=== PATIENT | female | born 1980 | race Caucasian/White ===

== ENCOUNTER 2020-08-21 06:24 | Emergency (ER) | payer MEDICAID, SELFPAY ==
[2020-08-21 06:25] VITALS: BP 121/99; PULSE 124; RESP 18; TEMP 36.8; O2SAT 100; BMI 38.8
[2020-08-21 06:28] VITALS: BP 121/93; PULSE 106; RESP 18; TEMP 36.8; O2SAT 100
--- NOTE | 2020-08-21 06:54 | ED.DCSUM_ITS ---
History of Present Illness Chief Complaint: Complaint Informant: Patient Narrative: 39-year-old female presents with lower abdominal pain and urinary frequency. She tells me she went to bed last night feeling fine. She woke during the night with some lower abdominal discomfort and felt like she needed to urinate. She now notes urinary frequency and after each urination gets spasms. No radiation to the back. Normal bowel movements. No fevers nausea vomiting or diarrhea. No rashes. Past Medical History - Allergies and Home Meds Allergies/Adverse Reactions: Allergies mustard Allergy (Verified 08/21/20 06:30) Angioedema oxycodone Allergy (Verified 08/21/20 06:30) Hives Primary Care Physician: [facility] Doctor,Out of [Primary Care Provider] - Past Medical History: - - Chiari malformation. benign pituitary tumor. Remote kidney stone history Surgical History: - - Chiari malformation decompression Smoking Status: Current every day smoker Drugs: None Review of Systems General: Denies: Chills, Fever, Sweats Eyes: Denies: Visual changes - bilaterally, Diplopia ENT: Denies: Rhinorrhea, Sore throat Cardiovascular: Denies: Chest pain, Palpitations Respiratory: Denies: Dyspnea, Cough, Dyspnea on exertion Gastrointestinal: Reports: Abdominal pain. Denies: Nausea, Vomiting, Diarrhea, Melena, Hematochezia Genitourinary: Reports: Frequency. Denies: Dysuria, Hematuria Musculoskeletal: Denies: Back pain, Extremity Pain Skin: Denies: Rash, Wounds Neurological: Denies: Headache, Weakness, Numbness Physical Exam Vital Signs/Narrative: Vital Signs Temp Pulse Resp BP Pulse Ox 08/21/20 06:28 98.2 F 106 H 18 121/93 H 100 08/21/20 06:25 98.2 F 124 H 18 121/99 H 100 Inital Vital Signs reviewed: Yes General: Well nourished, Well developed, Obese, No Acute Distress Head: Normocephalic, Atraumatic Eyes: Perrl, EOMI ENT: Moist mucous membranes, No rhinorrhea Neck: Supple, Nontender Cardiovascular: Regular rate, Regular rhythm, No murmurs Respiratory: No distress, CTA bilaterally, Chest nontender Abdomen: Soft, Nondistended, Normal bowel sounds, Tender - Tender to palpation of the suprapubic region. Negative for: Guarding, Rebound tenderness Back: Nontender, Normal Inspection Extremities: Nontender, No edema Skin: Normal color, No rash Neurological: Alert, Oriented x3, Cranial nerves II-XII grossly intact, Normal Strength, Normal Sensation Psychological: Normal affect, Normal Mood Diagnostic/Tx/Re-eval Laboratory Last Values Urine Color Yellow (Yellow) 08/21/20 06:45 Urine Clarity Sl. Cloudy (Clear) 08/21/20 06:45 Urine pH 6.5 (5.0 - 8.0) 08/21/20 06:45 Ur Specific [place] 1.010 (1.002-1.030) 08/21/20 06:45 Urine Protein 15 mg/dl (Negative) H 08/21/20 06:45 Urine Glucose (UA) Normal mg/dl (Normal) 08/21/20 06:45 Urine Ketones Negative mg/dl (Negative) 08/21/20 06:45 Urine Occult Blood 150 /ul (Negative) H 08/21/20 06:45 Urine Nitrite Negative (Negative) 08/21/20 06:45 Urine Bilirubin Negative mg/dL (Negative) 08/21/20 06:45 Urine Urobilinogen Normal mg/dl (Normal) 08/21/20 06:45 Ur Leukocyte Esterase 500 /ul (Negative) H 08/21/20 06:45 Urine RBC 0-5 SEEN /hpf (0-5) 08/21/20 06:45 Urine WBC 25-50 SEEN /hpf (0-5) 08/21/20 06:45 Ur Squamous Epith Cells 0-5 SEEN /hpf (5-10) 08/21/20 06:45 Urine Bacteria 1+ /hpf (None Seen) 08/21/20 06:45 Urine Mucus 0 SEEN /hpf (<or=2+) 08/21/20 06:45 Urine Test Negative Negative 08/21/20 06:45 - Medical Decision Making Urinalysis demonstrates 25-50 white cells 1+ bacteria and positive leukocyte esterase. This will be sent for culture. Patient received Pyridium here in the department. I will write for that at home as well as Macrobid. Follow-up with primary care return if worsening or concerns ED Disposition - Plan for ED Patient: Disposition: Home or Assisted Living Diagnosis: Acute cystitis Instructions: ED Bladder Infection, Female (Adult) Prescriptions: Nitrofurantoin Macrocrystals [Macrobid] 100 mg PO Q12 #10 capsule Prescription Printed Phenazopyridine HCl [Pyridium] 200 mg PO TID #9 tablet Prescription Printed Referrals: [facility] Doctor,Out of [Primary Care Provider] - As Needed
[2020-08-21] MEDS: Phenazopyridine 95 MG Tablet 190 MG PO (07:09)
[2020-08-21 07:16] LABS: Mucous, Urine 0 SEEN /hpf (<or=2+)
[2020-08-21 07:20] LABS: Color, Urine Yellow (Yellow); Glucose, Dipstick Normal (Normal); Ketone-Dipstick Negative (Negative); Leukocyte Esterase-Dipstick 500 /ul (Negative); Nitrite-Dipstick Negative (Negative); Occult Blood-Urine 150 /ul (Negative); Protein-Dipstick 15 mg/dl (Negative); Urine Bilirubin Dipstick Negative (Negative); Urine Clarity Sl. Cloudy (Clear); Urine Urobilinogen Normal (Normal); Urine pH 6.5 (5.0 - 8.0)
[2020-08-21 07:21] LABS: Internal QC Validated? YES +Cl - CLEAR BKGD; Pregnancy, Urine Negative Negative
[2020-08-21 07:25] LABS: Bacteria 1+ /hpf (None Seen); Red Blood Cells-Urine 0-5 SEEN /hpf (0-5); Squamous Epithelial Cells - UA 0-5 SEEN /hpf (5-10); White Blood Cells 25-50 SEEN /hpf (0-5)
[2020-08-21 07:50] VITALS: BP 128/86; PULSE 105; RESP 17; O2SAT 96
== END 2020-08-21 07:50 | disposition home or self-care (01) ==
LOC: ED 07:34
PROVIDERS: Emergency Provider Emergency Medicine
DX: N30.00 Acute cystitis without hematuria (principal); E66.9 Obesity, unspecified; F17.200 Nicotine dependence, unspecified, uncomplicated; Z87.442 Personal history of urinary calculi; Z88.5 Allergy status to narcotic agent
CPT/HCPCS: 81001; 81025; 87086; 87088; 87186; 99283

== ENCOUNTER 2020-12-24 18:54 | Emergency (ER) | payer MEDICAID, SELFPAY ==
[2020-12-24] VITALS (7 sets, daily range): BP systolic 132–153; BP diastolic 81–116; PULSE 93–121; RESP 18–30; TEMP 37.1; O2SAT 96–99; BMI 38.8
--- NOTE | 2020-12-24 19:10 | EDS_ITS ---
HPI History of Present Illness Chief Complaint: Chest Pain Detail of Chief Complaint: Chest pain that started 4 hours ago Informant: patient Onset/Context/Timing Quality: Positive for Tightness Narrative Narrative: Patient presents to the emergency department complaint chest pain that started about 4 hours ago. She describes sudden onset of symptoms. She went to work thinking it might just be anxiety or a pulled muscle but the pain continued. She describes a squeezing and throbbing in the left chest. Pain worse with deep breath and certain movements. She is never had pain like this before. She denies recent illness. She denies fever or cough. No family history of heart disease. No history of PE or DVT. PFSH PFSH Home Medications nitrofurantoin monohyd/m-cryst 100 mg PO Q12 #10 capsule 08/21/20 [Rx Last Taken Unknown] phenazopyridine 200 mg PO TID #9 tablet 08/21/20 [Rx Last Taken Unknown] apixaban [Eliquis] 10 mg PO BID #28 tab 12/24/20 [Rx Last Taken Unknown] hydrocodone-acetaminophen 1 tab PO Q4H PRN PRN 2 Days #10 tablet 12/24/20 [Rx Last Taken Unknown] Allergy/AdvReac Type Severity Reaction Status Date / Time mustard Allergy Angioedema Verified 12/24/20 18:55 oxycodone Allergy Hives Verified 12/24/20 18:55 Surgical History (Updated 12/24/20 @ 19:42 by Belén Ley) H/O: hysterectomy History of cranial surgery Social History Smoking Status: Current every day smoker tobacco type: cigarettes ROS ROS ED Review of Systems ROS Unobtainable: other Constitutional Constitutional ED: Reports lethargy; Denies chills, fever(s), sweats or weight loss Eyes Eyes: Denies blurry vision, change in vision or diplopia ENT ENT ED: Denies rhinorrhea or sore throat Cardiovascular Cardiovascular: Reports chest pain and racing heartbeat; Denies orthopnea Respiratory/Chest Respiratory/Chest: Reports dyspnea and dyspnea on exertion; Denies cough, orthopnea or sputum Gastrointestinal Gastrointestinal: Denies abdominal pain, diarrhea, nausea or vomiting Genitourinary Genitourinary ED: Denies dysuria, hematuria or urinary frequency Musculoskeletal Musculoskeletal: Denies arthralgias, back pain, myalgias or neck pain Integumentary Denies abscess, Abrasions or rash Neurologic Neurologic: Denies headache(s) or weakness Psychiatric Psychiatric: Denies anxiety, depression or suicidal thoughts Endocrine Endocrinology: Denies polydipsia, polyphagia or polyuria Hematologic/Lymphatic Hematologic/Lymphatic: Denies easy bleeding, easy bruising or lymphadenopathy Allergic/Immunologic Allergic/Immunologic ED: Denies mouth swelling, tongue swelling or urticaria EXAM Physical Exam Const Vital Signs: 12/24/20 18:55 12/24/20 19:29 12/24/20 19:41 Temperature 98.8 F Temperature Source Temporal Pulse Rate 121 H 107 H Respiratory Rate 30 H 18 Blood Pressure 153/116 H 132/81 H Blood Pressure Mean 128 98 Pulse Ox 98 96 96 Oxygen Delivery Method Room Air Room Air Room Air 12/24/20 21:02 Temperature Temperature Source Pulse Rate 93 Respiratory Rate 18 Blood Pressure 132/92 H Blood Pressure Mean 105 Pulse Ox 97 Oxygen Delivery Method Room Air Positive well nourished and well developed General Appearance ED: well developed and NAD HEENT Reports TM's clear and moist mucous membranes normocephalic and atraumatic; Negative for trauma or tenderness Tympanic Membrane ED: Yes TM's clear Eyes PERRL and EOMs intact bilaterally General Eye ED: Negative for pale conjunctiva or scleral icterus Neck no lymphadenopathy, supple and no JVD General: Negative for tenderness Chest Wall inspection of chest normal and palpation of chest normal Chest: Negative for tenderness Resp normal respiratory effort and clear to auscultation bilaterally Effort and Inspection: Negative for respiratory distress or pain with movement Auscultation: Negative for rhonchi, wheezes or diminished lung sounds Cardio regular rate, regular rhythm, S1 normal heart sound, S2 normal heart sound and no murmurs Peripheral Pulses: pulses 2+ throughout GI normal to inspection, nondistended, normoactive bowel sounds, soft to palpation, non-tender, non-distended and no masses Back/Spine no CVA tenderness and no thoracic nor lumbar tenderness Extremity normal to inspection General Extremety ED: Negative for edema General Extremity: Negative for edema Neuro oriented x3, CN's II-XII intact bilaterally, no sensory deficits noted and gait normal Sensorium / Orientation: awake, alert, oriented to person, oriented to place and oriented to time Motor Exam: strength 5/5 throughout and strength abnormal Psych mental status grossly normal Skin no rashes or lesions noted and no wounds MDM MDM MDM Narrative Medical decision making narrative: I do not feel patient is having acute coronary syndrome. Etiology of her chest pain is unclear. Radiology did call with results of CTA and stated that this was a poor study and could lead to false positive findings for PE. Radiologist felt there could be small peripheral bilateral PEs. Patient was advised of these findings and at this point recommended starting Eliquis for the next week and I will send off clotting profile. I feel patient can be discharged home. She will need a repeat CTA chest to reevaluate. Patient will follow up with her primary care physician this week to have a repeat CTA. Lab Data Attestation: I reviewed the patient's lab results. Labs: Laboratory Results - last 24 hr 12/24/20 12/24/20 12/24/20 19:25 19:25 19:25 WBC 9.8 RBC 4.22 Hgb 12.8 Hct 37.9 MCV 89.8 MCH 30.3 MCHC 33.8 RDW Std Deviation 42.0 RDW Coeff of Eliazar 12.8 Plt Count 226 MPV 12.0 Immature Gran % (Auto) 0.500 Neut % (Auto) 44.1 L Lymph % (Auto) 42.4 H [place] % (Auto) 7.1 Eos % (Auto) 4.9 Baso % (Auto) 1.0 Absolute Neuts (auto) 4.3 Absolute Lymphs (auto) 4.16 Nucleated RBC % 0 D-Dimer Quant (PE/DVT) 0.75 H* Sodium 140 Potassium 3.4 L Chloride 109 H Carbon Dioxide 24.0 Anion Gap 7 BUN 10 Creatinine 0.82 Estim Creat Clear Calc 87.80 Est GFR (MDRD) Af Amer 99 Est GFR (MDRD) Non-Af 82 BUN/Creatinine Ratio 12.2 Glucose 127 H Calcium 8.6 Troponin I High Sens 5 Radiography Chest X-Ray - ED: 1 View Diagnostic Testing: Radiology Impression Chest X-Ray 12/24/20 19:45 IMPRESSION: No radiographic evidence of acute cardiopulmonary disease. Electronically Signed: Eze Valentin DO at 20:44 EDT Tel , Service support , 1 view chest x-ray obtained interpreted by myself as no acute disease process. EKG Initial EKG: Attestation: I personally reviewed and interpreted this EKG as follows: Comments: Sinus rhythm with a ventricular rate of 102 bpm with no acute ST segment changes. Discharge Plan Triage Chief Complaint: Chest Pain ED Provider: Reji Acevedo Dx/Rx/DC Orders Clinical Impression: Chest pain, Pulmonary embolism Instructions: Embolism Pulmonary Dc, ED Chest Pain, Uncertain Cause Prescriptions: New hydrocodone-acetaminophen [hydrocodone-acetaminophen] 1 TABLET tablet 1 tab PO Q4H PRN PRN (Reason: Pain) 2 Days Qty: 10 RF: 0 Eliquis 5 mg tablet 10 mg PO BID Qty: 28 RF: 0 No Action phenazopyridine 200 MG tablet 200 mg PO TID Qty: 9 RF: 0 nitrofurantoin monohyd/m-cryst 100 MG capsule 100 mg PO Q12 Qty: 10 RF: 0 Primary Care Provider: Care Physician,No Primary Referrals: Care Physician,No Primary [Primary Care Provider] - Activity Restrictions/Additional Instructions: Follow-up with your family doctor to have a repeat CAT scan of the chest to rule out blood clot within the next 2 to 3 days. Disposition Disposition: Home, Self Care
--- NOTE | 2020-12-24 19:10 | EKG12_ITS ---
Test Reason : CP,SOB Blood Pressure : / mmHG Vent. Rate : 102 BPM Atrial Rate : 102 BPM P-R Int : 134 ms QRS Dur : 092 ms QT Int : 350 ms P-R-T Axes : 057 013 050 degrees QTc Int : 456 ms Sinus tachycardia Otherwise normal ECG Confirmed by TIFFANY REYNOLDS, WALDO ([id number]), loan expeditor BETSEY KRUGER ([id number]) on 12/28/2020 10:55:44 AM Referred By: INO Confirmed By:WALDO ALLEN MD
[2020-12-24] MEDS: LORazepam 2 MG/ML Syringe 1 MG IV (19:36)
[2020-12-24] MEDS: 0.9% Normal Saline 1,000 ML 150 ML IV (19:36)
[2020-12-24] MEDS: Morphine 4 MG/ML Syringe IV (19:37)
[2020-12-24] MEDS: Aspirin 81 MG TAB.CHEW 324 MG PO (19:38)
[2020-12-24 19:45] LABS: Absolute Lymphocyte Count 4.16 X10^3/uL (0.83-4.51); Absolute Neutrophil Count 4.3 X10^3/uL (2.0-7.7); Eosinophil# 0.48 X10^3/uL; Eosinophils% 4.9 % (0-5); Hematocrit 37.9 % (37-47); Hemoglobin 12.8 g/dL (12.0-15.0); Lymphocyte # 4.16 X10^3/ul (0.83-4.51); Lymphocyte % 42.4 % (19-41); Mean Corp Hgb Conc 33.8 g/dL (32-36); Mean Corpuscular Hgb 30.3 pg (27.0-32.0); Mean Corpuscular Volume 89.8 fL (81-99); Monocyte% 7.1 % (0-10); NRBC Flagged by Analyzer 0 % (0-5); Neutrophil # 4.33 X10^3/uL (2.7-7.7); Neutrophil % 44.1 % (47-70); Platelet Count 226 K/mm3 (150-450); RBC Distribution Width CV 12.8 % (11.6-14.6); Red Blood Count 4.22 M/mm3 (4.2-5.4); White Blood Count 9.8 K/mm3 (4.4-11.0)
--- NOTE | 2020-12-24 19:45 | RAD_ITS ---
INDICATION: chest pain EXAMINATION/TECHNIQUE: X-RAY - XR Chest 1 View COMPARISON: None. FINDINGS: LINES/DEVICES: None. LUNGS: No consolidation, edema or effusion. No pneumothorax. MEDIASTINUM AND CARDIOVASCULAR STRUCTURES: Cardiac silhouette not enlarged. Central airways and mediastinal contour are unremarkable. BONES AND SOFT TISSUES: Unremarkable. RAD/Chest 1 View (Portable) IMPRESSION: No radiographic evidence of acute cardiopulmonary disease. Electronically Signed: Eze Valentin DO at 20:44 EDT Tel , Service support ,
[2020-12-24 20:02] LABS: Anion Gap 7 (5-15); BUN 10 mg/dL (7-18); BUN/Creat Ratio 12.2 RATIO (10-20); Calcium,Total 8.6 mg/dL (8.5-10.1); Chloride 109 mmol/L (98-107); Creatinine, Serum 0.82 mg/dL (0.55-1.02); EST Glomerular Filtration Rate 82 mL/min (>60); Est Glom Filt Rate - Afr Amer 99 mL/min (>60); Glucose 127 mg/dL (74-106); Potassium 3.4 mmol/L (3.5-5.1); Sodium Level 140 mmol/L (136-145); Troponin-I HS 5 pg/mL (3.0-54.0)
[2020-12-24 20:11] LABS: D-Dimer Quantitative (DVT/PE) 0.75 FEU/ug/m (0.27-0.49)
--- NOTE | 2020-12-24 20:44 | CT_ITS ---
We are attempting to reach an attending provider to discuss findings. An addendum with communication details will be sent when the communication is complete. STUDY: CTA CHEST REASON FOR EXAM: Female, 40 years old. chest pain RADIATION DOSAGE (If Supplied By Facility): CTDIvol = ( 19.77 ) mGy, DLP = ( 514.99 ) mGycm TECHNIQUE: The examination was performed with the intravenous administration of IV 100mL Isovue-370. Post-processing of the angiographic images was performed, with multiplanar reformation and 3D reconstruction. Individualized dose optimization techniques were used for this CT. COMPARISON: None. FINDINGS: Less than 200 [place] units contrast density within the proximal right left pulmonary arteries; suboptimal exam. Additionally there is motion artifact in the lung bases. No definite pulmonary artery embolism as exemplified however assessment is limited. Large right or left main pulmonary artery embolism is confidently excluded. There is no evidence of right heart strain. Normal thoracic aorta and visualized great vessels. There is no demonstrated aortic dissection. Normal heart and pericardium. Normal mediastinum. Normal hilar regions. Normal visualized trachea and bronchi. The lungs are well expanded. Normal pulmonary parenchyma. Normal pleura. Normal chest wall structures. No significant distal cervical spine degenerative endplate sclerotic changes. Normal visualized upper abdomen. CT/CTA Chest W/WO Contrast IMPRESSION: 1. Significantly limited exam. Right or left main pulmonary artery pulmonary embolism is confidently excluded. More distal pulmonary emboli cannot be confidently excluded. 2. No pulmonary findings. Electronically Signed: Eze Valentin DO at 23:14 EDT Tel , Service support ,
[2020-12-24] MEDS: APIXABAN 5 MG TABLET 10 MG PO (23:03)
== END 2020-12-24 23:10 | disposition home or self-care (01) ==
PROVIDERS: Emergency Provider Emergency Medicine
DX: R07.9 Chest pain, unspecified (principal); I26.99 Other pulmonary embolism without acute cor pulmonale; F17.210 Nicotine dependence, cigarettes, uncomplicated
CPT/HCPCS: 71045; 71275; 80048; 84484; 85025; 85379; 93005; 96361; 96374; 96375; 99284; J7030; Q9967; A4216

== ENCOUNTER 2021-03-06 08:32 | Observation (INO) | payer MEDICAID, SELFPAY ==
[2021-03-06] VITALS (16 sets, daily range): BP systolic 117–144; BP diastolic 63–99; PULSE 63–91; RESP 12–20; TEMP 36.6–36.8; O2SAT 95–100; BMI 41.3; BMI 38.7
--- NOTE | 2021-03-06 08:34 | RAD_ITS ---
STUDY: X-RAY CHEST REASON FOR EXAM: Female, 40 years old. Neuro deficit, acute, stroke suspected TECHNIQUE: Single AP portable view of the chest. COMPARISON: Comparison is made with prior study 12/24/2020 FINDINGS: EKG electrodes are seen. The lungs are clear and expanded. There is no demonstrated pleural abnormality. Normal size heart. Normal mediastinum and darren. Normal visualized pulmonary arteries. Normal visualized aortic arch and descending thoracic aorta. There are degenerative changes of the visualized thoracic spine. Normal visualized ribs, clavicles, and shoulders. There is no demonstrated abnormality of the visualized soft tissue structures of the upper abdomen. RAD/Chest 1 View IMPRESSION: Normal x-ray examination of the chest. Electronically Signed: Marquis Renee MD at 9:55 EDT , Service support ,
--- NOTE | 2021-03-06 08:34 | CT_ITS ---
STUDY: CT HEAD STROKE PROTOCOL W/O CONTRAST INJECTION REASON FOR EXAM: Female, 40 years old. Neuro deficit, acute, stroke suspected RADIATION DOSAGE (If Supplied By Facility): CTDIvol = ( 47.06 ) mGy, DLP = ( 872.68 ) mGycm TECHNIQUE: Transaxial CT imaging of the brain was performed without administration of intravenous contrast material. Individualized dose optimization techniques were used for this CT. COMPARISON: No relevant priors. FINDINGS: Normal soft tissue structures. Normal calvarium. Normal size ventricles and extra-axial spaces for the patient''s age. Normal white matter tracts of the cerebral hemispheres. Normal basal ganglia and thalami. Normal brainstem. Normal cerebellum. There is no intracranial hemorrhage. There are no findings of an acute ischemic infarction. Mucosal thickening of the ethmoid sinuses bilaterally. CT/STROKE Brain/Head without Cont IMPRESSION: Normal unenhanced CT scan of the brain. Mucosal thickening of the ethmoid sinuses. N.B. : The above Results were Read Back by Marquis Renee MD to Reji Acevedo and understanding confirmed on 03/06/2021 08:52:00 (ET). Electronically Signed: Marquis Renee MD at 8:53 EDT , Service support ,
--- NOTE | 2021-03-06 08:34 | EKG12_ITS ---
Test Reason : STROKE Blood Pressure : / mmHG Vent. Rate : 074 BPM Atrial Rate : 074 BPM P-R Int : 000 ms QRS Dur : 092 ms QT Int : 398 ms P-R-T Axes : 000 025 024 degrees QTc Int : 441 ms Sinus vs ectopic atrial rhythm Confirmed by LISA REYNOLDS, TONJA ([id number]), video tape editor BETSEY KRUGER ([id number]) on 03/08/2021 8:56:00 AM Referred By: THERESA Confirmed By:TONJA GONZALEZ MD
--- NOTE | 2021-03-06 08:35 | CT_ITS ---
STUDY: CTA HEAD AND NECK WITH CONTRAST REASON FOR EXAM: Female, 40 years old. Neuro deficit, acute, stroke suspected RADIATION DOSAGE (If Supplied By Facility): CTDIvol = ( 33.6 ) mGy, DLP = ( 1669.43 ) mGycm TECHNIQUE: CT angiography was performed with a multi-detector CT scanner. Data acquisition was obtained from the skull base through the vertex following intravenous administration of IV 100ML ISOVUE 370. MIP images were reconstructed from the axial data set. Post-processing of the angiographic images was performed, with multiplanar reformation and 3D reconstruction. Individualized dose optimization techniques were used for this CT. COMPARISON: No relevant priors. FINDINGS: Normal bilateral petrous carotid arteries. Normal right cavernous carotid artery with a normal supraclinoid bifurcation. Normal left cavernous carotid artery with a normal supraclinoid bifurcation. Normal right A1 segments of the anterior cerebral artery. Normal left A1 segments of the anterior cerebral artery. Normal intact anterior communicating artery (ACOM). Normal bilateral A2 segments of the anterior cerebral arteries. Normal right M1 and M2 segments of the middle cerebral arteries, with a normal M1 bifurcation. Normal left M1 and M2 segments of the middle cerebral arteries, with a normal M1 bifurcation. 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 There is a persistent origin of the left posterior cerebral artery with absence of the posterior communicating artery (PCOM). Normal bilateral vertebral arteries. Normal basilar artery with a normal basilar bifurcation. The visualized bilateral superior cerebellar (SCA) arteries are normal. Normal bilateral P1, P2 and visualized P3 segments of the posterior cerebral arteries. There is no demonstrated aneurysm of the [place]. Mucosal thickening of the ethmoid sinuses. AORTIC ARCH: There is atherosclerotic calcific plaque formation of the aortic arch and great vessels arising from the aortic arch, without a hemodynamically significant stenosis. There is a bovine origin of the great vessels with a common origin of the brachiocephalic and left common carotid artery. Normal origin of the left subclavian artery. Mild enlargement of the thyroid gland more prominent on the left side. RIGHT CAROTID ARTERIES: Normal right common carotid artery (CCA). Normal right common carotid bulb. Normal origin of the right internal carotid (ICA) artery without a hemodynamically significant stenosis. Normal visualized cervical portion of the right internal carotid artery. Normal origin of the right external carotid artery (ECA). LEFT CAROTID ARTERIES: Normal left common carotid artery (CCA). Normal left common carotid bulb. Normal origin of the left internal carotid (ICA) artery without a hemodynamically significant stenosis. Normal visualized cervical portion of the left internal carotid artery. Normal origin of the left external carotid artery (ECA). VERTEBRAL ARTERIES: Normal bilateral vertebral arteries. CT/STROKE CTA Head AND Neck W/Con IMPRESSION: Normal CTA Head and neck with contrast. N.B. : The above Results were Read Back by Marquis Renee MD to Reji Acevedo and understanding confirmed on 03/06/2021 09:37:16 (ET). Electronically Signed: Marquis Renee MD at 9:38 EDT , Service support ,
--- NOTE | 2021-03-06 08:36 | ED.VIS.STROK ---
HPI History of Present Illness Chief Complaint: Neuro S/Sx Detail of Chief Complaint: Left-sided weakness and headache Informant: patient and EMS Narrative Narrative: Patient presents to the ER via EMS from home. Approximately half an hour ago she had gotten up to use the restroom and when she came back apparently per family members was complaining of a headache and had a hard time moving her left side. EMS was called. Patient states the headache came on suddenly but she is a very poor historian as she is sobbing. No medical history known per EMS. Patient denies any falls or head injuries. No history of brain aneurysms. Prior similar symptoms: No PFSH PFS Medical History (Updated 03/06/21 @ 09:[address] Reji Acevedo, DO) Chiari malformation Hypothyroid Home Medications NK 03/06/21 [History Last Taken Unknown] Allergy/AdvReac Type Severity Reaction Status Date / Time mustard Allergy Angioedema Verified 03/06/21 08:33 oxycodone Allergy Hives Verified 03/06/21 08:33 Surgical History (Updated 12/24/20 @ 19:42 by Belén Ley) H/O: hysterectomy History of cranial surgery Social History Smoking Status: Current every day smoker tobacco type: cigarettes ROS ROS ED Constitutional Constitutional ED: Reports systems reviewed and no addt'l complaints, except as documented; Denies body ache(s), change in weight or chills Eyes Eyes: Denies acute decrease in peripheral vision, change in vision, double vision or loss of vision ENT ENT ED: Reports none; Denies ear pain, lip swelling, loss taste/smell, neck pain, otalgia or sore throat Cardiovascular Cardiovascular: Reports none; Denies abdominal pain, chest pain with activity, leg edema, lightheadedness, palpitations, rapid heart rate or syncope Respiratory/Chest Respiratory/Chest: Reports none; Denies change in mental status, dry cough, dyspnea, hemoptysis, shortness of breath at rest or shortness of breath with exertion Gastrointestinal Gastrointestinal: Reports none; Denies abdominal pain, change in stool character, diarrhea, hematemesis, hematochezia, melena, rectal bleeding or vomiting Genitourinary Genitourinary ED: Reports none; Denies abdominal discomfort, anuria, dysuria, genital pain or polyuria Musculoskeletal Musculoskeletal: Reports none; Denies arthralgias, back pain, difficulty walking, extremity pain, muscle weakness or myalgias Integumentary Reports none; Denies abscess or rash Neurologic Neurologic: Reports none, headache(s) and other Details: Left-sided weakness ; Denies abnormal gait, confusion, focal weakness, frequent falls, loss of vision, numbness, paresthesias, radicular pain, vertigo or weakness Psychiatric Psychiatric: Reports systems reviewed and no addt'l complaints, except as documented and none; Denies behavioral changes, confusion, difficulty concentrating, hallucinations, suicidal ideation, tactile hallucinations or visual hallucinations Endocrine Endocrinology: Denies none, cold intolerance, excessive sweating, fatigue or heat intolerance Hematologic/Lymphatic Hematologic/Lymphatic: Reports none; Denies anemia, easy bleeding or easy bruising Allergic/Immunologic Allergic/Immunologic ED: Denies as per HPI, none, lip swelling, mouth swelling, throat swelling, tongue swelling or hives EXAM Physical Exam Const Vital Signs: 03/06/21 08:46 03/06/21 08:47 03/06/21 08:50 Temperature 97.8 F Temperature Source Temporal Pulse Rate 86 83 Respiratory Rate 16 14 Blood Pressure 144/86 H Blood Pressure Mean 105 Pulse Ox 100 99 Oxygen Delivery Method Room Air Room Air Room Air 03/06/21 08:58 03/06/21 09:01 03/06/21 09:09 Temperature Temperature Source Pulse Rate 89 87 Respiratory Rate 20 H 20 H Blood Pressure 132/99 H 144/80 H 144/83 H Blood Pressure Mean 110 101 Pulse Ox 96 98 Oxygen Delivery Method Room Air Room Air 03/06/21 09:36 Temperature Temperature Source Pulse Rate 83 Respiratory Rate 12 Blood Pressure 144/80 H Blood Pressure Mean 101 Pulse Ox 97 Oxygen Delivery Method Room Air Positive well nourished and well developed General Appearance ED: well developed and NAD HEENT Reports TM's clear and moist mucous membranes normocephalic and atraumatic; Negative for trauma or tenderness Tympanic Membrane ED: Yes TM's clear Eyes PERRL and EOMs intact bilaterally General Eye ED: Negative for pale conjunctiva or scleral icterus Neck no lymphadenopathy, supple and no JVD General: Negative for tenderness Chest Wall inspection of chest normal and palpation of chest normal Chest: Negative for tenderness Resp normal respiratory effort and clear to auscultation bilaterally Effort and Inspection: Negative for respiratory distress or pain with movement Auscultation: Negative for rhonchi, wheezes or diminished lung sounds Cardio regular rate, regular rhythm, S1 normal heart sound, S2 normal heart sound and no murmurs Peripheral Pulses: pulses 2+ throughout GI normal to inspection, nondistended, normoactive bowel sounds, soft to palpation, non-tender, non-distended and no masses Back/Spine no CVA tenderness and no thoracic nor lumbar tenderness Extremity normal to inspection General Extremety ED: Negative for edema General Extremity: Negative for edema Neuro oriented x3, CN's II-XII intact bilaterally, no sensory deficits noted and gait normal Neuro Narrative: Patient have left upper arm and left leg weakness. NIH stroke scale was a 7 for some mild dysarthria and left-sided weakness. Sensorium / Orientation: awake, alert, oriented to person, oriented to place and oriented to time Motor Exam: strength abnormal Psych mental status grossly normal Skin no rashes or lesions noted and no wounds STROKE Vital Signs/Narrative: Vital Signs Temp Pulse Resp BP Pulse Ox 03/06/21 09:36 83 12 144/80 H 97 03/06/21 09:09 144/83 H 03/06/21 09:01 87 20 H 144/80 H 98 03/06/21 08:58 89 20 H 132/99 H 96 03/06/21 08:47 97.8 F 83 14 144/86 H 99 03/06/21 08:46 86 16 100 MDM MDM MDM Narrative Medical decision making narrative: IV line established on arrival. Patient was taken directly to CT scanner which was negative for intracranial hemorrhage. Patient was evaluated by [facility] teleneurology. After returning from CT scanner patient now moving her left arm. Boyfriend and patient now stating that patient's headache started around midnight last night. It was felt patient did not meet thrombolytic criteria. I initially had ordered TPA after the CT scan was noted to be negative and patient was felt to be within the window for TPA. TPA was then canceled. Work-up was unremarkable in the emergency department including normal CTA of head and neck. Patient was medicated with Reglan, Benadryl, and Toradol and her headache improved significantly. Patient symptoms currently mostly resolved and she is moving her left side without difficulty. Case will be discussed with hospitalist evaluate patient for admission. It is unclear if patient had a TIA versus complex migraine potentially. Lab Data Attestation: I reviewed the patient's lab results. Labs: Laboratory Results - last 24 hr 03/06/21 03/06/21 03/06/21 08:50 08:50 08:50 WBC 11.5 H RBC 4.34 Hgb 13.4 Hct 39.4 MCV 90.8 MCH 30.9 MCHC 34.0 RDW Std Deviation 42.4 RDW Coeff of Eliazar 12.8 Plt Count 200 MPV 11.4 Immature Gran % (Auto) 0.300 Neut % (Auto) 47.6 Lymph % (Auto) 41.0 [place] % (Auto) 6.5 Eos % (Auto) 3.7 Baso % (Auto) 0.9 Absolute Neuts (auto) 5.5 Absolute Lymphs (auto) 4.70 H Nucleated RBC % 0 PT 12.7 INR 1.0 APTT 30.4 Sodium 136 Potassium 3.8 Chloride 110 H Carbon Dioxide 23.0 Anion Gap 3 L BUN 12 Creatinine 0.75 Estim Creat Clear Calc 92.41 Est GFR (MDRD) Af Amer 110 Est GFR (MDRD) Non-Af 91 BUN/Creatinine Ratio 16.0 Glucose 119 H Calcium 8.2 L Troponin I High Sens 5 Radiography Diagnostic Testing: Clinical Impression(s) from Imaging Studies Brain CT 03/06/21 08:34 IMPRESSION: Normal unenhanced CT scan of the brain. Mucosal thickening of the ethmoid sinuses. N.B. : The above Results were Read Back by Marquis Renee MD to Reji Acevedo and understanding confirmed on 03/06/2021 08:52:00 (ET). Electronically Signed: Marquis Renee MD at 8:53 EDT , Service support , ADDENDUM: 03/06/21 0900 IMPRESSION: Normal unenhanced CT scan of the brain. Mucosal thickening of the ethmoid sinuses. N.B. : The above Results were Read Back by Marquis Renee MD to Reji Acevedo and understanding confirmed on 03/06/2021 08:52:00 (ET). Electronically Signed: Marquis Renee MD at 8:53 EDT , Service support , Chest X-Ray 03/06/21 08:34 IMPRESSION: Normal x-ray examination of the chest. Electronically Signed: Marquis Renee MD at 9:55 EDT , Service support , Head/Neck CTA 03/06/21 08:35 IMPRESSION: Normal CTA Head and neck with contrast. N.B. : The above Results were Read Back by Marquis Renee MD to Reji Acevedo and understanding confirmed on 03/06/2021 09:37:16 (ET). Electronically Signed: Marquis Renee MD at 9:38 EDT , Service support , ADDENDUM: 03/06/21 0945 IMPRESSION: Normal CTA Head and neck with contrast. N.B. : The above Results were Read Back by Marquis Renee MD to Reji Acevedo and understanding confirmed on 03/06/2021 09:37:16 (ET). Electronically Signed: Marquis Renee MD at 9:38 EDT , Service support , Discharge Plan Dx/Rx/DC Orders Clinical Impression: Cephalalgia, Brain TIA Disposition Disposition: Acute Care [facility]
[2021-03-06 08:59] LABS: Absolute Neutrophil Count 5.5 X10^3/uL (2.0-7.7); Basophil% 0.9 % (0-1); Eosinophil# 0.42 X10^3/uL; Eosinophils% 3.7 % (0-5); Hematocrit 39.4 % (37-47); Hemoglobin 13.4 g/dL (12.0-15.0); Mean Corpuscular Hgb 30.9 pg (27.0-32.0); Mean Corpuscular Volume 90.8 fL (81-99); Mean Platelet Vol. 11.4 fl (6.2-12.0); Monocyte# 0.75 X10^3/uL; Monocyte% 6.5 % (0-10); NRBC Flagged by Analyzer 0 % (0-5); Neutrophil # 5.46 X10^3/uL (2.7-7.7); Neutrophil % 47.6 % (47-70); Platelet Count 200 K/mm3 (150-450); RBC Distribution Width CV 12.8 % (11.6-14.6); RBC Distribution Width SD 42.4 fl (35.1-43.9); Red Blood Count 4.34 M/mm3 (4.2-5.4); White Blood Count 11.5 K/mm3 (4.4-11.0)
[2021-03-06 09:06] LABS: Prothrombin Time (Protime)PT. 12.7 SECONDS (11.7-14.9)
[2021-03-06 09:07] LABS: Partial Thromboplast Time 30.4 Seconds (24.1-36.2)
[2021-03-06 09:16] LABS: Anion Gap 3 (5-15); BUN 12 mg/dL (7-18); Calcium,Total 8.2 mg/dL (8.5-10.1); Chloride 110 mmol/L (98-107); Creatinine, Serum 0.75 mg/dL (0.55-1.02); EST Glomerular Filtration Rate 91 mL/min (>60); Est Glom Filt Rate - Afr Amer 110 mL/min (>60); Estimated Creatinine Clearance 92.41 ml/min; Glucose 119 mg/dL (74-106); Potassium 3.8 mmol/L (3.5-5.1); Sodium Level 136 mmol/L (136-145); Troponin-I HS 5 pg/mL (3.0-54.0)
[2021-03-06] MEDS: Ketorolac 15 MG/ML Vial IV (09:25)
[2021-03-06] MEDS: DiphenhydrAMINE 50 MG/ML Syringe 25 MG IV (09:25)
[2021-03-06] MEDS: 0.9% Normal Saline 1,000 ML 100 ML IV ×2 (09:26→20:43)
[2021-03-06] MEDS: Metoclopramide 10 MG/2 ML Vial IV (09:26)
--- NOTE | 2021-03-06 10:01 | HP.PCM.HOS_ITS ---
HPI - General General Date of Admission: 03/06/21 HPI Narrative TIM MARQUES, is a 40 F with a PMH of hypothyroidism and Chiari malformation who presents via the ED on 03/06/2021 with a complaint of headache and inability to move her left side. She had gone to use the restroom at home and when she came back, she started complaining of severe headache and inability to move her left arm. She has a history of headaches and had surgery for her Chiari malformation a year ago. Lucero found her crying, scared she might be having a stroke because she couldnt move her left arm. She denied any numbness or tingling, nausea or vomiting or diarrhea, any blurred vision or any other symptoms. REview of systems was otherwise negative. NIHSS was thought to be 7 on admission; neurology reviewed her and thought it wasnt a stroke so she wasnt given tPA. She was given a migraine cocktail in the ED, and her symptoms subsequently started improving. Vitals in the ED were BP of 144./80, TX of 83, resp rate of 12 and oxygen sats of 97% on room air. CBC shwoed wbc of 11.5, with Hb of 13.4, platelets of 200 and chemistry was unremarkable. EKG showed no acute ST changes, and CT of the brain was negative for any acute intracranial pathology. She is being admitted to be managed for TIA vs complex migraine. [facility] Medical History Chiari malformation Hypothyroid Home Medications aspirin 81 mg PO DAILY #30 tab 03/07/21 [Rx Last Taken Unknown] Allergy/AdvReac Type Severity Reaction Status Date / Time mustard Allergy Angioedema Verified 03/06/21 08:33 oxycodone Allergy Hives Verified 03/06/21 08:33 Family History (Updated 03/06/21 @ 11:09 by Liv Vazquez) Father Liver cancer Surgical History H/O: hysterectomy History of cranial surgery Social History Smoking Status: Current every day smoker tobacco type: cigarettes ROS Constitutional Constitutional: Reports malaise; Denies anorexia, change in weight, chills or fever(s) Eyes Eyes: Denies blurry vision or change in vision ENT HEENT: Reports headache(s); Denies abnormal hearing, dysphagia or hearing loss Cardiovascular Cardiovascular: Denies chest pain, dyspnea on exertion, edema, lightheadedness, orthopnea, palpitations, paroxysmal nocturnal dyspnea, rapid heart rate or syncope Respiratory/Chest Respiratory/Chest: Denies cough, dyspnea, shortness of breath at rest or shortness of breath with exertion Gastrointestinal Gastrointestinal: Denies abdominal pain, nausea or vomiting Genitourinary Genitourinary: Denies dysuria Musculoskeletal Musculoskeletal: Denies arthralgias, joint stiffness or myalgias Neurologic Neurologic: Reports focal weakness and headache(s); Denies abnormal gait, abnormal speech, confusion, dizziness, numbness, paresthesias, seizure-like activity or tingling Psychiatric Psychiatric: Denies anxiety Vital Signs Vital Signs Vital Signs: 03/06/21 08:46 03/06/21 08:47 03/06/21 08:50 Temperature 97.8 F Temperature Source Temporal Pulse Rate 86 83 Respiratory Rate 16 14 Blood Pressure 144/86 H Blood Pressure Mean 105 Pulse Ox 100 99 Oxygen Delivery Method Room Air Room Air Room Air 03/06/21 08:58 03/06/21 09:01 03/06/21 09:09 Temperature Temperature Source Pulse Rate 89 87 Respiratory Rate 20 H 20 H Blood Pressure 132/99 H 144/80 H 144/83 H Blood Pressure Mean 110 101 Pulse Ox 96 98 Oxygen Delivery Method Room Air Room Air 03/06/21 09:36 Temperature Temperature Source Pulse Rate 83 Respiratory Rate 12 Blood Pressure 144/80 H Blood Pressure Mean 101 Pulse Ox 97 Oxygen Delivery Method Room Air Weight Weight: 255 lb 15.307 oz Body Mass Index (BMI) 41.3 Physical Exam Const alert, oriented x3, no apparent distress and healthy appearing General Appearance: cooperative HEENT normocephalic, head/scalp atraumatic, hearing grossly normal bilaterally and moist oral mucous membranes Eyes PERRL, EOMs intact bilaterally and conjunctivae normal Neck no lymphadenopathy Resp normal respiratory effort, no retractions, no use of accessory muscles and clear to auscultation bilaterally Cardio regular rate, regular rhythm, S1 normal heart sound and S2 normal heart sound GI normal to inspection, nondistended, normoactive bowel sounds, soft to palpation, non-tender and non-distended Extremity normal to inspection, full ROM and no clubbing, cyanosis or edema Peripheral Pulses: Yes pulses 2+ throughout Skin no rashes or lesions noted Neuro oriented x3, CN's II-XII intact bilaterally, moves all extremities and no focal motor deficits Sensorium / Orientation: awake and alert Motor Exam: strength 5/5 throughout Psych affect normal Results Lab / Micro Data Result Diagrams: 03/07/21 06:45 03/07/21 06:45 Labs: Laboratory Results - last 24 hr 03/06/21 08:50: WBC 11.5 H, RBC 4.34, Hgb 13.4, Hct 39.4, MCV 90.8, MCH 30.9, MCHC 34.0, RDW Std Deviation 42.4, RDW Coeff of Eliazar 12.8, Plt Count 200, MPV 11.4, Immature Gran % (Auto) 0.300, Neut % (Auto) 47.6, Lymph % (Auto) 41.0, [place] % (Auto) 6.5, Eos % (Auto) 3.7, Baso % (Auto) 0.9, Absolute Neuts (auto) 5.5, Absolute Lymphs (auto) 4.70 H, Nucleated RBC % 0 03/06/21 08:50: PT 12.7, INR 1.0, APTT 30.4 03/06/21 08:50: Sodium 136, Potassium 3.8, Chloride 110 H, Carbon Dioxide 23.0, Anion Gap 3 L, BUN 12, Creatinine 0.75, Estim Creat Clear Calc 92.41, Est GFR (MDRD) Af Amer 110, Est GFR (MDRD) Non-Af 91, BUN/Creatinine Ratio 16.0, Glucose 119 H, Calcium 8.2 L, Troponin I High Sens [address] 03/06/21 08:34 IMPRESSION: Normal unenhanced CT scan of the brain. Mucosal thickening of the ethmoid sinuses. N.B. : The above Results were Read Back by Marquis Renee MD to Reji Acevedo and understanding confirmed on 03/06/2021 08:52:00 (ET). Electronically Signed: Marquis Renee MD at 8:53 EDT , Service support , ADDENDUM: 03/06/21 0900 IMPRESSION: Normal unenhanced CT scan of the brain. Mucosal thickening of the ethmoid sinuses. N.B. : The above Results were Read Back by Marquis Renee MD to Reji Acevedo and understanding confirmed on 03/06/2021 08:52:00 (ET). Electronically Signed: Marquis Renee MD at 8:53 EDT , Service support , Chest X-Ray 03/06/21 08:34 IMPRESSION: Normal x-ray examination of the chest. Electronically Signed: Marquis Renee MD at 9:55 EDT , Service support , Head/Neck CTA 03/06/21 08:35 IMPRESSION: Normal CTA Head and neck with contrast. N.B. : The above Results were Read Back by Marquis Renee MD to Reji Acevedo and understanding confirmed on 03/06/2021 09:37:16 (ET). Electronically Signed: Marquis Renee MD at 9:38 EDT , Service support , ADDENDUM: 03/06/21 0945 IMPRESSION: Normal CTA Head and neck with contrast. N.B. : The above Results were Read Back by Marquis Renee MD to Reji Acevedo and understanding confirmed on 03/06/2021 09:37:16 (ET). Electronically Signed: Marquis Renee MD at 9:38 EDT , Service support , Assessment & Plan Assessment/Plan (1) Cephalalgia: (2) Brain TIA: PLAN: #Headache with left sided weakness * suspect TIA vs complex migraine * left sided weakness has improved now since she received migraine cocktail. * does have a history of CHiari malformation, for which she had surgery a year ago. * CT of the brain negative for any acute intracranial process * get MRI of the brain and 2D echo * check lipid panel and A1C * put on meds for migraines * PT/OT consult * fall precautions * give aspirin 81mg daily for now, and high intensity statin * #History of Chiari malformation * had surgery a year ago. Stable * #Hypothyroidism; on synthroid DVT prophylaxis: SCDs Charges/Coding Visit Charges OBSV E&M: 33512 Initial observation care L2
--- NOTE | 2021-03-06 10:40 | ED.RN ---
PT NIH 0. PER DR. CARDENAS VERBAL ORDER, OK TO DISCONTINUE NIH SCALE. PT INFORMED OF AWAITING ROOM FOR ADMISSION. DENIES NEEDS AT THIS TIME.
--- NOTE | 2021-03-06 11:11 | PCS.PANDOC ---
PANDEMIC DOCUMENTATION INITIATED: Date: 12/18/2020 Time: 190
--- NOTE | 2021-03-06 12:12 | MRI_ITS ---
STUDY: MRI BRAIN WITHOUT CONTRAST REASON FOR EXAM: Female, 40 years old. left sided weakness TECHNIQUE: Standardized multiplanar fat and water weighted pulse sequences were obtained. COMPARISON: CT earlier today FINDINGS: Normal size of the ventricles and extra-axial spaces for the patient''s age. Normal white matter tracts of the supratentorial brain. There is no evidence for recent intracranial ischemia or other cause of cytotoxic edema on diffusion weighted imaging (DWI). Normal T2* images of the brain without demonstrated susceptibility artifact. There is no demonstrated hemosiderin stain. Normal bilateral basal ganglia. Normal thalami. There is no extra-axial fluid accumulation. Normal flow voids within the major intracranial circulation suggesting patency by spin echo criteria. 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 Normal tectal plate and pineal gland. Normal midbrain, fitz and medulla. Normal cerebellum. Normal basal cisterns. Normal bilateral temporal bones. Normal bilateral internal auditory canals. No demonstrated orbital abnormality, within the constraints of a routine brain study. Normal visualized paranasal sinuses. Normal calvarium and skull base. Normal visualized soft tissue structures. Normal visualized upper cervical spine. MRI/Brain without Contrast IMPRESSION: Normal unenhanced MRI of the brain. Small Rathke cleft cyst Electronically Signed: Sebastián Cohen MD at 15:40 EDT Tel , Service support ,
--- NOTE | 2021-03-06 12:14 | ECHOD_ITS ---
Reason For Study: TIA/CVA Procedure This was a 2D Doppler, Color Flow transthoracic echocardiogram. Exam performed portable in patient room. Left Ventricle Normal LV size. Left ventricular systolic function is normal. The estimated ejection fraction is 60 %. No evidence for diastolic dysfunction. No regional wall motion abnormalities noted. Right Ventricle Normal RV size. Normal systolic function. Atria The left atrium is mildly enlarged. Normal right atrium. Positive agitated saline contrast study for right to left interatrial shunt compatible with a PFO versus ASD. Mitral Valve There is no mitral annular calcification. Normal mitral valve. Mild (1+) eccentric mitral valve insufficiency. Tricuspid Valve Normal tricuspid valve. Trivial tricuspid valve insufficiency. Right ventricular systolic pressure estimated to be 29 mmHg. Aortic Valve Trisinus/trileaflet aortic valve. Mild focal aortic valve thickening. Pulmonic Valve The pulmonic valve is not well visualized. Great Vessels Normal sized aortic root. Pericardium/Pleural No pericardial effusion. Medication Performed a rapid injection of agitated mix of 9 cc saline and 1cc air to assess for atrial septal defect. MMode/2D Measurements & Calculations LVIDd: 5.1 cm IVSd: 1.2 cm Ao root diam: 3.5 cm LVIDs: 3.1 cm LVPWd: 1.2 cm RVDd: 3.1 cm FS: 39.3 % LAV(MOD-bp): 69.7 ml LA A4 area: 21.1 cm2 LA dimension(2D): 4.1 cm LAV(MOD-bp) Indexed: 31.5 ml/m2 LAV(MOD-sp2): 64.5 ml LAV(MOD-sp4): 66.4 ml RA A4 area: 13.7 cm2 Time Measurements MV dec time: 0.19 sec Doppler Measurements & Calculations MV E max jose ramon: 61.8 cm/sec Lat Peak E' Jose Ramon: 8.8 cm/sec Med Peak E' Jose Ramon: 8.3 cm/sec MV A max jose ramon: 44.4 cm/sec E/E' lat: 7.0 E/E' med: 7.4 MV E/A: 1.4 Ao V2 max: 111.0 cm/sec LV V1 max: 89.2 cm/sec PA V2 max: 66.8 cm/sec Ao max P.9 mmHg LV V1 max P.2 mmHg TR max jose ramon: 253.2 cm/sec TR max P.7 mmHg ECHO/Echo Complete Interpretation Summary Left ventricular systolic function is normal. The estimated ejection fraction is 60 %. The left atrium is mildly enlarged. Mild (1+) eccentric mitral valve insufficiency. Trivial tricuspid valve insufficiency. Mild focal aortic valve thickening. Right ventricular systolic pressure estimated to be 29 mmHg. No evidence for diastolic dysfunction. Positive agitated saline contrast study for right to left interatrial shunt com patible with a PFO versus ASD. Ordering Physician: Rupinder Jeronimo Referring Physician: NATACHA PCP Performed By: Sandra Hutchinson RDCS, RVT
[2021-03-06 13:28] LABS: Troponin-I HS 4 pg/mL (3.0-54.0)
--- NOTE | 2021-03-06 16:51 | TELEMED_ITS ---
[facility] has confirmed receipt of a request for visit. This document confirms receipt of the order initiating the consult. To find the results of the consultation, please view the patient's reports for the scanned Telemed Consult.
[2021-03-06] MEDS: Acetaminophen 325 MG Tablet 650 MG PO (20:43)
[2021-03-07] VITALS (7 sets, daily range): BP systolic 104–135; BP diastolic 47–87; PULSE 62–84; RESP 16; TEMP 36.4–36.9; O2SAT 97–100
[2021-03-07] MEDS: 0.9% Normal Saline 1,000 ML 100 ML IV (05:14)
[2021-03-07 07:55] LABS: Absolute Lymphocyte Count 3.26 X10^3/uL (0.83-4.51); Absolute Neutrophil Count 3.6 X10^3/uL (2.0-7.7); Basophil# 0.06 X10^3/uL; Basophil% 0.8 % (0-1); Eosinophil# 0.34 X10^3/uL; Eosinophils% 4.4 % (0-5); Hematocrit 36.7 % (37-47); Lymphocyte # 3.26 X10^3/ul (0.83-4.51); Lymphocyte % 42.3 % (19-41); Mean Corp Hgb Conc 32.7 g/dL (32-36); Mean Corpuscular Hgb 29.9 pg (27.0-32.0); Mean Corpuscular Volume 91.3 fL (81-99); Mean Platelet Vol. 12.9 fl (6.2-12.0); Monocyte# 0.47 X10^3/uL; Monocyte% 6.1 % (0-10); NRBC Flagged by Analyzer 0 % (0-5); Neutrophil # 3.55 X10^3/uL (2.7-7.7); Platelet Count 180 K/mm3 (150-450); RBC Distribution Width CV 12.9 % (11.6-14.6); RBC Distribution Width SD 42.9 fl (35.1-43.9); Red Blood Count 4.02 M/mm3 (4.2-5.4); White Blood Count 7.7 K/mm3 (4.4-11.0)
[2021-03-07 08:27] LABS: Anion Gap 4 (5-15); BUN 13 mg/dL (7-18); BUN/Creat Ratio 17.9 RATIO (10-20); Calcium,Total 8.2 mg/dL (8.5-10.1); Chloride 112 mmol/L (98-107); Cholesterol 196 mg/dL (200); Creatinine, Serum 0.73 mg/dL (0.55-1.02); EST Glomerular Filtration Rate 94 mL/min (>60); Est Glom Filt Rate - Afr Amer 113 mL/min (>60); Estimated Creatinine Clearance 98.62 ml/min; Glucose 92 mg/dL (74-106); High Density Lipoprotein 31 mg/dL; Potassium 3.7 mmol/L (3.5-5.1); Sodium Level 140 mmol/L (136-145); Triglycerides 137 mg/dL; Very Low Density Lipoprotein 27 mg/dL (5-40)
--- NOTE | 2021-03-07 11:36 | PCM.DC.SUM ---
Providers Date of Admission: 03/06/21 Primary Care Physician: No Primary Care Phys Reason For Visit: LEFT SIDED WEAKNESS Diagnosis Discharge Diagnosis (1) Cephalalgia: Status: Acute Code(s): R51.9 - Headache, unspecified (2) Brain TIA: Status: Acute Code(s): G45.9 - Transient cerebral ischemic attack, unspecified Medications at Discharge Home Medications aspirin 81 mg PO DAILY #30 tab 03/07/21 Hospital Course Operations None Procedures 2-D Echocardiogram Summary of Care Provided Minutes Spent on Discharge: 45 Hospital Course: TIM MARQUES, is a 40 F with a PMH of hypothyroidism and Chiari malformation who presents via the ED on 03/06/2021 with a complaint of headache and inability to move her left side. She had gone to use the restroom at home and when she came back, she started complaining of severe headache and inability to move her left arm. She has a history of headaches and had surgery for her Chiari malformation a year ago. Lucero found her crying, scared she might be having a stroke because she couldnt move her left arm. She denied any numbness or tingling, nausea or vomiting or diarrhea, any blurred vision or any other symptoms. REview of systems was otherwise negative. NIHSS was thought to be 7 on admission; neurology reviewed her and thought it wasnt a stroke so she wasnt given tPA. She was given a migraine cocktail in the ED, and her symptoms subsequently started improving. Vitals in the ED were BP of 144./80, CA of 83, resp rate of 12 and oxygen sats of 97% on room air. CBC shwoed wbc of 11.5, with Hb of 13.4, platelets of 200 and chemistry was unremarkable. EKG showed no acute ST changes, and CT of the brain was negative for any acute intracranial pathology. CTA of the head and neck was also unremarkable. She was admitted to be managed for TIA vs complex migraine. 2D echo showed EF of 60% with normal left ventricular systolic function and RVSP of 29 mmHg with no evidence of diastolic dysfunction and positive agitated saline contrast study compatible with PFO versus ASD. MRI of the brain showed no evidence of stroke. [facility] neurology was consulted and felt her symptoms were likely due to a complex migraine. Patient was therefore advised to follow-up with neurology on outpatient basis to be initiated on preventive medication for migraines. She remained stable and symptoms resolved. She was therefore discharged home on 03/07/2021 to follow-up with her neurologist and PCP. Patient was also advised to quit smoking. SHe was started on PO aspirin 81mg daily o/a of positive agitated saline study per 2D echo which could indicate PFO vs ASD. Patient seen and examined. She had no complaints and felt well. REview of systems was otherwise negative. Labs and vitals reviewed. Home meds reviewed and reconciled. Physical Exam Const alert, oriented x3, no apparent distress and healthy appearing General Appearance: cooperative and comfortable Orientation / Consciousness: awake Exam Limitations: no limitations HEENT normocephalic, head/scalp atraumatic, hearing grossly normal bilaterally and moist oral mucous membranes Eyes PERRL, EOMs intact bilaterally and conjunctivae normal Neck no lymphadenopathy Resp normal respiratory effort, no retractions, no use of accessory muscles and clear to auscultation bilaterally Cardio regular rate, regular rhythm, S1 normal heart sound and S2 normal heart sound GI normal to inspection, nondistended, normoactive bowel sounds, soft to palpation, non-tender and non-distended Extremity normal to inspection, full ROM and no clubbing, cyanosis or edema Skin no rashes or lesions noted Neuro oriented x3, CN's II-XII intact bilaterally, moves all extremities and no focal motor deficits Sensorium / Orientation: awake and alert Motor Exam: strength 5/5 throughout Psych affect normal Weight / BMI Weight Weight: 247 lb 2.211 oz Body Mass Index (BMI) 38.7 ABG / Lab / Microbiology Data Result Diagrams: 03/07/21 06:45 03/07/21 06:45 Laboratory: Laboratory Results - last 24 hr 03/06/21 12:43: Troponin I High Sens 4 03/07/21 06:45: WBC 7.7, RBC 4.02 L, Hgb 12.0, Hct 36.7 L, MCV 91.3, MCH 29.9, MCHC 32.7, RDW Std Deviation 42.9, RDW Coeff of Eliazar 12.9, Plt Count 180, MPV 12.9 H, Immature Gran % (Auto) 0.400, Neut % (Auto) 46.0 L, Lymph % (Auto) 42.3 H, [place] % (Auto) 6.1, Eos % (Auto) 4.4, Baso % (Auto) 0.8, Absolute Neuts (auto) 3.6, Absolute Lymphs (auto) 3.26, Nucleated RBC % 0 03/07/21 06:45: Sodium 140, Potassium 3.7, Chloride 112 H, Carbon Dioxide 24.0, Anion Gap 4 L, BUN 13, Creatinine 0.73, Estim Creat Clear Calc 98.62, Est GFR (MDRD) Af Amer 113, Est GFR (MDRD) Non-Af 94, BUN/Creatinine Ratio 17.9, Glucose 92, Calcium 8.2 L, Triglycerides 137, Cholesterol 196, LDL Cholesterol 138 H, VLDL Cholesterol 27, HDL Cholesterol 31 L Radiography Diagnostic Testing: Radiology Impression Brain MRI 03/06/21 12:12 IMPRESSION: Normal unenhanced MRI of the brain. Small Rathke cleft cyst Electronically Signed: Sebastián Cohen MD at 15:40 EDT Tel , Service support , Echocardiogram 03/06/21 12:14 Interpretation Summary Left ventricular systolic function is normal. The estimated ejection fraction is 60 %. The left atrium is mildly enlarged. Mild (1+) eccentric mitral valve insufficiency. Trivial tricuspid valve insufficiency. Mild focal aortic valve thickening. Right ventricular systolic pressure estimated to be 29 mmHg. No evidence for diastolic dysfunction. Positive agitated saline contrast study for right to left interatrial shunt compatible with a PFO versus ASD. Ordering Physician: Rupinder Jeronimo Referring Physician: NO PCP Performed By: Sandra Hutchinson, RDCS, RVT D/C Instructions Discharge Diet: Low fat / Low cholesterol Discharge Activity: Return to Normal Activity Weight Bearing Status: Weight bearing as tolerated Call your doctor if you observe: Fever of 101 or Higher, Shortness of breath, Swelling in the ankles, Uncontrolled pain and - (uncontrolled headache) Meaningful Use Info Meaningful Use Diagnoses (Choose all that apply): None applicable Discharge Plan Admission Admit Date/Time: 03/06/21 10:11 Primary Reason for Your Visit: complex migraine Attending Provider: Rupinder Jeronimo Primary Care Provider: Care Physician,No Primary Instructions Additional Instructions / Restrictions: started on aspirin o/a of patent PFO per 2D echo. Counseled to quit smoking. TO establish care with PCP. Discharge Orders/Prescriptions Prescriptions: New aspirin 81 mg tablet,delayed release (DR/EC) 81 mg PO DAILY Qty: 30 RF: 1 Referrals / Follow Up: Care Physician,No Primary [Primary Care Provider] - Disposition Disposition (needs filled in before D/C Order can be placed): Home, Self Care Charges/Coding Visit Charges OBSV E&M: 83900 Observation care discharge
== END 2021-03-07 11:45 | disposition home or self-care (01) ==
LOC: ED 09:47 → PCU 10:17
PROVIDERS: Admitting Provider Student in an Organized Health Care Education/Training Program; Emergency Provider Emergency Medicine; Visit Provider Student in an Organized Health Care Education/Training Program
DX: G45.9 Transient cerebral ischemic attack, unspecified (principal); G43.109 Migraine with aura, not intractable, without status migrainosus; F17.210 Nicotine dependence, cigarettes, uncomplicated; R29.707 NIHSS score 7; R53.1 Weakness; R47.1 Dysarthria and anarthria; E03.9 Hypothyroidism, unspecified; Z86.711 Personal history of pulmonary embolism
CPT/HCPCS: 36415; 70450; 70496; 70498; 70551; 71045; 80048; 80061; 84484; 85025; 85610; 85730; 93005; 93306; 94762; 96361; 96374; 96375; 99218; 99285; 99406; J2997; J7030; Q9967; G0378

== ENCOUNTER 2022-11-23 03:04 | Inpatient (IN) | payer MEDICAID, SELFPAY ==
[2022-11-23] VITALS (10 sets, daily range): BP systolic 97–140; BP diastolic 62–122; PULSE 55–87; RESP 14–28; TEMP 36.6–37; O2SAT 96–98; BMI 35.9; BMI 38.2
--- NOTE | 2022-11-23 03:08 | EDS_ITS ---
HPI HPI - Female History of Present Illness Chief Complaint: Flank Pain PFSH PFSH Medical History (Updated 11/23/22 @ 06:[address] Cliff De La O, DO) Brain TIA Chiari malformation Hypothyroid Home Medications albuterol sulfate 90 mcg/actuation aerosol inhaler inhalation 11/23/22 [History Last Taken Unknown] Allergy/AdvReac Type Severity Reaction Status Date / Time mustard Allergy Angioedema Verified 03/06/21 08:33 oxycodone Allergy Hives Verified 03/06/21 08:33 Family History (Updated 03/06/21 @ 11:09 by Liv Vazquez) Father Liver cancer Surgical History H/O: hysterectomy History of cranial surgery Social History Smoking Status: Current every day smoker tobacco type: cigarettes EXAM Physical Exam Const Vital Signs: 11/23/22 03:05 11/23/22 03:05 11/23/22 03:43 Temperature 98.0 F 98.0 F Temperature Source Temporal Temporal Pulse Rate 87 87 Respiratory Rate 28 H 28 H Blood Pressure 140/122 H 140/122 H 130/62 H Blood Pressure Mean 128 128 84 Pulse Ox 97 97 Oxygen Delivery Method Room Air Room Air MDM MDM MDM Narrative Medical decision making narrative: HISTORY OF PRESENT ILLNESS: 39-year-old female here with right-sided flank pain rating to the right abdomen. Notes she passed several kidney stones earlier this week. She further states pain is constant severe radiating from the right flank into the right upper abdomen. Notes history of C-sections. Denies any vomiting or fever. Denies any urinary complaints. Denies any vaginal bleeding or discharge. Denies any constipation or diarrhea. No chest pain or shortness of breath. No history of connective tissue disorder such as David-Danlos or Marfan syndrome. REVIEW OF SYSTEMS: Pertinent positives: Flank pain Pertinent negatives: Syncope vaginal bleeding, increased urinary frequency PHYSICAL EXAM: Nursing triage notes reviewed, Vital signs reviewed Constitutional: please see mdm HENT: MMM Eyes: Pupils equal round and reactive to light, Extraocular muscles intact Neck: No stridor, no JVD, full neck ROM Lungs: Clear to auscultation, No wheezing or rales. No increased work of breathing, no conversational dyspnea, no accessory muscle use, no nasal flaring. No respiratory distress noted Heart: Regular rate and rhythm, No murmurs, No rubs and No gallops, 2+ distal pulses (radial, femoral, posterior tibial) in all extremities Abdomen: Soft, right upper quadrant TTP, positive Bowden sign, no rigidity, rebound or guarding, no obvious peritoneal signs, no palpable pulsatile abdominal masses, no auscultated abdominal bruit : Right CVA tenderness Extremities: No edema Neuro: No focal neurological deficits, cranial nerves II through XII intact, 5/5 strength in all extremities. Intact sensation to light touch in all extremities, 2+ reflexes bilateral patella tendons. Normal gait. No ataxia. Skin: No rash or lesions noted MEDICAL DECISION MAKING: Chief Complaint: Flank pain External records reviewed: Last ED visit was in 2020 for left-sided weakness and TIA Factors affecting care: Hypothyroidism, current malformation, TIA, nephrolithiasis Social determinants of health: tobacco abuse History obtained from others: Patient's significant other Consults: General surgery (Dr. Ayala) ALL IMAGES (IF OBTAINED) HAVE BEEN PERSONALLY REVIEWED AND INTERPRETED BY MYSELF. CBC with leukocytosis suggestive of systemic inflammation, no anemia or thrombocytopenia noted Urine test is negative Urinalysis shows no evidence of urinary inflammation suggestive of UTI Lipase is wnl indicating no pancreatic inflammation. BMP without evidence of significant electrolyte abnormalities, no anion gap, no acute kidney injury. LFTs show no evidence of hepatobiliary pathology. MDM Narrative: Patient was hemodynamically stable, tachypneic otherwise afebrile and nontoxic- appearing. Exam with right upper quadrant TTP, right flank TTP but no eyes peritoneal signs. I considered the following differential diagnosis: Nephrolithiasis, pyelonephritis, gallbladder etiology , AAA, musculoskeletal etiology. I obtained a broad lab and imaging work-up to further elucidate the etiology the patient complaints. I treated the patient with IV morphine, Toradol Zofran and fluids. CT scan abdomen pelvis showed no evidence of definitive acute appendicitis but did showed an appendicolith, no findings of acute appendicitis nephrolithiasis. I discussed patient's finding of appendicolith with Dr. Ayala. States appendicolith on its own is not an indication for acute surgery however if there is no other surgical pathology found (i.e. acute cholecystitis) this may make the surgeon then just go ahead and remove the patient's appendix. Urine was not consistent with UTI or pyelonephritis. While there is no hepatobiliary obstruction and no elevation in patient's lipase no white count she did have ongoing right upper quadrant tenderness and her CT scan was concerning for gallbladder wall thickening/adjacent fluid so I thought it was prudent to obtain a right upper quadrant ultrasound to further elucidate any potential gallbladder etiology specifically ruling out acute cholecystitis. Unfortunately ultrasound was unavailable until 7 AM. Patient was signed out to a.m. physician pending ultrasound and final disposition. The patient and/or family, caregivers express understanding. The patient and/or family, caregivers agrees with the plan. Shared decision making: I will have a discussion with the patient and or visitors regarding risk/benefits of further testing or admission. They will be made aware of of the risk/benefits inherent in this decision they will be given the opportunity to voice understanding. Total critical care time today provided was at least 0 minutes. This excludes separately billable procedures. Critical care time (if documented) is secondary to the patient having high probability of clinically significant/life threatening deterioration in the patient's condition which required my urgent intervention. Lab Data Attestation: I reviewed the patient's lab results. Labs: Laboratory Results - last 24 hr 11/23/22 11/23/22 03:31 04:20 WBC 11.7 H RBC 4.37 Hgb 13.5 Hct 40.1 MCV 91.8 MCH 30.9 MCHC 33.7 RDW Std Deviation 42.3 RDW Coeff of Eliazar 12.7 Plt Count 177 MPV 12.7 H Immature Gran % (Auto) 0.200 Neut % (Auto) 42.5 L Lymph % (Auto) 45.4 H [place] % (Auto) 6.9 Eos % (Auto) 4.1 Baso % (Auto) 0.9 Absolute Neuts (auto) 5.0 Absolute Lymphs (auto) 5.29 H Nucleated RBC % 0 Sodium 144 Potassium 3.8 Chloride 114 H Carbon Dioxide 24.0 Anion Gap 6 BUN 12 Creatinine 0.92 Estim Creat Clear Calc 77.46 Est GFR (MDRD) Af Amer 85 Est GFR (MDRD) Non-Af 71 BUN/Creatinine Ratio 13.0 Glucose 108 H Calcium 8.5 Total Bilirubin 0.10 L Direct Bilirubin < 0.05 AST 12 L ALT 18 Alkaline Phosphatase 79 Total Protein 6.8 Albumin 3.5 Globulin 3.3 Lipase 62 Serum , Qual NEGATIVE Urine Color Yellow Urine Clarity Clear Urine pH 6.0 Ur Specific [place] 1.025 Urine Protein 15 H Urine Glucose (UA) Normal Urine Ketones Negative Urine Occult Blood Negative Urine Nitrite Negative Urine Bilirubin Negative Urine Urobilinogen 1 H Ur Leukocyte Esterase 25 H Urine RBC 0-5 SEEN Urine WBC 0-5 SEEN Ur Squamous Epith Cells 0-5 SEEN Urine Bacteria 0 SEEN Urine Mucus 0 SEEN Radiography Diagnostic Testing: Clinical Impression(s) from Imaging Studies Abdomen/Pelvis CT 11/23/22 03:17 IMPRESSION: 1. Probable gallbladder wall thickening and/or small amount of adjacent fluid although potentially motion artifact. Correlation with ultrasound recommended to evaluate for acute cholecystectomy. 2. Appendix mildly enlarged with a small appendicolith in the midportion but no secondary findings of acute appendicitis. 3. Left nephrolithiasis without hydronephrosis. Electronically Signed: Ileana Jeffers MD at 5:20 EDT Reading Location ID and State: [address] [place] [address] Tel , Service support , Discharge Plan Triage Chief Complaint: Flank Pain ED Provider: Cliff De La O Dx/Rx/DC Orders Clinical Impression: Right upper quadrant abdominal pain Prescriptions: No Action albuterol sulfate 90 mcg/actuation HFA aerosol inhaler INHALATION Patient Comments: INHALE 2 PUFFS BY MOUTH EVERY 4 TO 6 HOURS Primary Care Provider: Care Physician,No Primary Referrals: Care Physician,No Primary [Primary Care Provider] -
--- NOTE | 2022-11-23 03:17 | CT_ITS ---
EXAM: CT Abdomen And Pelvis W/O Contrast Injection HISTORY: Kidney Stone RT FLANK PAIN,ELEVATED WBC,PT HAS RECENTLY PASSED A KS HX:KS,PARTIAL HYSTERECTOMY-HAS RT OVARY TECHNIQUE: Routine protocol CT abdomen and pelvis. IV Contrast: None.. Oral contrast: None. RADIATION DOSAGE (If Supplied By Facility): CTDIvol = ( 20.84 ) mGy, DLP = ( 1082.83 ) mGycm Individualized dose optimization techniques were used for this CT. COMPARISON: CT chest 12/24/2020. LIMITATIONS: None. FINDINGS: LOWER CHEST: Included lung bases are clear. LIVER: Grossly unremarkable. GALLBLADDER AND BILIARY TREE: The gallbladder wall appears thickened with small amount of adjacent fluid, possibly artifactual related to the motion. No calcified gallstones identified. PANCREAS: Grossly unremarkable. SPLEEN: Grossly unremarkable. ADRENAL GLANDS: Grossly unremarkable. KIDNEYS AND URETERS: Tiny calculus in the left kidney. No hydronephrosis. 3 cm cyst in the right kidney, no follow-up needed. PERITONEUM: No free air. No free fluid. BOWEL: A few scattered diverticula in the colon No bowel obstruction. APPENDIX: Visualized low in the pelvis. Focally enlarged approximately 8 mm transverse in the midportion, with a small appendicolith. Otherwise appears unremarkable. No adjacent inflammatory changes. No findings to suggest acute appendicitis. VESSELS: Abdominal aorta is normal caliber. REPRODUCTIVE ORGANS: Uterus not identified. URINARY BLADDER: Minimally distended. ABDOMINAL WALL: Unremarkable. BONES: Degenerative changes in the lower lumbar spine. CT/Abdomen/Pelvis without Cont IMPRESSION: 1. Probable gallbladder wall thickening and/or small amount of adjacent fluid although potentially motion artifact. Correlation with ultrasound recommended to evaluate for acute cholecystectomy. 2. Appendix mildly enlarged with a small appendicolith in the midportion but no secondary findings of acute appendicitis. 3. Left nephrolithiasis without hydronephrosis. Electronically Signed: Ileana Jeffers MD at 5:20 EDT ,
[2022-11-23] MEDS: Ondansetron 4 MG/2 ML Vial IV (03:33)
[2022-11-23] MEDS: Ketorolac 15 MG/ML Vial IV ×2 (03:33→15:05)
[2022-11-23] MEDS: 0.9% Normal Saline 1,000 ML 999 ML IV (03:33)
[2022-11-23] MEDS: Morphine 4 MG/ML Syringe IV ×3 (03:33→10:38)
[2022-11-23 03:45] LABS: Absolute Lymphocyte Count 5.29 X10^3/uL (0.83-4.51); Basophil% 0.9 % (0-1); Eosinophil# 0.48 X10^3/uL; Eosinophils% 4.1 % (0-5); Hematocrit 40.1 % (37-47); Hemoglobin 13.5 g/dL (12.0-15.0); Lymphocyte # 5.29 X10^3/ul (0.83-4.51); Lymphocyte % 45.4 % (19-41); Mean Corp Hgb Conc 33.7 g/dL (32-36); Mean Corpuscular Hgb 30.9 pg (27.0-32.0); Mean Corpuscular Volume 91.8 fL (81-99); Mean Platelet Vol. 12.7 fl (6.2-12.0); Monocyte% 6.9 % (0-10); NRBC Flagged by Analyzer 0 % (0-5); Neutrophil # 4.97 X10^3/uL (2.7-7.7); Neutrophil % 42.5 % (47-70); POSITIVE DIFFERENTIAL YES; Platelet Count 177 K/mm3 (150-450); RBC Distribution Width CV 12.7 % (11.6-14.6); RBC Distribution Width SD 42.3 fl (35.1-43.9); Red Blood Count 4.37 M/mm3 (4.2-5.4); White Blood Count 11.7 K/mm3 (4.4-11.0)
[2022-11-23 03:47] LABS: Differential Indicated SCAN CRITERIA MET
[2022-11-23 04:08] LABS: Internal QC Validated? YES +Cl - CLEAR BKGD; Pregnancy, Serum, hCG Quali. NEGATIVE Negative
[2022-11-23 04:32] LABS: Bacteria 0 SEEN /hpf (None Seen); Mucous, Urine 0 SEEN /hpf (<or=2+)
[2022-11-23 04:39] LABS: Color, Urine Yellow (Yellow); Glucose, Dipstick Normal (Normal); Ketone-Dipstick Negative (Negative); Leukocyte Esterase-Dipstick 25 /ul (Negative); Nitrite-Dipstick Negative (Negative); Occult Blood-Urine Negative /ul (Negative); Protein-Dipstick 15 mg/dl (Negative); Specific Gravity, Urine 1.025 (1.002-1.030); Urine Bilirubin Dipstick Negative (Negative); Urine Clarity Clear (Clear); Urine Urobilinogen 1 mg/dl (Normal)
[2022-11-23 04:46] LABS: Anion Gap 6 (5-15); BUN 12 mg/dL (7-18); Calcium,Total 8.5 mg/dL (8.5-10.1); Chloride 114 mmol/L (98-107); Creatinine, Serum 0.92 mg/dL (0.55-1.02); EST Glomerular Filtration Rate 71 mL/min (>60); Est Glom Filt Rate - Afr Amer 85 mL/min (>60); Estimated Creatinine Clearance 77.46 ml/min; Glucose 108 mg/dL (74-106); Lipase 62 U/L (13-75); Potassium 3.8 mmol/L (3.5-5.1); Sodium Level 144 mmol/L (136-145)
[2022-11-23 05:12] LABS: White Blood Cells 0-5 SEEN /hpf (0-5)
[2022-11-23 05:13] LABS: Red Blood Cells-Urine 0-5 SEEN /hpf (0-5); Squamous Epithelial Cells - UA 0-5 SEEN /hpf (5-10)
--- NOTE | 2022-11-23 05:27 | US_ITS ---
INDICATION: Right upper quadrant and flank pain EXAMINATION: Ultrasound US Abdomen Limited (quadrant) TECHNIQUE: Gaitan scale and color doppler imaging was performed of the right upper quadrant. COMPARISON: CT scan of the abdomen and pelvis of the same day. FINDINGS: LIVER: There is mild increased echogenicity. The liver is enlarged measuring 20 cm in length. The portal vein is patent with normal hepatopedal flow. No focal hepatic lesion is definitely seen. There is no free fluid. GALLBLADDER AND BILIARY TREE: No shadowing gallstone, pericholecystic fluid or gallbladder wall thickening is demonstrated. The gallbladder wall measures 1.8 mm. The proximal common bile duct measures 9 mm, which is dilated. Sonographic Bowden''s sign: Negative. PANCREAS: No focal abnormality is demonstrated in the pancreas. No pancreatic ductal dilatation. US/Gallbladder IMPRESSION: 1. Dilated common bile duct without evidence of gallbladder wall thickening or cholelithiasis. MRCP might be further value if clinically indicated. 2. Hepatomegaly and mild hepatic steatosis. Electronically Signed: Washington Ornelas MD at 8:21 EDT ,
[2022-11-23 05:42] LABS: AST(SGOT) 12 U/L (15-37); Alanine Aminotransfer ALT/SGPT 18 U/L (13-56); Albumin, Serum 3.5 g/dL (3.2-5.0); Alkaline Phosphatase 79 U/L (45-117); Bilirubin, Direct < 0.05 mg/dL (0.00-0.30); Globulin 3.3 g/dL (2.2-4.2); Protein, Total 6.8 g/dL (6.4-8.2)
[2022-11-23 06:21] LABS: Differential Comment SCANNED
--- NOTE | 2022-11-23 10:36 | NURSING ---
DR PAYNE FOR DR COBOS
--- NOTE | 2022-11-23 11:07 | HP.PCM.HOS_ITS ---
HPI - General General Date of Admission: 11/23/22 Date of Service: 11/23/22 Chief Complaint: Right-sided flank and back pain HPI Narrative TIM MARQUES, is a 41 F with history of tobacco use, Chiari malformation with history of surgical intervention on medical marijuana for this, tobacco use, acute hepatitis B several years ago who presented to [facility] 11/23/2022 with right sided abdominal pain to the back. She reports she was asleep and woke up at 2 AM with right sided back pain and right upper quadrant pain and said it was severe enough and not getting better so she came to the ED. In the ED she had an abdominal CT which showed probable gallbladder wall thickening and/or small amount of adjacent fluid although potentially motion artifact as well as a mildly enlarged appendix with small appendicolith in the midportion but no other findings of acute appendicitis as well as left nephrolithiasis without hydronephrosis. Surgery was contacted who recommended gallbladder ultrasound and did not feel appendix was culprit. Gallbladder ultrasound with dilated common bile duct without evidence of gallbladder wall thickening or cholelithiasis as well as hepatomegaly and mild hepatic steatosis. GI was contacted who recommended admission and MRCP and that they would see her in consult. Hospitalist consulted for admission. Patient evaluated at bedside who reports the above history and said that the pain in her back is slightly improved but still has the pain in her right upper quadrant. The pain is sharp and comes and goes. Did have gallbladder problems she said 22 years ago and has not since however several days ago she had a similar pain and went to urgent care and there they checked her urine and she had small blood they thought may be kidney stone. They sent her home and recommended if any worsening she come to the ED which is when she presented. No urinary complaints or bowel bladder c hanges. Has had some intermittent nausea since pain started but no fevers or chills, denies any other focal complaints. [facility] Medical History (Updated 11/23/22 @ 06:[address] Cliff De La O DO) Brain TIA Chiari malformation Hypothyroid Home Medications albuterol sulfate 90 mcg/actuation aerosol inhaler inhalation 11/23/22 [History Last Taken Unknown] ondansetron 4 mg disintegrating tablet 4 mg PO Q8H PRN nausea and vomiting 3 days #9 tabs 11/23/22 [Rx Last Taken Unknown] Allergy/AdvReac Type Severity Reaction Status Date / Time mustard Allergy Angioedema Verified 03/06/21 08:33 oxycodone Allergy Hives Verified 03/06/21 08:33 Family History (Updated 03/06/21 @ 11:09 by Liv Vazquez) Father Liver cancer Surgical History H/O: hysterectomy History of cranial surgery Social History Smoking Status: Current every day smoker tobacco type: cigarettes ROS ROS Narrative General: Denies fever/chills HENT: Denies headache, denies stuffy nose, denies sore throat EYES: Denies changes in vision Resp: Denies cough, denies shortness of breath Cardiac: Denies chest pain GI: Right upper quadrant pain, no diarrhea or constipation, intermittent nausea : Denies changes in urination Extremity: Denies swelling MSK: Denies weakness Neuro: Denies any numbness/tingling Heme: Denies any bleeding or bruising Skin: Denies rashes Psychiatric: No complaints voiced Vital Signs Vital Signs Vital Signs: 11/23/22 03:05 11/23/22 03:05 11/23/22 03:43 Temperature 98.0 F 98.0 F Temperature Source Temporal Temporal Pulse Rate 87 87 Respiratory Rate 28 H 28 H Blood Pressure 140/122 H 140/122 H 130/62 H Blood Pressure Mean 128 128 84 Pulse Ox 97 97 Oxygen Delivery Method Room Air Room Air 11/23/22 07:07 11/23/22 09:00 11/23/22 10:35 Temperature Temperature Source Pulse Rate 61 Respiratory Rate 16 16 14 Blood Pressure 115/65 104/63 Blood Pressure Mean 81 76 Pulse Ox 97 Oxygen Delivery Method Room Air 11/23/22 10:40 Temperature 98.6 F Temperature Source Temporal Pulse Rate 61 Respiratory Rate 14 Blood Pressure 104/63 Blood Pressure Mean 76 Pulse Ox 97 Oxygen Delivery Method Room Air Weight Weight: 104 kg Body Mass Index (BMI) 35.9 Physical Exam Narrative General: Alert, oriented, no apparent distress HEENT: Atraumatic, normocephalic Eyes: Anicteric, normal conjunctiva, extraocular movements grossly intact Neck: Supple Respiratory: Clear to auscultation bilaterally, normal respiratory effort Cardiovascular: Regular rate and rhythm GI: Soft, no rebound, guarding, rigidity, nondistended Extremities: No edema Musculoskeletal: Moving all extremities Neuro: No overt focal neurological deficits Skin: No rashes appreciated, multiple tattoos, scar noted midline at base of skull with no abnormalities Psych: Cooperative Results Lab / Micro Data 11/23/22 03:31 11/23/22 03:31 Labs: Laboratory Results - last 24 hr 11/23/22 03:31: WBC 11.7 H, RBC 4.37, Hgb 13.5, Hct 40.1, MCV 91.8, MCH 30.9, MCHC 33.7, RDW Std Deviation 42.3, RDW Coeff of Eliazar 12.7, Plt Count 177, MPV 12.7 H, Immature Gran % (Auto) 0.200, Neut % (Auto) 42.5 L, Lymph % (Auto) 45.4 H, Swisher % (Auto) 6.9, Eos % (Auto) 4.1, Baso % (Auto) 0.9, Absolute Neuts (auto) 5.0, Absolute Lymphs (auto) 5.29 H, Nucleated RBC % 0, Differential Comment SCANNED, Sodium 144, Potassium 3.8, Chloride 114 H, Carbon Dioxide 24.0, Anion Gap 6, BUN 12, Creatinine 0.92, Estim Creat Clear Calc 77.46, Est GFR (MDRD) Af Amer 85, Est GFR (MDRD) Non-Af 71, BUN/Creatinine Ratio 13.0, Glucose 108 H, Calcium 8.5, Total Bilirubin 0.10 L, Direct Bilirubin < 0.05, AST 12 L, ALT 18, Alkaline Phosphatase 79, Total Protein 6.8, Albumin 3.5, Globulin 3.3, Lipase 62, Serum , Qual NEGATIVE 11/23/22 04:20: Urine Color Yellow, Urine Clarity Clear, Urine pH 6.0, Ur Specific [place] 1.025, Urine Protein 15 H, Urine Glucose (UA) Normal, Urine Ketones Negative, Urine Occult Blood Negative, Urine Nitrite Negative, Urine Bilirubin Negative, Urine Urobilinogen 1 H, Ur Leukocyte Esterase 25 H, Urine RBC 0-5 SEEN, Urine WBC 0-5 SEEN, Ur Squamous Epith Cells 0-5 SEEN, Urine Bacteria 0 SEEN, Urine Mucus 0 SEEN Radiology Impression Abdomen/Pelvis CT 11/23/22 03:17 IMPRESSION: 1. Probable gallbladder wall thickening and/or small amount of adjacent fluid although potentially motion artifact. Correlation with ultrasound recommended to evaluate for acute cholecystectomy. 2. Appendix mildly enlarged with a small appendicolith in the midportion but no secondary findings of acute appendicitis. 3. Left nephrolithiasis without hydronephrosis. Electronically Signed: Ileana Jeffers MD at 5:20 EDT , Gallbladder Ultrasound 11/23/22 05:27 IMPRESSION: 1. Dilated common bile duct without evidence of gallbladder wall thickening or cholelithiasis. MRCP might be further value if clinically indicated. 2. Hepatomegaly and mild hepatic steatosis. Electronically Signed: Washington Ornelas MD at 8:21 EDT , Assessment & Plan Assessment/Plan (1) Right upper quadrant abdominal pain: PLAN: Plan #Right upper quadrant pain -abdominal CT which showed probable gallbladder wall thickening and/or small amount of adjacent fluid although potentially motion artifact as well as a mildly enlarged appendix with small appendicolith in the midportion but no other findings of acute appendicitis as well as left nephrolithiasis without hydronephrosis -Surgery was contacted who recommended gallbladder ultrasound and did not feel appendix was culprit -Gallbladder ultrasound with dilated common bile duct without evidence of gallbladder wall thickening or cholelithiasis as well as hepatomegaly and mild hepatic steatosis -GI was contacted who recommended admission and MRCP and that they would see her in consult. -Patient n.p.o., MRCP ordered, GI consulted -Pain control, nausea control -Suspect choledocholithiasis given onset, symptoms, bile duct dilation -Patient with no fever or jaundice, white blood cell count is 11.7 which is very mildly high but no left shift and total bili, direct bili, ALT, AST, alk phos are not elevated. Do not think patient needs urgent antibiotics at this time #History of Chiari malformation -Status post surgery -Uses home medical marijuana #History of acute hepatitis B several years ago -Patient denies history of hepatitis A or C #Tobacco use -Advise cessation -Patient denied nicotine replacement #DVT ppx: Lovenox subcu Risa Velasquez MD Time spent in the patient's overall evaluation,decision-making process, review of diagnostic data, adjustment of management, discussion with other providers, nursing nursing and ancillary staff involved in patient's care documentation, 56 minutes Charges/Coding Visit Charges Inpatient E&M: 36462 Init Hosp L2
--- NOTE | 2022-11-23 11:11 | MRI_ITS ---
EXAM: MR ABDOMEN WITHOUT INTRAVENOUS CONTRAST, MRCP PROTOCOL CLINICAL INDICATION: concern for choledocholithiasis -- has hx of Chiari malformation surgery, hx of multiple stones, rt flank TECHNIQUE: Multiplanar and multisequence MR images of the abdomen without intravenous contrast obtained with MRCP sequence. Three-dimensional post-processing reconstructions were performed. CONTRAST: None. COMPARISON: Gallbladder ultrasound and CT abdomen and pelvis of the same day. FINDINGS: LOWER THORAX: Unremarkable. No pleural effusion. LIVER: Hepatomegaly. GALLBLADDER AND BILE DUCTS: Borderline to mildly prominent common bile duct measuring up to 6.5 mm in caliber. No evidence of retained stones. No gallbladder distention or wall edema. PANCREAS: Unremarkable. No focal cystic mass. No pancreatic duct dilation. SPLEEN: Unremarkable. Non-enlarged. ADRENALS: Unremarkable. No nodules. KIDNEYS AND URETERS: 3.3 cm cyst in the midpole of right kidney appears to be simple and no further follow-up exam is needed. Normal renal size and position. No hydronephrosis. INTRAPERITONEAL SPACE: Unremarkable. No ascites or other fluid collection. VASCULATURE: Unremarkable. Abdominal aorta is non-dilated. LYMPH NODES: No enlarged lymph nodes. MRI/MRCP Abdomen without Contrast IMPRESSION: 1. Borderline to mildly prominent common bile duct measuring up to 6.5 mm in caliber. No evidence of retained stones. 2. Hepatomegaly. Electronically Signed: Washington Ornelas MD at 12:26 EDT ,
--- NOTE | 2022-11-23 11:19 | NURSING ---
320 [address]MER ABD PAIN
[2022-11-23] MEDS: 0.9% Normal Saline 1,000 ML 75 ML IV (12:57)
--- NOTE | 2022-11-23 15:41 | EX.PCM.CON.G ---
HPI Consult Data Date of Consult: 11/23/22 HPI Narrative Reason for Consultation: Right upper quadrant pain HPI Narrative: TIM MARQUES, is a 41 F who presents with right upper quadrant abdominal pain. She had a similar presentation approximately 2 years ago when she developed right upper quadrant pain that was more into the hospital. She was determined to have cholestatic hepatitis and was told that her bile duct was obstructed. It she also was told that she had acute hepatitis B. This was at [facility]. 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 Approximately 5 days ago she developed right upper quadrant pain and was evaluated at [facility]. She was determined to have blood in her urine so they told her that she had a stone that she likely passed in her urine and that caused her pain. She had been doing okay all week. However, she reports she was asleep and woke up at 2 AM with right sided back pain and right upper quadrant pain and said it was severe enough and not getting better so she came to the ED. In the ED she had an abdominal CT which showed probable gallbladder wall thickening and/or small amount of adjacent fluid although potentially motion artifact as well as a mildly enlarged appendix with small appendicolith in the midportion but no other findings of acute appendicitis as well as left nephrolithiasis without hydronephrosis. General surgery was contacted who recommended gallbladder ultrasound and did not feel appendix was culprit. Gallbladder ultrasound with dilated common bile duct without evidence of gallbladder wall thickening or cholelithiasis as well as hepatomegaly and mild hepatic steatosis. I recommended that she get a MRCP. Her MRCP did not show any signs of ductal dilation either, duct was noted to be 6 mm. Also her liver function test in the ED were not consistent with a biliary obstruction. She notes her abdominal pain at this time had a 5 out of 10. PFSH Medical History Anemia Anxiety Brain TIA Chiari malformation GERD (gastroesophageal reflux disease) Hepatitis Hypothyroid Kidney stones Medical marijuana use Migraines Smoker Home Medications ondansetron 4 mg disintegrating tablet 4 mg PO Q8H PRN nausea and vomiting 3 days #9 tabs 11/23/22 [Rx Last Taken Unknown] Allergy/AdvReac Type Severity Reaction Status Date / Time mustard Allergy Angioedema Verified 03/06/21 08:33 oxycodone Allergy Hives Verified 03/06/21 08:33 Family History (Updated 03/06/21 @ 11:09 by Liv Vazquez) Father Liver cancer Surgical History H/O: hysterectomy History of cranial surgery Social History Smoking Status: Current every day smoker tobacco type: cigarettes ROS ROS Narrative General: Denies fever/chills HENT: Denies headache, denies stuffy nose, denies sore throat EYES: Denies changes in vision Resp: Denies cough, denies shortness of breath Cardiac: Denies chest pain GI: Right upper quadrant pain, no diarrhea or constipation, intermittent nausea : Denies changes in urination Extremity: Denies swelling MSK: Denies weakness Neuro: Denies any numbness/tingling Heme: Denies any bleeding or bruising Skin: Denies rashes Psychiatric: No complaints voiced Physical Exam Narrative General: Alert, oriented, no apparent distress HEENT: Atraumatic, normocephalic Eyes: Anicteric, normal conjunctiva, extraocular movements grossly intact Neck: Supple Respiratory: Clear to auscultation bilaterally, normal respiratory effort Cardiovascular: Regular rate and rhythm GI: Soft, no rebound, guarding, rigidity, nondistended Extremities: No edema Musculoskeletal: Moving all extremities Neuro: No overt focal neurological deficits Skin: No rashes appreciated, multiple tattoos, scar noted midline at base of skull with no abnormalities Psych: Cooperative Lab / Micro Data 11/23/22 03:31 11/23/22 03:31 Labs: Laboratory Results - last 24 hr 11/23/22 03:31: WBC 11.7 H, RBC 4.37, Hgb 13.5, Hct 40.1, MCV 91.8, MCH 30.9, MCHC 33.7, RDW Std Deviation 42.3, RDW Coeff of Eliazar 12.7, Plt Count 177, MPV 12.7 H, Immature Gran % (Auto) 0.200, Neut % (Auto) 42.5 L, Lymph % (Auto) 45.4 H, Sharp % (Auto) 6.9, Eos % (Auto) 4.1, Baso % (Auto) 0.9, Absolute Neuts (auto) 5.0, Absolute Lymphs (auto) 5.29 H, Nucleated RBC % 0, Differential Comment SCANNED, Sodium 144, Potassium 3.8, Chloride 114 H, Carbon Dioxide 24.0, Anion Gap 6, BUN 12, Creatinine 0.92, Estim Creat Clear Calc 77.46, Est GFR (MDRD) Af Amer 85, Est GFR (MDRD) Non-Af 71, BUN/Creatinine Ratio 13.0, Glucose 108 H, Calcium 8.5, Total Bilirubin 0.10 L, Direct Bilirubin < 0.05, AST 12 L, ALT 18, Alkaline Phosphatase 79, Total Protein 6.8, Albumin 3.5, Globulin 3.3, Lipase 62, Serum , Qual NEGATIVE 11/23/22 04:20: Urine Color Yellow, Urine Clarity Clear, Urine pH 6.0, Ur Specific [place] 1.025, Urine Protein 15 H, Urine Glucose (UA) Normal, Urine Ketones Negative, Urine Occult Blood Negative, Urine Nitrite Negative, Urine Bilirubin Negative, Urine Urobilinogen 1 H, Ur Leukocyte Esterase 25 H, Urine RBC 0-5 SEEN, Urine WBC 0-5 SEEN, Ur Squamous Epith Cells 0-5 SEEN, Urine Bacteria 0 SEEN, Urine Mucus 0 SEEN Radiology Impression Abdomen/Pelvis CT 11/23/22 03:17 IMPRESSION: 1. Probable gallbladder wall thickening and/or small amount of adjacent fluid although potentially motion artifact. Correlation with ultrasound recommended to evaluate for acute cholecystectomy. 2. Appendix mildly enlarged with a small appendicolith in the midportion but no secondary findings of acute appendicitis. 3. Left nephrolithiasis without hydronephrosis. Electronically Signed: Ileana Jeffers MD at 5:20 EDT , Gallbladder Ultrasound 11/23/22 05:27 IMPRESSION: 1. Dilated common bile duct without evidence of gallbladder wall thickening or cholelithiasis. MRCP might be further value if clinically indicated. 2. Hepatomegaly and mild hepatic steatosis. Electronically Signed: Washington Ornelas MD at 8:21 EDT , MRCP 11/23/22 11:11 IMPRESSION: 1. Borderline to mildly prominent common bile duct measuring up to 6.5 mm in caliber. No evidence of retained stones. 2. Hepatomegaly. Electronically Signed: Washington Ornelas MD at 12:26 EDT , Assessment & Plan Assessment/Plan (1) Right upper quadrant abdominal pain: PLAN: Plan #Right upper quadrant pain -I suspect that she passed a gallstone into the common bile duct and that is the reason why her common bile duct was dilated on ultrasound. The MRCP shows that there is no signs of choledocholithiasis and her bile duct is down to normal. I think her elevated white blood cell count is secondary to reactive leukocytosis And I would not give her antibiotics. -I told her that she should try eating and see how she does and she can get an outpatient HIDA scan to see if she would benefit from a cholecystectomy. No plans for endoscopy at this time. - #History of acute hepatitis B several years ago -Outpatient viral serologies can be checked to make sure she perform hepatitis B surface antibody and she would probably benefit from hepatitis A vaccination. Charges/Coding Visit Charges Inpatient E&M: 89454 Init Hosp L3
[2022-11-23] MEDS: Acetaminophen 325 MG Tablet 650 MG PO (20:43)
[2022-11-24 02:18] VITALS: BP 117/79; PULSE 59; RESP 16; TEMP 36.1; O2SAT 95
[2022-11-24 05:08] LABS: Absolute Lymphocyte Count 3.75 X10^3/uL (0.83-4.51); Absolute Neutrophil Count 3.8 X10^3/uL (2.0-7.7); Basophil# 0.07 X10^3/uL; Basophil% 0.8 % (0-1); Eosinophil# 0.33 X10^3/uL; Eosinophils% 3.9 % (0-5); Hematocrit 36.8 % (37-47); Hemoglobin 12.3 g/dL (12.0-15.0); Lymphocyte # 3.75 X10^3/ul (0.83-4.51); Lymphocyte % 44.7 % (19-41); Mean Corp Hgb Conc 33.4 g/dL (32-36); Mean Corpuscular Hgb 31.1 pg (27.0-32.0); Mean Corpuscular Volume 93.2 fL (81-99); Mean Platelet Vol. 12.8 fl (6.2-12.0); Monocyte# 0.48 X10^3/uL; Monocyte% 5.7 % (0-10); NRBC Flagged by Analyzer 0 % (0-5); Neutrophil # 3.75 X10^3/uL (2.7-7.7); Neutrophil % 44.8 % (47-70); Platelet Count 136 K/mm3 (150-450); RBC Distribution Width CV 12.7 % (11.6-14.6); RBC Distribution Width SD 43.9 fl (35.1-43.9); Red Blood Count 3.95 M/mm3 (4.2-5.4); White Blood Count 8.4 K/mm3 (4.4-11.0)
[2022-11-24 05:50] LABS: AST(SGOT) 12 U/L (15-37); Alanine Aminotransfer ALT/SGPT 16 U/L (13-56); Albumin, Serum 3.1 g/dL (3.2-5.0); Alkaline Phosphatase 64 U/L (45-117); Anion Gap 3 (5-15); BUN 12 mg/dL (7-18); BUN/Creat Ratio 14.1 RATIO (10-20); Bilirubin, Direct < 0.05 mg/dL (0.00-0.30); Calcium,Total 8.3 mg/dL (8.5-10.1); Chloride 114 mmol/L (98-107); Creatinine, Serum 0.85 mg/dL (0.55-1.02); EST Glomerular Filtration Rate 78 mL/min (>60); Est Glom Filt Rate - Afr Amer 94 mL/min (>60); Estimated Creatinine Clearance 83.84 ml/min; Glucose 97 mg/dL (74-106); Protein, Total 6.1 g/dL (6.4-8.2); Sodium Level 143 mmol/L (136-145); Thyroid Stim Hormone (TSH) 1.85 uIU/mL (0.358-3.74)
[2022-11-24 08:26] VITALS: BP 141/68; PULSE 72; RESP 16; TEMP 36.8; O2SAT 97
--- NOTE | 2022-11-24 11:30 | DCINST_ITS ---
Discharge Instructions Diet Discharge Diet: Light diet - advance as tolerated Activity Discharge Activity: Return to Normal Activity Follow Up Care Test Results: Test results from this visit will be discussed in further detail at your follow- up appointment, if applicable. Discharge Plan Admission Admit Date/Time: 11/23/22 11:07 Primary Reason for Your Visit: Right sided abdominal pain Attending Provider: Risa Velasquez Primary Care Provider: Care Physician,No Primary Instructions Patient Instructions: Abdominal Pain, Gallstones Dc Additional Instructions / Restrictions: DISCHARGE INSTRUCTIONS PLEASE READ *Please take this with you to your next doctors appointment* -You will need to follow-up with Dr. El with GI in his office upon discharge. Please call his office to schedule your hospital follow-up appointment (ph. [phone]). You will need an outpatient HIDA scan -Please call your primary care provider's office upon discharge to schedule a hospital follow up within 1 week. -For any concerning signs or symptoms please call 911 or proceed to the nearest emergency department Discharge Orders/Prescriptions Prescriptions: New ondansetron 4 mg tablet,disintegrating 4 mg PO Q8H PRN (Reason: nausea and vomiting) 3 Days Qty: 9 0RF Referrals / Follow Up: Paulo Dunne MD [Med Staff - [place] Worker] - Rodger El DO [Med Staff - Active Staff] - Care Physician,No Primary [Primary Care Provider] - Disposition Disposition (needs filled in before D/C Order can be placed): Home, Self Care
--- NOTE | 2022-11-24 11:31 | DS.PCM_ITS ---
Providers Date of Admission: 11/23/22 Date of Discharge: 11/24/22 Primary Care Physician: Yovana Primary Care Phys Consultations 11/23/22 12:21 Consult: Gastroenterology Routine Consulting Provider: Ramon Gastroenterology Reason for Consult: possible choledocholithiasis, MRCP ordered per recomendation EMERGENT Consult: No MD Notified: Yes Date Notified: 11/23/22 Time Notified: 11:10 Method of Notification: ED Physician Initiated Reason For Visit: GALLBLADDER PROBLEM Diagnosis Discharge Diagnosis (1) Gallbladder attack: Status: Acute Code(s): K82.9 - Disease of gallbladder, unspecified (2) Right upper quadrant abdominal pain: Status: Acute Code(s): R10.11 - Right upper quadrant pain Plan #Gallbladder colic #History of Chiari malformation #History of acute hepatitis B several years ago #Tobacco use Medications at Discharge Home Medications ondansetron 4 mg disintegrating tablet 4 mg PO Q8H PRN nausea and vomiting 3 days #9 tabs 11/23/22 Hospital Course Summary of Care Provided Minutes Spent on Discharge: 20 Hospital Course: Per HPI: TIM MARQUES, is a 41 F with history of tobacco use, Chiari malformation with history of surgical intervention on medical marijuana for this, tobacco use, acute hepatitis B several years ago who presented to [facility] 11/23/2022 with right sided abdominal pain to the back. She reports she was asleep and woke up at 2 AM with right sided back pain and right upper quadrant pain and said it was severe enough and not getting better so she came to the ED. In the ED she had an abdominal CT which showed probable gallbladder wall thickening and/or small amount of adjacent fluid although potentially motion artifact as well as a mildly enlarged appendix with small appendicolith in the midportion but no other findings of acute appendicitis as well as left nephrolithiasis without hydronephrosis. Surgery was contacted who recommended gallbladder ultrasound and did not feel appendix was culprit. Gallbladder ultrasound with dilated common bile duct without evidence of gallbladder wall thickening or cholelithiasis as well as hepatomegaly and mild hepatic steatosis. GI was contacted who recommended admission and MRCP and that they would see her in consult. Hospitalist consulted for admission. Patient evaluated at bedside who reports the above history and said that the pain in her back is slightly improved but still has the pain in her right upper quadrant. The pain is sharp and comes and goes. Did have gallbladder problems she said 22 years ago and has not since however several days ago she had a similar pain and went to urgent care and there they checked her urine and she had small blood they thought may be kidney stone. They sent her home and recommended if any worsening she come to the ED which is when she presented. No urinary complaints or bowel bladder changes. Has had some intermittent nausea since pain started but no fevers or chills, denies any other focal complaints. INTERVAL HISTORY: Patient had MRCP which was essentially normal, symptoms also completely resolved. Was seen by GI, seems she likely had a stone that passed. Patient tolerated diet with no additional symptoms or problems, was discharged home with the following discharge instructions: -You will need to follow-up with Dr. El with GI in his office upon discharge. Please call his office to schedule your hospital follow-up appointment (ph. [phone]). You will need an outpatient HIDA scan -Please call your primary care provider's office upon discharge to schedule a hospital follow up within 1 week. -For any concerning signs or symptoms please call 911 or proceed to the nearest emergency department Physical Exam Narrative General: Alert, oriented, no apparent distress HEENT: Atraumatic, normocephalic Eyes: Anicteric, normal conjunctiva, extraocular movements grossly intact Neck: Supple Respiratory: Clear to auscultation bilaterally, normal respiratory effort Cardiovascular: Regular rate and rhythm GI: Soft, nontender, nondistended Extremities: No edema Musculoskeletal: Moving all extremities Neuro: No overt focal neurological deficits Skin: No rashes appreciated Psych: Cooperative Weight / BMI Weight Weight: 110.6 kg Body Mass Index (BMI) 38.2 ABG / Lab / Microbiology Data 11/24/22 04:34 11/24/22 04:34 Laboratory: Laboratory Results - last 24 hr 11/24/22 04:34: WBC 8.4, RBC 3.95 L, Hgb 12.3, Hct 36.8 L, MCV 93.2, MCH 31.1, MCHC 33.4, RDW Std Deviation 43.9, RDW Coeff of Eliazar 12.7, Plt Count 136 L, MPV 12.8 H, Immature Gran % (Auto) 0.100, Neut % (Auto) 44.8 L, Lymph % (Auto) 44.7 H, Ritchie % (Auto) 5.7, Eos % (Auto) 3.9, Baso % (Auto) 0.8, Absolute Neuts (auto) 3.8, Absolute Lymphs (auto) 3.75, Nucleated RBC % 0, Sodium 143, Potassium 4.0, Chloride 114 H, Carbon Dioxide 26.0, Anion Gap 3 L, BUN 12, Creatinine 0.85, Estim Creat Clear Calc 83.84, Est GFR (MDRD) Af Amer 94, Est GFR (MDRD) Non-Af 78, BUN/Creatinine Ratio 14.1, Glucose 97, Calcium 8.3 L, Total Bilirubin 0.20, Direct Bilirubin < 0.05, AST 12 L, ALT 16, Alkaline Phosphatase 64, Total Protein 6.1 L, Albumin 3.1 L, Globulin 3.0, Albumin/Globulin Ratio 1.0, TSH 1.85 Radiography Diagnostic Testing: Radiology Impression MRCP 11/23/22 11:11 IMPRESSION: 1. Borderline to mildly prominent common bile duct measuring up to 6.5 mm in caliber. No evidence of retained stones. 2. Hepatomegaly. Electronically Signed: Washington Ornelas MD at 12:26 EDT , D/C Instructions Discharge Diet: Light diet - advance as tolerated Meaningful Use Info Meaningful Use Diagnoses (Choose all that apply): None applicable Discharge Plan Admission Admit Date/Time: 11/23/22 11:07 Primary Reason for Your Visit: Right sided abdominal pain Attending Provider: Risa Velasquez Primary Care Provider: Care Physician,No Primary Instructions Patient Instructions: Abdominal Pain, Gallstones Dc Additional Instructions / Restrictions: DISCHARGE INSTRUCTIONS PLEASE READ *Please take this with you to your next doctors appointment* -You will need to follow-up with Dr. El with GI in his office upon discharge. Please call his office to schedule your hospital follow-up appointment (ph. [phone]). You will need an outpatient HIDA scan -Please call your primary care provider's office upon discharge to schedule a hospital follow up within 1 week. -For any concerning signs or symptoms please call 911 or proceed to the nearest emergency department Discharge Orders/Prescriptions Prescriptions: New ondansetron 4 mg tablet,disintegrating 4 mg PO Q8H PRN (Reason: nausea and vomiting) 3 Days Qty: 9 0RF Referrals / Follow Up: Paulo Dunne MD [Med Staff - [employer] Retrofit Architect] - Friend,DO Rodger [Med Staff - Active Staff] - Care Physician,No Primary [Primary Care Provider] - Disposition Disposition (needs filled in before D/C Order can be placed): Home, Self Care Charges/Coding Visit Charges Inpatient E&M: 68896 Disch Hosp
[2022-11-26 05:33] LABS: HEPATITIS B SURFACE AG Negative (Negative); Hep C Antibodies Non Reactive (Non Reactive); Hepatitis A IgM Antibody Negative (Negative); Hepatitis B Core AB IgM Negative (Negative)
== END 2022-11-24 12:28 | disposition home or self-care (01) ==
LOC: ED 03:29 → MS3 11:14
PROVIDERS: Admitting Provider Internal Medicine; Emergency Provider Emergency Medicine; Visit Provider Internal Medicine
DX: K82.9 Disease of gallbladder, unspecified (principal); F12.90 Cannabis use, unspecified, uncomplicated; K83.8 Other specified diseases of biliary tract; F17.200 Nicotine dependence, unspecified, uncomplicated; Z80.0 Family history of malignant neoplasm of digestive organs; Z86.19 Personal history of other infectious and parasitic diseases; Z87.442 Personal history of urinary calculi
CPT/HCPCS: 36415; 74176; 74181; 76705; 80048; 80053; 80074; 80076; 81001; 82248; 83690; 84443; 84703; 85025; 99284; J7030; A4216; J2405

== ENCOUNTER → 2022-12-10 | Outpatient (CLI) | payer MEDICAID, SELFPAY ==
--- NOTE | 2022-12-10 10:20 | NM_ITS ---
CLINICAL: 42-year-old female with history of right upper quadrant abdominal pain. RADIONUCLIDE HEPATOBILIARY SCINTIGRAPHY COMPARISON: Abdominal ultrasound, MRCP and CT of the abdomen-pelvis reports 11/23/2022 FINDINGS: Following the intravenous administration of 5.7 mCi of 99m Tc Mebrofenin, hepatobiliary images reveal: 1. Relatively prompt and homogeneous radiopharmaceutical concentration is noted by a normal sized liver. No parenchymal defects are identified. 2. Gallbladder activity is identified at 15 minutes post radiopharmaceutical administration. 3. Small intestinal tract is not visualized during 60 minutes of pre-CCK sequential imaging. Small bowel activity is identified following the administration of cholecystokinin. 4. Washout of the radiopharmaceutical by the hepatic parenchyma appears qualitatively normal. Cholecystokinin (0.02 ug/kg) was administered intravenously over a 30-minute period. The post CCK gallbladder ejection fraction calculated at 20 minutes following Cholecystokinin administration was noted to be < 5 % (normal greater than 35%). NM/Hepatobilliary Img w/Pharm Int IMPRESSION: 1. ABNORMAL 99m Tc Mebrofenin hepatobiliary imaging examination with Cholecystokinin. A. A gallbladder ejection fraction calculated to be less than 35% following the administration of Cholecystokinin is consistent with the presence of functional hepatobiliary disease (gallbladder and/or sphincter of Oddi dyskinesia) and/or organic hepatobiliary disease (chronic acalculous cholecystitis and/or cystic duct syndrome) in patients with intermediate to high pretest likelihoods of hepatobiliary illness. (Pretty Braun et al, Journal of Nuclear Medicine 32:1695, 1991). Electronically Signed: Sebastián Mcnamara, at 15:27 EDT ,
== END | disposition home or self-care (01) ==
LOC: NM 10:19
PROVIDERS: Referring Provider Internal Medicine Gastroenterology; Visit Provider Internal Medicine Gastroenterology
DX: R10.11 Right upper quadrant pain (principal)
CPT/HCPCS: 78227; A9537; J2805

== ENCOUNTER 2022-12-24 11:43 | Day surgery (SDC) | payer MEDICAID, SELFPAY ==
[2022-12-24] VITALS (10 sets, daily range): BP systolic 112–157; BP diastolic 49–89; PULSE 58–81; RESP 16–18; TEMP 36.2–37.1; O2SAT 92–100; BMI 37.0
[2022-12-24] MEDS: Lactated Ringers 1,000 ML 15 ML IV ×2 (12:27→14:54)
--- NOTE | 2022-12-24 12:39 | HP.PCM_ITS ---
History and Physical Date of Admission: 12/24/22 Intake Vital Signs 11/24/2311:28 12/13/2312:22 Height 5 ft 7 in 5 ft 7 in Weight: 238 lb BMI 37.3 BP 136/84 H Blood Pressure Location Rt brachial Position Sitting Respiration 18 Pulse 80 Pulse Source Monitor Temp 97.2 F L Temp Source Tympanic Intake Visit Reasons: GALLBLADDER Chief Complaint: left sided weaknedd and headache Allergies mustard Allergy (Verified 03/06/21 08:33) Angioedemaoxycodone Allergy (Verified 03/06/21 08:33) Hives Medications acetaminophen-caffeine 500 mg-65 mg tablet (Excedrin Tension Headache) 1 tab PO Q12H PRN 12/13/22 [History Confirmed 12/13/22] PFSH Medical History Anemia Anxiety Brain TIA Chiari malformation GERD (gastroesophageal reflux disease) Hepatitis Hypothyroid Kidney stones Medical marijuana use Migraines Smoker Surgical History H/O: hysterectomy History of cranial surgery Family History Father Liver cancer Social History Smoking Status: Current every day smoker tobacco type: cigarettes HPI HPI HPI: Patient is a 42-year-old female with right upper quadrant pain. She reports that the pain happens especially after eating and she has not been able to eat since her HIDA scan. She had a recent hospitalization with a mildly dilated duct and there was suggestion of possible choledocholithiasis with the patient does not have any gallstones. Ultrasound did not show any thickening or gallstones in the gallbladder. She did have a HIDA which showed decreased ejection fraction. ROS General General: Yes weight change and fatigue; No appetite, colon cancer, breast cancer or weakness HEENT HEENT: No difficulty swallowing, eye injury, eye surgery, swollen glands or hoarseness Endo Endocrine: No thyroid disease, diabetes mellitus, thyroid cancer, Hair loss, heat intolerance or cold intolerance Skin Skin: No rash or changing moles Breast Breast: No left breast lump, right breast lump, nipple discharge, breast pain, abnormal mammogram, abnormal US or breast enlargement Musc Musculoskeletal: Yes back problems, arthritis and rheumatoid arthritis; No gout or joint pain Cardio Cardiovascular: No murmur, pacemaker, heart disease, atrial fibrillation, high blood pressure, heart attack, heart stent, palpitations, shortness of breat with exertion or chest pain Psych Psychiatric: No depression, anxiety or hearing voices Resp Respiratory: No shortness of breath, No sleep apnea, No cough, No COPD, No asthma, No emphysema and No wheezing Gastro Gastrointestinal: No abdominal pain, No nausea or vomiting, No diarrhea, No constipation, No blood in stool, No acid reflux, No hemorrhoids, No ulcers, No gallbladder problem and No black,tarry stools Mason Hematologic: No blood thinners, No blood disorders, No bleeding, No anemia and No blood clots Neuro Neurologic: No system reviewed and no additional complaints, except as documented, No as per HPI, No abnormal gait, No abnormal hearing, No abnormal movements, No abnormal speech, No behavioral changes, No burning sensations, No confusion, No convulsions, No disequilibrium, No dizziness, No localized weakness, No frequent falls, No headache(s), No lack of coordination, No loss of vision, No memory loss, No numbness, No other visual disturbances, No radicular pain, No restless legs, No sensory deficit, No syncope, No tingling, No tremor(s), No weakness and No other (cva) Exam Const General: cooperative Orientation: alert and oriented x3 HENTX Head: normal to inspection Neck Neck: normal visual inspection and full ROM Chest Chest palpation & inspection: normal inspection of the chest Resp Effort & Inspection: normal respiratory effort Auscultation: clear to auscultation bilaterally Cardio Rate: regular rate Rhythm: regular rhythm GI Inspection: non-distended Palpation: soft and nontender Skin General: no rashes or lesions noted Neuro General: patient alert and patient oriented x3 Extrem General: full ROM Psych Appearance: grossly normal Mental Status: mental status grossly normal Assessment and Plan Assessment and Plan (1) Biliary dyskinesia: Status: Acute Plan: The patient has had a scan which showed ejection fraction of less than 5%. She does have right upper quadrant pain especially after eating with nausea. I recommended laparoscopic cholecystectomy for biliary dyskinesia. I discussed the procedure in detail with the patient. I discussed the risks, benefits, and alternatives of the procedure. I discussed the risks including but not limited to bleeding, infection, injury to surrounding organs such as the liver, bile duct, bowels. I did discuss the possibility of having to convert to an open procedure as well as the possibility that if any injuries occurred this may necessitate further surgery at a tertiary care center. Ramon Turcios MD Pager: [facility] [address] [place] [address], [address] [place] [phone] Office: I have examined the patient and the H&P has been reviewed. There are no clinical changes since date of exam.
[2022-12-24] MEDS: Cefotetan 2 GM in 0.9% NS 100 ML IV (12:58)
--- NOTE | 2022-12-24 13:05 | GALL_PTH ---
PATIENT: TIM MARQUES [place] [facility] [place][id number] AGE/SX: 42/F ROOM: RE12/24/[address]: Dr. Ramon Turcios MD : 1980 BED: DIS: 12/24/2022 SPEC #: [id number] RECD: 12/24/22 14:14 STATUS: JUAN GENO #: [id number] NINFA: 12/24/22 13:[address]: Ramon Turcios DEPT: SURGICAL PATHOLOGY RECD BY: Cira Jimenes ENTERED: 12/25/22 09:18 SP TYPE: LIAM RIVERO DR: No Primary Care Phys Tissues: Gallbladder, NOS Procedures: Surgery Specimen Level III HEADER OPERATION: Laparoscopic, cholecystectomy PRE-OP DIAGNOSIS: Biliary dyskinesia TISSUE SUBMITTED: Gallbladder MICROSCOPIC DIAGNOSIS Gallbladder, cholecystectomy: Chronic cholecystitis. See comment. COMMENT No stones are identified in the container or in the gallbladder. MICROSCOPIC DESCRIPTION Slides are reviewed. GROSS DESCRIPTION Received is one container labeled with the patient's name and designated gallbladder. The specimen consists of a gallbladder measuring 9 x 3.5 x 2.8 cm. The external surface is smooth and glistening. Focally, it is granular, hemorrhagic and contains cautery artifact. The lumen of the gallbladder contains yellow-green mucoid bile and no calculi. The mucosa is bile-stained and without any mass lesions. The gallbladder wall averages 0.2 cm in thickness and is free of mass lesions. Instrumentation And Controls Designer sections of the gallbladder and the cystic duct at margin of resection are submitted in one cassette. / AM:cc 12/25/22 TC:3 CPT: 13177
--- NOTE | 2022-12-24 13:15 | RAD_ITS ---
EXAMINATION: Intraoperative fluoroscopic cholangiogram. INDICATION: Pain. Intraoperative cholangiogram from laparoscopic cholecystectomy. TECHNIQUE 2 intraoperative fluoroscopic cine clips are submitted for evaluation. Total Fluoroscopic Time: 26.5 seconds AND number of Fluoroscopic Images: 2 cine clips OR Radiation dosage index: 17.19 mGy COMPARISON: Abdomen MRCP from November 13, 2022. FINDINGS: There is cannulation of the gallbladder. Contrast is injected into the gallbladder. Contrast opacifies the cystic duct and common bile duct. Slightly irregular appearance of the cystic duct with no intraluminal filling defects identified. Mild prominence of the common bile duct with no intraluminal filling defects identified. No strictures are identified. There is free passage into the duodenum. RAD/Cholangiogram/ O R,Initial IMPRESSION: Intraoperative cholangiogram as detailed above. Please see intraoperative report for detailed findings. Electronically Signed: Yury Monsivais DO at 15:53 EDT ,
[2022-12-24 13:21] LABS: Prothrombin Time (Protime)PT. 12.7 SECONDS (11.7-14.9)
[2022-12-24 13:22] LABS: Partial Thromboplast Time 29.6 Seconds (24.1-36.2)
[2022-12-24] MEDS: Bupivacaine 0.25% 30 ML Vial (13:46)
--- NOTE | 2022-12-24 14:05 | PCM.OPRPT ---
Report of Operation Date of Procedure: 12/24/22 Pre-Operative Diagnosis: Biliary dyskinesia and right upper quadrant pain Post-Operative Diagnosis: Same Surgery/Procedure Performed:: Laparoscopic cholecystectomy with cholangiogram Type of Anesthesia: General/Regional Specimen's removed: Gallbladder Estimated Blood Loss (mL): 10 Description of Procedure: After obtaining informed consent patient was brought back to the operating room. General anesthesia was induced. The abdomen was prepped and draped in usual sterile fashion. A small midline incision was made superior to the umbilicus and deepened to the level of fascia. The fascia was elevated and incised. Next the peritoneum was elevated and incised in the same fashion. Finger sweep was performed and the Morris trocar was placed into the abdomen. The balloon was inflated. The abdomen was inflated to 15 mmHg. Next a camera was introduced into the abdomen and the abdomen was inspected. Next under direct visualization three 5-mm ports were placed one subxiphoid and 2 subcostal. Next the gallbladder was elevated and retracted toward the right shoulder. The peritoneum was stripped from the gallbladder. The infundibulum was located and retracted laterally. Next the triangle of Calot was dissected and the cystic duct and cystic artery were identified. Cholangiograms were performed. The Loo clamp was used to clamp across the infundibulum and the catheter needle was inserted into the gallbladder. Under fluoroscopy contrast was instilled into the gallbladder and the common duct, cystic duct as well as proximal hepatic ducts were identified. There was good filling of the duodenum. There were no filling defects noted in the common bile duct. The clamp was removed as well as the needle and the infundibulum was grasped once more. Three hemolock clips were placed across the cystic duct. The cystic duct was then divided leaving 2 clips on the stump. The cystic artery was clipped and divided in the same fashion. The hook cautery was then used to take the gallbladder off of the gallbladder bed. Hemostasis was obtained. Gallbladder fossa was irrigated and no active bleeding or bile leakage was noted. Next the camera was introduced in the subxiphoid port. An Endopouch bag was placed through the umbilical port and the gallbladder was placed into it. The gallbladder was then removed through the umbilical incision. The camera was then reinserted through the umbilical port. The gallbladder fossa was inspected once more and noted to be hemostatic with no leaking bile. The abdomen was suctioned dry. The 5 mm ports were removed under direct visualization. The umbilical port was then removed and the air was removed from the abdomen. Next using an 0 Vicryl suture the umbilical fascia was closed in a [id number] fashion. The umbilical port site was irrigated local anesthetic was administered to all the incisions. All the incisions were closed with interrupted subcuticular 4-0 Monocryl sutures followed by Steri-Strips and dressings. The patient was awoken and taken to PACU in stable condition. Admit VTE Documentation VTE Mechan Device Prophylaxis: SCD's
--- NOTE | 2022-12-24 14:06 | DCINST_ITS ---
Discharge Instructions Procedure Gallbladder Diet Discharge Diet: Light diet - advance as tolerated Activity Discharge Activity: May Not Drive (for 2-3 days or while taking narcotic pain medications.) and - (Do not drive, work heavy equipment or sign legal documents for 24 hours.) May shower in (days): 1 Lifting Restrictions: 20 lbs for 2 weeks Additional Activity Instructions:: Pain medication may cause nausea. You should typically eat light foods as you take your pain medications. Pain medication may also cause constipation. If this is a problem for you, please discuss with your doctor. Dressing / Incision Call your doctor if your incision/area has: Continuous Slow Oozing, Sudden Increased Bleeding, Increased Pain/ Swelling, Increased Redness and Foul Smelling Discharge Call your doctor if you observe: Fever of 101 or Higher Suture Line Care: Avoid Pulling/Pushing and Avoid Pinching/Bending Remove Dressing in: 2 days Additional Dressing/Incision Instructions:: Leave operative bandaids on for 2 days. When you remove dressing, leave Steri-Strips on until your follow-up appointment, or until the Steri-Strips fall off on their own. Follow Up Care Please Follow Up With: Ramon Turcios MD When: Please call to schedule 2 week follow up appointment. [phone] Test Results: Test results from this visit will be discussed in further detail at your follow- up appointment, if applicable. Discharge Plan Admission Attending Provider: Ramon Turcios Primary Care Provider: Joycelyn PhysicianYovana Primary Discharge Orders/Prescriptions Prescriptions: New acetaminophen 325 mg Tablet 650 mg PO Q4H PRN PRN (Reason: Pain Or Fever) Qty: 0 0RF oxycodone 10 mg tablet 5 - 10 mg PO Q6H PRN (Reason: pain) 5 Days Qty: 10 0RF No Action Excedrin Tension Headache 500-65 mg tablet 1 tab PO Q12H PRN (Reason: pain) Referrals / Follow Up: Care Physician,Yovana Primary [Primary Care Provider] - Disposition Disposition (needs filled in before D/C Order can be placed): Home, Self Care
[2022-12-24] MEDS: oxyCODONE 5 MG Tablet PO (16:27)
== END 2022-12-24 18:11 | disposition home or self-care (01) ==
LOC: SDC 11:44 → AC 11:45
PROVIDERS: Anesthesiology; Referring Provider Surgery; Visit Provider Surgery
PROC: (CPT 47610; principal; 2022-12-24 12:45)
DX: K81.1 Chronic cholecystitis (principal); K82.8 Other specified diseases of gallbladder; Z80.0 Family history of malignant neoplasm of digestive organs; F17.210 Nicotine dependence, cigarettes, uncomplicated; E03.9 Hypothyroidism, unspecified; K21.9 Gastro-esophageal reflux disease without esophagitis; Z90.710 Acquired absence of both cervix and uterus; Z86.73 Personal history of transient ischemic attack (TIA), and cerebral infarction without residual deficits; R23.3 Spontaneous ecchymoses
CPT/HCPCS: 47563; 00790; 74300; 76000; 85610; 85730; 88304; 93005; J7120; J2405

== ENCOUNTER 2023-10-08 16:08 | Emergency (ER) | payer MEDICAID, SELFPAY ==
[2023-10-08 16:08] VITALS: BP 139/61; PULSE 83; RESP 16; TEMP 36.8; O2SAT 99; BMI 37.8
--- NOTE | 2023-10-08 16:42 | EDS_ITS ---
HPI History of Present Illness Chief Complaint: Upper Extremity Injury Narrative Narrative: 42-year-old female, [id number], presents with right index finger pain and swelling that she had since yesterday. 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 She states she has pain when she tries to bend her finger and is having pain along the sides of it. She denies any recent trauma. No fevers or chills, no change in color. She states she can barely bend her finger at the DIP and PIP joints. PFSH PFS Medical History Wears dentures Arthritis Easy bruising Back pain History of echocardiogram Anxiety Hepatitis GERD (gastroesophageal reflux disease) Smoker Migraines Brain TIA Hypothyroid Chiari malformation Home Medications ?Medication ?Instructions ?Recorded ?Last Taken ?Type NK 10/08/23 Unknown History Allergy/AdvReac Type Severity Reaction Status Date / Time mustard Allergy Angioedema Verified 10/08/23 16:09 oxycodone Allergy Hives Verified 10/08/23 16:09 Family History Father Liver cancer Surgical History Hx of foot surgery History of cranial surgery H/O: hysterectomy Social History Smoking Status: Current every day smoker tobacco type: cigarettes ROS ROS ED ROS Narrative No fevers, no chills, no nausea and vomiting. Positive pain and minimal swelling right index finger. Positive pain with movement. Difficulty bending at PIP and DIP joint. No change in color. EXAM Physical Exam Narrative Exam Narrative: Afebrile. Vital signs noted. Diffuse tenderness to palpation along middle phalanx and the DIP and PIP joint of right index finger. Good capillary refill. Able to oppose thumb. No erythema. Const Vital Signs: 10/08/23 16:08 Temperature 98.3 F Temperature Source Temporal Pulse Rate 83 Respiratory Rate 16 Blood Pressure 139/61 H Blood Pressure Mean 87 Pulse Ox 99 Oxygen Delivery Method Room Air MDM MDM MDM Narrative Medical decision making narrative: In the differential diagnosis is finger sprain versus overuse syndrome versus fracture. I have low suspicion for fracture because she has not had any trauma. She has been taking Tylenol and ibuprofen. X-rays of the right index finger interpreted by myself independently shows no evidence of acute fracture. I reviewed the radiology report which confirms my independent interpretation. Patient will be placed in AlumaFoam splint told to exercise her finger when possible, follow-up with primary care. She was also referred to orthopedics on- call to see as needed if not improving in 1 week. Return instructions to the emergency department were reviewed. Disposition is discharged home in stable condition. Discharge Plan Triage Chief Complaint: Upper Extremity Injury ED Provider: Pierce Celis Dx/Rx/DC Orders Clinical Impression: Finger sprain, Overuse syndrome Instructions: ED Finger Sprain Prescriptions: No Action NK Primary Care Provider: Care Physician,No Primary Referrals: Shaun Swartz MD [Med Staff - Active Staff] - 1 Week if not improving Bruce Valencia MD [Med Staff - Active Staff] - As soon as possible Care Physician,No Primary [Primary Care Provider] - Activity Restrictions/Additional Instructions: Continue your ocik-alx-itjtege medications as needed for pain. Print Language: Tuvaluan Disposition Disposition: Home, Self Care
--- NOTE | 2023-10-08 16:45 | RAD_ITS ---
STUDY: X-RAY - RIGHT HAND, ATTENTION SECOND FINGER REASON FOR EXAM: Female, 42 years old. Pain -- Index finger, second digit TECHNIQUE: 3 view(s) of the finger were obtained. COMPARISON: None. FINDINGS: Normal metacarpal head. Normal metacarpophalangeal joint. Normal proximal phalanx. Normal middle phalanx. Normal distal phalanx. Normal proximal interphalangeal joint. Normal distal interphalangeal joint. RAD/Finger(s) Min 2 Views IMPRESSION: Normal x-ray examination of the finger. Electronically Signed: Orlando Chow MD at 17:10 EDT ,
[2023-10-08 18:09] VITALS: BP 128/76; PULSE 84; RESP 16; TEMP 36.7; O2SAT 98
== END 2023-10-08 18:11 | disposition home or self-care (01) ==
PROVIDERS: Emergency Provider Emergency Medicine; Visit Provider Emergency Medicine
DX: S63.610A Unspecified sprain of right index finger, initial encounter (principal); F17.210 Nicotine dependence, cigarettes, uncomplicated; K21.9 Gastro-esophageal reflux disease without esophagitis; E03.9 Hypothyroidism, unspecified; Z86.73 Personal history of transient ischemic attack (TIA), and cerebral infarction without residual deficits; Z90.710 Acquired absence of both cervix and uterus; M70.98 Unspecified soft tissue disorder related to use, overuse and pressure other; X50.9XXA Other and unspecified overexertion or strenuous movements or postures, initial encounter; Y93.G3 Activity, cooking and baking; Y99.0 Civilian activity done for income or pay; Y92.214 College as the place of occurrence of the external cause
CPT/HCPCS: 73140; 99283

== ENCOUNTER 2023-11-19 14:45 | Emergency (ER) | payer MEDICAID, SELFPAY ==
[2023-11-19 14:46] VITALS: BP 148/69; PULSE 72; RESP 20; TEMP 35.5; O2SAT 98; BMI 38.4
--- NOTE | 2023-11-19 15:46 | EX.ED.GENINJ ---
HPI History of Present Illness Chief Complaint: Other, Pain/Inj Narrative Narrative: 42-year-old female presenting with neck pain. She states it is right-sided. She feels like she slept wrong and this is what caused her neck pain. Denies any trauma. No paresthesias. No systemic signs or symptoms. She has trouble turning her head to the right and sidebending to the right. PFSH PFSH Medical History Wears dentures Arthritis Easy bruising Back pain History of echocardiogram Anxiety Hepatitis GERD (gastroesophageal reflux disease) Smoker Migraines Brain TIA Hypothyroid Chiari malformation Home Medications ?Medication ?Instructions ?Recorded ?Last Taken ?Type NK 10/08/23 Unknown History tizanidine 4 mg tablet 4 mg PO Q8H PRN muscle spasticity 11/19/23 Unknown Rx #20 tabs Allergy/AdvReac Type Severity Reaction Status Date / Time mustard Allergy Angioedema Verified 11/19/23 14:46 oxycodone Allergy Hives Verified 11/19/23 14:46 Family History Father Liver cancer Surgical History Hx of foot surgery History of cranial surgery H/O: hysterectomy Social History Smoking Status: Current every day smoker tobacco type: cigarettes ROS ROS ED Constitutional Constitutional ED: Denies chills, fever(s) or sweats Eyes Eyes: Denies blurry vision or change in vision ENT ENT ED: Denies ear pain or sore throat Cardiovascular Cardiovascular: Denies chest pain, palpitations or racing heartbeat Respiratory/Chest Respiratory/Chest: Denies cough, dyspnea or sputum Gastrointestinal Gastrointestinal: Denies abdominal pain, constipation, diarrhea, nausea or vomiting Genitourinary Genitourinary ED: Denies dysuria, hematuria or urinary frequency Musculoskeletal Musculoskeletal: Reports neck pain; Denies arthralgias or myalgias Integumentary Denies abscess, Abrasions or rash Neurologic Neurologic: Denies headache(s), paresthesias or weakness Psychiatric Psychiatric: Denies anxiety, depression, suicidal ideation or suicidal thoughts Endocrine Endocrinology: Denies polydipsia or polyuria EXAM Physical Exam Const Vital Signs: 11/19/23 14:46 11/19/23 15:05 Temperature 96 F L Temperature Source Temporal Pulse Rate 72 Respiratory Rate 20 H Respiratory Effort Normal Blood Pressure 148/69 H Blood Pressure Mean 95 Pulse Ox 98 Oxygen Delivery Method Room Air Positive well nourished General Appearance ED: NAD HEENT atraumatic Resp normal respiratory effort Cardio regular rhythm Rate: regular rate Back/Spine Back/Spine Narrative: Tenderness to palpation right cervical paraspinal musculature. No midline spinal tenderness, deformity, step-off of the cervical spine. Limited range of motion with sidebending and rotation to the right. Tenderness to palpation knee trapezius on the right. Extremity normal to inspection Neuro oriented x3, CN's II-XII intact bilaterally, moves all extremities and no focal motor deficits Sensorium / Orientation: alert Skin no rashes or lesions noted MDM MDM MDM Narrative Medical decision making narrative: Patient presenting with cervical strain. I do not believe she needs imaging. She is given Norflex and Toradol. Will reevaluate. On reevaluation patient has improvement. She is able to side bend and rotate her head slightly more. Discharged home with muscle relaxers. She is to continue ice, stretching, follow-up with PCP. Impression: 1. Cervical strain Lab Data Attestation: I reviewed the patient's lab results. Discharge Plan Triage Chief Complaint: Other, Pain/Inj ED Provider: Edin Melo Dx/Rx/DC Orders Instructions: ED Neck Spasm, No Trauma Prescriptions: New tizanidine 4 mg tablet 4 mg PO Q8H PRN (Reason: muscle spasticity) Qty: 20 0RF No Action NK Primary Care Provider: Care Physician,No Primary Referrals: Basilia River MD [Med Staff - [facility]] - 3-5 Days Care Physician,No Primary [Primary Care Provider] - Print Language: [place] Islander Disposition Disposition: Home, Self Care
[2023-11-19] MEDS: Ketorolac 15 MG/ML Vial IM (15:56)
[2023-11-19] MEDS: Orphenadrine 60 MG/2 ML Ampul IM (15:56)
[2023-11-19 16:54] VITALS: BP 135/83; PULSE 58; RESP 19; TEMP 36.4; O2SAT 98
== END 2023-11-19 16:56 | disposition home or self-care (01) ==
PROVIDERS: Emergency Provider Student in an Organized Health Care Education/Training Program; Visit Provider Student in an Organized Health Care Education/Training Program
DX: S16.1XXA Strain of muscle, fascia and tendon at neck level, initial encounter (principal); F17.210 Nicotine dependence, cigarettes, uncomplicated; Z86.73 Personal history of transient ischemic attack (TIA), and cerebral infarction without residual deficits; X58.XXXA Exposure to other specified factors, initial encounter
CPT/HCPCS: 96372; 99282

== ENCOUNTER 2024-02-01 19:05 | Emergency (ER) | payer MEDICAID, SELFPAY ==
[2024-02-01 19:08] VITALS: BP 132/88; PULSE 91; RESP 22; TEMP 36.9; O2SAT 95; BMI 37.0
[2024-02-01 19:22] VITALS: O2SAT 98
--- NOTE | 2024-02-01 19:28 | EDS_ITS ---
HPI History of Present Illness Chief Complaint: Shortness of Breath Informant: patient Onset/Context/Timing Onset: Days (10) Context: gradual Timing: Continuous Quality: Positive for Dyspnea on exertion and Orthopnea Worsened by: Exertion and Lying flat Relieved by: Nothing Associated Symptoms cough, ear pain, fever, sore throat, subjective, chills, clear sputum and white sputum; Negative for rhinorrhea, post nasal drip, yellow sputum or green sputum Chest Pain: Positive for None Narrative Narrative: Patient presents with shortness of breath and cough that has been constant for the past 10 days. Patient states she went to urgent care last week and was given a prescription for doxycycline which she completed with no improvement of her symptoms. Patient states her breathing is worse with any exertion and with laying flat. Patient states nothing seems to help her cough or breathing. Patient states she is coughing up some clear and white sputum. Patient also admits to a sore throat and mild pain in her ears. Patient states she had a low-grade fever of 99 at home. PE Risk Factors: Negative for Cancer, OCP + Smoking + > 35, Prior DVT or PE, Recent immobilization or Recent surgery PFSH COUNTS INCLUDE [facility] BEDS AT THE [facility] Medical History TIA (transient ischemic attack) Pituitary adenoma Wears dentures Arthritis Easy bruising Back pain History of echocardiogram Anxiety Hepatitis GERD (gastroesophageal reflux disease) Smoker Migraines Brain TIA Hypothyroid Chiari malformation Home Medications ?Medication ?Instructions ?Recorded ?Last Taken ?Type albuterol sulfate 90 mcg/actuation 1 - 2 puff inhalation Q4H PRN PRN 02/01/24 Unknown Rx aerosol inhaler (Ventolin HFA) Wheezing ##1 Allergy/AdvReac Type Severity Reaction Status Date / Time mustard Allergy Angioedema Verified 02/01/24 19:08 oxycodone Allergy Hives Verified 02/01/24 19:08 Family History Father Liver cancer Surgical History Hx of foot surgery History of cranial surgery H/O: hysterectomy Social History Smoking Status: Current every day smoker tobacco type: cigarettes ROS ROS ED Constitutional Constitutional ED: Reports chills and fever(s) Eyes Eyes: Denies blurry vision or change in vision ENT ENT ED: Reports ear pain bilateral; Denies rhinorrhea or sore throat Cardiovascular Cardiovascular: Denies chest pain or palpitations Respiratory/Chest Respiratory/Chest: Reports cough and dyspnea Gastrointestinal Gastrointestinal: Denies nausea or vomiting Genitourinary Genitourinary ED: Denies dysuria or hematuria Musculoskeletal Musculoskeletal: Reports back pain; Denies neck pain Integumentary Denies abscess or rash Neurologic Neurologic: Denies headache(s) or weakness Allergic/Immunologic Allergic/Immunologic ED: Denies mouth swelling or urticaria EXAM Physical Exam Const Vital Signs: 02/01/24 19:08 02/01/24 19:22 02/01/24 19:43 Temperature 98.4 F Temperature Source Oral Pulse Rate 91 108 H Respiratory Rate 22 H 16 Respiratory Effort Short of Breath Respiratory Depth Normal Respiratory Pattern Normal Blood Pressure 132/88 H Blood Pressure Mean 102 Pulse Ox 95 Oxygen Delivery Method Room Air Room Air 02/01/24 21:08 Temperature Temperature Source Pulse Rate 68 Respiratory Rate 14 Respiratory Effort Respiratory Depth Respiratory Pattern Blood Pressure 116/71 Blood Pressure Mean 86 Pulse Ox 98 Oxygen Delivery Method Room Air Positive well nourished and well developed General Appearance ED: well developed and NAD HEENT Reports moist mucous membranes Neck supple and no JVD Resp normal respiratory effort Auscultation: rhonchi throughout and wheezes expiratory wheezes and throughout Cardio regular rate and regular rhythm GI non-tender and non-distended Palpation: soft Neuro oriented x3, CN's II-XII intact bilaterally and no sensory deficits noted Gian Coma Scale: document GCS findings Spontaneous Obeys Commands Oriented 15 Sensorium / Orientation: alert Speech: speech normal Motor Exam: strength 5/5 throughout Psych mental status grossly normal MDM MDM MDM Narrative Medical decision making narrative: Differential diagnosis includes pneumonia, bronchitis, viral illness, pharyngitis, and COPD exacerbation. Chest x-ray will be obtained to assess for pneumonia and pneumothorax. CBC will be obtained to assess for leukocytosis and anemia. Basic metabolic profile will be obtained to assess for electrolyte abnormality and renal function. COVID-19, influenza, and RSV PCR will be obtained to assess for viral illness. Lab Data Attestation: I reviewed the patient's lab results. Lab results narrative: CBC was reviewed. There is a slight leukocytosis of 11.24. The remainder is within normal limits. Basic metabolic profile was reviewed and was essentially within normal limits. COVID-19 PCR was reviewed and was negative. Influenza PCR was reviewed and was negative for influenza A and influenza B. RSV PCR was reviewed and was negative. Labs: Laboratory Results - last 24 hr 02/01/24 19:27 WBC 11.4 H RBC 4.30 Hgb 12.9 Hct 38.7 MCV 90.0 MCH 30.0 MCHC 33.3 RDW Std Deviation 42.1 RDW Coeff of Eliazar 12.8 Plt Count 217 MPV 11.9 Immature Gran % (Auto) 0.300 Neut % (Auto) 68.7 Lymph % (Auto) 27.0 Jenkins % (Auto) 3.1 Eos % (Auto) 0.4 Baso % (Auto) 0.5 Absolute Neuts (auto) 7.8 H Absolute Lymphs (auto) 3.07 Nucleated RBC % 0 Sodium 141 Potassium 3.6 Chloride 111 H Carbon Dioxide 22.0 Anion Gap 8 BUN 12 Creatinine 0.91 Estim Creat Clear Calc 99.56 Est GFR (MDRD) Af Amer 87 Est GFR (MDRD) Non-Af 72 BUN/Creatinine Ratio 13.2 Glucose 137 H Calcium 9.1 Radiography Chest X-Ray - ED: 2 View, Read by ED Physician, Read by Radiologist and No Acute Disease Diagnostic Testing: Clinical Impression(s) from Imaging Studies Chest X-Ray 02/01/24 20:36 IMPRESSION: No radiographic evidence of acute cardiopulmonary disease. Electronically Signed: Austin Boykin MD at 21:05 EDT Reading Location ID and State: [facility] / [place] , Service support , [place] and lateral chest x-ray was obtained. There are 2 views. On my independent interpretation, lung nava are clear. There is normal cardiac silhouette. Bony thorax is normal. There is no acute process noted. Radiologist also interpreted the x-ray and agrees. Treatment and Re-Evaluation :: Patient was given a DuoNeb aerosol here. Patient was given an albuterol aerosol. Patient was feeling better on reevaluation. Patient was advised of her findings. Patient was given a prescription for albuterol inhaler. Patient was instructed to follow-up with her primary care physician in 5 to 7 days. Patient understood and was agreeable with the plan. All questions were answered. Discharge Plan Triage Chief Complaint: Shortness of Breath ED Provider: Reynaldo Bertrand Dx/Rx/DC Orders Clinical Impression: Viral bronchitis, Dyspnea Instructions: ED Bronchitis with Wheezing (Adult) Prescriptions: New albuterol sulfate [Ventolin HFA] 90 mcg/actuation HFA aerosol inhaler 1 - 2 puff inhalation Q4H PRN PRN (Reason: Wheezing) Qty: 1 0RF Primary Care Provider: Care Physician,No Primary Referrals: Bruce Valencia MD [Med Staff - Active Staff] - 5-7 Days Care Physician,No Primary [Primary Care Provider] - Print Language: Citizen Of [place] Disposition Disposition: Home, Self Care
[2024-02-01] MEDS: Albuterol 2.5 MG/3 ML VIAL.NEB. INHALATION (19:42)
[2024-02-01] MEDS: Ipratropium/Albuterol Sulfate 3 ML AMPUL.NEB INHALATION (19:42)
[2024-02-01 19:43] VITALS: PULSE 108; RESP 16
[2024-02-01 19:59] LABS: Absolute Lymphocyte Count 3.07 X10^3/uL (0.83-4.51); Absolute Neutrophil Count 7.8 X10^3/uL (2.0-7.7); Basophil# 0.06 X10^3/uL; Basophil% 0.5 % (0-1); Eosinophil# 0.05 X10^3/uL; Eosinophils% 0.4 % (0-5); Hematocrit 38.7 % (37-47); Hemoglobin 12.9 g/dL (12.0-15.0); Lymphocyte # 3.07 X10^3/ul (0.83-4.51); Mean Corp Hgb Conc 33.3 g/dL (32-36); Mean Platelet Vol. 11.9 fl (6.2-12.0); Monocyte# 0.35 X10^3/uL; Monocyte% 3.1 % (0-10); NRBC Flagged by Analyzer 0 % (0-5); Neutrophil # 7.82 X10^3/uL (2.7-7.7); Neutrophil % 68.7 % (47-70); Platelet Count 217 K/mm3 (150-450); RBC Distribution Width CV 12.8 % (11.6-14.6); RBC Distribution Width SD 42.1 fl (35.1-43.9); White Blood Count 11.4 K/mm3 (4.4-11.0)
[2024-02-01 20:30] LABS: Anion Gap 8 (5-15); BUN 12 mg/dL (7-18); BUN/Creat Ratio 13.2 RATIO (10-20); Calcium,Total 9.1 mg/dL (8.5-10.1); Chloride 111 mmol/L (98-107); Creatinine, Serum 0.91 mg/dL (0.55-1.02); EST Glomerular Filtration Rate 72 mL/min (>60); Est Glom Filt Rate - Afr Amer 87 mL/min (>60); Estimated Creatinine Clearance 99.56 ml/min; Glucose 137 mg/dL (74-106); Potassium 3.6 mmol/L (3.5-5.1); Sodium Level 141 mmol/L (136-145)
--- NOTE | 2024-02-01 20:36 | RAD_ITS ---
EXAM: XR CHEST, 2 VIEWS CLINICAL INDICATION: COUGH TECHNIQUE: Frontal and lateral views of the chest. COMPARISON: 03.06.21 FINDINGS: LUNGS AND PLEURAL SPACES: Unremarkable. No consolidation or edema. No pneumothorax. No effusion. HEART: Unremarkable. Cardiac silhouette not enlarged. MEDIASTINUM: Central airways and mediastinal contour are unremarkable. BONES/JOINTS: Unremarkable. No acute fracture. SOFT TISSUES: Unremarkable. RAD/Chest PA and Lateral IMPRESSION: No radiographic evidence of acute cardiopulmonary disease. Electronically Signed: Austin Boykin MD at 21:05 EDT ,
[2024-02-01 21:08] VITALS: BP 116/71; PULSE 68; RESP 14; O2SAT 98
[2024-02-01 22:39] VITALS: BP 107/64; PULSE 71; RESP 16; TEMP 36.5; O2SAT 97
[2024-02-01 22:40] VITALS: BP 107/64; PULSE 73; RESP 16; TEMP 36.5; O2SAT 98
== END 2024-02-01 22:46 | disposition home or self-care (01) ==
PROVIDERS: Emergency Provider Emergency Medicine; Referring Provider Emergency Medicine; Visit Provider Emergency Medicine
DX: J20.8 Acute bronchitis due to other specified organisms (principal); F17.210 Nicotine dependence, cigarettes, uncomplicated; R06.02 Shortness of breath; K21.9 Gastro-esophageal reflux disease without esophagitis; H92.03 Otalgia, bilateral
CPT/HCPCS: 71046; 80048; 85025; 87631; 94640; 99283; A4216

== ENCOUNTER 2024-03-15 19:33 | Emergency (ER) | payer SELFPAY ==
[2024-03-15 19:33] VITALS: BP 142/76; PULSE 89; RESP 16; TEMP 36.8; O2SAT 99; BMI 36.8
[2024-03-15] MEDS: 0.9% Normal Saline (1000mL) 1,000 ML 999 ML IV (20:27)
[2024-03-15] MEDS: Ondansetron 4 MG/2 ML Vial IV (20:27)
[2024-03-15] MEDS: Morphine 4 MG/ML Syringe IV ×2 (20:27→21:18)
[2024-03-15 20:32] LABS: Absolute Lymphocyte Count 4.14 X10^3/uL (0.83-4.51); Absolute Neutrophil Count 4.2 X10^3/uL (2.0-7.7); Basophil# 0.09 X10^3/uL; Basophil% 0.9 % (0-1); Eosinophil# 0.64 X10^3/uL; Eosinophils% 6.6 % (0-5); Hematocrit 39.7 % (37-47); Hemoglobin 13.7 g/dL (12.0-15.0); Lymphocyte # 4.14 X10^3/ul (0.83-4.51); Lymphocyte % 42.9 % (19-41); Mean Corp Hgb Conc 34.5 g/dL (32-36); Mean Corpuscular Hgb 30.7 pg (27.0-32.0); Mean Platelet Vol. 12.9 fl (6.2-12.0); Monocyte# 0.58 X10^3/uL; NRBC Flagged by Analyzer 0 % (0-5); Neutrophil # 4.17 X10^3/uL (2.7-7.7); Neutrophil % 43.3 % (47-70); Platelet Count 201 K/mm3 (150-450); RBC Distribution Width CV 12.6 % (11.6-14.6); RBC Distribution Width SD 41.7 fl (35.1-43.9); Red Blood Count 4.46 M/mm3 (4.2-5.4); White Blood Count 9.7 K/mm3 (4.4-11.0)
[2024-03-15 20:34] LABS: Mucous, Urine 0 SEEN /hpf (<or=2+); Red Blood Cells-Urine 0 SEEN /hpf (0-5)
[2024-03-15 20:44] LABS: Color, Urine Yellow (Yellow); Glucose, Dipstick Normal (Normal); Ketone-Dipstick Negative (Negative); Leukocyte Esterase-Dipstick 25 /ul (Negative); Nitrite-Dipstick Negative (Negative); Occult Blood-Urine 10 /ul (Negative); Protein-Dipstick 15 mg/dl (Negative); Urine Bilirubin Dipstick Negative (Negative); Urine Clarity Clear (Clear); Urine Urobilinogen Normal (Normal)
[2024-03-15 20:50] LABS: ALB/GLOB Ratio 1.1 RATIO (0.9-2.4); AST(SGOT) 12 U/L (15-37); Alanine Aminotransfer ALT/SGPT 23 U/L (13-56); Albumin, Serum 3.8 g/dL (3.2-5.0); Alkaline Phosphatase 83 U/L (45-117); Anion Gap 8 (5-15); BUN 11 mg/dL (7-18); BUN/Creat Ratio 12.1 RATIO (10-20); Calcium,Total 8.8 mg/dL (8.5-10.1); Chloride 108 mmol/L (98-107); Creatinine, Serum 0.91 mg/dL (0.55-1.02); EST Glomerular Filtration Rate 71 mL/min (>60); Est Glom Filt Rate - Afr Amer 86 mL/min (>60); Estimated Creatinine Clearance 99.15 ml/min; Globulin 3.5 g/dL (2.2-4.2); Glucose 104 mg/dL (74-106); Lipase 51 U/L (13-75); Potassium 3.6 mmol/L (3.5-5.1); Protein, Total 7.3 g/dL (6.4-8.2); Sodium Level 141 mmol/L (136-145)
[2024-03-15 21:20] VITALS: BP 134/77; PULSE 77; RESP 18
[2024-03-15 21:30] LABS: Bacteria RARE /hpf (None Seen); Squamous Epithelial Cells - UA 0-5 SEEN /hpf (5-10); White Blood Cells 0-5 SEEN /hpf (0-5)
[2024-03-15] MEDS: Amox/Clavulanate 875 MG Tablet PO (22:23)
[2024-03-15 22:24] VITALS: BP 159/86; PULSE 72; RESP 18; TEMP 36.9; O2SAT 100
== END 2024-03-15 22:25 | disposition home or self-care (01) ==
PROVIDERS: Emergency Provider Emergency Medicine; Visit Provider Emergency Medicine
DX: K52.9 Noninfective gastroenteritis and colitis, unspecified (principal); R10.9 Unspecified abdominal pain; R11.2 Nausea with vomiting, unspecified; K21.9 Gastro-esophageal reflux disease without esophagitis; F17.210 Nicotine dependence, cigarettes, uncomplicated
CPT/HCPCS: 74177; 80053; 81001; 83690; 85025; 96361; 96374; 96375; 96376; 99283; J7030; Q9967; A4216; J2405

== ENCOUNTER 2024-04-20 16:40 | Emergency (ER) | payer SELFPAY ==
[2024-04-20 16:40] VITALS: BP 155/99; PULSE 94; RESP 26; TEMP 36.1; O2SAT 98
[2024-04-20 16:41] VITALS: BMI 40.1
--- NOTE | 2024-04-20 17:16 | EKG12_ITS ---
Test Reason : CP Blood Pressure : */* mmHG Vent. Rate : 94 BPM Atrial Rate : 94 BPM P-R Int : 134 ms QRS Dur : 94 ms QT Int : 364 ms P-R-T Axes : 52 13 32 degrees QTcB Int : 455 ms Normal sinus rhythm Normal ECG Confirmed by TIFFANY REYNOLDS, WALDO ([id number]), field map editor BETSEY KRUGER ([id number]) on 04/22/2024 10:47:45 AM Referred By: ES/UG Confirmed By: WALDO ALLEN MD
--- NOTE | 2024-04-20 17:25 | RAD_ITS ---
STUDY: X-RAY CHEST REASON FOR EXAM: Female, 43 years old. Chest pain, shortness of breath TECHNIQUE: PA and lateral COMPARISON: February 01, 2024 FINDINGS: Mild nonspecific asymmetric interstitial thickening in left lower lobe There is no demonstrated pleural abnormality. Normal size heart. Normal mediastinum and darren. Normal visualized pulmonary arteries. Normal visualized aortic arch and descending thoracic aorta. Normal visualized thoracic spine. Normal visualized ribs, clavicles, and shoulders. There is no demonstrated abnormality of the visualized soft tissue structures of the upper abdomen. RAD/Chest PA and Lateral IMPRESSION: Mild nonspecific interstitial thickening in left lower lobe possibly representing early inflammatory changes. Clinical correlation recommended Electronically Signed: Orlando Chow MD at 17:55 EST ,
[2024-04-20 17:40] VITALS: BP 128/58; PULSE 73; PULSE 74; RESP 13; RESP 17; O2SAT 97; O2SAT 98
[2024-04-20 17:41] LABS: Absolute Lymphocyte Count 5.57 X10^3/uL (0.83-4.51); Absolute Neutrophil Count 5.9 X10^3/uL (2.0-7.7); Basophil# 0.11 X10^3/uL; Basophil% 0.9 % (0-1); Eosinophil# 0.56 X10^3/uL; Eosinophils% 4.3 % (0-5); Hematocrit 39.1 % (37-47); Hemoglobin 13.4 g/dL (12.0-15.0); Lymphocyte # 5.57 X10^3/ul (0.83-4.51); Mean Corp Hgb Conc 34.3 g/dL (32-36); Mean Corpuscular Hgb 30.2 pg (27.0-32.0); Mean Corpuscular Volume 88.3 fL (81-99); Mean Platelet Vol. 12.5 fl (6.2-12.0); Monocyte# 0.77 X10^3/uL; NRBC Flagged by Analyzer 0 % (0-5); Neutrophil # 5.87 X10^3/uL (2.7-7.7); Neutrophil % 45.3 % (47-70); POSITIVE DIFFERENTIAL YES; POSITIVE MORPHOLOGY YES; Platelet Count 214 K/mm3 (150-450); RBC Distribution Width CV 12.5 % (11.6-14.6); RBC Distribution Width SD 40.7 fl (35.1-43.9); Red Blood Count 4.43 M/mm3 (4.2-5.4); White Blood Count 12.9 K/mm3 (4.4-11.0)
[2024-04-20 17:46] LABS: Differential Indicated SCAN CRITERIA MET
[2024-04-20 18:00] VITALS: PULSE 72; RESP 14; O2SAT 99
[2024-04-20 18:00] LABS: AST(SGOT) 14 U/L (15-37); Alanine Aminotransfer ALT/SGPT 20 U/L (13-56); Albumin, Serum 3.7 g/dL (3.2-5.0); Alkaline Phosphatase 85 U/L (45-117); Anion Gap 5 (5-15); BUN 15 mg/dL (7-18); BUN/Creat Ratio 16.4 RATIO (10-20); Calcium,Total 8.8 mg/dL (8.5-10.1); Chloride 110 mmol/L (98-107); Creatinine, Serum 0.91 mg/dL (0.55-1.02); EST Glomerular Filtration Rate 71 mL/min (>60); Est Glom Filt Rate - Afr Amer 86 mL/min (>60); Estimated Creatinine Clearance 104.02 ml/min; Globulin 3.8 g/dL (2.2-4.2); Glucose 100 mg/dL (74-106); Potassium 3.7 mmol/L (3.5-5.1); Protein, Total 7.5 g/dL (6.4-8.2); Sodium Level 140 mmol/L (136-145); Troponin-I HS (w/2H Reflex) < 3 pg/mL (3.0-54.0)
[2024-04-20 18:11] LABS: Differential Comment SCANNED
[2024-04-20 19:00] VITALS: BP 114/77; PULSE 75; RESP 16; O2SAT 99
--- NOTE | 2024-04-20 19:10 | ED.VIS.CHEST ---
HPI History of Present Illness Chief Complaint: Chest Pain Detail of Chief Complaint: Left-sided chest pain Informant: patient and spouse/S.O. Onset/Context/Timing Onset: Today and Hours Activity at onset: sudden Timing: Continuous and Waxes and wanes Quality: Positive for Aching, Sharp and Tightness Location: Left Chest Current Severity: Mild Maximum Severity: Severe Worsened By: Movement of Arm, Movement of Torso, Breathing and Coughing; Not Worsened By Eating or Palpation Relieved By: Nothing Associated Symptoms: Positive for Nausea, Dyspnea and Cough; Negative for Vomiting, Diaphoresis, Fever, Lightheadedness, Acid Reflux or Palpitations Narrative Narrative: Patient is a 43-year-old woman. She presents with abrupt onset of left-sided chest pain. Significant other states that she had similar presentation she was diagnosed with pneumonia. She denies fever or chills. She does have mild nasal congestion. She is a smoker 1 pack/day. She denies trauma. She denies rash. She denies orthopnea or PND. She denies history of VTE. She has no risk factors for VTE. She denies leg pain, swelling discoloration. She denies history of peptic ulcer disease. She denies history of reflux. She does have a history of pulmonary embolus and gallbladder issues. Prior Similar Symptoms: Yes (Pneumonia) Recent Illness/Hospitalization: No CVD Risk Factors: Positive for Smoking; Negative for Hypertension, Diabetes, Hypercholesterolemia or Family History 1' </=55 PE Risk Factors: Negative for Recent Travel/Surgery, Recent Immobilization, Prior DVT or PE, Cancer or OCP + Smoking + >/=35 TAD Risk Factors: Negative for Marfan's Syndrome, Hypertension or Family History [facility] Medical History TIA (transient ischemic attack) Pituitary adenoma Wears dentures Arthritis Easy bruising Back pain History of echocardiogram Anxiety Hepatitis GERD (gastroesophageal reflux disease) Smoker Migraines Brain TIA Hypothyroid Chiari malformation Home Medications ?Medication ?Instructions ?Recorded ?Last Taken ?Type albuterol sulfate 90 mcg/actuation 1 - 2 puff inhalation Q4H PRN PRN 02/01/24 Unknown Rx aerosol inhaler (Ventolin HFA) Wheezing ##1 amoxicillin 875 mg-potassium 875 mg PO Q12H #20 TABLETS 03/15/24 Unknown Rx clavulanate 125 mg tablet doxycycline monohydrate 100 mg 100 mg PO BID #14 CAPSULES 04/20/24 Unknown Rx capsule Allergy/AdvReac Type Severity Reaction Status Date / Time mustard Allergy Angioedema Verified 04/20/24 16:40 oxycodone Allergy Hives Verified 04/20/24 16:40 Family History Father Liver cancer Surgical History Hx of foot surgery History of cranial surgery H/O: hysterectomy Social History Smoking Status: Heavy Smoker (>10/day) ROS ROS ED Constitutional Constitutional ED: Denies chills, fever(s), subjective or sweats Eyes Eyes: Reports none ENT ENT ED: Reports rhinorrhea; Denies ear pain or sore throat Cardiovascular Cardiovascular: Reports as per HPI; Denies orthopnea, palpitations or paroxysmal nocturnal dyspnea Respiratory/Chest Respiratory/Chest: Reports cough, dyspnea and sputum; Denies dyspnea on exertion, orthopnea or paroxysmal nocturnal dyspnea Gastrointestinal Gastrointestinal: Denies abdominal pain, constipation, diarrhea, melena or vomiting Genitourinary Genitourinary ED: Denies dysuria, hematuria or urinary frequency Musculoskeletal Musculoskeletal: Reports arthralgias and myalgias Neurologic Neurologic: Denies headache(s), paresthesias or weakness Psychiatric Psychiatric: Reports anxiety Hematologic/Lymphatic Hematologic/Lymphatic: Denies easy bleeding or easy bruising EXAM Physical Exam Const Vital Signs: 04/20/24 16:40 04/20/24 17:40 04/20/24 17:40 Temperature 97 F L Temperature Source Temporal Pulse Rate 94 73 74 Respiratory Rate 26 H 13 17 Blood Pressure 155/99 H 128/58 H 128/58 H Blood Pressure Mean 117 81 81 Pulse Ox 98 98 97 Oxygen Delivery Method Room Air Room Air Room Air 04/20/24 18:00 Temperature Temperature Source Pulse Rate 72 Respiratory Rate 14 Blood Pressure Blood Pressure Mean Pulse Ox 99 Oxygen Delivery Method Room Air Positive well nourished and well developed Constitutional Narrative: BMI is 40.2. Patient appears uncomfortable. She is tearful. General Appearance ED: well developed; Negative for NAD or pallor HEENT Reports TM's clear and moist mucous membranes normocephalic and atraumatic Tympanic Membrane ED: Yes TM's clear Eyes PERRL and EOMs intact bilaterally General Eye ED: Negative for pale conjunctiva or scleral icterus Neck no lymphadenopathy, supple and no JVD Neck Narrative: Trachea is midline. There is no inspiratory expiratory stridor. Chest Wall inspection of chest normal Resp normal respiratory effort and No clear to auscultation bilaterally Effort and Inspection: Negative for respiratory distress Auscultation: rales left lower (There is a egophony. There is no increased vocal fremitus.); Negative for rhonchi or wheezes Cardio regular rate, regular rhythm, S1 normal heart sound, S2 normal heart sound and no murmurs Peripheral Pulses: pulses 2+ throughout GI normal to inspection, nondistended, normoactive bowel sounds, soft to palpation, non-tender, non-distended and no masses; Negative for hepatosplenomegaly Back/Spine no CVA tenderness and no thoracic nor lumbar tenderness Extremity normal to inspection Extremity Narrative: There is no asymmetry, swelling, discoloration, leg vein distention, palpable cords or tenderness along the distribution of the deep venous system. Neuro oriented x3, CN's II-XII intact bilaterally and no sensory deficits noted Sensorium / Orientation: awake Psych Mood & Affect: tearful Skin no rashes or lesions noted General Skin Exam: Negative for jaundice or pallor MDM MDM MDM Narrative Medical decision making narrative: Differential diagnosis cardiac versus noncardiac. Noncardiac would include PE however patient's Wells score is less than 3 and PERC negative. Need to consider pleurisy, bronchitis, pneumonia and GI etiology would be GERD, peptic ulcer disease. Also need to consider pancreatitis. Patient has no tenderness in the left upper quadrant. Workup included EKG, chest x-ray and appropriate blood work. Initial troponin was less than 3. Lab Data Attestation: I reviewed the patient's lab results. Lab results narrative: White count is elevated 12.9 thousand with predominant lymphocytes. Electrolyte panel is unremarkable. Liver enzymes are normal. First troponin is less than 3. Troponin less than 3 and chest x-ray reveals inflammatory changes and the fact the patient has egophony and rales left lower lobe posteriorly will treat for pneumonia. Based on curb 65 score and port score patient is safe for discharge to home. Labs: Laboratory Results - last 24 hr 04/20/24 16:54 WBC 12.9 H RBC 4.43 Hgb 13.4 Hct 39.1 MCV 88.3 MCH 30.2 MCHC 34.3 RDW Std Deviation 40.7 RDW Coeff of Eliazar 12.5 Plt Count 214 MPV 12.5 H Immature Gran % (Auto) 0.500 Neut % (Auto) 45.3 L Lymph % (Auto) 43.0 H [place] % (Auto) 6.0 Eos % (Auto) 4.3 Baso % (Auto) 0.9 Absolute Neuts (auto) 5.9 Absolute Lymphs (auto) 5.57 H Nucleated RBC % 0 Differential Comment SCANNED Sodium 140 Potassium 3.7 Chloride 110 H Carbon Dioxide 24.0 Anion Gap 5 BUN 15 Creatinine 0.91 Estim Creat Clear Calc 104.02 Est GFR (MDRD) Af Amer 86 Est GFR (MDRD) Non-Af 71 BUN/Creatinine Ratio 16.4 Glucose 100 Calcium 8.8 Total Bilirubin 0.10 L AST 14 L ALT 20 Alkaline Phosphatase 85 Troponin I High Sens < 3 L Total Protein 7.5 Albumin 3.7 Globulin 3.8 Albumin/Globulin Ratio 1.0 Radiography Diagnostic Testing: Clinical Impression(s) from Imaging Studies Chest X-Ray 04/20/24 17:25 IMPRESSION: Mild nonspecific interstitial thickening in left lower lobe possibly representing early inflammatory changes. 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 Discharge Plan Triage Chief Complaint: Chest Pain ED Provider: Tom Morris Dx/Rx/DC Orders Clinical Impression: Left lower lobe pneumonia, Left-sided chest pain, Acute pleurisy without pleural effusion Instructions: ED Pneumonia (Adult) Prescriptions: New doxycycline monohydrate 100 mg capsule 100 mg PO BID Qty: 14 0RF No Action albuterol sulfate [Ventolin HFA] 90 mcg/actuation HFA aerosol inhaler 1 - 2 puff inhalation Q4H PRN PRN (Reason: Wheezing) Qty: 1 0RF amoxicillin-pot clavulanate 875-125 mg tablet 875 mg PO Q12H Qty: 20 0RF Primary Care Provider: Care Physician,No Primary Referrals: Care Physician,No Primary [Primary Care Provider] - Activity Restrictions/Additional Instructions: If you are not improving in 3 to 5 days follow-up with the [place] start him in clinic. It is in your best interest to quit smoking tonjulien. Print Language: Tanzanian Disposition Disposition: Home, Self Care
[2024-04-20 19:28] LABS: Reflex Troponin-HS? (from REC) Y
[2024-04-20 19:36] VITALS: BP 117/69; PULSE 74; RESP 16; TEMP 36.6; O2SAT 99
[2024-04-20] MEDS: Doxycycline 100 MG CAPSULE PO (19:36)
--- NOTE | 2024-04-20 19:39 | CM.ED ---
Social work Reason for referral: no PCP Referral source: case find This SW identified patient?s lack of PCP. Entered patient?s room and introduced self and role at [facility]. Patient?s significant other, David, was bedside. Patient gave permission to speak with guest present. Patient stated she was feeling okay now, but chest pain continued with movement or coughing. Patient stated she did not have a PCP or insurance and welcomed resources of [facility] Provider Directory and [facility]. Patient denied further needs at this time. Leslie Sotelo, PYRIDINE OPERATOR, BLOOD BANK LABORATORY TECHNOLOGIST
== END 2024-04-20 19:37 | disposition home or self-care (01) ==
PROVIDERS: Emergency Provider Emergency Medicine; Visit Provider Emergency Medicine
DX: J18.9 Pneumonia, unspecified organism (principal); R07.89 Other chest pain; R11.0 Nausea; F17.200 Nicotine dependence, unspecified, uncomplicated; R09.1 Pleurisy; Z86.711 Personal history of pulmonary embolism; K21.9 Gastro-esophageal reflux disease without esophagitis
CPT/HCPCS: 71046; 80053; 84484; 85025; 93005; 99284; A4216

== ENCOUNTER 2025-03-25 17:30 | Emergency (ER) | payer SELFPAY ==
[2025-03-25] VITALS (9 sets, daily range): BP systolic 114–151; BP diastolic 62–81; PULSE 60–80; RESP 14–20; TEMP 36.8–36.9; O2SAT 96–100; BMI 33.5
--- NOTE | 2025-03-25 18:05 | RAD_ITS ---
PROCEDURE: CHEST PA AND LATERAL 03/25/2025 REASON FOR EXAM: COUG, GREEN SPUTUM TECHNIQUE: Procedure Code: RADCXR Modality: DX Procedure: CHEST PA AND LATERAL COMPARISON: 04/20/2024 FINDINGS: LUNGS AND PLEURA: The lungs are clear. No pleural effusion or pneumothorax. HEART AND MEDIASTINUM: The heart size and mediastinal contours are normal. BONES: No acute osseous abnormality. RAD/Chest PA and Lateral IMPRESSION: NO ACUTE FINDINGS. Reading Location: [id number]
--- NOTE | 2025-03-25 19:18 | ED.VIS.DYS ---
HPI History of Present Illness Chief Complaint: Shortness of Breath Informant: patient Onset/Context/Timing Onset: Yesterday Context: gradual Timing: Continuous Quality: Positive for Dyspnea on exertion Worsened by: Exertion Relieved by: Rest Associated Symptoms cough, rhinorrhea, ear pain and green sputum; Negative for post nasal drip, fever, sore throat, chills, sweats, clear sputum, white sputum or yellow sputum Chest Pain: Positive for Sharp (Right chest) Narrative Narrative: Patient presents with shortness of breath that began yesterday. Patient states she has had some upper respiratory symptoms since yesterday. Patient states she has had a cough with mild amount of green sputum. Patient admits to some rhinorrhea and right ear pain. Patient also states she has pain over her right upper chest. Patient states her breathing is worse with any exertion. Patient states it is better with rest. 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 PE Risk Factors: Negative for Cancer, OCP + Smoking + > 35, Prior DVT or PE, Recent immobilization, Recent surgery or Recent travel [facility] Medical History TIA (transient ischemic attack) Pituitary adenoma Wears dentures Arthritis Easy bruising Back pain History of echocardiogram Anxiety Hepatitis GERD (gastroesophageal reflux disease) Smoker Migraines Brain TIA Hypothyroid Chiari malformation Home Medications ?Medication ?Instructions ?Recorded ?Last Taken ?Type albuterol sulfate 90 mcg/actuation 1 - 2 puff inhalation Q4H PRN PRN 02/01/24 Unknown Rx aerosol inhaler (Ventolin HFA) Wheezing ##1 amoxicillin 875 mg-potassium 875 mg PO Q12H #20 TABLETS 03/15/24 Unknown Rx clavulanate 125 mg tablet doxycycline monohydrate 100 mg 100 mg PO BID #14 CAPSULES 04/20/24 Unknown Rx capsule Allergy/AdvReac Type Severity Reaction Status Date / Time mustard Allergy Angioedema Verified 03/25/25 17:31 oxycodone Allergy Hives Verified 03/25/25 17:31 Family History Father Liver cancer Surgical History Hx of foot surgery History of cranial surgery H/O: hysterectomy Social History Smoking Status: Heavy Smoker (>10/day) ROS ROS ED Constitutional Constitutional ED: Denies chills or fever(s) Eyes Eyes: Denies blurry vision or change in vision ENT ENT ED: Reports ear pain right and rhinorrhea; Denies sore throat Cardiovascular Cardiovascular: Denies chest pain or palpitations Respiratory/Chest Respiratory/Chest: Reports cough and dyspnea Gastrointestinal Gastrointestinal: Denies nausea or vomiting Genitourinary Genitourinary ED: Denies dysuria or hematuria Musculoskeletal Musculoskeletal: Reports neck pain; Denies back pain Integumentary Denies abscess or rash Neurologic Neurologic: Denies headache(s) or weakness Allergic/Immunologic Allergic/Immunologic ED: Denies mouth swelling or urticaria EXAM Physical Exam Const Vital Signs: 03/25/25 17:31 03/25/25 19:27 03/25/25 19:27 Temperature 98.3 F Temperature Source Oral Pulse Rate 80 Respiratory Rate 16 Respiratory Effort Normal Respiratory Pattern Blood Pressure 140/62 H Blood Pressure Mean 88 Pulse Ox 99 Oxygen Delivery Method Room Air Room Air 03/25/25 19:27 03/25/25 19:28 03/25/25 19:30 Temperature 98.2 F Temperature Source Temporal Pulse Rate 72 Respiratory Rate 20 H 20 H Respiratory Effort Respiratory Pattern Blood Pressure 151/80 H 133/81 H Blood Pressure Mean 103 98 Pulse Ox 100 100 Oxygen Delivery Method Room Air Room Air 03/25/25 19:37 03/25/25 19:55 03/25/25 20:00 Temperature 98.5 F 98.5 F Temperature Source Oral Oral Pulse Rate 69 68 70 Respiratory Rate 14 20 H 16 Respiratory Effort Respiratory Pattern Normal Blood Pressure 133/81 H 133/76 H Blood Pressure Mean 98 95 Pulse Ox 100 99 Oxygen Delivery Method Room Air Room Air 03/25/25 21:00 03/25/25 21:00 Temperature 98.4 F 98.4 F Temperature Source Oral Oral Pulse Rate 60 71 Respiratory Rate 18 18 Respiratory Effort Respiratory Pattern Blood Pressure 123/79 H 123/79 H Blood Pressure Mean 93 93 Pulse Ox 98 99 Oxygen Delivery Method Room Air Room Air Positive well nourished and well developed General Appearance ED: well developed and NAD HEENT Reports moist mucous membranes atraumatic Neck supple, no meningeal signs and no JVD Resp normal respiratory effort Auscultation: diminished lung sounds diffuse Cardio regular rate and regular rhythm GI non-tender and non-distended Palpation: soft Neuro oriented x3, CN's II-XII intact bilaterally and no sensory deficits noted Gian Coma Scale: document GCS findings Spontaneous Obeys Commands Oriented 15 Sensorium / Orientation: alert Speech: speech normal Motor Exam: strength 5/5 throughout Psych mental status grossly normal MDM MDM MDM Narrative Medical decision making narrative: Differential diagnosis includes pneumonia, bronchitis, viral upper respiratory infection, dehydration, and electrolyte abnormality. Chest x-ray will be obtained to assess for pneumonia or bronchitis. CBC will be obtained to assess for leukocytosis and anemia. Basic metabolic profile will be obtained to assess for electrolyte abnormality and renal function. COVID-19, influenza, and RSV PCR will be obtained to assess for viral illness. Lab Data Attestation: I reviewed the patient's lab results. Lab results narrative: CBC was reviewed and was within normal limits. Basic metabolic profile was reviewed and was within normal limits. COVID-19 PCR was reviewed and was negative. Influenza PCR was reviewed and was negative for influenza A and influenza B. RSV PCR was reviewed and was negative. Labs: Laboratory Results - last 24 hr 03/25/25 19:25 WBC 10.0 RBC 4.21 Hgb 13.1 Hct 37.9 MCV 90.0 MCH 31.1 MCHC 34.6 RDW Std Deviation 41.3 RDW Coeff of Eliazar 12.7 Plt Count 173 MPV 12.0 Immature Gran % (Auto) 0.200 Neut % (Auto) 45.5 L Lymph % (Auto) 44.3 H [place] % (Auto) 5.3 Eos % (Auto) 3.8 Baso % (Auto) 0.9 Absolute Neuts (auto) 4.5 Absolute Lymphs (auto) 4.43 Nucleated RBC % 0 Sodium 144 Potassium 3.4 Chloride 108 Carbon Dioxide 24.6 Anion Gap 11 BUN 9 Creatinine 0.79 Estim Creat Clear Calc 107.59 Est GFR (MDRD) Non-Af 94 BUN/Creatinine Ratio 11.6 Glucose 94 Calcium 9.0 Radiography Chest X-Ray - ED: 2 View, Read by ED Physician, Read by Radiologist and No Acute Disease Diagnostic Testing: Clinical Impression(s) from Imaging Studies Chest X-Ray 03/25/25 18:05 IMPRESSION: NO ACUTE FINDINGS. Reading Location: [facility] PA and lateral chest x-ray was obtained. There are 2 views. On my independent interpretation, lung nava are clear. There is normal cardiac silhouette. Bony thorax is normal. There is no acute process noted. Radiologist also interpreted the x-ray and agrees. Treatment and Re-Evaluation :: Patient was given a DuoNeb aerosol here. Patient was advised of her findings. Patient was instructed to drink plenty of fluids. Patient was instructed to take Tylenol or ibuprofen as needed for any aches or fevers. Patient was instructed to follow-up with her primary care physician in 5 to 7 days. Patient was instructed to return if worse in any way. Patient understood and was agreeable with the plan. All questions were answered. Discharge Plan Triage Chief Complaint: Shortness of Breath ED Provider: Reynaldo Bertrand Dx/Rx/DC Orders Clinical Impression: Viral upper respiratory tract infection, Tobacco use Instructions: ED URI, Viral, No Abx (Adult) Prescriptions: No Action doxycycline monohydrate 100 mg capsule 100 mg PO BID Qty: 14 0RF albuterol sulfate [Ventolin HFA] 90 mcg/actuation HFA aerosol inhaler 1 - 2 puff inhalation Q4H PRN PRN (Reason: Wheezing) Qty: 1 0RF amoxicillin-pot clavulanate 875-125 mg tablet 875 mg PO Q12H Qty: 20 0RF Primary Care Provider: Care Physician,No Primary Referrals: Drew Dunne MD [Med Staff - Cutting And Splicing Supervisor, Family Practice] - 5-7 Days Care Physician,No Primary [Primary Care Provider, Medical] Print Language: Portuguese Disposition Disposition: Home, Self Care
--- OUTSIDE RECORDS SUMMARY | 2025-03-25 19:33 | XMS RPT_ITS | CCD ---
Author Organization [facility] Care Team Providers Care Graphics Coordinator Name Role Phone Yonatan Morton Unavailable Unavailable PROVIDER, UNKNOWN Unavailable Unavailable No, PCP Unavailable Unavailable Mike Ellsworth Unavailable Unavailable PROVIDER, UNKNOWN Unavailable Unavailable No, PCP Unavailable Unavailable Yo Conrad Primary Care Provider SixLadonna Primary Care Provider Six [employer]LECT[employer]ICAL INSTALLER - Ladonna KAT Primary Care Provider Pointe, Axxess Primary Care Provider Pointe, Axxess Primary Care Provider Pointe, Axxess Primary Care Provider Pointe, Axxess Primary Care Provider Care Physician, No Primary Primary Care Provider Unavailable Dr. Cliff De La O Emergency Provider Dr. Risa Velasquez Admit Provider Dr. Risa Velasquez Other Provider Friend, Dr. Soares Attending Provider Dr. Risa Velasquez Attending Provider [phone] [facility] [place]note 2] Care Physician, No Primary Referring Provider Un available Dr. Ramon Turcios Attending Provider Dr. Ramon Turcios Referring Provider Dr. Ramon Turcios Other Provider [phone] Unavailable Primary Care Provider Unavailabl e Pointe, Axxess Primary Care Provider [phone] CHELY BARDALES Referring Unavailable MOROCCERIC Reinoso Referring Unavail able MOROCCERIC Reinoso Attending Unavail able MOROCCERIC Reinoso Referring Unavail able MOROCCOERIC Attending Unavail able CHELY BARDALES Attending Unavailable CHELY BARDALES Referring Unavailable Unavailable Primary Care Provider UnavailERIC Castaneda Referring Unavail able Care Physician, No Primary Primary Care Unava ilable Edin Melo Attending Unavailable Reynaldo Bertrand Attending Unavailable Care Physician, No Primary Primary Care Unava ilable Morris, Tom Attending Unavailable Care Physician, No Primary Primary Care Unava ilable Care Physician, No Primary Primary Care Unava ilable Reynaldo Bertrand Attending Unavailable Reynaldo Bertrand Referring Unavailable Care Physician, No Primary Primary Care Unava ilable Pierce Celis Attending Unavailable PHYSICIAN, NONE Primary Care Physician Unavailab le PHYSICIAN, NONE Primary Care Unavailable THEO REYNOLDS, LUCITA Pacheco Attending Unavail able Allergies Allergy Classification Reported Allergen(s) Allergy Type Date of Onset Reaction(s) Facility Acetaminophen / oxyCODONE (1 source) Acetaminophen / oxyCODONE Drug Allergy 9 Itching [facility] (20 sources) Acetaminophen / oxyCODONE; Translations: [OXYCODONE-ACETAMI NOPHEN] Drug Allergy 9 Itching [place], [place] (4 sources) Mustard (substance); Translations: [mustard] Allergy to substance 1 Angioedema [facility] (3 sources) oxyCODONE Drug Allergy 1 Hives [facility] (1 source) oxyCODONE Drug Allergy 4 [facility] Repository Medications Current Medications Medication Drug Class(es) Dates Sig (Normalized) Sig (Original) acetaminophen 325 mg oral tablet (20 sources) Start: 12-24-2022 take 650 mg by mouth every four hours as needed Acetaminophen Active 650 MG PO EVERY 4 HOURS NEEDED 0 December 24, 2022 12:00am acetaminophen (T YLENOL) 325 mg tablet Take 650 mg by mouth as needed. Active Comment on above: Take 650 mg by mouth as needed. Acetaminophen / Caffeine (2 sources) Central Nervous System Stimulant, Methylxanthine Start: 023 take 1 tablet by mouth every twelve hours Acetaminophen-Caff eine (Excedrin Tension Headache) 500-65 mg tablet Active 1 TABLET PO Q12H December 13, 2022 12:00am amoxicillin 875 mg oral tablet (1 source) Penicillin-class Antibacterial Start: End: take 1 tablet by mouth twice daily amoxicillin (AMOXIL) 875 mg tablet Indications: Acute otitis media, right Take 1 tablet by mouth two times a day for 7 days. 14 tablet 0 01/31/2023 02/07/2023 Active Comment on above: Take 1 tablet by jacob th two times a day for 7 days. amoxicillin 875 mg / clavulanate 125 mg oral tablet (1 source) Penicillin-class Antibacterial Start: End: take 1 tablet by mouth twice daily amoxicillin-clavul anic acid (AUGMENTIN) 875-125 mg per tablet Take 1 tablet by mouth twice daily for 5 days. 10 tablet 0 08/30/2022 09/04/2022 Active Comment on above: Take 1 tablet by jacob th twice daily for 5 days. cetirizine hydrochloride 10 mg oral tablet (1 source) Histamine-1 Receptor Antagonist Start: End: take 1 tablet by mouth once daily cetirizine (ZYRTEC) 10 mg tablet Take 1 tablet by mouth once daily for 14 days. 14 tablet 0 07/18/2023 08/01/2023 Active Comment on above: Take 1 tablet by jacob once daily for 14 days. doxycycline monohydrate 100 mg oral tablet (1 source) Tetracycline-class Drug Start: End: take 1 tablet by mouth twice daily doxycycline monohydrate 100 mg tablet Indications: Lower resp. tract infection Take 1 tablet by mouth two times a day for 7 days. 14 tablet 01/24/2024 01/31/2024 Active famotidine 20 mg oral tablet (1 source) Histamine-2 Receptor Antagonist Start: take 20 mg by mouth twice daily 20 mg, Oral, 2 TIMES DAILY, First dose on Fri02/19/19 at 0930 250 ml glucose 50 mg/ml / sodium chloride 9 mg/ml injection (1 source) Start: dextrose 5 % and 0.9 % sodium chloride infusion magnesium hydroxide 80 mg/ml oral suspension (1 source) Start: take 30 mL by mouth once daily as needed for constipation 30 mL, Oral, DAILY PRN, Constipation, Starting Fri02/19/19 at 0858 First line therapy for constipation. magnesium oxide 400 mg oral tablet (2 sources) take 1 tablet by mouth once daily magnesium oxide (MAG-OX) 400 MG tablet Take 400 mg by mouth daily 0 Active 1 ml morphine sulfate 4 mg/ml cartridge (3 sources) Opioid Agonist Start: End: morphine (PF) injection 2 mg oxyCODONE hydrochloride 10 mg oral tablet (1 source) Opioid Agonist Start: take 5-10 mg by mouth every six hours Oxycodone Active 5 - 10 MG PO EVERY 6 HOURS 10 December 24, 2022 piperacillin 3000 mg / tazobactam 375 mg injection (2 sources) Penicillin-class Antibacterial, beta Lactamase Inhibitor Start: End: piperacillin-tazob actam (ZOSYN) 3.375 g in dextrose 50 mL IVPB extended infusion (premix) predniSONE 50 mg oral tablet (1 source) Start: End: predniSONE 50 mg oral tablet Dose : 50 mg = 1 tab(s), Oral, qDay, Take with food, X 5 day(s), # 5 tab(s), 0 Refill(s), 12/22/24 12:00:00 AM EDT Start Date: 12/17/24 Stop Date: 12/22/24 Status: Ordered Medication Dispense Status: Completed Quantity: 5.0 Unit: tab(s) Total Allowed Fills: 1 Fills Dispensed: 0 3 ml sodium chloride 9 mg/ml injection (3 sources) Start: 10 mL, Intravenous, EVERY 12 HOURS SCHEDULED (2 times per day), First dose on Fri02/19/19 at 0915 Start: 02-19-2019 take 10 mL intraveno us route once as needed 10 mL, Intravenous, PRN, Line Care, After every IV line use, Starting Fri02/19/19 at 0858 Start: 02-19-2019 End: 02-19-2019 0.9 % sodium chloride bolus topiramate 25 mg oral tablet (2 sources) take 1 tablet by jacob th twice daily topiramate (TOPAMAX) 25 MG tablet Take 25 mg by mouth 2 times daily 0 Active vitamin d 1000 unt oral tablet (2 sources) take 1 tablet by jacob th once daily vitamin D (CHOLECALCIFEROL) 1000 UNIT TABS tablet Take 1,000 Units by mouth daily 0 Active take 1 tablet by mouth once kristian y vitamin D (CHOLECALCIFEROL) 1000 UNIT TABS tablet Take 1,000 Units by mouth daily 0 Active Completed/Discontinued Medications Medication Drug Class(es) Dates Sig (Normalized) Sig (Original) [id number] 200 actuat albuterol 0.09 mg/actuat metered dose inhaler (3 sources) beta2-Adrenergic Agonist Start: 11-23-2022 End: 11-23-2022 Albuterol Sulfate Discontinued INHALATION November 23, 2022 12:00am November 23, 2022 12:36pm aspirin 81 mg delayed release oral tablet (3 sources) Platelet Aggregation Inhibitor, Nonsteroidal Anti-inflammatory Drug Start: 03-07-2021 End: 11-23-2022 take 81 mg by mouth once daily Aspirin Discontinued 81 MG PO DAILY March 07, 2021 12:00am November 23, 2022 3:12am fluticasone propionate 0.05 mg/actuat metered dose nasal spray (2 sources) Corticosteroid Start: 07-18-2023 End: 08-12-2023 take 2 spray(s) by mouth once daily fluticasone (FLONASE) 50 mcg/actuation nasal spray Use 2 Sprays in each nostril once daily. Rinse mouth after use. 1 Each 0 07/18/2023 08/12/2023 Discontinued (Discontinued by Patient) Comment on above: Use 2 Sprays in each nostril once daily. Rinse mouth after use. ibuprofen 200 mg oral tablet (1 source) Nonsteroidal Anti-inflammatory Drug End: 05-05-2021 ibuprofen (MOTRIN) 200 mg tablet Take 200 mg by mouth as needed. 0 05/05/2021 Discontinued (Discontinued by Patient) Comment on above: Take 200 mg by mouth as needed. Iopamidol (1 source) Radiographic Contrast Agent Start: 02-19-2019 End: 02-19-2019 iopamidol (ISOVUE-370) 76 % injection 75 mL iv contrast (will be provided with radiology test) (2 sources) Start: 02-04-2022 End: 02-05-2022 inject 1 dose intravenously once iv contrast (will be provided with radiology test) MRI Brain Inject, intravenously, once for 1 dose.No IV access, insert saline lock prior to beginning of sedation, infusion, injection of imaging exam.Discontinue saline lock post exam. If Pt. has a central line or IVAD, may access for administration according to line specific nursing protocol.Once exam is complete flush line and de-access according to line specific nursing protocol in the MR contrast administration guidelines link 1 Each 0 02/04/2022 02/05/2022 Start: 02-04-2022 End: 02-05-2022 inject 1 dose intravenously once iv contrast (will be provided with radiology test) MRI Brain Inject, intravenously, once for 1 dose.No IV access, insert saline lock prior to beginning of sedation, infusion, injection of imaging exam.Discontinue saline lock post exam. If Pt. has a central line or IVAD, may access for administration according to line specific nursing protocol.Once exam is complete flush line and de-access according to line specific nursing protocol in the MR contrast administration guidelines link 1 Each 0 02/04/2022 02/05/2022 Active Comment on above: MRI Brain Inject, in travenously, once for 1 dose.No IV access, insert saline lock prior to beginning of sedation, infusion, injection of imaging exam.Discontinue saline lock post exam. If Pt. has a central line or IVAD, may access for administration according to line specific nursing protocol.Once exam is complete flush line and de-access according to line specific nursing protocol in the MR contrast administration guidelines link 1 ml ketorolac tromethamine 30 mg/ml cartridge (1 source) Nonsteroidal Anti-inflammatory Drug, Cyclooxygenase Inhibitor Start: End: ketorolac (TORADOL) injection 15 mg naproxen 500 mg oral tablet (3 sources) Nonsteroidal Anti-inflammatory Drug Start: End: take 1 tablet by mouth twice daily as needed for pain naproxen (NAPROSYN) 500 MG tablet Take 1 tablet by mouth 2 times daily as needed for Pain 20 tablet 0 10/15/2018 02/19/2019 Discontinued (Therapy completed) ondansetron 4 mg disintegrating oral tablet (5 sources) Serotonin-3 Receptor Antagonist Start: End: 023 take 4 mg by mouth every eight hours Ondansetron Discontinued 4 MG PO Q8H 9 3 November 23, 2022 12:00am December 13, 2022 1:24pm Start: 02-19-2019 End: 02-19-2019 4 mg, Intravenous, EVERY 6 H OURS PRN, Nausea, Starting 02/19/19 at 0858 Problems Active Problems Problem Classification Problem Date Documented Date Episodic/Chronic Abdominal pain (7 sources) Right upper quadrant pain; Translations: [Right upper quadrant pain] Onset: 04-08-2024 11-23-2022 Episodic Anxiety disorders (20 sources) Anxiety state; Translations: [Generalized anxiety disorder] Onset: 07-16-2019 10-06-2019 Chronic Biliary tract disease (13 sources) Cholecystitis; Translations: [Gallbladder pain] Onset: 02-19-2019 02-19-2019 Episodic Diseases of white blood cells (20 sources) White blood cell disorder; 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, unspecified] Onset: 10-06-2019 10-06-2019 Chronic Esophageal disorders (20 sources) Gastroesophageal reflux disease; Translations: [Gastro-esophageal reflux disease without esophagitis] Onset: 10-06-2019 10-06-2019 Chronic External Injury - Natural / Environment (4 sources) Bitten by dog, subsequent encounter; Translations: [Bitten by dog, initial encounter] Onset: 10-24-2016 Genitourinary symptoms and ill-defined conditions (1 source) Microscopic hematuria; Translations: [Other microscopic hematuria] 11-18-2022 Episodic Headache; including migraine (20 sources) Migraine; Translations: [Migraine, unspecified, not intractable, without status migrainosus] Onset: 10-06-2019 10-06-2019 Chronic Headache; including migraine (3 sources) Headache; Translations: [Headache] 03-15-2021 Episodic Nonspecific chest pain (4 sources) Chest pain; Translations: [Chest pain, unspecified] Onset: 05-18-2024 12-24-2020 Episodic Nutritional deficiencies (20 sources) Vitamin D deficiency; Translations: [Vitamin D deficiency, unspecified] Onset: 10-06-2019 10-06-2019 Chronic Other and ill-defined cerebrovascular disease (3 sources) Cerebral arterial aneurysm; Translations: [Cerebral aneurysm, nonruptured] Chronic Other and ill-defined cerebrovascular disease (1 source) Cerebral aneurysm, nonruptured; Translations: [Nonruptured cerebral aneurysm] Onset: 08-19-2023 Chronic Other and unspecified benign neoplasm (3 sources) Pituitary adenoma; Translations: [Benign neoplasm of pituitary gland] Episodic Other and unspecified benign neoplasm (1 source) Benign neoplasm of pituitary gland; Translations: [Pituitary adenoma (HCC)] Onset: 08-13-2023 Episodic Other connective tissue disease (1 source) Pain in finger of right hand; Translations: [Pain in right finger(s)] 10-08-2023 Episodic Other diseases of kidney and ureters (1 source) Cyst of kidney; Translations: [Renal cyst, right] Other ear and sense organ disorders (1 source) Otalgia, left ear; Translations: [Otalgia, unspecified] 07-18-2023 Episodic Other endocrine disorders (20 sources) Disorder of pituitary gland; Translations: [Disorder of pituitary gland, unspecified] Onset: 02-08-2021 Chronic Other endocrine disorders (1 source) Disorder of pituitary gland, unspecified; Translations: [Pituitary abnormality (HCC)] Onset: 02-08-2021 Chronic Other lower respiratory disease (1 source) Lower respiratory tract infection; Translations: [Unspecified acute lower respiratory infection] 01-24-2024 Episodic Other lower respiratory disease (1 source) Shortness of breath; Translations: [Shortness of breath] Onset: 02-27-2024 Episodic Other nervous system disorders (20 sources) Chiari malformation type I; Translations: [Compression of brain] Onset: 02-12-2019 Chronic Other nervous system disorders (1 source) Compression of brain; Translations: [Chiari I malformation (HCC)] Onset: 10-23-2019 Chronic Other non-traumatic joint disorders (2 sources) Pain in unspecified knee; Translations: [Pain of joint of knee] Onset: 12-17-2024 Episodic Other nutritional; endocrine; and metabolic disorders (1 source) Hyperbilirubinemia; Translations: [Hyperbilirubinemia] Chronic Other nutritional; endocrine; and metabolic disorders (20 sources) Obese class II; Translations: [Obesity, unspecified] Onset: 09-12-2017 09-12-2017 Chronic Other nutritional; endocrine; and metabolic disorders (20 sources) Body mass index 30+ - obesity; Translations: [Body mass index (BMI) 30.0-30.9, adult] Onset: 10-06-2019 10-06-2019 Chronic Other upper respiratory infections (2 sources) Sore throat symptom; Translations: [Acute pharyngitis, unspecified] Episodic Otitis media and related conditions (1 source) Acute right otitis media; Translations: [Otitis media, unspecified, right ear] 01-31-2023 Episodic Pulmonary heart disease (3 sources) Pulmonary embolism; Translations: [Other pulmonary embolism without acute cor pulmonale] 12-24-2020 Episodic Residual codes; unclassified (20 sources) Sleep apnea; Translations: [Sleep apnea, unspecified] Onset: 10-06-2019 10-06-2019 Chronic Residual codes; unclassified (1 source) FH: Cardiovascular disease; Translations: [Family history of ischemic heart disease and other diseases of the circulatory system] Episodic Screening and history of mental health and substance abuse codes (4 sources) Ex-tobacco user; Translations: [Personal history of nicotine dependence] Onset: 08-12-2023 Episodic Spondylosis; intervertebral disc disorders; other back problems (20 sources) Cervical disc disorder; Translations: [Cervical disc disorder, unspecified, unspecified cervical region] Onset: 02-12-2019 10-06-2019 Chronic Urinary tract infections (3 sources) Acute cystitis; Translations: [Acute cystitis without hematuria] 08-22-2020 Episodic Past or Other Problems Problem Classification Problem Date Documented Da te Episodic/Chronic Hepatitis (20 sources) Acute type B viral hepatitis; Translations: [Type B viral hepatitis] Onset: 02-19-2019 02-19-2019 Episodic Malaise and fatigue (5 sources) Fatigue; Translations: [Other fatigue] Onset: 08-12-2023 Episodic Neoplasms of unspecified nature or uncertain behavior (5 sources) Neoplasm of pituitary gland; Translations: [Neoplasm of unspecified behavior of endocrine glands and other parts of nervous system] Onset: 08-12-2023 Episodic Open wounds of extremities (6 sources) Laceration without foreign body, left foot, subsequent encounter; Translations: [Laceration without foreign body, left foot, initial encounter] Onset: 10-24-2016 Episodic Other aftercare (2 sources) Encounter for removal of sutures; Translations: [Encounter for removal of sutures] Onset: 10-26-2016 Episodic Other and unspecified benign neoplasm (20 sources) Benign neoplasm of pituitary gland; Translations: [Benign neoplasm of pituitary gland] Onset: 02-12-2019 10-06-2019 Episodic Other connective tissue disease (2 sources) Pain in left foot; Translations: [Pain in left foot] Onset: 10-26-2016 Episodic Other connective tissue disease (20 sources) Plantar fascial fibromatosis; Translations: [Plantar fascial fibromatosis] Onset: 12-26-2010 12-26-2010 Episodic Other connective tissue disease (1 source) Pain in right finger(s); Translations: [Pain in right finger(s)] Onset: 10-16-2023 Episodic Other liver diseases (1 source) Enzyme level - finding; Translations: [Transaminitis] Episodic Residual codes; unclassified (20 sources) Tobacco user; Translations: [Tobacco use] Onset: 10-06-2019 10-06-2019 Episodic Skin and subcutaneous tissue infections (20 sources) Cellulitis of left lower limb; Translations: [Abscess of left foot] Onset: 10-26-2016 11-15-2016 Episodic Spondylosis; intervertebral disc disorders; other back problems (20 sources) Neck pain; Translations: [Cervicalgia] Onset: 07-23-2019 07-23-2019 Episodic Results Test Name Value Interpretation Reference Range Facility XR KNEE THREE VIEWS RIGHTon 12-17-2024 XR KNEE THREE VIEWS RIGHT ORIGINAL EXAMINATION: THREE XRAY VIEWS OF THE RIGHT KNEE 12/17/2024 10:59 am COMPARISON: None. HISTORY: ORDERING SYSTEM PROVIDED HISTORY: Reason for Exam: rt knee pain x1 week, worse with flexion. NKI pain FINDINGS: No acute fracture or dislocation. Joint spaces are preserved. No joint effusion or significant soft tissue swelling. IMPRESSION: No acute radiographic findings. Interpreted by: Kiko Figueroa Preliminary Report By: Kiko Figueroa Electronically signed By Kiko Figueroa Dictated Date: 12/17/2024 11:09:39 AM Prelim Date: 12/17/2024 11:10:26 AM Sign Date: 12/17/2024 11:10:26 AM Ordering Provider: LUCITA VENEGAS [facility] 12 Lead EKGon 04-20-2024 12 Lead EKG [facility] [address] [place] [address] 12 Lead EKG 04/20/24 1646 MR#: [id number] Acct: [id number] Name: TIM CORDOVA R Rep #: [id number] : 1980 43 From: Song Lester MD Attending Dr: Status: DEP ER Ordering Dr: Tom Morris MD Date: 04/20/24 Location: ED Sex: F C Admitted: Test Reason : CP Blood Pressure : */* mmHG Vent. Rate : 94 BPM Atrial Rate : 94 BPM P-R Int : 134 ms QRS Dur : 94 ms QT Int : 364 ms P-R-T Axes : 52 13 32 degrees QTcB Int : 455 ms Normal sinus rhythm Normal ECG Confirmed by TIFFANY REYNOLDS, SONG ([id number]), loan expeditor BETSEY KRUGER ([id number]) on 04/22/2024 10:47:45 AM Referred By: ES/UG Confirmed By: SONG LESTER MD 04/22/24 1047 Date Song Lester MD CC: Dr. Tom Morris MD; No Primary Care Physician Signed Normal [facility] CBC W/Diff, Automatedon 04-04 SMEAR COMMENT SCANNED Normal [facility] Comment on above: Result Comment: LYMP HOCYTOSIS NOTED Performed By: #### L [id number], L500.4050, L100.0100 #### [facility] [address] [place], [address] Chest PA and Lateralon 04-20 Chest PA and Lateral [facility] [address] [place] [address] Chest PA and Lateral MR#: [id number] Acct: [id number] Name: TIM CORDOVA R Rep #: [id number] : 1980 F [id number] From: Orlando Chow MD PCP: Care Physician,No Primary Status: REG ER Study: Chest PA and Lateral Date of Exam: 04/20/24 Exam# [id number] Ordering Dr: Tom Morris MD [id number] STUDY: X-RAY CHEST REASON FOR EXAM: Female, 43 years old. Chest pain, shortness of breath TECHNIQUE: PA and lateral COMPARISON: February 01, 2024 FINDINGS: Mild nonspecific asymmetric interstitial thickening in left lower lobe There is no demonstrated pleural abnormality. Normal size heart. Normal mediastinum and darren. Normal visualized pulmonary arteries. Normal visualized aortic arch and descending thoracic aorta. Normal visualized thoracic spine. Normal visualized ribs, clavicles, and shoulders. There is no demonstrated abnormality of the visualized soft tissue structures of the upper abdomen. RAD/Chest PA and Lateral IMPRESSION: Mild nonspecific interstitial thickening in left lower lobe possibly representing early inflammatory changes. Clinical correlation recommended Electronically Signed: Orlando Chow MD at 17:55 EST Reading Location ID and State: [address] [place] [address] Tel , Service support , CC: Dr. Tmo Morris MD; No Primary Care Physician Blockmason: Signed Normal [facility] Comprehensive Metabolic Prof [facility] 04-20-2024 Albumin [Mass/Vol] 3.7 g/dL Normal 3.2-5.0 [facility] Comment on above: Order Comment: 1 Y Performed By: #### L 501.5425, L500.4050, L100.0100 #### [facility] [address] [place], [address] Albumin/Globulin [Mass ratio] 1.0 {ratio} Normal 0.9-2.4 [facility] Comment on above: Order Comment: 1 Y Performed By: #### L [id number], L500.4050, L100.0100 #### [facility] [address] [place], [address] ALK P 85 U/L Normal 45-117 [facility] Comment on above: Order Comment: 1 Y Performed By: #### L [id number], L500.4050, L100.0100 #### [facility] [address] [place], [address] ALT [Catalytic activity/Vol] 20 U/L Normal 13-56 [facility] Comment on above: Order Comment: 1 Y Performed By: #### L [id number], L500.4050, L100.0100 #### [facility] [address] [place], [address] AST [Catalytic activity/Vol] 14 U/L Low 15-37 [facility] Comment on above: Order Comment: 1 Y Performed By: #### L [id number], L500.4050, L100.0100 #### [facility] [address] [place], [address] Bilirubin [Mass/Vol] 0.10 mg/dL Low 0.20-1.00 [facility] Comment on above: Order Comment: 1 Y Result Comment: For patients on eltrombopag therapy, use of Dimension [place] TBIL is not recommended. Performed By: #### L [id number], L500.4050, L100.0100 #### [facility] [address] [place], [address] BUN/CRE 16.4 RATIO Normal 10-20 [facility] Comment on above: Order Comment: 1 Y Performed By: #### L [id number], L500.4050, L100.0100 #### [facility] [address] [place], [address] CA,Total 8.8 mg/dL Normal 8.5-10.1 [facility] Comment on above: Order Comment: 1 Y Performed By: #### L [id number], L500.4050, L100.0100 #### [facility] [address] [place], [address] Chloride [Moles/Vol] 110 mmol/L High 98-107 [facility] Comment on above: Order Comment: 1 Y Performed By: #### L [id number], L500.4050, L100.0100 #### [facility] [address] [place], [address] CO2 [Moles/Vol] 24.0 mmol/L Normal 21.0-32.0 [facility] Comment on above: Order Comment: 1 Y Performed By: #### L 501.5425, L500.4050, L100.0100 #### [facility] [address] [place], [address] Creatinine [Mass/Vol] 0.91 mg/dL Normal 0.55-1.02 [facility] Comment on above: Order Comment: 1 Y Result Comment: The validity of the calculated GFR GFRAA in patients over 70 years has not been determined. Clinical correlation is essential. Performed By: #### L 501.5425, L500.4050, L100.0100 #### [facility] [address] [place], [address] ECRCL 104.02 ml/min Normal [facility] Comment on above: Order Comment: 1 Y Performed By: #### L 501.5425, L500.4050, L100.0100 #### [facility] [address] [place], [address] EST GFR - AA 86 mL/min Normal >60 [facility] Comment on above: Order Comment: 1 Y Result Comment: Afri can Welsh GFR Calc Performed By: #### L 501.5425, L500.4050, L100.0100 #### [facility] [address] [place], [address] GAP 5 Normal 5-15 [facility] Comment on above: Order Comment: 1 Y Performed By: #### L 501.5425, L500.4050, L100.0100 #### [facility] [address] [place], [address] GFR/1.73 sq M.predicted among non-blacks MDRD (S/P/Bld) [Vol rate/Area] 71 mL/min/{1.73_m2} Normal >60 [facility] Comment on above: Order Comment: 1 Y Result Comment: Non- GFR Calc Performed By: #### L 501.5425, L500.4050, L100.0100 #### [facility] [address] [place], [address] Globulin (S) [Mass/Vol] 3.8 g/dL Normal 2.2-4.2 [facility] Comment on above: Order Comment: 1 Y Performed By: #### L 501.5425, L500.4050, L100.0100 #### [facility] [address] [place], [address] Glucose [Mass/Vol] 100 mg/dL Normal 74-106 [facility] Comment on above: Order Comment: 1 Y Result Comment: Fast ing Glucose result from 100 to 125 mg/dL suggests IMPAIRED HOMEOSTASIS per A.D.A. criteria. Performed By: #### L 501.5425, L500.4050, L100.0100 #### [facility] [address] [place], [address] Potassium [Moles/Vol] 3.7 mmol/L Normal 3.5-5.1 [facility] Comment on above: Order Comment: 1 Y Performed By: #### L 501.5425, L500.4050, L100.0100 #### [facility] [address] [place], [address] Sodium [Moles/Vol] 140 mmol/L Normal 136-145 [facility] Comment on above: Order Comment: 1 Y Performed By: #### L 501.5425, L500.4050, L100.0100 #### [facility] [address] [place], [address] T PROT 7.5 g/dL Normal 6.4-8.2 [facility] Comment on above: Order Comment: 1 Y Performed By: #### L 501.5425, L500.4050, L100.0100 #### [facility] [address] [place], [address] Urea nitrogen [Mass/Vol] 15 mg/dL Normal 7-18 [facility] Comment on above: Order Comment: 1 Y Performed By: #### L 501.5425, L500.4050, L100.0100 #### [facility] [address] [place], [address] Emergency Department Summary on 04-20-2024 Emergency Department Summary [facility] Medical Records Department [address] [facility] [place] [address] Emergency Department Summary 04/20/24 MR#: [id number] Acct: [id number] Name: TIM CORDOVA Rep #: [id number] : 1980 43 From: Tom Morris MD PCP: Care Physician,No Primary Status:REG ER Location: ED HPI History of Present Illness Chief Complaint: Chest Pain Detail of Chief Complaint: Left-sided chest pain Informant: patient and spouse/S.O. Onset/Context/Timing Onset: Today and Hours Activity at onset: sudden Timing: Continuous and Waxes and wanes Quality: Positive for Aching, Sharp and Tightness Location: Left Chest Current Severity: Mild Maximum Severity: Severe Worsened By: Movement of Arm, Movement of Torso, Breathing and Coughing; Not Worsened By Eating or Palpation Relieved By: Nothing Associated Symptoms: Positive for Nausea, Dyspnea and Cough; Negative for Vomiting, Diaphoresis, Fever, Lightheadedness, Acid Reflux or Palpitations Narrative Narrative: Patient is a 43-year-old woman. She presents with abrupt onset of left-sided chest pain. Significant other states that she had similar presentation she was diagnosed with pneumonia. She denies fever or chills. She does have mild nasal congestion. She is a smoker 1 pack/day. She denies trauma. She denies rash. She denies orthopnea or PND. She denies history of VTE. She has no risk factors for VTE. She denies leg pain, swelling discoloration. She denies history of peptic ulcer disease. She denies history of reflux. She does have a history of pulmonary embolus and gallbladder issues. Prior Similar Symptoms: Yes (Pneumonia) Recent Illness/Hospitalization: No CVD Risk Factors: Positive for Smoking; Negative for Hypertension, Diabetes, Hypercholesterolemia or Family History 1' PE Risk Factors: Negative for Recent Travel/Surgery, Recent Immobilization, Prior DVT or PE, Cancer or OCP + Smoking + >/=35 TAD Risk Factors: Negative for Marfan's Syndrome, Hypertension or Family History PFSH PFSH Medical History TIA (transient ischemic attack) Pituitary adenoma Wears dentures Arthritis Easy bruising Back pain History of echocardiogram Anxiety Hepatitis GERD (gastroesophageal reflux disease) Smoker Migraines Brain TIA Hypothyroid Chiari malformation Home Medications ???Medication ???Instructions ???Recorded ???Last Taken ???Type albuterol sulfate 90 mcg/actuation 1 - 2 puff inhalation Q4H PRN PRN 02/01/24 Unknown Rx aerosol inhaler (Ventolin HFA) Wheezing ##1 amoxicillin 875 mg-potassium 875 mg PO Q12H #20 TABLETS 03/15/24 Unknown Rx clavulanate 125 mg tablet doxycycline monohydrate 100 mg 100 mg PO BID #14 CAPSULES 04/20/24 Unknown Rx capsule Allergy/AdvReac Type Severity Reaction Status Date / Time mustard Allergy Angioedema Verified 04/20/24 16:40 oxycodone Allergy Hives Verified 04/20/24 16:40 Family History Father Liver cancer Surgical History Hx of foot surgery History of cranial surgery H/O: hysterectomy Social History Smoking Status: Heavy Smoker (>10/day) ROS ROS ED Constitutional Constitutional ED: Denies chills, fever(s), subjective or sweats Eyes Eyes: Reports none ENT ENT ED: Reports rhinorrhea; Denies ear pain or sore throat Cardiovascular Cardiovascular: Reports as per HPI; Denies orthopnea, palpitations or paroxysmal nocturnal dyspnea Respiratory/Chest Respiratory/Chest: Reports cough, dyspnea and sputum; Denies dyspnea on exertion, orthopnea or paroxysmal nocturnal dyspnea Gastrointestinal Gastrointestinal: Denies abdominal pain, constipation, diarrhea, melena or vomiting Genitourinary Genitourinary ED: Denies dysuria, hematuria or urinary frequency Musculoskeletal Musculoskeletal: Reports arthralgias and myalgias Neurologic Neurologic: Denies headache(s), paresthesias or weakness Psychiatric Psychiatric: Reports anxiety Hematologic/Lymphatic Hematologic/Lymphatic: Denies easy bleeding or easy bruising EXAM Physical Exam Const Vital Signs: 04/20/24 16:40 04/20/24 17:40 04/20/24 17:40 Temperature 97 F L Temperature Source Temporal Pulse Rate 94 73 74 Respiratory Rate 26 H 13 17 Blood Pressure 155/99 H 128/58 H 128/58 H Blood Pressure Mean 117 81 81 Pulse Ox 98 98 97 Oxygen Delivery Method Room Air Room Air Room Air 04/20/24 18:00 Temperature Temperature Source Pulse Rate 72 Respiratory Rate 14 Blood Pressure Blood Pressure Mean Pulse Ox 99 Oxygen Delivery Method Room Air Positive well nourished and well developed Constitutional Narrative: BMI is 40.2 (more content not included)... Normal [facility] L501.5425on 04-20-2024 TROPONIN-I HS < 3 Low 3.0-54.0 [facility] Comment on above: Order Comment: 1 Y Result Comment: Plea se Note: New Test Units and Gender Specific Reference Ranges. For more information see Policy Stat Procedure [place] High Sensitivity Troponin (TNIH) and attachments. Performed By: #### L 501.5425, L500.4050, L100.0100 #### [facility] [address] [place], [place], [address] Abdomen/Pelvis W IV Cont ONL Yon 03-15-2024 Abdomen/Pelvis W IV Cont ONLY [facility] Imaging Services [address] [place], [place] [id number] Abdomen/Pelvis W IV Cont ONLY MR#: [id number] Acct: [id number] Name: TIM CORDOVA Rep #: [id number] : 1980 F 43 From: Orlando Chow MD PCP: Care Physician,No Primary Status: REG ER Study: Abdomen/Pelvis W IV Cont ONLY Date of Exam: Exam# [id number] Ordering Dr: Reynaldo Bertrand DO [id number] STUDY: CT ABDOMEN AND PELVIS WITH CONTRAST REASON FOR EXAM: Female, 43 years old. Abdominal pain RADIATION DOSAGE (If Supplied By Facility): CTDIvol = ( 16.27 ) mGy, DLP = ( 1178.07 ) mGycm TECHNIQUE: Transaxial images were obtained from the dome of the diaphragm to the symphysis pubis without oral contrast. IV 100mL Isovue-370 was administered. Sagittal and coronal images were reconstructed. Individualized dose optimization techniques were used for this CT. COMPARISON: None. FINDINGS: Mild atelectasis in the dependent portion of the lower lobes. The visualized portions of the heart are within normal limits. Nonspecific fatty infiltrated liver without mass or bile duct dilatation. Gallbladder has been removed surgically. Normal spleen. Normal pancreas. Normal bilateral adrenal glands. There is a parapelvic cyst in right kidney which will not require additional imaging. Normal left kidney. Normal visualized stomach. Normal small intestine. There is a diffusely ahaustral appearance to the transverse descending and sigmoid colon which may be consistent with nonspecific inflammatory bowel disease. No evidence for acute appendicitis Normal abdominal aorta. Normal inferior vena cava. Normal retroperitoneum. Poorly distended thick walled bladder of uncertain significance. Uterus not visualized status post hysterectomy Normal abdominal wall. Lumbar spine demonstrates mild spondylosis CT/Abdomen/Pelvis W IV Cont ONLY IMPRESSION: Findings which may be consistent with nonspecific colitis. No evidence for small bowel obstruction or other acute abnormality Status post cholecystectomy and hysterectomy Electronically Signed: Orlando Chow MD at 21:35 EST Reading Location ID and State: [facility] / [place] Tel , Service support , CC: Dr. Reynaldo Bertrand, DO; No Primary Care Physician Blockmason: Signed Normal [facility] CBC W/Diff, Automatedon 11- Absolute Lymph 4.14 X10 3/uL Normal 0.83-4.51 [facility] Comment on above: Performed By: #### L 500.4050, L100.0100, L501.2450 ####[facility] [address] [place], [address] Absolute Neut 4.2 X10 3/uL Normal 2.0-7.7 [facility] Comment on above: Performed By: #### L 500.4050, L100.0100, L501.2450 ####[facility] [address] [place], [address] Basophils/100 WBC (Bld) 0.9 % Normal 0-1 [facility] Comment on above: Performed By: #### L 500.4050, L100.0100, L501.2450 ####[facility] [address] [place], [address] Eosinophils/100 WBC (Bld) 6.6 % High 0-5 [facility] Comment on above: Performed By: #### L 500.4050, L100.0100, L501.2450 ####[facility] [address] [place], [address] Erythrocyte distribution width (RBC) [Ratio] 12.6 % Normal 11.6-14.6 [facility] Comment on above: Performed By: #### L 500.4050, L100.0100, L501.2450 ####[facility] [address] [place], [address] Hematocrit (Bld) [Volume fraction] 39.7 % Normal 37-47 [facility] Comment on above: Performed By: #### L 500.4050, L100.0100, L501.2450 ####[facility] [address] [place], [address] Hemoglobin (Bld) [Mass/Vol] 13.7 g/dL Normal 12.0-15.0 [facility] Comment on above: Performed By: #### L 500.4050, L100.0100, L501.2450 ####[facility] [address] [place], [address] IG% 0.300 Normal 0.0-0.9 [facility] Comment on above: Result Comment: IG% - Immature Granulocytes (promyelocytes, myelocytes and metamyelocytes) > 1% indicates that a LEFT SHIFT is Present. Performed By: #### L 500.4050, L100.0100, L501.2450 ####[facility] [address] [place], [address] Lymphocytes/100 WBC (Bld) 42.9 % High 19-41 [facility] Comment on above: Performed By: #### L 500.4050, L100.0100, L501.2450 ####[facility] [address] [place], [address] MCH (RBC) [Entitic mass] 30.7 pg Normal 27.0-32.0 [facility] Comment on above: Performed By: #### L 500.4050, L100.0100, L501.2450 ####[facility] [address] [place], [address] MCHC (RBC) [Mass/Vol] 34.5 g/dL Normal 32-36 [facility] Comment on above: Performed By: #### L 500.4050, L100.0100, L501.2450 ####[facility] [address] [place], [address] MCV (RBC) [Entitic vol] 89.0 fL Normal 81-99 [facility] Comment on above: Performed By: #### L 500.4050, L100.0100, L501.2450 ####[facility] [address] [place], [address] Monocytes/100 WBC (Bld) 6.0 % Normal 0-10 [facility] Comment on above: Performed By: #### L 500.4050, L100.0100, L501.2450 ####[facility] [address] [place], [address] Neutrophils/100 WBC (Bld) 43.3 % Low 47-70 [facility] Comment on above: Performed By: #### L 500.4050, L100.0100, L501.2450 ####[facility] [address] [place], [address] Nucleated RBC (Bld) [#/Vol] 0 10*3/uL Normal 0-5 [facility] Comment on above: Performed By: #### L 500.4050, L100.0100, L501.2450 ####[facility] [address] [place], [address] Platelet mean volume (Bld) [Entitic vol] 12.9 fL High 6.2-12.0 [facility] Comment on above: Performed By: #### L 500.4050, L100.0100, L501.2450 ####[facility] [address] [place], [address] Platelets (Bld) [#/Vol] 201 10*3/uL Normal 150-450 [facility] Comment on above: Performed By: #### L 500.4050, L100.0100, L501.2450 ####[facility] [address] [place], [address] RBC (Bld) [#/Vol] 4.46 10*6/uL Normal 4.2-5.4 [facility] Comment on above: Performed By: #### L 500.4050, L100.0100, L501.2450 ####[facility] [address] [place], [address] RDW SD 41.7 fl Normal 35.1-43.9 [facility] Comment on above: Performed By: #### L 500.4050, L100.0100, L501.2450 ####[facility] [address] [place], [address] WBC (Bld) [#/Vol] 9.7 10*3/uL Normal 4.4-11.0 [facility] Comment on above: Performed By: #### L 500.4050, L100.0100, L501.2450 ####[facility] [address] [place], [address] Comprehensive Metabolic [facility] 03-15-2024 Albumin [Mass/Vol] 3.8 g/dL Normal 3.2-5.0 [facility] Comment on above: Performed By: #### L 500.4050, L100.0100, L501.2450 ####[facility] [address] [place], [address] Albumin/Globulin [Mass ratio] 1.1 {ratio} Normal 0.9-2.4 [facility] Comment on above: Performed By: #### L 500.4050, L100.0100, L501.2450 ####[facility] [address] [place], [address] ALK P 83 U/L Normal 45-117 [facility] Comment on above: Performed By: #### L 500.4050, L100.0100, L501.2450 ####[facility] [address] [place], [address] ALT [Catalytic activity/Vol] 23 U/L Normal 13-56 [facility] Comment on above: Performed By: #### L 500.4050, L100.0100, L501.2450 ####[facility] [address] [place], [address] AST [Catalytic activity/Vol] 12 U/L Low 15-37 [facility] Comment on above: Performed By: #### L 500.4050, L100.0100, L501.2450 ####[facility] [address] [place], [address] Bilirubin [Mass/Vol] 0.20 mg/dL Normal 0.20-1.00 [facility] Comment on above: Result Comment: For patients on eltrombopag therapy, use of Dimension [place] TBIL is not recommended. Performed By: #### L 500.4050, L100.0100, L501.2450 ####[facility] [address] [place], [address] BUN/CRE 12.1 RATIO Normal 10-20 [facility] Comment on above: Performed By: #### L 500.4050, L100.0100, L501.2450 ####[facility] [address] [place], [address] CA,Total 8.8 mg/dL Normal 8.5-10.1 [facility] Comment on above: Performed By: #### L 500.4050, L100.0100, L501.2450 ####[facility] [address] [place], [address] Chloride [Moles/Vol] 108 mmol/L High 98-107 [facility] Comment on above: Performed By: #### L 500.4050, L100.0100, L501.2450 ####[facility] [address] [place], [address] CO2 [Moles/Vol] 25.0 mmol/L Normal 21.0-32.0 [facility] Comment on above: Performed By: #### L 500.4050, L100.0100, L501.2450 ####[facility] [address] [place], [address] Creatinine [Mass/Vol] 0.91 mg/dL Normal 0.55-1.02 [facility] Comment on above: Result Comment: The validity of the calculated GFR GFRAA in patients over 70 years has not been determined. Clinical correlation is essential. Performed By: #### L 500.4050, L100.0100, L501.2450 ####[facility] [address] [place], [address] ECRCL 99.15 ml/min Normal [facility] Comment on above: Performed By: #### L 500.4050, L100.0100, L501.2450 ####[facility] [address] [place], [address] EST GFR - AA 86 mL/min Normal >60 [facility] Comment on above: Result Comment: Afri can Welsh GFR Calc Performed By: #### L 500.4050, L100.0100, L501.2450 ####[facility] [address] [place], [address] GAP 8 Normal 5-15 [facility] Comment on above: Performed By: #### L 500.4050, L100.0100, L501.2450 ####[facility] [address] [place], [address] GFR/1.73 sq M.predicted among non-blacks MDRD (S/P/Bld) [Vol rate/Area] 71 mL/min/{1.73_m2} Normal >60 [facility] Comment on above: Result Comment: Non- GFR Calc Performed By: #### L 500.4050, L100.0100, L501.2450 ####[facility] [address] [place], [address] Globulin (S) [Mass/Vol] 3.5 g/dL Normal 2.2-4.2 [facility] Comment on above: Performed By: #### L 500.4050, L100.0100, L501.2450 ####[facility] [address] [place], [address] Glucose [Mass/Vol] 104 mg/dL Normal 74-106 [facility] Comment on above: Result Comment: Fast ing Glucose result from 100 to 125 mg/dL suggests IMPAIRED HOMEOSTASIS per A.D.A. criteria. Performed By: #### L 500.4050, L100.0100, L501.2450 ####[facility] [address] [place], [address] Potassium [Moles/Vol] 3.6 mmol/L Normal 3.5-5.1 [facility] Comment on above: Performed By: #### L 500.4050, L100.0100, L501.2450 ####[facility] [address] [place], [address] Sodium [Moles/Vol] 141 mmol/L Normal 136-145 [facility] Comment on above: Performed By: #### L 500.4050, L100.0100, L501.2450 ####[facility] [address] [place], [address] T PROT 7.3 g/dL Normal 6.4-8.2 [facility] Comment on above: Performed By: #### L 500.4050, L100.0100, L501.2450 ####[facility] [address] [place], [address] Urea nitrogen [Mass/Vol] 11 mg/dL Normal 7-18 [place] [facility] Comment on above: Performed By: #### L 500.4050, L100.0100, L501.2450 ####[facility] [address] [place], [address] Emergency Department Summary on 03-15-2024 Emergency Department Summary [facility] Medical Records Department [address] [place] [address] Emergency Department Summary 03/15/24 MR#: [id number] Acct: [id number] Name: TIM CORDOVA Rep #: [id number] : 1980 43 From: Reynaldo Bertrand DO PCP: Care Physician,No Primary Status:DEP ER Location: ED HPI HPI - GI History of Present Illness Chief Complaint: Abd Pain Informant: patient Abdominal Pain/Flank Pain Onset: Days (2) Context: Gradual Onset Timing: Continuous Quality: Stabbing Location: Epigastric Worsened by: Movement Relieved by: Nothing Nausea/Vomiting/Emesis GI Symptom: Positive for Nausea and Vomiting Quality: Positive for Blood streaks; Negative for Coffee ground or Hematemesis Diarrhea/Melena/Hematochez ia GI Symptom: Positive for Diarrhea; Negative for Melena or Hematochezia Associated Symptoms Associated Symptoms: Negative for Dysuria, Frequency or Hematuria Narrative Narrative: Patient presents with abdominal pain that has been getting worse over the past 2 days. Patient states her pain is over the epigastric area. Patient describes it as stabbing. Patient states it is gradually getting worse. Patient states it is constant. Patient states it is worse with certain movements such as bending forward. Patient states nothing seems to help with it. Patient admits to some nausea and vomiting. Patient states she noted some blood streaks in her emesis. Patient admits to some diarrhea but denies any melena or hematochezia. Patient denies any dysuria, frequency, or hematuria. [facility] Medical History TIA (transient ischemic attack) Pituitary adenoma Wears dentures Arthritis Easy bruising Back pain History of echocardiogram Anxiety Hepatitis GERD (gastroesophageal reflux disease) Smoker Migraines Brain TIA Hypothyroid Chiari malformation Home Medications ???Medication ???Instructions ???Recorded ???Last Taken ???Type albuterol sulfate 90 mcg/actuation 1 - 2 puff inhalation Q4H PRN PRN 02/01/24 Unknown Rx aerosol inhaler (Ventolin HFA) Wheezing ##1 amoxicillin 875 mg-potassium 875 mg PO Q12H #20 TABLETS 03/15/24 Unknown Rx clavulanate 125 mg tablet Allergy/AdvReac Type Severity Reaction Status Date / Time mustard Allergy Angioedema Verified 03/15/24 19:34 oxycodone Allergy Hives Verified 03/15/24 19:34 Family History Father Liver cancer Surgical History Hx of foot surgery History of cranial surgery H/O: hysterectomy Social History Smoking Status: Current every day smoker tobacco type: cigarettes ROS ROS ED Constitutional Constitutional ED: Denies chills or fever(s) Eyes Eyes: Denies blurry vision or change in vision ENT ENT ED: Denies rhinorrhea or sore throat Cardiovascular Cardiovascular: Denies chest pain or palpitations Respiratory/Chest Respiratory/Chest: Denies cough or dyspnea Gastrointestinal Gastrointestinal: Reports abdominal pain, diarrhea, nausea and vomiting Genitourinary Genitourinary ED: Denies dysuria or hematuria Musculoskeletal Musculoskeletal: Reports neck pain; Denies back pain Integumentary Denies abscess or rash Neurologic Neurologic: Denies headache(s) or weakness Allergic/Immunologic Allergic/Immunologic ED: Denies mouth swelling or urticaria EXAM Physical Exam Const Vital Signs: 03/15/24 19:33 03/15/24 21:20 Temperature 98.2 F Temperature Source Oral Pulse Rate 89 77 Respiratory Rate 16 18 Blood Pressure 142/76 H 134/77 H Blood Pressure Mean 98 96 Pulse Ox 99 Positive well nourished and well developed General Appearance ED: well developed and NAD HEENT Reports moist mucous membranes Neck supple and no JVD Resp normal respiratory effort and clear to auscultation bilaterally Cardio regular rate and regular rhythm GI non-distended Palpation: soft and tender epigastric and LUQ; Negative for guarding or rebound tenderness present Neuro CN's II-XII intact bilaterally, moves all extremities and no sensory deficits noted Sensorium / Orientation: alert Motor Exam: strength 5/5 throughout Psych mental status grossly normal MDM MDM MDM Narrative Medical decision making narrative: Differential diagnosis includes gastritis, pancreatitis, duodenal ulcer, peptic ulcer disease, colitis, bowel obstruction, perforation, and Bruna-Alejandra tear. CBC will be obtained to assess for leukocytosis and anemia. Comprehensive metabolic profile will be obtained to assess for hepatic function, renal function, and electrolyte abnormality. Lipase will be obtained to assess for pancreatitis. Urinalysis dae (more content not included)... Normal [facility] 03-15-2024 Lipase [Catalytic activity/Vol] 51 U/L Normal 13-75 [facility] Comment on above: Result Comment: Osvaldo julian note: LIPASE revised reference range effective 22. New Lipase methodology. Expected to produce lower values than the previous assay method. NEW Reference Range: 13 - 75 U/L Performed By: #### L 500.4050, L100.0100, L501.2450 ####[facility] [address] [place], [address] Urinalysis, Completeon 03-15 BACTERIA RARE Normal None Seen [facility] Comment on above: Order Comment: CLEAN CATCH Performed By: #### L 400.0001 #### [facility] [address] [place], [address] EPI,SQUAMOUS 0-5 SEEN Normal 5-10 [facility] Comment on above: Order Comment: CLEAN CATCH Performed By: #### L 400.0001 #### [facility] [address] [place], [address] WBC 0-5 SEEN Normal 0-5 [facility] Comment on above: Order Comment: CLEAN CATCH Performed By: #### L 400.0001 #### [facility] [address] [place], [address] Mucus Ql (Urine sed) 0 SEEN Normal [facility] Comment on above: Order Comment: CLEAN CATCH Performed By: #### L 400.0001 #### [facility] [address] [place], [address] RBC 0 SEEN Normal 0-5 [facility] Comment on above: Order Comment: CLEAN CATCH Performed By: #### L 400.0001 #### [facility] [address] [place], [address] Basic Metabolic Profile (BMP )on 02-01-2024 BUN/CRE 13.2 RATIO Normal 10-20 [facility] Comment on above: Performed By: #### L 100.0100, L500.2500 #### [facility] [address] [place], [address] CA,Total 9.1 mg/dL Normal 8.5-10.1 [facility] Comment on above: Performed By: #### L 100.0100, L500.2500 #### [facility] [address] [place], [address] Chloride [Moles/Vol] 111 mmol/L High 98-107 [facility] Comment on above: Performed By: #### L 100.0100, L500.2500 #### [facility] [address] [place], [address] CO2 [Moles/Vol] 22.0 mmol/L Normal 21.0-32.0 [facility] Comment on above: Performed By: #### L 100.0100, L500.2500 #### [facility] [address] [place], [address] Creatinine [Mass/Vol] 0.91 mg/dL Normal 0.55-1.02 [facility] Comment on above: Result Comment: The validity of the calculated GFR GFRAA in patients over 70 years has not been determined. Clinical correlation is essential. Performed By: #### L 100.0100, L500.2500 #### [facility] [address] [place], [address] ECRCL 99.56 ml/min Normal [facility] Comment on above: Performed By: #### L 100.0100, L500.2500 #### [facility] [address] [place], [address] EST GFR - AA 87 mL/min Normal >60 [facility] Comment on above: Result Comment: Afri can Welsh GFR Calc Performed By: #### L 100.0100, L500.2500 #### [facility] [address] [place], [address] GAP 8 Normal 5-15 [facility] Comment on above: Performed By: #### L 100.0100, L500.2500 #### [facility] [address] [place], [address] GFR/1.73 sq M.predicted among non-blacks MDRD (S/P/Bld) [Vol rate/Area] 72 mL/min/{1.73_m2} Normal >60 [facility] Comment on above: Result Comment: Non- GFR Calc Performed By: #### L 100.0100, L500.2500 #### [facility] [address] [place], [address] Glucose [Mass/Vol] 137 mg/dL High 74-106 [facility] Comment on above: Result Comment: Fast ing Glucose result greater than or equal to 126 mg/dL suggests DIABETES MELLITUS per A.D.A. criteria. Performed By: #### L 100.0100, L500.2500 #### [facility] [address] [place], [address] Potassium [Moles/Vol] 3.6 mmol/L Normal 3.5-5.1 [facility] Comment on above: Performed By: #### L 100.0100, L500.2500 #### [facility] [address] [place], [address] Sodium [Moles/Vol] 141 mmol/L Normal 136-145 [facility] Comment on above: Performed By: #### L 100.0100, L500.2500 #### [facility] [address] [place], [address] Urea nitrogen [Mass/Vol] 12 mg/dL Normal 7-18 [facility] Comment on above: Performed By: #### L 100.0100, L500.2500 #### [facility] [address] [place], [address] CBC W/Diff, Automatedon 01-04 Absolute Lymph 3.07 X10 3/uL Normal 0.83-4.51 [facility] Comment on above: Performed By: #### L 100.0100, L500.2500 #### [facility] [address] [place], [address] Absolute Neut 7.8 X10 3/uL High 2.0-7.7 [facility] Comment on above: Performed By: #### L 100.0100, L500.2500 #### [facility] [address] [place], [address] Basophils/100 WBC (Bld) 0.5 % Normal 0-1 [facility] Comment on above: Performed By: #### L 100.0100, L500.2500 #### [facility] [address] [place], [address] Eosinophils/100 WBC (Bld) 0.4 % Normal 0-5 [facility] Comment on above: Performed By: #### L 100.0100, L500.2500 #### [facility] [address] [place], [address] Erythrocyte distribution width (RBC) [Ratio] 12.8 % Normal 11.6-14.6 [facility] Comment on above: Performed By: #### L 100.0100, L500.2500 #### [facility] [address] [place], [address] Hematocrit (Bld) [Volume fraction] 38.7 % Normal 37-47 [facility] Comment on above: Performed By: #### L 100.0100, L500.2500 #### [facility] [address] [place], [address] Hemoglobin (Bld) [Mass/Vol] 12.9 g/dL Normal 12.0-15.0 [facility] Comment on above: Performed By: #### L 100.0100, L500.2500 #### [facility] [address] [place], [address] IG% 0.300 Normal 0.0-0.9 [facility] Comment on above: Result Comment: IG% - Immature Granulocytes (promyelocytes, myelocytes and metamyelocytes) > 1% indicates that a LEFT SHIFT is Present. Performed By: #### L 100.0100, L500.2500 #### [facility] [address] [place], [address] Lymphocytes/100 WBC (Bld) 27.0 % Normal 19-41 [facility] Comment on above: Performed By: #### L 100.0100, L500.2500 #### [facility] [address] [place], [address] MCH (RBC) [Entitic mass] 30.0 pg Normal 27.0-32.0 [facility] Comment on above: Performed By: #### L 100.0100, L500.2500 #### [facility] [address] [place], [address] MCHC (RBC) [Mass/Vol] 33.3 g/dL Normal 32-36 [facility] Comment on above: Performed By: #### L 100.0100, L500.2500 #### [facility] [address] [place], [address] MCV (RBC) [Entitic vol] 90.0 fL Normal 81-99 [facility] Comment on above: Performed By: #### L 100.0100, L500.2500 #### [facility] [address] [place], [address] Monocytes/100 WBC (Bld) 3.1 % Normal 0-10 [facility] Comment on above: Performed By: #### L 100.0100, L500.2500 #### [facility] [address] [place], [address] Neutrophils/100 WBC (Bld) 68.7 % Normal 47-70 [facility] Comment on above: Performed By: #### L 100.0100, L500.2500 #### [facility] [address] [place], [address] Nucleated RBC (Bld) [#/Vol] 0 10*3/uL Normal 0-5 [facility] Comment on above: Performed By: #### L 100.0100, L500.2500 #### [facility] [address] [place], [address] Platelet mean volume (Bld) [Entitic vol] 11.9 fL Normal 6.2-12.0 [facility] Comment on above: Performed By: #### L 100.0100, L500.2500 #### [facility] [address] [place], [address] Platelets (Bld) [#/Vol] 217 10*3/uL Normal 150-450 [facility] Comment on above: Performed By: #### L 100.0100, L500.2500 #### [facility] [address] [place], [address] RBC (Bld) [#/Vol] 4.30 10*6/uL Normal 4.2-5.4 [facility] Comment on above: Performed By: #### L 100.0100, L500.2500 #### [facility] [address] [place], [address] RDW SD 42.1 fl Normal 35.1-43.9 [facility] Comment on above: Performed By: #### L 100.0100, L500.2500 #### [facility] [address] [place], [address] WBC (Bld) [#/Vol] 11.4 10*3/uL High 4.4-11.0 [facility] Comment on above: Performed By: #### L 100.0100, L500.2500 #### [facility] [address] [place], [address] Chest PA and Lateralon 01-31 Chest PA and Lateral [facility] [address] [place] [address] Chest PA and Lateral MR#: [id number] Acct: [id number] Name: TIM CORDOVA Rep #: [id number] : 1980 F 43 From: Austin Harrington PCP: Care Physician,No Primary Status: [facility] ER Study: Chest PA and Lateral Date of Exam: 02/01/24 Exam# [id number] Ordering Dr: Reynaldo Bertrand DO [id number] EXAM: XR CHEST, 2 VIEWS CLINICAL INDICATION: COUGH TECHNIQUE: Frontal and lateral views of the chest. COMPARISON: 03.06.21 FINDINGS: LUNGS AND PLEURAL SPACES: Unremarkable. No consolidation or edema. No pneumothorax. No effusion. HEART: Unremarkable. Cardiac silhouette not enlarged. MEDIASTINUM: Central airways and mediastinal contour are unremarkable. BONES/JOINTS: Unremarkable. No acute fracture. SOFT TISSUES: Unremarkable. RAD/Chest PA and Lateral IMPRESSION: No radiographic evidence of acute cardiopulmonary disease. Electronically Signed: Austin Boykin MD at 21:05 EDT , CC: Dr. Reynaldo Bertrand DO; No Primary Care Physician Blockmason: Signed Normal [facility] Emergency Department Summary on 02-01-2024 Emergency Department Summary [facility] Medical Records Department [address] [place] [address] Emergency Department Summary 02/01/24 MR#: [id number] Acct: [id number] Name: TIM CORDOVA Rep #: [id number] : 1980 43 From: Reynaldo Bertrand DO PCP: Care Physician,No Primary Status:DEP ER Location: ED HPI History of Present Illness Chief Complaint: Shortness of Breath Informant: patient Onset/Context/Timing Onset: Days (10) Context: gradual Timing: Continuous Quality: Positive for Dyspnea on exertion and Orthopnea Worsened by: Exertion and Lying flat Relieved by: Nothing Associated Symptoms cough, ear pain, fever, sore throat, subjective, chills, clear sputum and white sputum; Negative for rhinorrhea, post nasal drip, yellow sputum or green sputum Chest Pain: Positive for None Narrative Narrative: Patient presents with shortness of breath and cough that has been constant for the past 10 days. Patient states she went to urgent care last week and was given a prescription for doxycycline which she completed with no improvement of her symptoms. Patient states her breathing is worse with any exertion and with laying flat. Patient states nothing seems to help her cough or breathing. Patient states she is coughing up some clear and white sputum. Patient also admits to a sore throat and mild pain in her ears. Patient states she had a low-grade fever of 99 at home. PE Risk Factors: Negative for Cancer, OCP + Smoking + > 35, Prior DVT or PE, Recent immobilization or Recent surgery [facility] Medical History TIA (transient ischemic attack) Pituitary adenoma Wears dentures Arthritis Easy bruising Back pain History of echocardiogram Anxiety Hepatitis GERD (gastroesophageal reflux disease) Smoker Migraines Brain TIA Hypothyroid Chiari malformation Home Medications ???Medication ???Instructions ???Recorded ???Last Taken ???Type albuterol sulfate 90 mcg/actuation 1 - 2 puff inhalation Q4H PRN PRN 02/01/24 Unknown Rx aerosol inhaler (Ventolin HFA) Wheezing ##1 Allergy/AdvReac Type Severity Reaction Status Date / Time mustard Allergy Angioedema Verified 02/01/24 19:08 oxycodone Allergy Hives Verified 02/01/24 19:08 Family History Father Liver cancer Surgical History Hx of foot surgery History of cranial surgery H/O: hysterectomy Social History Smoking Status: Current every day smoker tobacco type: cigarettes ROS ROS ED Constitutional Constitutional ED: Reports chills and fever(s) Eyes Eyes: Denies blurry vision or change in vision ENT ENT ED: Reports ear pain bilateral; Denies rhinorrhea or sore throat Cardiovascular Cardiovascular: Denies chest pain or palpitations Respiratory/Chest Respiratory/Chest: Reports cough and dyspnea Gastrointestinal Gastrointestinal: Denies nausea or vomiting Genitourinary Genitourinary ED: Denies dysuria or hematuria Musculoskeletal Musculoskeletal: Reports back pain; Denies neck pain Integumentary Denies abscess or rash Neurologic Neurologic: Denies headache(s) or weakness Allergic/Immunologic Allergic/Immunologic ED: Denies mouth swelling or urticaria EXAM Physical Exam Const Vital Signs: 02/01/24 19:08 02/01/24 19:22 02/01/24 19:43 Temperature 98.4 F Temperature Source Oral Pulse Rate 91 108 H Respiratory Rate 22 H 16 Respiratory Effort Short of Breath Respiratory Depth Normal Respiratory Pattern Normal Blood Pressure 132/88 H Blood Pressure Mean 102 Pulse Ox 95 Oxygen Delivery Method Room Air Room Air 02/01/24 21:08 Temperature Temperature Source Pulse Rate 68 Respiratory Rate 14 Respiratory Effort Respiratory Depth Respiratory Pattern Blood Pressure 116/71 Blood Pressure Mean 86 Pulse Ox 98 Oxygen Delivery Method Room Air Positive well nourished and well developed General Appearance ED: well developed and NAD HEENT Reports moist mucous membranes Neck supple and no JVD Resp normal respiratory effort Auscultation: rhonchi throughout and wheezes expiratory wheezes and throughout Cardio regular rate and regular rhythm GI non-tender and non-distended Palpation: soft Neuro oriented x3, CN's II-XII intact bilaterally and no sensory deficits noted [place] Coma Scale: document GCS findings Spontaneous Obeys Commands Oriented 15 Sensorium / Orientation: alert Speech: speech normal Motor Exam: strength 5/5 throughout Psych mental status grossly normal MDM MDM MDM Narrative Medical decision making narrative: Differential diagnosis includes pneu (more content not included)... Normal [facility] M100.678on 02-01-2024 M100.678 Pending SARS-CoV-2 (COVID 19) Negative INFLUENZA A Negative INFLUENZA B Negative RSV PCR Negative Normal [facility] Comment on above: Performed By: #### M 100.678 ####[facility] [address] [place] [place], [address] CNOVon 01-24-2024 [facility] -- TIM CORDOVA ([id number]) 1980 F Date Time Provider Department 01/24/24 2:00 PM KELLY RENNER [facility] During your visit today, we recorded the following information about you: Temperature Pulse Respiration Blood pressure 98.2 degrees 78/minute 16/minute 110/78 Weight 106.4 kg Kelly Renner APRN.CNP 01/24/2024 3:18 PM Signed Subjective HPI HPI Tim Sarahaway is a 43 year old female who presents today for CC of cough, congestion. This started 3 days/worsening. Has tried otc medication for relief. Symptoms are worsened by nothing. Denies possibility of being . .Patient presents with: Cough: Cough, congestion and chest pressure x 3 days and sinus issues x 1 day PAST MEDICAL HISTORY Diagnosis Date Acute laryngitis Acute sinusitis Arnold-Chiari malformation (HCC) s/p decompression Cervical disc herniation neck pain Dysmenorrhea Hepatitis B 02/2019 Left foot pain Menorrhagia Migraine PAST SURGICAL HISTORY Procedure Laterality Date BRAIN SURGERY HX 10/22/2019 suboccipital craniectomy for decompression Chiari I malformation by Dr. Chely Bardales CHOLECYSTECTOMY HX 12/2022 FOOT SURGERY HX Left 10/2016 debridement from dog bite HYSTERECTOMY 09/2017 one ovary remains TUBAL LIGATION 2001 ALLERGIES Oxycodone-Acetaminophen MEDICATIONS acetaminophen (TYLENOL) 325 mg tablet Take 650 mg by mouth as needed. FAMILY HISTORY Problem Relation Age of Onset Hypertension Mother Cancer Father Lung cancer Aneurysm Father Head/brain Hypertension Father Aneurysm Paternal Grandmother Head/brain Social History Tobacco Use Smoking status: Former Current packs/day: 0.00 Average packs/day: 1 pack/day for 15.0 years (15.0 ttl pk-yrs) Types: Cigarettes Start date: 10/27/2001 Quit date: 10/27/2016 Years since quittin.2 Smokeless tobacco: Never Tobacco comments: Quit 04/2020 Vaping Use Vaping status: Never Used Substance Use Topics Alcohol use: No Comment: Non alcohol user. Drug use: No Review of Systems Constitutional: Negative for fever. HENT: Positive for congestion and sore throat. Negative for ear pain and nosebleeds. Respiratory: Positive for cough and sputum production. Negative for shortness of breath and wheezing. Musculoskeletal: Negative for neck pain. Objective Blood pressure 110/78, pulse 78, temperature 36.8 ?C (98.2 ?F), temperature source Tympanic, resp. rate 16, weight 106.4 kg (234 lb 9.1 oz), SpO2 98%. Physical Exam Constitutional: General: She is not in acute distress. Appearance: She is not toxic-appearing or diaphoretic. HENT: Head: Normocephalic and atraumatic. Cardiovascular: Rate and Rhythm: Normal rate and regular rhythm. Heart sounds: Normal heart sounds, S1 normal and S2 normal. Pulmonary: Effort: Pulmonary effort is normal. Breath sounds: Examination of the right-lower field reveals rhonchi. Rhonchi present. No decreased breath sounds, wheezing or rales. Lymphadenopathy: Cervical: No cervical adenopathy. Right cervical: No superficial cervical adenopathy. Left cervical: No superficial cervical adenopathy. Neurological: Mental Status: She is alert and oriented to person, place, and time. Gait: Gait is intact. ASSESSMENT/PLAN: 1. Lower resp. tract infection - ICD9: 519.8, ICD10: J22 No xray at time of exam -use medication as prescribed -follow up if symptoms persist, worsen, change - DOXYCYCLINE MONOHYDRATE 100 MG TABLET Kelly Renner APRN.KEY CUTTER Allergies As of Date: 01/24/2024 Noted Allergy Reaction OXYCODONE-ACETAMINOPHEN 09/19/2018 9 - Itching Date Reviewed: 10/08/2023 Reviewed by: Montse Rubio LPN - Fully Assessed Reason for Visit: Cough [28] Cmt: Cough, congestion and chest pressure x 3 days and sinus issues x 1 day Primary Visit Diagnosis:Lower resp. tract infection [J22] Order(s):doxycycline monohydrate 100 mg tabletTake 1 tablet by mouth two times a day for 7 days.Disp: 14 tabletRfl: 0 Prescriptions as of 01/24/2024 - doxycycline monohydrate 100 mg tablet Take 1 tablet by mouth two times a day for 7 days. - acetaminophen (TYLENOL) 325 mg tablet Take 650 mg by mouth as needed. Problem List As Of Date 01/24/2024 Noted Resolved Plantar fascial fibromatosis [M72.2] 12/26/2010 Abscess of left foot [L02.612] 11/15/2016 Obesity, Class II, BMI 35-39.9 E66.9 [E66.9] 09/12/2017 Neck pain [M54.2] 07/23/2019 Hepatitis B virus infection [B19.10] 02/19/2019 Acute type B viral hepatitis [B16.9] 02/19/2019 Chiari I malformation (HCC) [G93.5] 02/12/2019 Gastroesophageal reflux disease [K21.9] 10/06/2019 Cervical disc disease [M50.90] 02/12/2019 Back pain [M54.9] 10/06/2019 Benign neoplasm of pituitary gland (HCC) [D35.2]02/12/2019 Anxiety state [F41.1] 07/16/2019 Migraine [G43.909] 10/06/2019 Sciatica [M54.30] 10/06/2019 S (more content not included)... Normal [facility] Emergency Department Summary on 11-19-2023 Emergency Department Summary [facility] Medical Records Department [address] [place] [address] Emergency Department Summary 11/19/23 MR#: [id number] Acct: [id number] Name: TIM CORDOVA Melvin Rep #: [id number] : 1980 42 From: Edin Melo DO PCP: Care Physician,No Primary Status:REG ER Location: ED HPI History of Present Illness Chief Complaint: Other, Pain/Inj Narrative Narrative: 42-year-old female presenting with neck pain. She states it is right-sided. She feels like she slept wrong and this is what caused her neck pain. Denies any trauma. No paresthesias. No systemic signs or symptoms. She has trouble turning her head to the right and sidebending to the right. PFSH PFS Medical History Wears dentures Arthritis Easy bruising Back pain History of echocardiogram Anxiety Hepatitis GERD (gastroesophageal reflux disease) Smoker Migraines Brain TIA Hypothyroid Chiari malformation Home Medications ???Medication ???Instructions ???Recorded ???Last Taken ???Type NK 10/08/23 Unknown History tizanidine 4 mg tablet 4 mg PO Q8H PRN muscle spasticity 11/19/23 Unknown Rx #20 tabs Allergy/AdvReac Type Severity Reaction Status Date / Time mustard Allergy Angioedema Verified 11/19/23 14:46 oxycodone Allergy Hives Verified 11/19/23 14:46 Family History Father Liver cancer Surgical History Hx of foot surgery History of cranial surgery H/O: hysterectomy Social History Smoking Status: Current every day smoker tobacco type: cigarettes ROS ROS ED Constitutional Constitutional ED: Denies chills, fever(s) or sweats Eyes Eyes: Denies blurry vision or change in vision ENT ENT ED: Denies ear pain or sore throat Cardiovascular Cardiovascular: Denies chest pain, palpitations or racing heartbeat Respiratory/Chest Respiratory/Chest: Denies cough, dyspnea or sputum Gastrointestinal Gastrointestinal: Denies abdominal pain, constipation, diarrhea, nausea or vomiting Genitourinary Genitourinary ED: Denies dysuria, hematuria or urinary frequency Musculoskeletal Musculoskeletal: Reports neck pain; Denies arthralgias or myalgias Integumentary Denies abscess, Abrasions or rash Neurologic Neurologic: Denies headache(s), paresthesias or weakness Psychiatric Psychiatric: Denies anxiety, depression, suicidal ideation or suicidal thoughts Endocrine Endocrinology: Denies polydipsia or polyuria EXAM Physical Exam Const Vital Signs: 11/19/23 14:46 11/19/23 15:05 Temperature 96 F L Temperature Source Temporal Pulse Rate 72 Respiratory Rate 20 H Respiratory Effort Normal Blood Pressure 148/69 H Blood Pressure Mean 95 Pulse Ox 98 Oxygen Delivery Method Room Air Positive well nourished General Appearance ED: NAD HEENT atraumatic Resp normal respiratory effort Cardio regular rhythm Rate: regular rate Back/Spine Back/Spine Narrative: Tenderness to palpation right cervical paraspinal musculature. No midline spinal tenderness, deformity, step-off of the cervical spine. Limited range of motion with sidebending and rotation to the right. Tenderness to palpation knee trapezius on the right. Extremity normal to inspection Neuro oriented x3, CN's II-XII intact bilaterally, moves all extremities and no focal motor deficits Sensorium / Orientation: alert Skin no rashes or lesions noted MDM MDM MDM Narrative Medical decision making narrative: Patient presenting with cervical strain. I do not believe she needs imaging. She is given Norflex and Toradol. Will reevaluate. On reevaluation patient has improvement. She is able to side bend and rotate her head slightly more. Discharged home with muscle relaxers. She is to continue ice, stretching, follow-up with PCP. Impression: 1. Cervical strain Lab Data Attestation: I reviewed the patient's lab results. Discharge Plan Triage Chief Complaint: Other, Pain/Inj ED Provider: Edin Melo Dx/Rx/DC Orders Instructions: ED Neck Spasm, No Trauma Prescriptions: New tizanidine 4 mg tablet 4 mg PO Q8H PRN (Reason: muscle spasticity) Qty: 20 0RF No Action NK Primary Care Provider: Care Physician,No Primary Referrals: Basilia River MD [Med Staff - Education Manager] - 3-5 Days Care Physician,No Primary [Primary Care Provider] - Print Language: Serbian Disposition Disposition: Home, Self Care What to do if you have Problems For any increased pain, shortness of breath, bleeding, nausea or vomiting, chest pain, or any unexpected problems, contact your Primary Care Provider (more content not included)... [facility] -- TIM CORDOVA ([id number]) 1980 F Date Time Provider Department 10/08/23 3:45 PM [facility] During your visit today, we recorded the following information about you: Temperature Pulse Respiration Blood pressure 98.4 degrees 86/minute 18/minute 110/78 Weight 109.7 kg Constance Overton APRN.KEY CUTTER 10/08/2023 4:47 PM Signed This note was created using NoteWriter. Subjective Tim Cordova is a 42 year old female. Tim Cordova is a 42 year old female with a PMH of Arnold-Chiari malformation, cervical disc herniation, presenting today with right index finger pain since 8:30p yesterday. She states she is experiencing pain, swelling, decreased ROM. Cannot recall injury. She states she cannot bend her finger or put pressure onto it. Pain is localized to the middle section of her right index finger. She states she often blows veins, as in her veins roll easily and they seem to be fragile. Denies bruising and discoloration. She has tried ice, ibuprofen, tylenol, immobilization to no relief. This has never happened to her before. She complains of no appetite due to the pain. Denies IV drug usage Denies prior history of surgery Right hand dominant Pertinent negatives: -chest pain -shortness of breath -fever -fatigue -chills -n/v/d Pertinent positives: -pain -swelling -decreased ROM The history is provided by the patient. Musculoskeletal Problem This is a new problem. The current episode started yesterday. The problem has been gradually worsening. Associated symptoms include joint swelling. Pertinent negatives include no abdominal pain, anorexia, arthralgias, change in bowel habit, chest pain, chills, congestion, coughing, diaphoresis, fatigue, fever, headaches, myalgias, nausea, neck pain, numbness, rash, sore throat, swollen glands, urinary symptoms, vertigo, visual change, vomiting or weakness. The symptoms are aggravated by bending. She has tried immobilization, acetaminophen, NSAIDs and ice for the symptoms. The treatment provided no relief. PAST MEDICAL HISTORY Diagnosis Date Acute laryngitis Acute sinusitis Arnold-Chiari malformation (HCC) s/p decompression Cervical disc herniation neck pain Dysmenorrhea Hepatitis B 02/2019 Left foot pain Menorrhagia Migraine PAST SURGICAL HISTORY Procedure Laterality Date BRAIN SURGERY HX 10/22/2019 suboccipital craniectomy for decompression Chiari I malformation by Dr. Chely Bardales CHOLECYSTECTOMY HX 12/2022 FOOT SURGERY HX Left 10/2016 debridement from dog bite HYSTERECTOMY 09/2017 one ovary remains TUBAL LIGATION 2001 ALLERGIES Oxycodone-Acetaminophen MEDICATIONS acetaminophen (TYLENOL) 325 mg tablet Take 650 mg by mouth as needed. FAMILY HISTORY Problem Relation Age of Onset Hypertension Mother Cancer Father Lung cancer Aneurysm Father Head/brain Hypertension Father Aneurysm Paternal Grandmother Head/brain Social History Tobacco Use Smoking status: Former Packs/day: 1.00 Years: 15.00 Additional pack years: 0.00 Total pack years: 15.00 Types: Cigarettes Quit date: 10/27/2016 Years since quittin.9 Smokeless tobacco: Never Tobacco comments: Quit 04/2020 Vaping Use Vaping Use: Never used Substance Use Topics Alcohol use: No Comment: Non alcohol user. Drug use: No Review of Systems Constitutional: Positive for appetite change. Negative for chills, diaphoresis, fatigue and fever. Loss of appetite due to pain. HENT: Negative for congestion and sore throat. Respiratory: Negative for cough, chest tightness, shortness of breath, wheezing and stridor. Cardiovascular: Negative for chest pain and palpitations. Gastrointestinal: Negative for abdominal pain, anorexia, change in bowel habit, constipation, diarrhea, nausea and vomiting. Musculoskeletal: Positive for joint swelling. Negative for arthralgias, myalgias and neck pain. Skin: Negative for color change, rash and wound. Neurological: Negative for vertigo, weakness, numbness and headaches. Hematological: Bruises/bleeds easily. States she often blows veins. Objective BP 110/78 Pulse 86 Temp 36.9 ?C (98.4 ?F) (Tympanic) Resp 18 Wt 109.7 kg (241 lb 13.5 oz) LMP (LMP Unknown) SpO2 97% BMI 37.88 kg/m? Physical Exam Constitutional: General: She is not in acute distress. Appearance: Normal appearance. She is not toxic-appearing. HENT: Head: Normocephalic and atraumatic. Cardiovascular: Rate and Rhythm: Normal rate and regular rhythm. Heart sounds: Normal heart sounds. No murmur heard. No friction rub. No gallop. Pulmonary: Effort: Pulmonary effort is normal. No accessory muscle usage or respiratory distress. Breath sounds: No stridor. Examination of the right-upper field reveals wheezing. Examination of the left-upper field reveal (more content not included)... Normal [facility] Emergency Department Summary on 10-08-2023 Emergency Department Summary [facility] Medical Records Department [address] [place] [address] Emergency Department Summary 10/08/23 MR#: [id number] Acct: [id number] Name: TIM CORDOVA Rep #: [id number] : 1980 42 From: Pierce Celis MD PCP: Care Physician,No Primary Status:[facility] ER Location: ED HPI History of Present Illness Chief Complaint: Upper Extremity Injury Narrative Narrative: 42-year-old female, [id number], presents with right index finger pain and swelling that she had since yesterday. 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 She states she has pain when she tries to bend her finger and is having pain along the sides of it. She denies any recent trauma. No fevers or chills, no change in color. She states she can barely bend her finger at the DIP and PIP joints. [facility] Medical History Wears dentures Arthritis Easy bruising Back pain History of echocardiogram Anxiety Hepatitis GERD (gastroesophageal reflux disease) Smoker Migraines Brain TIA Hypothyroid Chiari malformation Home Medications ???Medication ???Instructions ???Recorded ???Last Taken ???Type NK 10/08/23 Unknown History Allergy/AdvReac Type Severity Reaction Status Date / Time mustard Allergy Angioedema Verified 10/08/23 16:09 oxycodone Allergy Hives Verified 10/08/23 16:09 Family History Father Liver cancer Surgical History Hx of foot surgery History of cranial surgery H/O: hysterectomy Social History Smoking Status: Current every day smoker tobacco type: cigarettes ROS ROS ED ROS Narrative No fevers, no chills, no nausea and vomiting. Positive pain and minimal swelling right index finger. Positive pain with movement. Difficulty bending at PIP and DIP joint. No change in color. EXAM Physical Exam Narrative Exam Narrative: Afebrile. Vital signs noted. Diffuse tenderness to palpation along middle phalanx and the DIP and PIP joint of right index finger. Good capillary refill. Able to oppose thumb. No erythema. Const Vital Signs: 10/08/23 16:08 Temperature 98.3 F Temperature Source Temporal Pulse Rate 83 Respiratory Rate 16 Blood Pressure 139/61 H Blood Pressure Mean 87 Pulse Ox 99 Oxygen Delivery Method Room Air MDM MDM MDM Narrative Medical decision making narrative: In the differential diagnosis is finger sprain versus overuse syndrome versus fracture. I have low suspicion for fracture because she has not had any trauma. She has been taking Tylenol and ibuprofen. X-rays of the right index finger interpreted by myself independently shows no evidence of acute fracture. I reviewed the radiology report which confirms my independent interpretation. Patient will be placed in AlumaFoam splint told to exercise her finger when possible, follow-up with primary care. She was also referred to orthopedics on-call to see as needed if not improving in 1 week. Return instructions to the emergency department were reviewed. Disposition is discharged home in stable condition. Discharge Plan Triage Chief Complaint: Upper Extremity Injury ED Provider: Pierce Celis Dx/Rx/DC Orders Clinical Impression: Finger sprain, Overuse syndrome Instructions: ED Finger Sprain Prescriptions: No Action NK Primary Care Provider: Care Physician,No Primary Referrals: Shaun Swartz MD [Med Staff - Active Staff] - 1 Week if not improving Bruce Valencia MD [Med Staff - Active Staff] - As soon as possible Care Physician,No Primary [Primary Care Provider] - Activity Restrictions/Additional Instructions: Continue your tqdu-xix-sritqnp medications as needed for pain. Print Language: Serbian Disposition Disposition: Home, Self Care What to do if you have Problems For any increased pain, shortness of breath, bleeding, nausea or vomiting, chest pain, or any unexpected problems, contact your Primary Care Provider. Call [facility] ([phone]) or report to the closest Emergency Room. Call 911 if necessary. 10/08/23 1746 Cosigner Signature (if applicable): CC: No Primary Care Physician Signed Normal [facility] Finger(s) Min 2 Viewson 06-0 Finger(s) Min 2 Views [facility] Imaging Services [address] [place] [address] Finger(s) Min 2 Views MR#: [id number] Acct: [id number] Name: TIM CORDOVA Rep #: [id number] : 1980 F 42 From: Orlando Chow MD PCP: Care Physician,No Primary Status: REG ER Study: Finger(s) Min 2 Views Date of Exam: 10/08/23 Exam# [id number] Ordering Dr: Pierce Celis MD [id number] STUDY: X-RAY - RIGHT HAND, ATTENTION SECOND FINGER REASON FOR EXAM: Female, 42 years old. Pain -- Index finger, second digit TECHNIQUE: 3 view(s) of the finger were obtained. COMPARISON: None. FINDINGS: Normal metacarpal head. Normal metacarpophalangeal joint. Normal proximal phalanx. Normal middle phalanx. Normal distal phalanx. Normal proximal interphalangeal joint. Normal distal interphalangeal joint. RAD/Finger(s) Min 2 Views IMPRESSION: Normal x-ray examination of the finger. Electronically Signed: Orlando Chow MD at 17:10 EDT Reading Location ID and State: [facility] / [place] Tel , Service support , CC: Dr. Pierce Celis MD; No Primary Care Physician Blockmason: Signed Normal [facility] CNOVon 08-19-2023 CNOV Office Visit (NEAGCL M) -- TIM CORDOVA ([id number]) 1980 F Date Time Provider Department 08/19/23 11:30 AM CHELY BARDALES NEAGCLM During your visit today, we recorded the following information about you: Pulse Respiration Blood pressure Weight 80/minute 16/minute 118/66 109.6 kg Chely Bardales MD 08/19/2023 11:39 AM Signed NEUROSURGERY FOLLOW UP OFFICE NOTE Chely Bardales MD Date of visit: August 19, 2023 Patient Name: Ms.Shannon Melvin Cordova Date of : 1980 Current Age: [age] year old Sex: female MRN/E# [id number] Last Office Visit: Visit date not found CLINICAL SUMMARY: * Chiari I malformation, s/p suboccipital bony decompression 10/22/2019 * Cervical disc herniation, C5-6 and C6-7 * Pituitary adenoma vs Rathke's cyst (12 mm x 12 mm) * 2 mm left cavernous segment aneurysm Dr. Masseyocco - endocrinology SUBJECTIVE: History of Present Illness. Tim Cordova is a 42 year old right-handed female presenting with fiance. Patient was last seen on 05/20/2022 where she had been having posterior neck pain. Most pain was located at the base of her neck, described as a burning sensation. Pain intermittently radiated to left arm, worst in posterior left forearm. Xrays of cervical spine demonstrated good alignment, no evidence of instability. Degenerative changes most pronounced at C6-7. She was recommended to follow up with MRI cervical spine. Physical therapy and pain management referrals were placed. Today she presents with MRI and MRA imaging. She has been doing well overall. She has noted that her cervical pain she was having at last office visit has improved. She still does have posterior neck pain. She notices when she lays down on her right side that her right hand will go numb. She follows with Dr. Wilson with endocrinology, recently had lab work done and was recommended a one year follow up with him. She is pleased overall since her chiari decompression surgery with her surgical outcome. Smoker: YES Diabetic: No Anticoagulants / Antiplatelets: No Occupation: Disabled PAIN EVALUATION No data found in the last 1 encounters. PAST MEDICAL HISTORY Diagnosis Date Acute laryngitis Acute sinusitis Arnold-Chiari malformation (HCC) s/p decompression Cervical disc herniation neck pain Dysmenorrhea Hepatitis B 02/2019 Left foot pain Menorrhagia Migraine PAST SURGICAL HISTORY Procedure Laterality Date BRAIN SURGERY HX 10/22/2019 suboccipital craniectomy for decompression Chiari I malformation by Dr. Chely Bardales CHOLECYSTECTOMY HX 12/2022 FOOT SURGERY HX Left 10/2016 debridement from dog bite HYSTERECTOMY 09/2017 one ovary remains TUBAL LIGATION 2001 FAMILY HISTORY Problem Relation Age of Onset Hypertension Mother Cancer Father Lung cancer Aneurysm Father Head/brain Hypertension Father Aneurysm Paternal Grandmother Head/brain ALLERGIES Allergen Reactions Oxycodone-Acetamino* Itching Current Outpatient Medications Medication Sig Dispense Refill acetaminophen (TYLENOL) 325 mg tablet Take 650 mg by mouth as needed. No current facility-administered medications for this visit. OBJECTIVE: BP 118/66 Pulse 80 Resp 16 Wt 241 lb 10 oz (109.6kg) SpO2 98% PHYSICAL EXAM Mental Status Awake, alert and oriented to person, place and time. Speech is normal. Language is fluent with no aphasia. Attention and concentration are normal. Cranial Nerves CN II: Visual acuity is normal. Visual nava full to confrontation. CN III, IV, : Extraocular movements intact bilaterally. Normal lids and orbits bilaterally. Pupils equal round and reactive to light bilaterally. CN V: Facial sensation is normal. CN VII: Full and symmetric facial movement. CN XI: Shoulder shrug strength is normal. Sensory: Normal sensation in upper and lower extremities and trunk to touch Motor: Normal muscle tone. No spasticity or tremor. No evidence of pronator drift. Full strength in upper and lower extremities Coordination: Kmqwya-rp-zujs normal. Rapid alternating movement normal. Gait: Normal casual gait. Normal toe walking. Normal heel walking. Normal tandem gait. Romberg is absent. Data Review IMAGING STUDIES: MRI / MRA brain obtained on 08/13/2023 demonstrates: IMPRESSION: 1.Redemonstration of a nonenhancing T1 hyperintense lesion in the pars intermedia region of the pituitary gland without suprasellar extension. Compared to last exam, it has decreased in size and now measures 7 mm craniocaudal by 5 mm AP compared to 11 x 8.4 mm measured in the same manner on T1 sagittal image 6. 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 2.Stable 1 to 2 mm outpouching in the left cavernous ICA, which may represent a prominent vessel origin versus a tiny saccular aneurysm. 3.Status post Chiari decompression unchanged position of th (more content not included)... Normal [facility] Basic metabolic 2000 panelon 08-13-2023 Anion gap [Moles/Vol] 10 mmol/L Normal 9-18 [facility] Comment on above: Order Comment: Speci men Type: BLOOD SPECIMEN Ordering Facility: [facility] Address: [address] [place] [address] Performed By: #### 1 5067-2, 94557-6, 60375-6, DHEAS #### [facility] CLIA [id number] [address] [place] [address] [place] Calcium [Mass/Vol] 9.2 mg/dL Normal 8.5-10.2 [facility] Comment on above: Order Comment: Speci men Type: BLOOD SPECIMEN Ordering Facility: [facility] Address: [address] [place] [address] Performed By: #### 1 5067-2, 42343-1, 28799-0, DHEAS #### [facility] CLIA [id number] [address] [place], [place] [id number] [place] Chloride [Moles/Vol] 108 mmol/L High 97-105 [facility] Comment on above: Order Comment: Speci men Type: BLOOD SPECIMEN Ordering Facility: [facility] Address: [address] [place] [address] Performed By: #### 1 5067-2, 01283-2, 51777-3, DHEAS #### [facility] CLIA [id number] [address] [place] [address] [place] CO2 [Moles/Vol] 25 mmol/L Normal 22-30 [facility] Comment on above: Order Comment: Speci men Type: BLOOD SPECIMEN Ordering Facility: [facility] Address: [address] [place] [address] Performed By: #### 1 5067-2, 52578-5, 15749-2, DHEAS #### [facility] CLIA [id number] [address] [place] [address] [place] Creatinine [Mass/Vol] 0.79 mg/dL Normal 0.58-0.96 [facility] Comment on above: Order Comment: Speci men Type: BLOOD SPECIMEN Ordering Facility: [facility] Address: [address] [place] [address] Performed By: #### 1 5067-2, 99208-6, 95294-2, DHEAS #### [facility] CLIA [id number] [address] [place] [address] [place] Creatinine and Glomerular filtration rate.predicted panel (S/P/Bld) 95 mL/min/1.73m??? Normal >=60 [facility] Comment on above: Order Comment: Speci men Type: BLOOD SPECIMEN Ordering Facility: [facility] Address: [address] [place] [address] Result Comment: Holley mated Glomerular Filtration Rate (eGFR) is calculated using the 2020 CKD-EPI creatinine equation. This equation utilizes serum creatinine, sex, and age as parameters. The creatinine assay has traceable calibration to isotope dilution-mass spectrometry. Refer to KDIGO guidelines for clinical interpretation. In patients with unstable renal function, e.g. those with acute kidney injury, the eGFR may not accurately reflect actual GFR. Performed By: #### 1 5067-2, 47181-8, 44211-0, DHEAS #### [facility] CLIA [id number] [address] [place], [place] [id number] [place] Glucose [Mass/Vol] 100 mg/dL High 74-99 [facility] Comment on above: Order Comment: Speci men Type: BLOOD SPECIMEN Ordering Facility: [facility] Address: [address] [place] [address] Result Comment: The [place] Diabetes Association (ADA) provides guidance for cutoff values for fasting glucose and random glucose. The ADA defines fasting as no caloric intake for at least 8 hours. Fasting plasma glucose results between 100 to 125 mg/dL indicate increased risk for diabetes (prediabetes). Fasting plasma glucose results greater than or equal to 126 mg/dL meet the criteria for diagnosis of diabetes. In the absence of unequivocal hyperglycemia, results should be confirmed by repeat testing. In a patient with classic symptoms of hyperglycemia or hyperglycemic crisis, random plasma glucose results greater than or equal to 200 mg/dL meet the criteria for diagnosis of diabetes. Reference: Standards of Medical Care in Diabetes 2016, [place] Diabetes Association. Diabetes Care. 2016.39(Suppl 1). Performed By: #### 1 5067-2, 12643-9, 74263-8, DHEAS #### [facility] CLIA [id number] [address] [place] [address] [place] Potassium [Moles/Vol] 4.3 mmol/L Normal 3.7-5.1 [facility] Comment on above: Order Comment: Speci men Type: BLOOD SPECIMEN Ordering Facility: [facility] Address: [address] [place] [address] Performed By: #### 1 5067-2, 32544-9, 51764-7, DHEAS #### [facility] CLIA [id number] [address] [place] [address] [place] Sodium [Moles/Vol] 143 mmol/L Normal 136-144 [facility] Comment on above: Order Comment: Speci men Type: BLOOD SPECIMEN Ordering Facility: [facility] Address: [address] [place] [address] Performed By: #### 1 5067-2, 28006-5, 10950-7, DHEAS #### [facility] CLIA [id number] [address] [place] [address] [place] Urea nitrogen [Mass/Vol] 12 mg/dL Normal 7-21 [facility] Comment on above: Order Comment: Speci men Type: BLOOD SPECIMEN Ordering Facility: [facility] Address: [address] [place] [address] Performed By: #### 1 5067-2, 89162-8, 72596-7, DHEAS #### [facility] CLIA [id number] [address] [place] [address] [place] Cortis SerPl-mCncon 08-13-19 Cortisol [Mass/Vol] 12.5 ug/dL Normal 4.8-19.[address] [facility] Comment on above: Order Comment: Speci men Type: BLOOD SPECIMEN Ordering Facility: [facility] Address: [address] [place] [address] Result Comment: Prov ided reference range is from 6-10 AM sample collection time. Cortisol Reference Range: 6-10 AM = 4.8-19.5 ug/dL, 4-8 PM = 2.5-11.9 ug/dL Performed By: #### 3 016-3, 2842-3, 2143-6, 3024-7 #### [facility] CLIA [id number] [address] [place] [address] [place] DHEA-S BLDon 08-13-2023 DHEA-S [Mass/Vol] 141.5 ug/dL Normal 60.9-337.0 [facility] Comment on above: Order Comment: Speci men Type: BLOOD SPECIMEN Ordering Facility: [facility] Address: [address] [place] [address] Result Comment: Refe rence ranges are age and gender specific. For additional information, reference range tables can be found in the laboratory test directory. The normal values are based on the following source: Dehydroepiandrosterone sulfate (DHEA S) [package insert V 17.0 Serbian]. [facility], [place], [place]: December 2012. Performed By: #### 1 5067-2, 37094-2, 86574-2, DHEAS #### [facility] CLIA [id number] [address] [place] [address] [place] FSH SerPl-aCncon 08-13-2023 Follitropin Qn 39.3 m[IU]/mL Normal See comment [facility] Comment on above: Order Comment: Speci men Type: BLOOD SPECIMEN Ordering Facility: [facility] Address: [address] [place] [address] Result Comment: Refe rence range: Follicular: 3.5-12.5 mIU/mL Ovulation: 4.7-21.5 mIU/mL Luteal: 1.7-7.7 mIU/mL Postmenopausal: 25.8-134.8 mIU/mL Performed By: #### 1 5067-2, 43090-9, 98232-9, DHEAS #### [facility] CLIA [id number] [address] [place] [address] [place] INSULIN LIK GR FAC Ion 08-12 INSULIN LIK GR FAC 1 136 ng/mL Normal 71-258 [facility] Comment on above: Order Comment: Speci men Type: BLOOD SPECIMEN Ordering Facility: [facility] Address: [address] [place] [address] Performed By: #### I LGF1 #### [facility] CLIA [id number] [address] [place] [address] [place] LH SerPl-aCncon 08-13-2023 Lutropin Qn 27.9 m[IU]/mL Normal See comment [facility] Comment on above: Order Comment: Speci men Type: BLOOD SPECIMEN Ordering Facility: [facility] Address: [address] [place] [address] Result Comment: Refe rence range: Follicular: 2.4-12.6 mIU/mL Midcycle: 14.0-95.6 mIU/mL Luteal: 1.0-11.4 mIU/mL Post Pamela: 7.7-58.5 mIU/mL Performed By: #### 1 5067-2, 88311-0, 04399-1, DHEAS #### [facility] CLIA [id number] [address] [place] [address] [place] MRA BRAIN WO IVCONon 024 MRA BRAIN WO IVCON * * *Final Report* * * DATE OF EXAM: Aug 13 2023 3:59PM LDM 0272 - MRA BRAIN WO IVCON / PROCEDURE REASON: Nonruptured cerebral aneurysm * * * * Physician Interpretation * * * * EXAMINATION: MRI BRAIN WO/W IVCON, MRA BRAIN WO IVCON HISTORY: Pituitary adenoma (HCC), 1-2 mm left cavernous ICA outpouching. Follow-up exam . Status post Chiari decompression TECHNIQUE: MRI brain was performed with additional MRI pituitary protocol. Intracranial 3D bfdq-gm-eijnyg MRA with 2D multiplanar and 3D maximum intensity projections calculated on the imaging workstation under physician supervision. MQ: MRAB_3. 20 cc Dotarem IV COMPARISON: Several previous MRIs including 05/10/2020 as well as more recent 02/01/2022 MRI RESULT: BRAIN: Postoperative changes: Status post Chiari decompression unchanged position of the cerebellar tonsils. Foramen magnum is patent without evidence of mass effect on the brainstem. Unchanged bilateral cerebellar tonsillar ectopia Acute Change: No restricted diffusion to indicate acute infarction Hemorrhage: No evidence of prior parenchymal hemorrhage on the gradient echo images. Mass Lesion/ Mass Effect: Pituitary gland: Postop Changes: None Redemonstration of a nonenhancing T1 hyperintense lesion in the pars intermedia region of the pituitary gland. Compared to last exam, it has decreased in size and now measures 7 mm craniocaudal by 5 mm AP compared to 11 x 8.4 mm measured in the same manner on T1 sagittal image 6. Suprasellar region: Interval decrease in suprasellar convexity margin. Pituitary stalk is midline. Cavernous Sinuses: The cavernous sinuses are normal in appearance. A normal flow void is noted in the carotid siphons suggesting patency by spin echo criteria. Otherwise, no evidence of an intracranial mass or extra-axial fluid collection remainder of the cerebrum or cerebellum. No significant mass effect. Chronic Change: The white matter is within normal limits of signal intensity for age. Parenchyma: No significant volume loss for age. The brain parenchyma is otherwise within normal limits of signal intensity and morphology. Ventricles: Normal caliber and morphology. Skull Base: No significant marrow replacement process. Vasculature: Major intracranial arterial structures, and dural venous sinuses show typical flow void, suggesting patency. See discussion below.. Other: The visualized paranasal sinuses and mastoid air cells are clear. The orbits and extracranial soft tissues are unremarkable. INTRACRANIAL MRA: The visualized distal vertebral and basilar arteries are patent. The distal ICAs are patent and within normal limits of caliber. The proximal ACAs, MCAs and crt are patent and within normal limits of caliber and configuration. There is no evidence of focal, significant stenosis in the visualized vessels. Again noted is a tiny, 1-2 mm outpouching arising from the lateral aspect of the left cavernous ICA (sequence 3, image 97), stable from 2018. IMPRESSION: 1.Redemonstration of a nonenhancing T1 hyperintense lesion in the pars intermedia region of the pituitary gland without suprasellar extension. Compared to last exam, it has decreased in size and now measures 7 mm craniocaudal by 5 mm AP compared to 11 x 8.4 mm measured in the same manner on T1 sagittal image 6. 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 2.Stable 1 to 2 mm outpouching in the left cavernous ICA, which may represent a prominent vessel origin versus a tiny saccular aneurysm. 3.Status post Chiari decompression unchanged position of the cerebellar tonsils. Foramen magnum is patent without evidence of mass effect on the brainstem. Unchanged bilateral cerebellar tonsillar ectopia Blockmason: [facility] Transcribe Date/Time: Aug 14 2023 8:25A Dictated by : RAUL COTO MD This examination was interpreted and the report reviewed and electronically signed by: RAUL COTO MD on Aug 14 2023 8:48AM EST [id number] Normal [facility] MRI BRAIN WO/W IVCONon 08-12 MRI BRAIN WO/W IVCON * * *Final Report* * * DATE OF EXAM: Aug 13 2023 3:59PM LDM 0295 - MRI BRAIN WO/W IVCON / PROCEDURE REASON: Pituitary adenoma (HCC) * * * * Physician Interpretation * * * * EXAMINATION: MRI BRAIN WO/W IVCON, MRA BRAIN WO IVCON HISTORY: Pituitary adenoma (HCC), 1-2 mm left cavernous ICA outpouching. Follow-up exam . Status post Chiari decompression TECHNIQUE: MRI brain was performed with additional MRI pituitary protocol. Intracranial 3D [id number] MRA with 2D multiplanar and 3D maximum intensity projections calculated on the imaging workstation under physician supervision. MQ: MRAB_3. 20 cc Dotarem IV COMPARISON: Several previous MRIs including 05/10/2020 as well as more recent 02/01/2022 MRI RESULT: BRAIN: Postoperative changes: Status post Chiari decompression unchanged position of the cerebellar tonsils. Foramen magnum is patent without evidence of mass effect on the brainstem. Unchanged bilateral cerebellar tonsillar ectopia Acute Change: No restricted diffusion to indicate acute infarction Hemorrhage: No evidence of prior parenchymal hemorrhage on the gradient echo images. Mass Lesion/ Mass Effect: Pituitary gland: Postop Changes: None Redemonstration of a nonenhancing T1 hyperintense lesion in the pars intermedia region of the pituitary gland. Compared to last exam, it has decreased in size and now measures 7 mm craniocaudal by 5 mm AP compared to 11 x 8.4 mm measured in the same manner on T1 sagittal image 6. Suprasellar region: Interval decrease in suprasellar convexity margin. Pituitary stalk is midline. Cavernous Sinuses: The cavernous sinuses are normal in appearance. A normal flow void is noted in the carotid siphons suggesting patency by spin echo criteria. Otherwise, no evidence of an intracranial mass or extra-axial fluid collection remainder of the cerebrum or cerebellum. No significant mass effect. Chronic Change: The white matter is within normal limits of signal intensity for age. Parenchyma: No significant volume loss for age. The brain parenchyma is otherwise within normal limits of signal intensity and morphology. Ventricles: Normal caliber and morphology. Skull Base: No significant marrow replacement process. Vasculature: Major intracranial arterial structures, and dural venous sinuses show typical flow void, suggesting patency. See discussion below.. Other: The visualized paranasal sinuses and mastoid air cells are clear. The orbits and extracranial soft tissues are unremarkable. INTRACRANIAL MRA: The visualized distal vertebral and basilar arteries are patent. The distal ICAs are patent and within normal limits of caliber. The proximal ACAs, MCAs and crt are patent and within normal limits of caliber and configuration. There is no evidence of focal, significant stenosis in the visualized vessels. Again noted is a tiny, 1-2 mm outpouching arising from the lateral aspect of the left cavernous ICA (sequence 3, image 97), stable from 2018. IMPRESSION: 1.Redemonstration of a nonenhancing T1 hyperintense lesion in the pars intermedia region of the pituitary gland without suprasellar extension. Compared to last exam, it has decreased in size and now measures 7 mm craniocaudal by 5 mm AP compared to 11 x 8.4 mm measured in the same manner on T1 sagittal image 6. 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 2.Stable 1 to 2 mm outpouching in the left cavernous ICA, which may represent a prominent vessel origin versus a tiny saccular aneurysm. 3.Status post Chiari decompression unchanged position of the cerebellar tonsils. Foramen magnum is patent without evidence of mass effect on the brainstem. Unchanged bilateral cerebellar tonsillar ectopia Blockmason: [facility] Transcribe Date/Time: Aug 14 2023 8:25A Dictated by : RAUL COTO MD This examination was interpreted and the report reviewed and electronically signed by: RAUL COTO MD on Aug 14 2023 8:48AM EST [id number] Normal [facility] Prolactin SerPl-mCncon 08-12 Prolactin [Mass/Vol] 23.4 ng/mL Normal 4.5-26.8 [facility] Comment on above: Order Comment: Specdarcie zayas Type: BLOOD SPECIMEN Ordering Facility: [facility] Address: [address] [place] [address] Result Comment: Prol actin test is performed using the [employer] Electrochemiluminescence Immunoassay method. Results obtained with different methods or kits cannot be used interchangeably. Performed By: #### 3 016-3, 2842-3, 2143-6, 3024-7 #### [facility] CLIA [id number] [address] [place] [address] [place] T4 Free SerPl-mCncon 024 Free T4 [Mass/Vol] 0.9 ng/dL Normal 0.9-1.7 [facility] Comment on above: Order Comment: Speci men Type: BLOOD SPECIMEN Ordering Facility: [facility] Address: [address] [place] [address] Performed By: #### 3 016-3, 2842-3, 2143-6, 3023-7 #### [facility] CLIA [id number] [address] [place] [address] [place] TSH SerPl-aCncon 08-13-2023 TSH Qn 3.310 m[IU]/L Normal 0.270-4.200 [facility] Comment on above: Order Comment: Raj marquez Type: BLOOD SPECIMEN Ordering Facility: [facility] Address: [address] [place], [place] [address] [address] Result Comment: If t he patient is , TSH reference range varies by gestational period: First Trimester (weeks 9-12): 0.180-2.990 mIU/L Second Trimester: 0.110-3.980 mIU/L Third Trimester: 0.480-4.710 mIU/L Mark Delaney et al. A Practical Approach for the Verifications and Determination of Site- and Trimester-Specific Reference Intervals for Thyroid Function tests in . Thyroid, 2019:29:3:412-420. Felipe E, et al. 2017 Guidelines of the [place] [employer] for the Diagnosis and Management of Thyroid Disease during and the . Thyroid, 2017:27:3:315-389. Performed By: #### 3 016-3, 2842-3, 2143-6, 3024-7 #### [facility] CLIA [id number] [address] [place] [address] [place] CNOVon 08-12-2023 CNOV Office Visit (ENAGST ) -- TIM CORDOVA ([id number]) 1980 F Date Time Provider Department 08/12/23 10:30 AM ERIC WILSON During your visit today, we recorded the following information about you: Pulse Blood pressure Weight Height 78/minute 118/78 108.4 kg 1.702 m Eric Wilson MD 08/14/2023 3:18 PM Addendum . [facility] Endocrinology - [place] [address], [address] Endocrinology - [address], [address] [place] [address] Patient's name: Tim Cordova Patient's date of : 1980 Date of encounter: 08/12/2023 History of present illness: Tim Cordova is a 42 year old female who presents for follow up of an endocrinology issue. Previous history: 04/21/2019: Consultation with neurosurgery, Dr Bardales. 04/30/2019: MRI head: Impression: Pituitary gland is enlarged without evidence of focal area of altered signal intensity or enhancement. Measures 12 mm craniocaudal by 12 mm transverse on postcontrast coronal image 11, unchanged. Diagnostic considerations include pituitary macroadenoma versus pituitary hyperplasia. Correlation with appropriate pituitary gland results. 05/18/2019: TSH 1.580 (0.270-4.200 uU/mL), free T4 1.0 (0.9 - 1.7 ng/dL), prolactin 12.2 (4.5-26.8 ng/mL), random cortisol 7.6 ug/dL, Luteinizing Hormone (LH) 33.0 IU/mL, Follicle Stimulating Hormone (FSH) 39.2 IU/mL, 10/22/2019: Neurosurgery: Suboccipital craniectomy for decompression of Chiari I malformation. 12/02/2019: Initial consultation with nc. 01/2020: Luteinizing Hormone (LH) 36.49 mIU/mL, Follicle Stimulating Hormone (FSH) 48.56 mIU/mL, prolactin 11.2 (non- female 2.8-29.2 ng/mL), Sodium 140 (136-144 mEq/L), TSH 1.590 (0.270-4.200 uU/mL), free T4 1.1 (0.9-1.7 ng/dL), Insulin-like growth factor 1 (IGF-1, somatomedin C) 142 (76-271 ng/mL), 01/2020: cortisol 7.8 ug/dL at 08:30 AM. Adrenocorticotropic Hormone (ACTH) 28 (<47 pg/mL), 05/2020: MRI Brain: ... Stable T1 intrinsically hyperintense, nonenhancing lesion in the pituitary gland, most likely representing a Rathke's cyst. No mass effect on the optic chiasm. 06/2020: Follicle Stimulating Hormone (FSH) 54.5 mU/mL, Luteinizing Hormone (LH) 29.3 mU/mL, prolactin 7.9 (non 2.8-29.2. 9.7-208.5. Postmenopausal 1.8-20.3 ng/mL), Sodium 138 (136-144 mmol/L), 06/2020: TSH 1.480 (0.270-4.200 uIU/mL), free T4 0.9 (0.9-1.7 ng/dL), 06/2020: Cosyntropin stimulation test: Baseline cortisol 5.5 ug/dL, 30 minute stimulated cortisol 20.5 ug/dL, 60 minute stimulated cortisol 22.1 ug/dL. 01/01/2021: MRI brain: Impression: 1. Unchanged Rathke's cleft cyst, as described above. No suprasellar mass effect. 2. Status post Chiari decompression with wide anatomic patency of the foramen magnum. No evidence for hydrocephalus. 01/04/2021: Follow up with neurosurgery. Plan was monitoring. 02/2021: prolactin 6.6 (non 2.8-29.2. 9.7-208.5. Postmenopausal 1.8-20.3 ng/mL), Luteinizing Hormone (LH) 29.7 mU/mL, Follicle Stimulating Hormone (FSH) 52.0 mU/mL, Sodium 141 (136-144 mmol/L), 02/2021: TSH 1.400 (0.270-4.200 uIU/mL), free T4 1.0 (0.9-1.7 ng/dL), 10/2021: Cortisol 14.0 ug/dL at 08:10 AM, TSH 2.240 (0.270-4.200 uIU/mL), free T4 1.0 (0.9-1.7 ng/dL), Luteinizing Hormone (LH) 27.1 mIU/mL. Follicle Stimulating Hormone (FSH) 42.0 mIU/mL, prolactin 24.9 (4.5-26.8 ng/mL), Sodium 143 (136-144 mmol/L), Insulin-like growth factor 1 (IGF-1, somatomedin C) 119 (75-267 ng/mL), 01/04/2022: Neurosurgery follow up. see note. 02/2022: MRI brain: ... Pituitary gland: There is a stable T1 hyperintense space occupying lesion in the pars intermedia region of the pituitary gland. It does not enhance. It measures approximately 1.1 x 0.8 x 1.1 cm in greatest CC, AP, transverse dimensions, respectively. It again reveals slight suprasellar extension. No compression of the chiasm or optic nerves. 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 ... IMPRESSION: Stable examination. Pituitary Rathke's cleft cyst. ... 09/2022: sodium 141 (136-144 mmol/L), TSH 2.300 (0.270-4.200 uU/mL), free T4 1.1 (0.9-1.7 ng/dL), luteinizing hormone 14.9 mIU/mL), follicle stimulating hormone 27.7 mIU/mL), prolactin 23.8 (4.5-26.8 ng/mL), Insulin-like growth factor 1 (IGF-1, somatomedin C) 84 (73-263 ng/mL), 09/2022: cortisol 14.6 ug/dL, at 07:40 AM, DHEA-s 164.8 (60.9-337 ug/dL), Interval history: ___ The patient now returns for re-evaluation and follow-up. The above history was re-confirmed. When asked how she feels overall, she responded pretty good Last MRI brain 01/2022. Has orders for MRI brain from neurosurgeon. Next neurosurg appointment is 08/03 (more content not included)... Normal [facility] CNOVon 07-18-2023 CNOV Office Visit ([facility] ) -- TIM CORDOVA ([id number]) 1980 F Date Time Provider Department 07/18/23 4:45 PM MERY WRIGHT [facility] During your visit today, we recorded the following information about you: Temperature Pulse Respiration Blood pressure 98.2 degrees 84/minute 18/minute 127/67 Weight 109.7 kg Mery Wright PA-C 07/18/2023 5:19 PM Signed This note was created using [employer]. Subjective Tim Cordova is a 42 year old female. HPI Presents with a chief complaint of left ear pain. She states she did start with some mild cough and postnasal drip today as well. No fever. No drainage out of her ear. She denies headache. Ear does hurt when she opens and closes her jaw. No trouble hearing. No recent swimming. Review of Systems Constitutional: Negative for fever. HENT: Positive for congestion, ear pain and postnasal drip. Negative for ear discharge, hearing loss and sore throat. Respiratory: Positive for cough. Cardiovascular: Negative. Gastrointestinal: Negative. Genitourinary: Negative. Musculoskeletal: Negative. All other systems reviewed and are negative. PAST MEDICAL HISTORY Diagnosis Date Acute laryngitis Acute sinusitis Arnold-Chiari malformation (HCC) s/p decompression Cervical disc herniation neck pain Dysmenorrhea Hepatitis B 02/2019 Left foot pain Menorrhagia Migraine Current Outpatient Medications Medication Sig Dispense Refill cetirizine (ZYRTEC) 10 mg tablet Take 1 tablet by mouth once daily for 14 days. 14 tablet 0 fluticasone (FLONASE) 50 mcg/actuation nasal spray Use 2 Sprays in each nostril once daily. Rinse mouth after use. 1 Each 0 acetaminophen (TYLENOL) 325 mg tablet Take 650 mg by mouth as needed. No current facility-administered medications for this visit. PAST SURGICAL HISTORY Procedure Laterality Date BRAIN SURGERY HX 10/22/2019 suboccipital craniectomy for decompression Chiari I malformation by Dr. Chely Bardales FOOT SURGERY HX Left 10/2016 debridement from dog bite HYSTERECTOMY 09/2017 one ovary remains TUBAL LIGATION 2002 FAMILY HISTORY Problem Relation Age of Onset Hypertension Mother Cancer Father Lung cancer Aneurysm Father Head/brain Hypertension Father Aneurysm Paternal Grandmother Head/brain Social History Tobacco Use Smoking status: Former Packs/day: 1.00 Years: 15.00 Additional pack years: 0.00 Total pack years: 15.00 Types: Cigarettes Quit date: 10/27/2016 Years since quittin.7 Smokeless tobacco: Never Tobacco comments: Quit 04/2020 Vaping Use Vaping Use: Never used Substance Use Topics Alcohol use: No Comment: Non alcohol user. Drug use: No Objective BP 127/67 Pulse 84 Temp 36.8 ?C (98.2 ?F) Resp 18 Wt 109.7 kg (241 lb 13.5 oz) LMP (LMP Unknown) SpO2 98% BMI 37.88 kg/m? Physical Exam Vitals reviewed. Constitutional: Appearance: Normal appearance. HENT: Head: Normocephalic and atraumatic. Right Ear: Tympanic membrane, ear canal and external ear normal. Left Ear: Tympanic membrane, ear canal and external ear normal. Nose: Nose normal. Mouth/Throat: Mouth: Mucous membranes are moist. Pharynx: Oropharynx is clear. Cardiovascular: Rate and Rhythm: Normal rate and regular rhythm. Heart sounds: Normal heart sounds. Pulmonary: Effort: Pulmonary effort is normal. Breath sounds: Normal breath sounds. Musculoskeletal: Cervical back: Neck supple. Skin: General: Skin is warm and dry. Neurological: Mental Status: She is alert. Assessment and Plan ASSESSMENT/PLAN: 1. Otalgia of left ear - ICD9: 388.70, ICD10: H92.02 Normal exam, likely eustachian tube dysfunction. Discussed using Flonase and Zyrtec. Follow-up with PCP if not improving. Work note provided as well. Mery Wright PA-C Allergies As of Date: 07/18/2023 Noted Allergy Reaction OXYCODONE-ACETAMINOPHEN 09/19/2018 9 - Itching Date Reviewed: 07/18/2023 Reviewed by: Melissa Reilly MA - Fully Assessed Reason for Visit: Ear Pain [817] Cmt: L ear pain x today Primary Visit Diagnosis:Otalgia of left ear [H92.02] Order(s):cetirizine (ZYRTEC) 10 mg tabletTake 1 tablet by mouth once daily for 14 days.Disp: 14 tabletRfl: 0 fluticasone (FLONASE) 50 mcg/actuation nasal sprayUse 2 Sprays in each nostril once daily. Rinse mouth after use.Disp: 1 EachRfl: 0 Prescriptions as of 07/18/2023 - cetirizine (ZYRTEC) 10 mg tablet Take 1 tablet by mouth once daily for 14 days. - fluticasone (FLONASE) 50 mcg/actuation nasal spray Use 2 Sprays in each nostril once daily. Rinse mouth after use. - acetaminophen (TYLENOL) 325 mg tablet Take 650 mg by mouth as needed. 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 Normal [facility] CNOVon 05-03-2023 CNOV Office Visit ([facility] ) -- TIM CORDOVA ([id number]) 1980 F Date Time Provider Department 05/03/23 11:30 AM SANIA VILLALPANDO [facility] During your visit today, we recorded the following information about you: Temperature Pulse Respiration Blood pressure 98 degrees 96/minute 21/minute 102/82 Weight 107.4 kg Sania Villalpando PA 05/03/2023 11:48 AM Signed This note was created using [employer]. Subjective Tim Cordova is a 42 year old female. HPI 42-year-old female presents for bilateral ear pain, pressure, sinus congestion starting yesterday. Patient states she starting sinus congestion yesterday. Is worse this morning. She states she has pain in both ears, worse on the right. She has history of ear infections and sinus issues in the past. She tested for COVID which was negative. No fevers. No cough. No vomiting or diarrhea. No other complaint. PAST MEDICAL HISTORY Diagnosis Date Acute laryngitis Acute sinusitis Arnold-Chiari malformation (HCC) s/p decompression Cervical disc herniation neck pain Dysmenorrhea Hepatitis B 02/2019 Left foot pain Menorrhagia Migraine PAST SURGICAL HISTORY Procedure Laterality Date BRAIN SURGERY HX 10/22/2019 suboccipital craniectomy for decompression Chiari I malformation by Dr. Chely Bardales FOOT SURGERY HX Left 10/2016 debridement from dog bite HYSTERECTOMY 09/2017 one ovary remains TUBAL LIGATION 2001 ALLERGIES Oxycodone-Acetaminophen MEDICATIONS acetaminophen (TYLENOL) 325 mg tablet Take 650 mg by mouth as needed. amoxicillin (AMOXIL) 875 mg tablet Take 1 tablet by mouth two times a day for 7 days. FAMILY HISTORY Problem Relation Age of Onset Hypertension Mother Cancer Father Lung cancer Aneurysm Father Head/brain Hypertension Father Aneurysm Paternal Grandmother Head/brain Social History Tobacco Use Smoking status: Former Packs/day: 1.00 Years: 15.00 Additional pack years: 0.00 Total pack years: 15.00 Types: Cigarettes Quit date: 10/27/2016 Years since quittin.5 Smokeless tobacco: Never Tobacco comments: Quit 04/2020 Vaping Use Vaping Use: Never used Substance Use Topics Alcohol use: No Comment: Non alcohol user. Drug use: No Review of Systems Constitutional: Negative for chills and fever. HENT: Positive for congestion, ear pain, sinus pressure and sinus pain. Negative for sore throat. Respiratory: Negative for cough and shortness of breath. Cardiovascular: Negative for chest pain. Gastrointestinal: Negative for diarrhea and vomiting. Objective BP 102/82 Pulse 96 Temp 36.7 ?C (98 ?F) Resp 21 Wt 107.4 kg (236 lb 12.8 oz) LMP (LMP Unknown) SpO2 98% BMI 37.09 kg/m? Physical Exam Vitals and nursing note reviewed. Constitutional: General: She is not in acute distress. Appearance: Normal appearance. She is not toxic-appearing. HENT: Right Ear: Ear canal normal. A middle ear effusion is present. Tympanic membrane is erythematous. Left Ear: Tympanic membrane and ear canal normal. Nose: Nose normal. Mouth/Throat: Mouth: Mucous membranes are moist. Pharynx: No oropharyngeal exudate or posterior oropharyngeal erythema. Eyes: Conjunctiva/sclera: Conjunctivae normal. Cardiovascular: Rate and Rhythm: Normal rate and regular rhythm. Pulmonary: Effort: Pulmonary effort is normal. Breath sounds: Normal breath sounds. Neurological: Mental Status: She is alert. Assessment and Plan ASSESSMENT/PLAN: 1. URI, acute - ICD9: 465.9, ICD10: J06.9 (primary diagnosis) - Discussed viral etiology and rationale for treatment. - Symptomatic treatment with prn analgesia - Supportive care with fluids and rest - The patient may also use OTC decongestants prn. -Declines viral swab 2. Acute otitis media, right - ICD9: 382.9, ICD10: H66.91 - Will begin treatment with Amoxicillin for 7 days - Supportive care with plenty of fluids, rest, and analgesia prn. Diagnosis and treatment plan were discussed and questions were answered to the patient's satisfaction. Pt acknowledged understanding of concepts and follow up plan. Specific signs and symptoms that would indicate the need for higher level of care were discussed in detail warranting prompt ER evaluation. BRITTANY Nazario Allergies As of Date: 05/03/2023 Noted Allergy Reaction OXYCODONE-ACETAMINOPHEN 09/19/2018 9 - Itching Date Reviewed: 05/03/2023 Reviewed by: Jessica Estrada MA - Fully Assessed Reason for Visit: Sinus Problem [99] Cmt: Bilateral ear pain, jaw pain, nasal pressure x 1 day Primary Visit Diagnosis:URI, acute [J06.9] Other Visit Diagnosis:Acute otitis media, right [H66.91] Order(s):amoxicillin (AMOXIL) 875 mg tabletTake 1 tablet by mouth two times a day for 7 days.Disp: 14 tabletRfl: 0 Prescriptions as of 05/03/2023 - amoxicillin (AMOXIL) 875 mg tablet Take 1 table (more content not included)... Normal [facility] 01-31-2023 CNOV Office Visit ([facility] ) -- TIM CORDOVA ([id number]) 1980 F Date Time Provider Department 01/31/23 3:00 PM ROZ ADRIAN [facility] During your visit today, we recorded the following information about you: Temperature Pulse Respiration Blood pressure 98 degrees 85/minute 18/minute 111/75 Weight 108 kg Roz Adrian APRN.[employer] CUTTER 01/31/2023 3:18 PM Signed CC: Patient presents with: Ear Pain: Right ear x 2 days HPI: Tim Cordova is a 42 year old female who presents to the office with complaint of head congestion, sinus symptoms, and ear symptoms for a few days. Symptoms are worsening Associated symptoms includes ear pain and ear pressure . Denies fever, nausea, vomiting , and diarrhea. Treatments tried include nothing so far. with no relief of symptoms. Sick contacts: unknown. History of asthma, frequent episodes of bronchitis, chronic bronchitis, bronchiectasis or COPD: No Smoker: No Seasonal/environmental allergies: No The ROS is otherwise negative. The patient's pmh, medications, allergies, and past visits are reviewed. PHYSICAL EXAM: BP 111/75 Pulse 85 Temp 36.7 ?C (98 ?F) Resp 18 Wt 108 kg (238 lb) LMP (LMP Unknown) SpO2 97% BMI 37.28 kg/m? General appearance: alert, cooperative, pleasant, in no acute distress Head: Normocephalic Eyes: EOM's intact, conjunctiva pink and moist, no icterus, sclera white, non-injected Ears: Right ear: External ear/canal- Normal, TM - erythematous, bulging. Left ear: External ear/canal- Normal, TM - clear with good landmarks Oropharynx:moist without lesions, No erythema, exudates or tonsillar hypertrophy. Heart: Negative. RRR without obvious murmur, gallop, or rubs. No ectopy. Lungs: clear to auscultation, without rales or wheeze, good air exchange PAST MEDICAL HISTORY Diagnosis Date Acute laryngitis Acute sinusitis Arnold-Chiari malformation (HCC) s/p decompression Cervical disc herniation neck pain Dysmenorrhea Hepatitis B 02/2019 Left foot pain Menorrhagia Migraine PAST SURGICAL HISTORY Procedure Laterality Date BRAIN SURGERY HX 10/22/2019 suboccipital craniectomy for decompression Chiari I malformation by Dr. Chely Bardales FOOT SURGERY HX Left 10/2016 debridement from dog bite HYSTERECTOMY 09/2017 one ovary remains TUBAL LIGATION 2002 ALLERGIES Oxycodone-Acetaminophen MEDICATIONS acetaminophen (TYLENOL) 325 mg tablet Take 650 mg by mouth as needed. FAMILY HISTORY Problem Relation Age of Onset Hypertension Mother Cancer Father Lung cancer Aneurysm Father Head/brain Hypertension Father Aneurysm Paternal Grandmother Head/brain Social History Tobacco Use Smoking status: Former Packs/day: 1.00 Years: 15.00 Additional pack years: 0.00 Total pack years: 15.00 Types: Cigarettes Quit date: 10/27/2016 Years since quittin.2 Smokeless tobacco: Never Tobacco comments: Quit 04/2020 Vaping Use Vaping Use: Never used Substance Use Topics Alcohol use: No Comment: Non alcohol user. Drug use: No ASSESSMENT/PLAN: 1. Acute otitis media, right - ICD9: 382.9, ICD10: H66.91 amoxicillin bid for 7 days. Prescription instructions reviewed with patient as applicable. Potential red flag symptoms discussed with the patient. Reviewed appropriate action plan to take if red flag symptoms occur. Patient agreeable to treatment plan. Roz Adrian APRN.KEY CUTTER Allergies As of Date: 01/31/2023 Noted Allergy Reaction OXYCODONE-ACETAMINOPHEN 09/19/2018 9 - Itching Date Reviewed: 01/31/2023 Reviewed by: Rosita Olsen LPN - Fully Assessed Reason for Visit: Ear Pain [817] Cmt: Right ear x 2 days Primary Visit Diagnosis:Acute otitis media, right [H66.91] Order(s):amoxicillin (AMOXIL) 875 mg tabletTake 1 tablet by mouth two times a day for 7 days.Disp: 14 tabletRfl: 0 Prescriptions as of 01/31/2023 - amoxicillin (AMOXIL) 875 mg tablet Take 1 tablet by mouth two times a day for 7 days. - acetaminophen (TYLENOL) 325 mg tablet Take 650 mg by mouth as needed. 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 Normal [facility] INR in Blood by Coagulation assayOrdered By: Tiago Escalante on 12-24-2022 INR Coag (Bld) [Relative time] 1.0 {INR} [facility] - CoagulationOrde red By: Tiago Escalante on 12-24-2022 aPTT Coag (Bld) [Time] 29.6 s 24.1-36.2 [facility] PT Coag (PPP) [Time] 12.7 s 11.7-14.9 [facility] Absolute lymphocyte countOrd ered By: Risa Velasquez on 11-24-2022 Lymphocytes Auto (Unsp spec) [#/Vol] 3.75 10*3/uL 0.83-4.51 [facility] Basophil percentageOrdered B y: Risa Velasquez on 11-24-2022 Basophils/100 WBC (Bld) 0.8 % 0-1 [facility] Bilirubin [Mass/Vol] 0.20 mg/dL 0.20-1.00 [facility] Comment on above: For patients on eltr ombopag therapy, use of Dimension [place] TBIL is not recommended. Chloride [Moles/Vol] 114 mmol/L 98-107 [facility] Eosinophils/100 WBC (Bld) 3.9 % 0-5 [facility] Glucose [Mass/Vol] 97 mg/dL 74-106 [facility] Neutrophils (Bld) [#/Vol] 3.8 10*3/uL 2.0-7.7 [facility] Neutrophils/100 WBC (Bld) 44.8 % 47-70 [facility] Potassium [Moles/Vol] 4.0 mmol/L 3.5-5.1 [facility] Protein [Mass/Vol] 6.1 g/dL 6.4-8.2 [facility] Sodium [Moles/Vol] 143 mmol/L 136-145 [facility] WBC (Bld) [#/Vol] 8.4 10*3/uL 4.4-11.0 [facility] Blood erythrocytes count (nu mber/volume)Ordered By: Risa Velasquez on 11-24-2022 RBC (Bld) [#/Vol] 3.95 10*6/uL 4.2-5.4 [facility] Blood hemoglobin measurement (mass/volume)Ordered By: Risa Velasquez on 11-24-2022 Hemoglobin (Bld) [Mass/Vol] 12.3 g/dL 12.0-15.0 [facility] Blood lymphocytes/100 leukoc ytesOrdered By: Risa Velasquez on 11-24-2022 Lymphocytes/100 WBC (Bld) 44.7 % 19-41 [facility] Blood monocytes/100 leukocyt esOrdered By: Risa Velasquez on 11-24-2022 Monocytes/100 WBC (Bld) 5.7 % 0-10 [facility] Blood platelet mean volumeOr dered By: Risa Velasquez on 11-24-2022 Platelet mean volume (Bld) [Entitic vol] 12.8 fL 6.2-12.0 [facility] Determination of erythrocyte mean corpuscular volume (MCV)Ordered By: Risa Velasquez on 11-24-2022 MCV (RBC) [Entitic vol] 93.2 fL 81-99 [facility] Direct bilirubinOrdered By: Risa Velasquez on 11-24-2022 Bilirubin.direct [Mass/Vol] mg/dL 0.00-0.30 [facility] Hematocrit Auto (Bld) [Volum e fraction]Ordered By: Risa Velasquez on 11-24-2022 Hematocrit (Bld) [Volume fraction] 36.8 % 37-47 [facility] - Chemistry and C hemistry - challengeOrdered By: Risa Velasquez on 11-24-2022 ALP [Catalytic activity/Vol] 64 U/L 45-117 [facility] ALT [Catalytic activity/Vol] 16 U/L 13-56 [facility] CO2 [Moles/Vol] 26.0 mmol/L 21.0-32.0 [facility] Globulin (S) [Mass/Vol] 3.0 g/dL 2.2-4.2 [facility] Urea nitrogen/Creatinine [Mass ratio] 14.1 mg/mg 10-20 [facility] - Hematology and Cell countsOrdered By: Risa Velasquez on 11-24-2022 Erythrocyte distribution width (RBC) [Entitic vol] 43.9 fL 35.1-43.9 [facility] Erythrocyte distribution width (RBC) [Ratio] 12.7 % 11.6-14.6 [facility] Immature granulocytes/100 WBC (Bld) 0.100 % 0.0-0.9 [facility] Comment on above: IG% - Immature Granu locytes (promyelocytes, myelocytes and metamyelocytes) > 1% indicates that a LEFT SHIFT is Present. MCH (RBC) [Entitic mass] 31.1 pg 27.0-32.0 [facility] Nucleated RBC/100 WBC (Bld) [Ratio] 0 % 0-5 [facility] MCHC Auto (RBC) [Mass/Vol]Or dered By: Risa Velasquez on 11-24-2022 MCHC (RBC) [Mass/Vol] 33.4 g/dL 32-36 [facility] No Panel InformationOrdered By: Risa Velasquez on 11-24-2022 Estimated Creatinine Clearance Calc 83.84 ml/min [facility] Estimated GFR (MDRD) Amer 94 mL/min >60 [facility] Comment on above: GFR Calc Estimated GFR (MDRD) Non-Af Amer 78 mL/min >60 [facility] Comment on above: Non- GFR Calc Hepatitis A IgM Antibody Negative Negative [facility] Hepatitis B Core IgM Antibody Negative Negative [facility] Hepatitis C Antibody (EIA) Non-Reactive Non Reactive [facility] Hepatitis C Antibody Comment Comment . [facility] Comment on above: Not infected with HC V unless early or acute infection issuspected (which may be delayed in an immunocompromisedindividual), or other evidence exists to indicate HCVinfection.Performed at: [email or web address] [id number] Director: Erick Grimm PhD, Phone: [phone] Thyroid Stimulating Hormone (TSH) 1.85 uIU/mL 0.358-3.74 [facility] Platelets bldOrdered By: Evelio Velasquez on 11-24-2022 Platelets (Bld) [#/Vol] 136 10*3/uL 150-450 [facility] Serum or plasma albumin alma urement (mass/volume)Ordered By: Risa Velasquez on 11-24-2022 Albumin [Mass/Vol] 3.1 g/dL 3.2-5.0 [facility] Serum or plasma albumin/glob ulin mass ratioOrdered By: Risa Velasquez on 11-24-2022 Albumin/Globulin [Mass ratio] 1.0 {ratio} 0.9-2.4 [facility] Serum or plasma calcium alma urement (mass/volume)Ordered By: Risa Velasquez on 11-24-2022 Calcium [Mass/Vol] 8.3 mg/dL 8.5-10.1 [facility] Serum or plasma creatinine m easurement (mass/volume)Ordered By: Risa Velasquez on 11-24-2022 Creatinine [Mass/Vol] 0.85 mg/dL 0.55-1.02 [facility] Comment on above: The validity of the calculated GFR & GFRAA in patients over 70 years has not been determined. Clinical correlation is essential. Serum or plasma hepatitis B virus surface antigen detection by immunoassayOrdered By: Risa Velasquez on 11-24-2022 HBV surface Ag IA Ql Negative Negative [facility] Serum or plasma urea nitroge n measurement (mass/volume)Ordered By: Risa Velasquez on 11-24-2022 Urea nitrogen [Mass/Vol] 12 mg/dL 7-18 [facility] Thin prep Papanicolaou smear with manual screeningOrdered By: Risa Velasquez on 11-24-2022 Thin prep Papanicolaou smear with manual screening 12 U/L 15-37 [facility] Thin prep Papanicolaou smear with manual screening 3 5-15 [facility] Basophil percentageOrdered B y: Cliff De La O on 11-23-2022 Basophil percentage 0-5 SEEN /hpf 0-5 [facility] Beta hCG serum qualOrdered B y: Cliff De La O on 11-23-2022 Beta HCG ( test) Ql Negative [facility] Bilirubin Test strip Ql (U)O rdered By: Cliff De La O on 11-23-2022 Bilirubin Ql (U) Negative Negative [facility] Blood manual differential co mment interpretation (narrative result)Ordered By: Cliff De La O on 11-23-2022 Manual differential comment Panchito (Bld) [Interp] SCANNED [facility] Comment on above: LYMPHOCYTOSIS NOTED Ketones Test strip Ql (U)Ord ered By: Cliff De La O on 11-23-2022 Ketones Ql (U) Negative Negative [facility] - Chemistry and C hemistry - challengeOrdered By: Cliff De La O on 11-23-2022 Lipase [Catalytic activity/Vol] 62 U/L 13-75 [facility] Comment on above: Please note:LIPASE r evised reference range effective 22. New Lipase methodology. Expected to produce lower values than the previous assay method. NEW Reference Range: 13 - 75 U/L Mucus LM Ql (Urine sed)Order ed By: Cliff De La O on 11-23-2022 Mucus Ql (Urine sed) 0 SEEN /hpf [facility] Nitrite Test strip Ql (U)Ord ered By: Cliff De La O on 11-23-2022 Nitrite Ql (U) Negative Negative [facility] Protein Test strip Ql (U)Ord ered By: Cliff De La O on 11-23-2022 Protein Ql (U) 15 mg/dl Negative [facility] Squamous epithelial cells de tection in urine sediment by light microscopyOrdered By: Cliff De La O on 11-23-2022 Epithelial cells.squamous LM Ql (Urine sed) 0-5 SEEN /hpf 5-10 [facility] Urine blood detectionOrdered By: Cliff De La O on 11-23-2022 RBC Ql (U) Negative Negative [facility] RBC Ql (U) 0-5 SEEN /hpf 0-5 [facility] Urine clarityOrdered By: Glenny De La O on 11-23-2022 Clarity (U) Clear Clear [facility] Urine color determinationOrd ered By: Cliff De La O on 11-23-2022 Color (U) Yellow Yellow [facility] Urine glucose detectionOrder ed By: Cliff De La O on 11-23-2022 Glucose Ql (U) Normal mg/dl Normal [facility] Urine leukocyte esterase det ection by dipstickOrdered By: Cliff De La O on 11-23-2022 Leukocyte esterase Test strip Ql (U) 25 /ul Negative [facility] Urine pHOrdered By: Cliff marx on 11-23-2022 pH (U) 6.0 [pH] 5.0 - 8.0 [facility] Urine sediment bacteria coun t by microscopy (number/high power field)Ordered By: Cliff De La O on 11-23-2022 Bacteria LM.HPF (Urine sed) [#/Area] 0 /[HPF] None Seen [facility] Urine specific gravity measu rementOrdered By: Cliff De La O on 11-23-2022 Specific gravity (U) [Rel density] 1.025 1.002-1.030 [facility] Urobilinogen Auto test strip Ql (U)Ordered By: Cliff De La O on 11-23-2022 Urobilinogen Ql (U) 1 mg/dl Normal [facility] UA DIP, URINE (POC)on 2022 BILIRUBIN UA (POCT) Negative Negative [facility] CLARITY UA (POCT) [facility] COLOR UA (POCT) Yellow [facility] GLUCOSE UA (POCT) Negative Negative mg/dL [facility] HEMOGLOBIN/BLOOD UA (POCT) Trace-intact Abnormal Negative [facility] KETONE UA (POCT) Negative Negative mg/dL [facility] LEUKOCYTES UA (POCT) Negative [facility]PO[facility]) Negative [facility] PH UA (POCT) 5.5 4.5 - 8.0 [facility] Protein Ql (U) Negative Negative mg/dL [facility] SPECIFIC GRAVITY UA (POCT) 1.015 1.005 - 1.030 [facility] UROBILINOGEN UA (POCT) 0.2 E.U./dL Sandra l E.U./dL [facility] MRI CERVICAL SPINE WO IVCONo n 11-08-2022 [facility] CNOVon 09-10-2022 CNOV Office Visit (ENAGST ) -- ARTTIM KELLOGG ([id number]) 1980 F Date Time Provider Department 09/10/22 2:00 PM ERIC WILSON During your visit today, we recorded the following information about you: Pulse Blood pressure Weight Height 106/minute 128/85 108.9 kg 1.702 m Eric Wilson MD 09/12/2022 5:00 PM Addendum . [facility] Endocrinology - [place] [address], [address] General Endocrinology [address], [address] [place] [address] Patient's name: Tim Cordova Patient's date of : 1980 Date of encounter: 09/10/2022 History of present illness: Tim Cordova is a 41 year old female who presents for follow up of an endocrinology issue. Previous history: 04/21/2019: Consultation with neurosurgery, Dr Bardales. 04/30/2019: MRI head: Impression: Pituitary gland is enlarged without evidence of focal area of altered signal intensity or enhancement. Measures 12 mm craniocaudal by 12 mm transverse on postcontrast coronal image 11, unchanged. Diagnostic considerations include pituitary macroadenoma versus pituitary hyperplasia. Correlation with appropriate pituitary gland results. 05/18/2019: TSH 1.580 (0.270-4.200 uU/mL), free T4 1.0 (0.9 - 1.7 ng/dL), prolactin 12.2 (4.5-26.8 ng/mL), random cortisol 7.6 ug/dL, Luteinizing Hormone (LH) 33.0 IU/mL, Follicle Stimulating Hormone (FSH) 39.2 IU/mL, 10/22/2019: Neurosurgery: Suboccipital craniectomy for decompression of Chiari I malformation. 12/02/2019: Initial consultation with me. 01/2020: Luteinizing Hormone (LH) 36.49 mIU/mL, Follicle Stimulating Hormone (FSH) 48.56 mIU/mL, prolactin 11.2 (non- female 2.8-29.2 ng/mL), Sodium 140 (136-144 mEq/L), TSH 1.590 (0.270-4.200 uU/mL), free T4 1.1 (0.9-1.7 ng/dL), Insulin-like growth factor 1 (IGF-1, somatomedin C) 142 (76-271 ng/mL), 01/2020: cortisol 7.8 ug/dL at 08:30 AM. Adrenocorticotropic Hormone (ACTH) 28 (<47 pg/mL), 05/2020: MRI Brain: ... Stable T1 intrinsically hyperintense, nonenhancing lesion in the pituitary gland, most likely representing a Rathke's cyst. No mass effect on the optic chiasm. 06/2020: Follicle Stimulating Hormone (FSH) 54.5 mU/mL, Luteinizing Hormone (LH) 29.3 mU/mL, prolactin 7.9 (non 2.8-29.2. 9.7-208.5. Postmenopausal 1.8-20.3 ng/mL), Sodium 138 (136-144 mmol/L), 06/2020: TSH 1.480 (0.270-4.200 uIU/mL), free T4 0.9 (0.9-1.7 ng/dL), 06/2020: Cosyntropin stimulation test: Baseline cortisol 5.5 ug/dL, 30 minute stimulated cortisol 20.5 ug/dL, 60 minute stimulated cortisol 22.1 ug/dL. 01/01/2021: MRI brain: Impression: 1. Unchanged Rathke's cleft cyst, as described above. No suprasellar mass effect. 2. Status post Chiari decompression with wide anatomic patency of the foramen magnum. No evidence for hydrocephalus. 01/04/2021: Follow up with neurosurgery. Plan was monitoring. 02/2021: prolactin 6.6 (non 2.8-29.2. 9.7-208.5. Postmenopausal 1.8-20.3 ng/mL), Luteinizing Hormone (LH) 29.7 mU/mL, Follicle Stimulating Hormone (FSH) 52.0 mU/mL, Sodium 141 (136-144 mmol/L), 02/2021: TSH 1.400 (0.270-4.200 uIU/mL), free T4 1.0 (0.9-1.7 ng/dL), 10/2021: Cortisol 14.0 ug/dL at 08:10 AM, TSH 2.240 (0.270-4.200 uIU/mL), free T4 1.0 (0.9-1.7 ng/dL), Luteinizing Hormone (LH) 27.1 mIU/mL. Follicle Stimulating Hormone (FSH) 42.0 mIU/mL, prolactin 24.9 (4.5-26.8 ng/mL), Sodium 143 (136-144 mmol/L), Insulin-like growth factor 1 (IGF-1, somatomedin C) 119 (75-267 ng/mL), 01/04/2022: Neurosurgery follow up. see note. 02/2022: MRI brain: ... Pituitary gland: There is a stable T1 hyperintense space occupying lesion in the pars intermedia region of the pituitary gland. It does not enhance. It measures approximately 1.1 x 0.8 x 1.1 cm in greatest CC, AP, transverse dimensions, respectively. It again reveals slight suprasellar extension. No compression of the chiasm or optic nerves. 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 ... IMPRESSION: Stable examination. Pituitary Rathke's cleft cyst. ... Interval history: ___ The patient now returns for re-evaluation and follow-up. The above history was re-confirmed. When asked how she feels overall, she responded overall, I feel good, little more tired than usual Recently changed jobs. Thinks more physical work and making her more tired. Not on any hormone meds. No breast tenderness or discharge. No crusted material in bra. Some dizziness with standing. This is her normal. See ROS. Recent bronchitis. Had multiple rounds of antibiotics. Biotin use (vitamin B-7) : Use of [id number], high dose, biotin supplement: None. Use of Soqk-Rzyt-Eymq vitamins, or similar form (more content not included)... Normal [facility] STREP A MOLECULAR (POC)on Procedural Control Valid [facility] Strep A (POCT) Negative Negative [facility] XR CERV OTHER 4V AP/LAT/FLX/ EXTon 05-20-2022 [facility] MRA BRAIN WO IVCONon 021 MRA BRAIN WO IVCON Final Report DATE OF EXAM: May 10 2020 3:34PM AWM [id number] - MRA BRAIN WO IVCON / PROCEDURE REASON: Nonruptured cerebral aneurysm Physician Interpretation EXAMINATION: MRI BRAIN WO/W IVCON, MRA BRAIN WO IVCON CLINICAL HISTORY: Follow-up pituitary adenoma and Chiari malformation. Status post decompression 10/2019 TECHNIQUE: Routine brain MRI protocol without and with contrast including diffusion images. Intracranial 3D [id number] MRA. 3D maximum intensity projection images were created, reviewed and archived . MQ: [id number] Contrast: 20 mL Dotarem intravenously COMPARISON: MR brain 04/29/2019. CT brain 10/22/2019. CT head and neck 08/08/2017. RESULT: Brain: Acute Change: There is no evidence of an acute intracranial process. Hemorrhage: No evidence of prior parenchymal hemorrhage on the gradient echo images. Mass Lesion/ Mass Effect: No evidence of an intracranial mass or extra-axial fluid collection. No abnormal parenchymal or leptomeningeal enhancement is noted following contrast administration. No significant mass effect. Chronic Change: The white matter is within normal limits of signal intensity for age. Parenchyma: No significant volume loss for age. The brain parenchyma is otherwise within normal limits of signal intensity and morphology. Ventricles: Normal caliber and morphology. Skull Base: Craniocervical junction is normal. No significant marrow replacement process. Postsurgical changes from suboccipital decompressive craniectomy. Unchanged bilateral cerebellar tonsil ectopia. Vasculature: Major intracranial arterial structures, and dural venous sinuses show typical flow void, suggesting patency by spin echo criteria. Other: The visualized paranasal sinuses and mastoid air cells are clear. The orbits and extracranial soft tissues are unremarkable. Pituitary gland: Postop Changes: None Adenohypophysis: There is a 9 mm AP by 9 mm transverse by 1.1 cm craniocaudally intrinsically T1 hyperintense, T2 hyperintense lesion between the adenohypophysis and neurohypophysis. No significant enhancement. There is T1 hyperintense, T2 hypointense material layering within the lesion. This lesion is stable from 04/29/2019. Posterior Pituitary Gland: The posterior pituitary gland is present and normal in size and location. Suprasellar Region: The infundibulum is intact. The optic apparatus is normal in appearance. Cavernous Sinuses: The cavernous sinuses are normal in appearance. A normal flow void is noted in the carotid siphons suggesting patency by spin echo criteria. Intracranial MRA: The visualized distal vertebral and basilar arteries are patent. The distal ICAs are patent and within normal limits of caliber. The proximal ACAs, MCAs and crt are patent and within normal limits of caliber and configuration. There is no evidence of focal, significant stenosis in the visualized vessels. Again noted is a tiny, 1-2 mm outpouching arising from the lateral aspect of the left cavernous ICA (sequence 6, image 67), stable from 2018. IMPRESSION: No acute intracranial findings or abnormal enhancement. Stable bilateral tonsillar ectopia status post decompressive suboccipital craniectomy. Stable T1 intrinsically hyperintense, nonenhancing lesion in the pituitary gland, most likely representing a Rathke's cyst. No mass effect on the optic chiasm. Stable 1 to 2 mm outpouching in the left cavernous ICA, which may represent a prominent vessel origin versus a tiny saccular aneurysm. Otherwise unremarkable intracranial MRA. Blockmason: LORY Transcribe Date/Time: May 10 2020 3:33P Dictated by : TALON MASTERS MD This examination was interpreted and the report reviewed and electronically signed by: TALON MASTERS MD on May 10 2020 4:07PM EST Normal [facility] MRI BRAIN WO/W IVCONon 05-10 MRI BRAIN WO/W IVCON Final Report DATE OF EXAM: May 10 2020 3:34PM AWM [id number] - MRI BRAIN WO/W IVCON / PROCEDURE REASON: multiple diagnoses Physician Interpretation EXAMINATION: MRI BRAIN WO/W IVCON, MRA BRAIN WO IVCON CLINICAL HISTORY: Follow-up pituitary adenoma and Chiari malformation. Status post decompression 10/2019 TECHNIQUE: Routine brain MRI protocol without and with contrast including diffusion images. Intracranial 3D obyl-wh-eeffle MRA. 3D maximum intensity projection images were created, reviewed and archived . MQ: [id number] Contrast: 20 mL Dotarem intravenously COMPARISON: MR brain 04/29/2019. CT brain 10/22/2019. CT head and neck 08/08/2017. RESULT: Brain: Acute Change: There is no evidence of an acute intracranial process. Hemorrhage: No evidence of prior parenchymal hemorrhage on the gradient echo images. Mass Lesion/ Mass Effect: No evidence of an intracranial mass or extra-axial fluid collection. No abnormal parenchymal or leptomeningeal enhancement is noted following contrast administration. No significant mass effect. Chronic Change: The white matter is within normal limits of signal intensity for age. Parenchyma: No significant volume loss for age. The brain parenchyma is otherwise within normal limits of signal intensity and morphology. Ventricles: Normal caliber and morphology. Skull Base: Craniocervical junction is normal. No significant marrow replacement process. Postsurgical changes from suboccipital decompressive craniectomy. Unchanged bilateral cerebellar tonsil ectopia. Vasculature: Major intracranial arterial structures, and dural venous sinuses show typical flow void, suggesting patency by spin echo criteria. Other: The visualized paranasal sinuses and mastoid air cells are clear. The orbits and extracranial soft tissues are unremarkable. Pituitary gland: Postop Changes: None Adenohypophysis: There is a 9 mm AP by 9 mm transverse by 1.1 cm craniocaudally intrinsically T1 hyperintense, T2 hyperintense lesion between the adenohypophysis and neurohypophysis. No significant enhancement. There is T1 hyperintense, T2 hypointense material layering within the lesion. This lesion is stable from 04/29/2019. Posterior Pituitary Gland: The posterior pituitary gland is present and normal in size and location. Suprasellar Region: The infundibulum is intact. The optic apparatus is normal in appearance. Cavernous Sinuses: The cavernous sinuses are normal in appearance. A normal flow void is noted in the carotid siphons suggesting patency by spin echo criteria. Intracranial MRA: The visualized distal vertebral and basilar arteries are patent. The distal ICAs are patent and within normal limits of caliber. The proximal ACAs, MCAs and crt are patent and within normal limits of caliber and configuration. There is no evidence of focal, significant stenosis in the visualized vessels. Again noted is a tiny, 1-2 mm outpouching arising from the lateral aspect of the left cavernous ICA (sequence 6, image 67), stable from 2018. IMPRESSION: No acute intracranial findings or abnormal enhancement. Stable bilateral tonsillar ectopia status post decompressive suboccipital craniectomy. Stable T1 intrinsically hyperintense, nonenhancing lesion in the pituitary gland, most likely representing a Rathke's cyst. No mass effect on the optic chiasm. Stable 1 to 2 mm outpouching in the left cavernous ICA, which may represent a prominent vessel origin versus a tiny saccular aneurysm. Otherwise unremarkable intracranial MRA. Blockmason: [facility] Transcribe Date/Time: May 10 2020 3:33P Dictated by : TALON MASTERS MD This examination was interpreted and the report reviewed and electronically signed by: TALON MASTERS MD on May 10 2020 4:07PM EST Normal [facility] Miscellaneous Referred Testo n 03-11-2019 Result 1: See Below Normal [facility] Comment on above: Result Comment: Hepa titis B Surface Antigen Confirmation: Positive * (Ref Interval: Non Confirmed) Performed By: #### H EPAN ####[address] [id number]#### MSO ####MSO GENERIC SENDOUT Hep B Virus, Quant NAATon HBV Qnt by NAAT (IU/mL) 3,084,517 IU/mL [facility] Comment on above: Performed By: #### H BQO ####The performing lab is in the report. HBV Qnt by NAAT (log IU/mL) 6.49 log IU/mL Normal [facility] Comment on above: Performed By: #### H BQO ####The performing lab is in the report. HBV Qnt by NAAT Interp Detected Not Detected [facility] Comment on above: Result Comment: INTE RPRETIVE INFORMATION: HBV by Quantitative NAAT Normal range for this assay is Not Detected. The quantitative range of this assay is 1.00-9.00 log IU/mL (10-1,000,000,000 IU/mL). An interpretation of Not Detected does not rule out the presence of inhibitors in the patient specimen or HBV DNA concentration below the level of detection of the test. Care should be taken when interpreting any single viral load determination. This assay should not be used for blood donor screening, associated re-entry protocols, or for screening Human Cell, Tissues and Cellular Tissue-Based Products (HCT/P). Performed by [facility], [address] [place] [id number] [email or web address], Gerald Shafer MD, Lab. Director Performed By: #### H BQO ####The performing lab is in the report. CBCon 02-20-2019 Erythrocyte distribution width (RBC) [Ratio] 15.7 % High 11.5 - 14.5 % [place] Hematocrit (Bld) [Volume fraction] 32.6 % Low 35 - 47 % [place] Hemoglobin (Bld) [Mass/Vol] 11.2 g/dL Low 11.7 - 16 g/dL [place] Interpretation and review of laboratory results Abnormal [place] MCH (RBC) [Entitic mass] 31.8 pg 26 - 34 pg [place] MCHC (RBC) [Mass/Vol] 34.5 % 32 - 36 % [place] MCV (RBC) [Entitic vol] 92.0 fL 79 - 98 fL [place] Platelet mean volume (Bld) [Entitic vol] 10.2 fL 7.4 - 10.4 fL [place] Platelets (Bld) [#/Vol] 166 10*3/uL 140 - 440 10*3/uL [place] RBC (Bld) [#/Vol] 3.54 10*6/uL Low 3.8 - 5.2 10*6/uL [place] WBC (Bld) [#/Vol] 5.4 10*3/uL 3.6 - 10.7 10*3/uL [place] Test Performed by [facility], [address] [place] [address] [place], [place] Comp Metabolic Panelon 02-20 AST [Catalytic activity/Vol] 990 U/L High 15-46 [facility] Comment on above: Performed By: #### C MP3 ####[place] [address] [place] [address] ALP [Catalytic activity/Vol] 93 U/L Normal 38-126 [facility] Comment on above: Performed By: #### C MP3 ####[place] [address] [place] [address] ALT [Catalytic activity/Vol] 734 U/L High 13-69 [facility] Comment on above: Performed By: #### C MP3 ####[place] [address] [place] [address] Calcium [Mass/Vol] 8.4 mg/dL Normal 8.4-10.4 [facility] Comment on above: Performed By: #### C MP3 ####[place] [address] [place] [address] Glucose [Mass/Vol] 89 mg/dL Normal 70-100 [facility] Comment on above: Performed By: #### C MP3 ####[facility] [place] [address] Anion gap [Moles/Vol] 2 Normal [facility] Comment on above: Performed By: #### C MP3 ####[place] [address] [place] [address] Bilirubin [Mass/Vol] 6.9 mg/dL High 0.2-1.3 [facility] Comment on above: Performed By: #### C MP3 ####[place] [address] [place] [address] CO2 [Moles/Vol] 29 mmol/L Normal 22-30 [facility] Comment on above: Performed By: #### C MP3 ####[place] [address] [place] [address] Creatinine [Mass/Vol] 0.75 mg/dL Normal 0.52-1.25 [facility] Comment on above: Performed By: #### C MP3 ####[address] [place] [address] GFR/1.73 sq M predicted among blacks MDRD (S/P/Bld) [Vol rate/Area] mL/min/{1.73_m2} Normal >60 [facility] Comment on above: Performed By: #### C MP3 ####[address] [place] [address] GFR/1.73 sq M predicted among non-blacks MDRD (S/P/Bld) [Vol rate/Area] mL/min/{1.73_m2} Normal >60 [facility] Comment on above: Result Comment: Sour ce- MDRD equation with creatinine calibration to IDMS(NKDEP) eGFR not recommended for drug dose adjustment Performed By: #### C MP3 ####[address] [place] [address] Protein [Mass/Vol] 6.6 g/dL Normal 6.3-8.2 [facility] Comment on above: Performed By: #### C MP3 ####[address] [place] [address] Urea nitrogen [Mass/Vol] 6 mg/dL Low 7-20 [facility] Comment on above: Performed By: #### C MP3 ####[address] [place] [address] Potassium [Moles/Vol] 3.9 mmol/L Normal 3.5-5.1 [facility] Comment on above: Performed By: #### C MP3 ####[address] [place] [address] Sodium [Moles/Vol] 141 mmol/L Normal 135-145 [facility] Comment on above: Performed By: #### C MP3 ####[facility] [place] [address] Albumin [Mass/Vol] 3.2 g/dL Low 3.5-5.0 [facility] Comment on above: Performed By: #### C MP3 ####[facility] [place] [address] Chloride [Moles/Vol] 110 mmol/L High 98-107 [facility] Comment on above: Performed By: #### C MP3 ####[facility] [facility] [place] [address] Comprehensive Metabolic Pane darío 02-20-2019 Albumin [Mass/Vol] 3.2 g/dL Low 3.5 - 5 g/dL [place] ALP [Catalytic activity/Vol] 93 U/L 38 - 126 U/L [place] ALT [Catalytic activity/Vol] 734 U/L High 13 - 69 U/L [place] Anion gap [Moles/Vol] 2 mmol/L [place] AST [Catalytic activity/Vol] 990 U/L High 15 - 46 U/L [place] Bilirubin Ql (U) 6.9 mg/dL High 0.2 - 1.3 mg/dL [place] Calcium [Mass/Vol] 8.4 mg/dL 8.4 - 10. 4 mg/dL [place] Chloride [Moles/Vol] 110 mmol/L High 98 - 10 7 mmol/L [place] CO2 [Moles/Vol] 29 mmol/L 22 - 30 mmol/L [place] Creatinine [Mass/Vol] 0.75 mg/dL 0.52 - 1.25 mg/dL [place] EGFR IF NonAfrican [place] >60.0 >60 mL/min [place] Comment on above: Source- MDRD equatio n with creatinine calibration to IDMS(NKDEP) eGFR not recommended for drug dose adjustment GFR/1.73 sq M predicted among blacks MDRD (S/P/Bld) [Vol rate/Area] mL/min/{1.73_m2} >60 mL/min [place] Glucose [Mass/Vol] 89 mg/dL 70 - 100 mg/dL [place] Interpretation and review of laboratory results Abnormal [place] Potassium [Moles/Vol] 3.9 mmol/L 3.5 - 5.1 mmol/L [place] Protein [Mass/Vol] 6.6 g/dL 6.3 - 8.2 g/dL [place] Sodium [Moles/Vol] 141 mmol/L 135 - 145 mmol/L [place] Urea nitrogen [Mass/Vol] 6 mg/dL Low 7 - 20 mg/dL [place] Test Performed by [facility], [address] [place], [place] [address] [place] Hemogramon 02-20-2019 Erythrocyte distribution width (RBC) [Ratio] 15.7 % High 11.5-14.5 [facility] Comment on above: Performed By: #### H EMOG ####[place] [address] [place] [address] Hematocrit (Bld) [Volume fraction] 32.6 % Low 35.0-47.0 [facility] Comment on above: Performed By: #### H EMOG ####[address] [place] [address] Hemoglobin (Bld) [Mass/Vol] 11.2 g/dL Low 11.7-16.0 [facility] Comment on above: Performed By: #### H EMOG ####[place] [address] [place] [address] MCH (RBC) [Entitic mass] 31.8 pg Normal 26.0-34.0 [facility] Comment on above: Performed By: #### H EMOG ####[address] [place] [address] MCHC (RBC) [Mass/Vol] 34.5 % Normal 32.0-36.0 [facility] Comment on above: Performed By: #### H EMOG ####[address] [place] [address] MCV (RBC) [Entitic vol] 92.0 fL Normal 79.0-98.0 [facility] Comment on above: Performed By: #### H EMOG ####[place] [address] [place] [address] Platelet mean volume (Bld) [Entitic vol] 10.2 fL Normal 7.4-10.4 [facility] Comment on above: Performed By: #### H EMOG ####[place] [address] [place] [address] Platelets (Bld) [#/Vol] 166 10*3/uL Normal 140-440 [facility] Comment on above: Performed By: #### H EMOG ####[address] [place] [address] RBC (Bld) [#/Vol] 3.54 10*6/uL Low 3.80-5.20 [facility] Comment on above: Performed By: #### H EMOG ####[address] [place] [address] WBC (Bld) [#/Vol] 5.4 10*3/uL Normal 3.6-10.7 [facility] Comment on above: Performed By: #### H EMOG ####[address] [place] [address] ACETAMINOPHEN LEVELon 2018 Acetaminophen [Mass/Vol] <10.0 10 - 30 ug/mL [place] AMMONIAon 02-19-2019 Ammonia (P) [Mass/Vol] 15 umol/L 9 - 3 0 umol/L [place] APTTon 02-19-2019 aPTT Coag (Bld) [Time] 29.2 s Normal 20.0-30.5 [facility] Comment on above: Result Comment: NOTE : The therapeutic time for Heparin anticoagulation, based on Xa activity inhibition, is an APTT of 46-80 seconds. Performed By: #### A PTT ####[place] [address] [place] [address] aPTT Coag (Bld) [Time] 29.2 s 20 - 30.5 s [place] Comment on above: NOTE: The therapeuti c time for Heparin anticoagulation, based on Xa activity inhibition, is an APTT of 46-80 seconds. Test Performed by [facility], [address] [place] [address] [place] Acetaminophenon 02-19-2019 Acetaminophen [Mass/Vol] < 10.0 Normal 10.0-30.0 [facility] Comment on above: Performed By: #### H EMDF, PT, LACT3, NH33, LIPA4, ACET4, CMP3, CRP2, GGT3, BILD3 ####[facility] [place] [address] Acute Hepatitis Panelon 02-02 Hep B Surface Ag DETECTED Abnormal Not-Detecte d [facility] Comment on above: Result Comment: Conf irmation to follow Performed By: #### H EPAN ####[address] #### MSO ####[employer] GENERIC SEND[employer] Hep B Core IgM DETECTED Abnormal Not-Detecte d [facility] Comment on above: Performed By: #### H EPAN ####[facility] [employer] [address] #### MSO ####MSO GENERIC SENDOUT Hep A Virus Ab,IgM NOT DETECTED Normal Not-Detec te d [facility] Comment on above: Performed By: #### H EPAN ####[address] #### MSO ####MSO GENERIC SENDOUT Hep C Antibody NOT DETECTED Normal Not-Detecte d [facility] Comment on above: Result Comment: Jennifer ents with DETECTED Hepatitis C Ab results should have a new specimen submitted for supplemental testing with a Hepatitis C Quantitative RNA assay (viral load), if clinically indicated. Performed By: #### H EPAN ####[facility] [employer] [address] #### MSO ####MSO GENERIC SENDOUT Add On Lab Teston 02-19-2019 Sodium [Moles/Vol] Accepted [place] Comment on above: Specimen available & acceptable for analysis. Test Performed by [facility], [address] [place] [address] [place] Add on test from HISon 02-19 Add on test from HIS Accepted Normal [facility] Comment on above: Result Comment: Spec imen available & acceptable for analysis. Performed By: #### A DDON ####[facility] [place] [address] Ammoniaon 02-19-2019 Ammonia (P) [Mass/Vol] 15 umol/L Normal 02-01 [facility] Comment on above: Performed By: #### H EMDF, PT, LACT3, NH33, LIPA4, ACET4, CMP3, CRP2, GGT3, BILD3 #### [facility] [address] [place] [address] Bilirubin, Directon 02-20-20 19 Bilirubin.direct [Mass/Vol] 1.7 mg/dL High 0 - 0.3 mg/dL [place] Bilirubin,Directon 9 Bilirubin.direct [Mass/Vol] 1.7 mg/dL High 0.0-0.3 [facility] Comment on above: Performed By: #### H EMDF, PT, LACT3, NH33, LIPA4, ACET4, CMP3, CRP2, GGT3, BILD3 ####[facility] [place] [address] C-Reactive Proteinon 019 CRP [Mass/Vol] 20.8 mg/L High 0.0-6.0 [facility] Comment on above: Result Comment: . Performed By: #### H EMDF, PT, LACT3, NH33, LIPA4, ACET4, CMP3, CRP2, GGT3, BILD3 ####[facility] [place] [address] CRP [Mass/Vol] 20.8 mg/L High 0 - 6 mg/L [place] Comment on above: . Interpretation and review of laboratory results Abnormal [place] Test Performed by [facility], [address] [place] [address] [place] Abdomen Pelvis W Contrast on 02-19-2019 Patient Name: TIM RAMOS ---CT--- Exam Date/Time 02/19/2019 03:55:[address] Abdomen/Pelvis w/ IV Contrast (IV Onl Ordering Physician DO CHAVEZ DAVID J Accession Number [id number] CPT4 Codes 36699 (CT Abdomen/Pelvis w/ IV Contrast (IV Onl), Q9967 (CT ISOVUE 370MG/[id number]&1) Reason For Exam Epigastric/RUQ pain, ?scleral icterus Report CT ABDOMEN AND PELVIS WITH CONTRAST CLINICAL INDICATION: Abdominal pain. TECHNIQUE: Multi-axial 3mm sections through the abdomen and pelvis following 75 mL of Isoview contrast media. Coronal and sagittal reconstructions were reviewed. COMPARISON: None. FINDINGS: Lower thorax: Normal. Stomach: Unremarkable. Liver: Normal size and contours. No focal lesion. Biliary tree: Small amount of pericholecystic free fluid. The common extrahepatic duct is dilated up to 1 cm. Mild intrahepatic biliary dilatation. However the gallbladder is unremarkable by CT. Spleen: Normal. Adrenals: Normal. Pancreas: Normal. Kidneys: Symmetric contrast enhancement without evidence of hydronephrosis. 3 cm interpolar right renal cyst. Otherwise no focal renal lesion is identified. Free air or fluid: None. Mesenteric/retroperitoneal : No adenopathy or inflammation. Aorta: Normal caliber of aorta and bilateral common iliac arteries. Bowel: Normal appendix without inflammatory change in the right lower quadrant. No inflammatory change or bowel dilatation is noted. Urinary bladder: Unremarkable. Abdominal wall: No ventral hernia is evident. Pelvic organs/viscera: The uterus is not identified. Inguinal lymphadenopathy: None. Osseous structures: Mild L5-S1 intervertebral disc space narrowing. Otherwise unremarkable osseous structures. IMPRESSION: Small amount of pericholecystic free fluid. The common extrahepatic duct is dilated up to 1 cm. Mild intrahepatic biliary dilatation. However the gallbladder is unremarkable by CT. Report Dictated on Workstation: [id number] --- Final --- Dictating Physician: MD CARROLL JASON Signed Date and Time: 02/19/2019 4:46 am Signed by: MD CARROLL JASON Transcribed Date and Time: 02/19/2019 4:47 [facility], [place], [facility] Incoming Radiology Results From [facility] - 02/19/2019 4:47 AM EDT Patient Name: TIM CORDOVA ---CT--- Exam Date/Time 02/19/2019 03:55:[address] Abdomen/Pelvis w/ IV Contrast (IV Onl Ordering Physician DO CAHVEZ DAVID J Accession Number [id number] CPT4 Codes 89239 (CT Abdomen/Pelvis w/ IV Contrast (IV Onl), Q9967 (CT ISOVUE 370MG/ML&[id number]&ML&1) Reason For Exam Epigastric/RUQ pain, ?scleral icterus Report CT ABDOMEN AND PELVIS WITH CONTRAST CLINICAL INDICATION: Abdominal pain. TECHNIQUE: Multi-axial 3mm sections through the abdomen and pelvis following 75 mL of Isoview contrast media. Coronal and sagittal reconstructions were reviewed. COMPARISON: None. FINDINGS: Lower thorax: Normal. Stomach: Unremarkable. Liver: Normal size and contours. No focal lesion. Biliary tree: Small amount of pericholecystic free fluid. The common extrahepatic duct is dilated up to 1 cm. Mild intrahepatic biliary dilatation. However the gallbladder is unremarkable by CT. Spleen: Normal. Adrenals: Normal. Pancreas: Normal. Kidneys: Symmetric contrast enhancement without evidence of hydronephrosis. 3 cm interpolar right renal cyst. Otherwise no focal renal lesion is identified. Free air or fluid: None. Mesenteric/retroperitoneal : No adenopathy or inflammation. Aorta: Normal caliber of aorta and bilateral common iliac arteries. Bowel: Normal appendix without inflammatory change in the right lower quadrant. No inflammatory change or bowel dilatation is noted. Urinary bladder: Unremarkable. Abdominal wall: No ventral hernia is evident. Pelvic organs/viscera: The uterus is not identified. Inguinal lymphadenopathy: None. Osseous structures: Mild L5-S1 intervertebral disc space narrowing. Otherwise unremarkable osseous structures. IMPRESSION: Small amount of pericholecystic free fluid. The common extrahepatic duct is dilated up to 1 cm. Mild intrahepatic biliary dilatation. However the gallbladder is unremarkable by CT. Report Dictated on Workstation: [id number] --- Final --- Dictating Physician: MD CARROLL JASON Signed Date and Time: 02/19/2019 4:46 am Signed by: MD CARROLL JASON Transcribed Date and Time: 02/19/2019 4:47 [place] Abdomen/Pelvis w/ Contras ton 02-19-2019 CT Abdomen/Pelvis w/ Contrast Patient Name: TIM CORDOVA CT Exam Date/Time 02/19/2019 03:55:[address] Abdomen/Pelvis w/ IV Contrast (IV Onl Ordering Physician DO CHAVEZ DAVID J Accession Number [id number] CPT4 Codes 62233 (CT Abdomen/Pelvis w/ IV Contrast (IV Onl), Q9967 (CT ISOVUE 370MG/[id number] Land1) Reason For Exam Epigastric/RUQ pain, ?scleral icterus Report CT ABDOMEN AND PELVIS WITH CONTRAST CLINICAL INDICATION: Abdominal pain. TECHNIQUE: Multi-axial 3mm sections through the abdomen and pelvis following 75 mL of Isoview contrast media. Coronal and sagittal reconstructions were reviewed. COMPARISON: None. FINDINGS: Lower thorax: Normal. Stomach: Unremarkable. Liver: Normal size and contours. No focal lesion. Biliary tree: Small amount of pericholecystic free fluid. The common extrahepatic duct is dilated up to 1 cm. Mild intrahepatic biliary dilatation. However the gallbladder is unremarkable by CT. Spleen: Normal. Adrenals: Normal. Pancreas: Normal. Kidneys: Symmetric contrast enhancement without evidence of hydronephrosis. 3 cm interpolar right renal cyst. Otherwise no focal renal lesion is identified. Free air or fluid: None. Mesenteric/retroperitoneal : No adenopathy or inflammation. Aorta: Normal caliber of aorta and bilateral common iliac arteries. Bowel: Normal appendix without inflammatory change in the right lower quadrant. No inflammatory change or bowel dilatation is noted. Urinary bladder: Unremarkable. Abdominal wall: No ventral hernia is evident. Pelvic organs/viscera: The uterus is not identified. Inguinal lymphadenopathy: None. Osseous structures: Mild L5-S1 intervertebral disc space narrowing. Otherwise unremarkable osseous structures. IMPRESSION: Small amount of pericholecystic free fluid. The common extrahepatic duct is dilated up to 1 cm. Mild intrahepatic biliary dilatation. However the gallbladder is unremarkable by CT. Report Dictated on Workstation: [id number] Final Dictating Physician: MD CARROLL JASON Signed Date and Time: 02/19/2019 4:46 am Signed by: MD CARROLL JASON Transcribed Date and Time: 02/19/2019 4:47 Normal [facility] Comp Metabolic Panelon 02-19 AST [Catalytic activity/Vol] 903 U/L High 15-46 [facility] Comment on above: Performed By: #### H EMDF, PT, LACT3, NH33, LIPA4, ACET4, CMP3, CRP2, GGT3, BILD3 ####[facility] [place] [address] ALP [Catalytic activity/Vol] 127 U/L High 38-126 [facility] Comment on above: Performed By: #### H EMDF, PT, LACT3, NH33, LIPA4, ACET4, CMP3, CRP2, GGT3, BILD3 ####[place] [address] [place] [address] ALT [Catalytic activity/Vol] 768 U/L High 13-69 [facility] Comment on above: Performed By: #### H EMDF, PT, LACT3, NH33, LIPA4, ACET4, CMP3, CRP2, GGT3, BILD3 ####[facility] [place] [address] Anion gap [Moles/Vol] 9 Normal [facility] Comment on above: Performed By: #### H EMDF, PT, LACT3, NH33, LIPA4, ACET4, CMP3, CRP2, GGT3, BILD3 ####[facility] [place] [address] Bilirubin [Mass/Vol] 6.2 mg/dL High 0.2-1.3 [facility] Comment on above: Performed By: #### H EMDF, PT, LACT3, NH33, LIPA4, ACET4, CMP3, CRP2, GGT3, BILD3 ####[facility] [place] [address] Calcium [Mass/Vol] 9.4 mg/dL Normal 8.4-10.4 [facility] Comment on above: Performed By: #### H EMDF, PT, LACT3, NH33, LIPA4, ACET4, CMP3, CRP2, GGT3, BILD3 ####[place] [address] [place] [address] CO2 [Moles/Vol] 24 mmol/L Normal 22-30 [facility] Comment on above: Performed By: #### H EMDF, PT, LACT3, NH33, LIPA4, ACET4, CMP3, CRP2, GGT3, BILD3 ####[place] [address] [place] [address] Glucose [Mass/Vol] 121 mg/dL High 70-100 [facility] Comment on above: Performed By: #### H EMDF, PT, LACT3, NH33, LIPA4, ACET4, CMP3, CRP2, GGT3, BILD3 ####[place] [address] [place] [address] Protein [Mass/Vol] 7.8 g/dL Normal 6.3-8.2 [facility] Comment on above: Performed By: #### H EMDF, PT, LACT3, NH33, LIPA4, ACET4, CMP3, CRP2, GGT3, BILD3 ####[place] [address] [place] [address] Urea nitrogen [Mass/Vol] 5 mg/dL Low 7-20 [facility] Comment on above: Performed By: #### H EMDF, PT, LACT3, NH33, LIPA4, ACET4, CMP3, CRP2, GGT3, BILD3 ####[place] [address] [place] [address] Creatinine [Mass/Vol] 0.60 mg/dL Normal 0.52-1.25 [facility] Comment on above: Performed By: #### H EMDF, PT, LACT3, NH33, LIPA4, ACET4, CMP3, CRP2, GGT3, BILD3 ####[place] [address] [place] [address] GFR/1.73 sq M predicted among blacks MDRD (S/P/Bld) [Vol rate/Area] mL/min/{1.73_m2} Normal >60 [facility] Comment on above: Performed By: #### H EMDF, PT, LACT3, NH33, LIPA4, ACET4, CMP3, CRP2, GGT3, BILD3 ####[place] [address] [facility] [place] [address] GFR/1.73 sq M predicted among non-blacks MDRD (S/P/Bld) [Vol rate/Area] mL/min/{1.73_m2} Normal >60 [facility] Comment on above: Result Comment: Sour ce- MDRD equation with creatinine calibration to IDMS(NKDEP) eGFR not recommended for drug dose adjustment Performed By: #### H EMDF, PT, LACT3, NH33, LIPA4, ACET4, CMP3, CRP2, GGT3, BILD3 ####[place] [address] [facility] [place] [address] Potassium [Moles/Vol] 3.7 mmol/L Normal 3.5-5.1 [facility] [place] Comment on above: Performed By: #### H EMDF, PT, LACT3, NH33, LIPA4, ACET4, CMP3, CRP2, GGT3, BILD3 ####[address] [facility] [place] [address] Albumin [Mass/Vol] 4.0 g/dL Normal 3.5-5.0 [facility] Comment on above: Performed By: #### H EMDF, PT, LACT3, NH33, LIPA4, ACET4, CMP3, CRP2, GGT3, BILD3 ####[place] [address] [facility] [place] [address] Chloride [Moles/Vol] 108 mmol/L High 98-107 [facility] Comment on above: Performed By: #### H EMDF, PT, LACT3, NH33, LIPA4, ACET4, CMP3, CRP2, GGT3, BILD3 ####[place] [address] [facility] [place] [address] Sodium [Moles/Vol] 141 mmol/L Normal 135-145 [facility] Comment on above: Performed By: #### H EMDF, PT, LACT3, NH33, LIPA4, ACET4, CMP3, CRP2, GGT3, BILD3 ####[address] [facility] [place] [address] Complete Urinalysison 10-18- 2019 Appearance (U) Clear Normal [facility] Comment on above: Result Comment: Refe rence Range: Clear Performed By: #### C UA2, DRGA4 ####[facility] [place] [address] Bilirubin,Urine 0.5 mg/dL Normal [facility] Comment on above: Result Comment: Refe rence Range: Negative Performed By: #### C UA2, DRGA4 ####[place] [address] [place] [address] Color (U) Yellow Normal [facility] Comment on above: Result Comment: Refe rence Range: Lt. Yellow Performed By: #### C UA2, DRGA4 ####[place] [address] [place] [address] Glucose Ql (U) Normal Normal [facility] Comment on above: Result Comment: Refe rence Range: Normal (<70) Performed By: #### C UA2, DRGA4 ####[place] [address] [place] [address] Ketone,Urine Negative Normal [facility] Comment on above: Result Comment: Refe rence Range: Negative Performed By: #### C UA2, DRGA4 ####[place] [address] [place] [address] Leukocytes,Urine Negative Normal [facility] Comment on above: Result Comment: Refe rence Range: Negative Performed By: #### C UA2, DRGA4 ####[place] [address] [place] [address] Nitrites,Urine Negative Normal [facility] Comment on above: Result Comment: Refe rence Range: Negative Performed By: #### C UA2, DRGA4 ####[facility] [place] [address] Occult Blood,Urine Negative Normal [facility] Comment on above: Result Comment: Refe rence Range: Negative Performed By: #### C UA2, DRGA4 ####[place] [address] [place] [address] pH (U) 6.0 Normal 5.0-8.0 [facility] Comment on above: Performed By: #### C UA2, DRGA4 ####[facility] [place] [address] Protein (U) [Mass/Vol] Negative Normal [facility] Comment on above: Result Comment: Refe rence Range: Negative Performed By: #### C UA2, DRGA4 ####[facility] [place] [address] Specific Gordon,Urine > 1.030 Normal 1.005-1.030 S [facility] Comment on above: Performed By: #### C UA2, DRGA4 ####[facility] [place] [address] Urobilinogen,Urine Normal Normal [facility] Comment on above: Result Comment: Refe rence Range: Normal (0-1) Performed By: #### C UA2, DRGA4 ####[facility] [place] [address] Comprehensive Metabolic Pane darío 02-19-2019 Albumin [Mass/Vol] 4.0 g/dL 3.5 - 5 g/dL [place], [place] ALP [Catalytic activity/Vol] 127 U/L High 38 - 126 U/L [place] ALT [Catalytic activity/Vol] 768 U/L High 13 - 69 U/L [place] Anion gap [Moles/Vol] 9 mmol/L [place], [place] AST [Catalytic activity/Vol] 903 U/L High 15 - 46 U/L [place] Bilirubin Ql (U) 6.2 mg/dL High 0.2 - 1.3 mg/dL [place] Calcium [Mass/Vol] 9.4 mg/dL 8.4 - 10. 4 mg/dL [place] Chloride [Moles/Vol] 108 mmol/L High 98 - 10 7 mmol/L [place] CO2 [Moles/Vol] 24 mmol/L 22 - 30 mmol/L [place] Creatinine [Mass/Vol] 0.6 mg/dL 0.52 - 1.25 mg/dL [place] EGFR IF NonAfrican Welsh >60.0 >60 mL/min [place] Comment on above: Source- MDRD equatio n with creatinine calibration to IDMS(NKDEP) eGFR not recommended for drug dose adjustment GFR/1.73 sq M predicted among blacks MDRD (S/P/Bld) [Vol rate/Area] mL/min/{1.73_m2} >60 mL/min [place] Glucose [Mass/Vol] 121 mg/dL High 70 - 100 mg/dL [place] Interpretation and review of laboratory results Abnormal [place] Potassium [Moles/Vol] 3.7 mmol/L 3.5 - 5.1 mmol/L [place] Protein [Mass/Vol] 7.8 g/dL 6.3 - 8.2 g/dL [place] Sodium [Moles/Vol] 141 mmol/L 135 - 145 mmol/L [place] Urea nitrogen [Mass/Vol] 5 mg/dL Low 7 - 20 mg/dL [place] Test Performed by [facility], [address] [place], [place] [address] [place] [address] Drugs of Abuseon 02-19-2019 Phencyclidine (PCP), Ur Negative Normal [facility] Comment on above: Result Comment: The expected value for all of the drugs listed above is Negative. The following drugs or drug groups have been screened for by Immunoassay at the following thresholds: Amphetamine class (1000 ng/mL), Barbiturates (200 ng/mL), Benzodiazepines (200 ng/mL), Cocaine (300 ng/mL), Methadone (300 ng/mL), Opiates (300 ng/mL), Oxycodone (100 ng/mL), and PCP (25 ng/mL). NOTE: These results are for medical treatment only. Analysis performed using non-forensic procedures. POSITIVE results are NOT confirmed by a more specific alternative method unless requested. If confirmation is needed, request confirmation under separate order. Performed By: #### C UA2, DRGA4 ####[place] [address] [place] [address] Opiates, Ur Positive Normal [facility] Comment on above: Performed By: #### C UA2, DRGA4 ####[facility] [facility] [place] [address] Cocaine, Ur Negative Normal [facility] Comment on above: Performed By: #### C UA2, DRGA4 ####[facility] [place] [address] Methadone, Ur Negative Normal [facility] Comment on above: Performed By: #### C UA2, DRGA4 ####[facility] [address] [place] [address] Benzodiazepines, Ur Negative Normal [facility] Comment on above: Performed By: #### C UA2, DRGA4 ####[facility] [address] [place] [address] Amphetamines, Ur Positive Normal [facility] Comment on above: Performed By: #### C UA2, DRGA4 ####[facility] [place] [address] Barbiturates, Ur Negative Normal [facility] Comment on above: Performed By: #### C UA2, DRGA4 ####[facility] [place] [address] Oxycodone/Oxymorphine, Ur Negative Normal [facility] Comment on above: Performed By: #### C UA2, DRGA4 ####[facility] [address] [place] [address] GGTon 02-19-2019 Gamma glutamyl transferase [Catalytic activity/Vol] 175 U/L High 12-58 [facility] Comment on above: Performed By: #### H EMDF, PT, LACT3, NH33, LIPA4, ACET4, CMP3, CRP2, GGT3, BILD3 ####[facility] [place] [address] Gamma GTon 02-19-2019 Gamma glutamyl transferase [Catalytic activity/Vol] 175 U/L High 12 - 58 U/L [place] HEPATITIS PANEL, ACUTEon HAV IgM IA Qn (S) NOT DETECTED Not-Detect e d [place] Hep B Core Ab, IgM DETECTED Abnormal Not-Detec te d [place] Hepatitis B Surface Ag DETECTED Abnormal Not-D [place]ecte [place] Comment on above: Confirmation to foll ow Hepatitis C Ab NOT DETECTED Not-Detecte d NA [place] Comment on above: Patients with DETECT ED Hepatitis C Ab results should have a new specimen submitted for supplemental testing with a Hepatitis C Quantitative RNA assay (viral load), if clinically indicated. Interpretation and review of laboratory results Abnormal [place] Test Performed by [facility], [address] [place] [address], [place] [address] [place] Hemogram (CBC) w/Auto Diffon 02-19-2019 Absolute Baso # 0.1 10*3/uL 0 - 0.2 10*3/uL [place] Absolute Neut # 4.5 10*3/uL 1.8 - 7 10*3/uL [place] Basophils/100 WBC (Bld) 1.4 % 0 - 2 % [place] Eosinophils (Bld) [#/Vol] 0.3 10*3/uL 0 - 0.5 10*3/uL [place] Eosinophils/100 WBC (Bld) 4.0 % 1 - 6 % [place] Erythrocyte distribution width (RBC) [Ratio] 15.8 % High 11.5 - 14.5 % [place] Granulocytes/100 WBC (Bld) 55.3 % 40 - 80 % [place] Hematocrit (Bld) [Volume fraction] 39.3 % 35 - 47 % [place] Hemoglobin (Bld) [Mass/Vol] 13.2 g/dL 11.7 - 16 g/dL [place] Interpretation and review of laboratory results Abnormal [place] Lymphocytes (Bld) [#/Vol] 2.6 10*3/uL 1 - 4.3 10*3/uL [place] Lymphocytes/100 WBC (Bld) 31.7 % 20 - 40 % [place] MCH (RBC) [Entitic mass] 30.9 pg 26 - 34 pg [place] MCHC (RBC) [Mass/Vol] 33.7 % 32 - 36 % [place] MCV (RBC) [Entitic vol] 91.7 fL 79 - 98 fL [place] Monocytes (Bld) [#/Vol] 0.6 10*3/uL 0 - 0.8 10*3/uL [place] Monocytes/100 WBC (Bld) 7.6 % 2 - 10 % [place] Platelet mean volume (Bld) [Entitic vol] 10.3 fL 7.4 - 10.4 fL [place] Platelets (Bld) [#/Vol] 180 10*3/uL 140 - 440 10*3/uL [place] RBC (Bld) [#/Vol] 4.28 10*6/uL 3.8 - 5.2 10*6/uL [place] WBC (Bld) [#/Vol] 8.1 10*3/uL 3.6 - 10.7 10*3/uL [place] Test Performed by [facility], [address] [place] [address] [place] Hemogram w/ Autodiffon 02-19 Abs Baso Cnt 0.1 10*3/uL Normal 0.0-0.2 [facility] Comment on above: Performed By: #### H EMDF, PT, LACT3, NH33, LIPA4, ACET4, CMP3, CRP2, GGT3, BILD3 #### [facility] [address] [place] [address] Abs Neutrophile Cnt 4.5 10*3/uL Normal 1.8-7.0 [facility] Comment on above: Performed By: #### H EMDF, PT, LACT3, NH33, LIPA4, ACET4, CMP3, CRP2, GGT3, BILD3 #### [facility] [address] [place] [address] Basophils/100 WBC (Bld) 1.4 % Normal 0.0-2.0 [facility] Comment on above: Performed By: #### H EMDF, PT, LACT3, NH33, LIPA4, ACET4, CMP3, CRP2, GGT3, BILD3 #### [facility] [address] [place] [address] Eosinophils (Bld) [#/Vol] 0.3 10*3/uL Normal 0.0-0.5 [facility] Comment on above: Performed By: #### H EMDF, PT, LACT3, NH33, LIPA4, ACET4, CMP3, CRP2, GGT3, BILD3 #### [facility] [address] [place] [address] Eosinophils/100 WBC (Bld) 4.0 % Normal 1.0-6.0 [facility] Comment on above: Performed By: #### H EMDF, PT, LACT3, NH33, LIPA4, ACET4, CMP3, CRP2, GGT3, BILD3 #### [facility] [address] [place] [address] Erythrocyte distribution width (RBC) [Ratio] 15.8 % High 11.5-14.5 [facility] Comment on above: Performed By: #### H EMDF, PT, LACT3, NH33, LIPA4, ACET4, CMP3, CRP2, GGT3, BILD3 #### [facility] [address] [place] [address] Granulocytes/100 WBC (Bld) 55.3 % Normal 40.0-80.0 [facility] Comment on above: Performed By: #### H EMDF, PT, LACT3, NH33, LIPA4, ACET4, CMP3, CRP2, GGT3, BILD3 #### [facility] [address] [place] [address] Hematocrit (Bld) [Volume fraction] 39.3 % Normal 35.0-47.0 [facility] Comment on above: Performed By: #### H EMDF, PT, LACT3, NH33, LIPA4, ACET4, CMP3, CRP2, GGT3, BILD3 #### [facility] [address] [place] [address] Hemoglobin (Bld) [Mass/Vol] 13.2 g/dL Normal 11.7-16.0 [facility] Comment on above: Performed By: #### H EMDF, PT, LACT3, NH33, LIPA4, ACET4, CMP3, CRP2, GGT3, BILD3 #### [facility] [address] [place] [address] Lymphocytes (Bld) [#/Vol] 2.6 10*3/uL Normal 1.0-4.3 [facility] Comment on above: Performed By: #### H EMDF, PT, LACT3, NH33, LIPA4, ACET4, CMP3, CRP2, GGT3, BILD3 #### [facility] [address] [place] [address] Lymphocytes/100 WBC (Bld) 31.7 % Normal 20.0-40.0 [facility] Comment on above: Performed By: #### H EMDF, PT, LACT3, NH33, LIPA4, ACET4, CMP3, CRP2, GGT3, BILD3 #### [facility] [address] [place] [address] MCH (RBC) [Entitic mass] 30.9 pg Normal 26.0-34.0 [facility] Comment on above: Performed By: #### H EMDF, PT, LACT3, NH33, LIPA4, ACET4, CMP3, CRP2, GGT3, BILD3 #### [facility] [address] [place] [address] MCHC (RBC) [Mass/Vol] 33.7 % Normal 32.0-36.0 [facility] Comment on above: Performed By: #### H EMDF, PT, LACT3, NH33, LIPA4, ACET4, CMP3, CRP2, GGT3, BILD3 #### [facility] [address] [place] [address] MCV (RBC) [Entitic vol] 91.7 fL Normal 79.0-98.0 [facility] Comment on above: Performed By: #### H EMDF, PT, LACT3, NH33, LIPA4, ACET4, CMP3, CRP2, GGT3, BILD3 #### [facility] [address] [place] [address] Monocytes (Bld) [#/Vol] 0.6 10*3/uL Normal 0.0-0.8 [facility] Comment on above: Performed By: #### H EMDF, PT, LACT3, NH33, LIPA4, ACET4, CMP3, CRP2, GGT3, BILD3 #### [facility] [address] [place] [address] Monocytes/100 WBC (Bld) 7.6 % Normal 2.0-10.0 [facility] Comment on above: Performed By: #### H EMDF, PT, LACT3, NH33, LIPA4, ACET4, CMP3, CRP2, GGT3, BILD3 #### [facility] [address] [place] [address] Platelet mean volume (Bld) [Entitic vol] 10.3 fL Normal 7.4-10.4 [facility] Comment on above: Performed By: #### H EMDF, PT, LACT3, NH33, LIPA4, ACET4, CMP3, CRP2, GGT3, BILD3 #### [facility] [address] [place] [address] Platelets (Bld) [#/Vol] 180 10*3/uL Normal 140-440 [facility] Comment on above: Performed By: #### H EMDF, PT, LACT3, NH33, LIPA4, ACET4, CMP3, CRP2, GGT3, BILD3 #### [facility] [address] [place] [address] RBC (Bld) [#/Vol] 4.28 10*6/uL Normal 3.80-5.20 [facility] Comment on above: Performed By: #### H EMDF, PT, LACT3, NH33, LIPA4, ACET4, CMP3, CRP2, GGT3, BILD3 #### [facility] [address] [place] [address] WBC (Bld) [#/Vol] 8.1 10*3/uL Normal 3.6-10.7 [facility] Comment on above: Performed By: #### H EMDF, PT, LACT3, NH33, LIPA4, ACET4, CMP3, CRP2, GGT3, BILD3 #### [facility] [address] [place] [address] Lactic Acidon 02-19-2019 Lactate [Moles/Vol] 1.1 mmol/L Normal 0.7-2.0 [facility] Comment on above: Performed By: #### H EMDF, PT, LACT3, NH33, LIPA4, ACET4, CMP3, CRP2, GGT3, BILD3 #### [place] [address] [place] [address] Lactic Acid, Plasmaon 2018 Lactate [Moles/Vol] 1.1 mmol/L 0.7 - 2 mmol/L [facility], [place] Lipaseon 02-19-2019 Lipase [Catalytic activity/Vol] 131 U/L Normal 23-300 [facility] Comment on above: Performed By: #### H EMDF, PT, LACT3, NH33, LIPA4, ACET4, CMP3, CRP2, GGT3, BILD3 #### [place] [facility] [address] [place] [address] Lipase [Catalytic activity/Vol] 131 U/L 23 - 300 U/L [facility], [place] MRI ABDOMEN WO CONTRASTon [place], [facility] - 02/19/2019 11:32 AM EDT Patient Name: TIM CORDOVA ---MRI--- Exam Date/Time 02/19/2019 10:57:40 EDT Exam MRI Abdomen w/o Contrast Ordering Physician MD LEONARDO, MEMO Accession Number [id number] CPT4 Codes 05065 () Reason For Exam RUQ PAIN, NO FEVER, NO ELEVATED WBC Report Clinical indications: Right upper quadrant pain FINDINGS: Multiplanar, multisequence imaging of the abdomen was performed without gadolinium. Diffusion-weighted, conventional spin echo, chemical shift and MRCP pulse sequences were acquired. Correlation is made with a CT of the abdomen and pelvis from 02/19/2019. There is borderline dilation of the common bile duct at 7 - 8 mm, without evidence of extrinsic compression. There is no evidence of cholelithiasis or choledocholithiasis. Trace pericholecystic fluid is identified correlating with the CT findings. Moderate, nonspecific periportal edema is also present. There is no evidence of focal parenchymal abnormality in the liver. There is no visible ascites. At 12 x 6.7 x 10 cm, the spleen is slightly enlarged, but shows no focal finding. The adrenal glands and pancreas are within normal limits. There is a right renal cyst measuring approximately 2.5 cm in diameter. The kidneys are otherwise unremarkable. There is no evidence of adenopathy or loculated collection. IMPRESSION: Redemonstration of trace pericholecystic fluid. No evidence of cholelithiasis or choledocholithiasis. Borderline common bile duct dilation. Nonspecific, mild periportal edema. Right renal cyst. Report Dictated on --- Final --- Dictating Physician: MD SHARMA RUSSELL Signed Date and Time: 02/19/2019 11:31 am Signed by: MD SHARMA RUSSELL Transcribed Date and Time: 02/19/2019 11:32 [place], [place] Patient Name: TIM RAMOS ---MRI--- Exam Date/Time 02/19/2019 10:57:40 EDT Exam MRI Abdomen w/o Contrast Ordering Physician MD PATTERSON HASSAN Accession Number [id number] CPT4 Codes 10556 () Reason For Exam RUQ PAIN, NO FEVER, NO ELEVATED WBC Report Clinical indications: Right upper quadrant pain FINDINGS: Multiplanar, multisequence imaging of the abdomen was performed without gadolinium. Diffusion-weighted, conventional spin echo, chemical shift and MRCP pulse sequences were acquired. Correlation is made with a CT of the abdomen and pelvis from 02/19/2019. There is borderline dilation of the common bile duct at 7 - 8 mm, without evidence of extrinsic compression. There is no evidence of cholelithiasis or choledocholithiasis. Trace pericholecystic fluid is identified correlating with the CT findings. Moderate, nonspecific periportal edema is also present. There is no evidence of focal parenchymal abnormality in the liver. There is no visible ascites. At 12 x 6.7 x 10 cm, the spleen is slightly enlarged, but shows no focal finding. The adrenal glands and pancreas are within normal limits. There is a right renal cyst measuring approximately 2.5 cm in diameter. The kidneys are otherwise unremarkable. There is no evidence of adenopathy or loculated collection. IMPRESSION: Redemonstration of trace pericholecystic fluid. No evidence of cholelithiasis or choledocholithiasis. Borderline common bile duct dilation. Nonspecific, mild periportal edema. Right renal cyst. Report Dictated on --- Final --- Dictating Physician: MD SHARMA RUSSELL Signed Date and Time: 02/19/2019 11:31 am Signed by: MD SHARMA RUSSELL Transcribed Date and Time: 02/19/2019 11:32 [place] MRI Abdomen w/o Contraston 1 MRI Abdomen w/o Contrast Patient Name: TIM CORDOVA MRI Exam Date/Time 02/19/2019 10:57:40 EDT Exam MRI Abdomen w/o Contrast Ordering Physician MD PATTERSON HASSAN Accession Number [id number] CPT4 Codes 17423 () Reason For Exam RUQ PAIN, NO FEVER, NO ELEVATED WBC Report Clinical indications: Right upper quadrant pain FINDINGS: Multiplanar, multisequence imaging of the abdomen was performed without gadolinium. Diffusion-weighted, conventional spin echo, chemical shift and MRCP pulse sequences were acquired. Correlation is made with a CT of the abdomen and pelvis from 02/19/2019. There is borderline dilation of the common bile duct at 7 - 8 mm, without evidence of extrinsic compression. There is no evidence of cholelithiasis or choledocholithiasis. Trace pericholecystic fluid is identified correlating with the CT findings. Moderate, nonspecific periportal edema is also present. There is no evidence of focal parenchymal abnormality in the liver. There is no visible ascites. At 12 x 6.7 x 10 cm, the spleen is slightly enlarged, but shows no focal finding. The adrenal glands and pancreas are within normal limits. There is a right renal cyst measuring approximately 2.5 cm in diameter. The kidneys are otherwise unremarkable. There is no evidence of adenopathy or loculated collection. IMPRESSION: Redemonstration of trace pericholecystic fluid. No evidence of cholelithiasis or choledocholithiasis. Borderline common bile duct dilation. Nonspecific, mild periportal edema. Right renal cyst. Report Dictated on Final Dictating Physician: MD SHARMA RUSSELL Signed Date and Time: 02/19/2019 11:31 am Signed by: MD SHARMA RUSSELL Transcribed Date and Time: 02/19/2019 11:32 [facility] Miscellaneous Referred Testo n 02-19-2019 Performed By: see below Normal [facility] Comment on above: Result Comment: [facility] [place] Performed By: #### H EPAN ####[facility] [place] [address]#### MSO ####[facility] Test Name HBsAg Confirm Normal [facility] Comment on above: Performed By: #### H EPAN ####[facility] [place] [address]#### MSO ####[facility] Otheron 02-19-2019 Interpretation and review of laboratory results Abnormal [facility], [place] Test Performed by [facility], [address], [place], [place] [address] [place] [address], [place] Test Performed by [facility], [address], [place], [place] [id number] [place] [address], [place] Test Performed by [facility], [address], [place], [place] [address] [place] [address], [place] Prothrombin Timeon 9 INR Coag (PPP) [Relative time] 1.2 High 0.9-1.1 [facility] Comment on above: Result Comment: Lopez mmended Anticoagulant Therapy: SEE BELOW ----- INR of 2.0 - 3.0 : - Prophylaxis of Venous Thrombosis (high-risk surgery) - Treatment of Venous Thrombosis - Treatment of Pulmonary Embolism (Includes tissue heart valves, Acute Myocardial Infarction to prevent systemic embolism, Valvular Heart Disease, and Atrial Fibrillation) ----- INR of 2.5 - 3.5 : - Mechanical Prosthetic Valves (high risk) - If oral anticoagulant therapy is used to prevent Myocardial Infarction Performed By: #### H EMDF, PT, LACT3, NH33, LIPA4, ACET4, CMP3, CRP2, GGT3, BILD3 #### [facility] [address] [place] [address] PT Coag (PPP) [Time] 11.7 s Normal 9.0-12.0 [facility] Comment on above: Result Comment: . Performed By: #### H EMDF, PT, LACT3, NH33, LIPA4, ACET4, CMP3, CRP2, GGT3, BILD3 #### [facility] [address] [place] [address] Protime-INRon 02-19-2019 INR Coag (PPP) [Relative time] 1.2 {INR} [place], [place] Comment on above: Recommended Anticoag ulant Therapy: SEE BELOW ----- INR of 2.0 - 3.0 : - Prophylaxis of Venous Thrombosis (high-risk surgery) - Treatment of Venous Thrombosis - Treatment of Pulmonary Embolism (Includes tissue heart valves, Acute Myocardial Infarction to prevent systemic embolism, Valvular Heart Disease, and Atrial Fibrillation) ----- INR of 2.5 - 3.5 : - Mechanical Prosthetic Valves (high risk) - If oral anticoagulant therapy is used to prevent Myocardial Infarction Interpretation and review of laboratory results Abnormal [place], [place] PT Coag (PPP) [Time] 11.7 s 9 - 12 s [place], [place] Comment on above: . Test Performed by [facility], [address], [place], [place] [id number] [place] [address] US ABDOMEN LIMITED Specify o rgan? GALLBLADDERon 02-19-2019 Patient Name: TIM RAMOS ---Ultrasound--- Exam Date/Time 02/19/2019 07:19:17 EDT Exam US Abdomen Limited Ordering Physician KIKO RICHARDSON Accession Number [id number] CPT4 Codes [id number] () Reason For Exam Possible cholecystitis versus hepatitis Report Indication: Possible cholecystitis versus hepatitis. Ultrasound of the right upper quadrant was performed. The liver is normal in echotexture. There are no focal intrahepatic masses. The gallbladder is distended and contains a tiny amount of sludge. No shadowing gallstones are visualized. There is nonspecific borderline gallbladder wall thickening. No pericholecystic fluid is visualized. There is no intra or extrahepatic biliary ductal dilatation. The common bile duct measures 6-7 mm. The the visualized portions of the pancreas are unremarkable. Cursory evaluation of the right kidney shows no evidence of hydronephrosis. There is a 2.5 cm right renal parapelvic cyst. Impression: 1. Distended gallbladder containing a small amount sludge. Nonspecific borderline gallbladder wall thickening. No evidence of pericholecystic fluid. If acute cholecystitis is of clinical concern, nuclear medicine HIDA scan would be helpful. 2. 2.5 cm right renal parapelvic cyst. Report Dictated on --- Final --- Dictating Physician: DO TOSCANO ANTHONY Signed Date and Time: 02/19/2019 7:31 am Signed by: DO TOSCANO ANTHONY Transcribed Date and Time: 02/19/2019 7:32 [employer] [place] Incoming Radiology Results From [facility] - 02/19/2019 7:32 AM EDT Patient Name: TIM CORDOVA ---Ultrasound--- Exam Date/Time 02/19/2019 07:19:17 EDT Exam US Abdomen Limited Ordering Physician KIKO RICHARDSON Accession Number [id number] CPT4 Codes 92071 () Reason For Exam Possible cholecystitis versus hepatitis Report Indication: Possible cholecystitis versus hepatitis. Ultrasound of the right upper quadrant was performed. The liver is normal in echotexture. There are no focal intrahepatic masses. The gallbladder is distended and contains a tiny amount of sludge. No shadowing gallstones are visualized. There is nonspecific borderline gallbladder wall thickening. No pericholecystic fluid is visualized. There is no intra or extrahepatic biliary ductal dilatation. The common bile duct measures 6-7 mm. The the visualized portions of the pancreas are unremarkable. Cursory evaluation of the right kidney shows no evidence of hydronephrosis. There is a 2.5 cm right renal parapelvic cyst. Impression: 1. Distended gallbladder containing a small amount sludge. Nonspecific borderline gallbladder wall thickening. No evidence of pericholecystic fluid. If acute cholecystitis is of clinical concern, nuclear medicine HIDA scan would be helpful. 2. 2.5 cm right renal parapelvic cyst. Report Dictated on --- Final --- Dictating Physician: DO TOSCANO ANTHONY Signed Date and Time: 02/19/2019 7:31 am Signed by: DO TOSCANO ANTHONY Transcribed Date and Time: 02/19/2019 7:32 [place], [place] US Abdomen Limitedon 019 US Abdomen Limited Patient Name: TIM RAMOS Ultrasound Exam Date/Time 02/19/2019 07:19:17 EDT Exam US Abdomen Limited Ordering Physician KIKO RICHARDSON Accession Number [id number] CPT4 Codes 39803 () Reason For Exam Possible cholecystitis versus hepatitis Report Indication: Possible cholecystitis versus hepatitis. Ultrasound of the right upper quadrant was performed. The liver is normal in echotexture. There are no focal intrahepatic masses. The gallbladder is distended and contains a tiny amount of sludge. No shadowing gallstones are visualized. There is nonspecific borderline gallbladder wall thickening. No pericholecystic fluid is visualized. There is no intra or extrahepatic biliary ductal dilatation. The common bile duct measures 6-7 mm. The the visualized portions of the pancreas are unremarkable. Cursory evaluation of the right kidney shows no evidence of hydronephrosis. There is a 2.5 cm right renal parapelvic cyst. Impression: 1. Distended gallbladder containing a small amount sludge. Nonspecific borderline gallbladder wall thickening. No evidence of pericholecystic fluid. If acute cholecystitis is of clinical concern, nuclear medicine HIDA scan would be helpful. 2. 2.5 cm right renal parapelvic cyst. Report Dictated on Final Dictating Physician: DO TOSCANO ANTHONY Signed Date and Time: 02/19/2019 7:31 am Signed by: DO TOSCANO ANTHONY Transcribed Date and Time: 02/19/2019 7:32 Normal [facility] Urinalysison 02-19-2019 Appearance (U) Clear [place], [place] Comment on above: Reference Range: Dionicio ar Bilirubin Urine 0.5 mg/dL [place] Comment on above: Reference Range: Neg ative Color (U) Yellow [place] Comment on above: Reference Range: Lt. Yellow Glucose, Ur Normal mg/dL [place] Comment on above: Reference Range: Nor mal (<70) Ketones Ql (U) Negative mg/dL [place] Comment on above: Reference Range: Neg ative LEUKOCYTES, UA Negative Marilyn/uL [place], [place] Comment on above: Reference Range: Neg ative Nitrite, Urine Negative [place] Comment on above: Reference Range: Neg ative Occult Blood,Urine Negative mg/dL [place] Comment on above: Reference Range: Neg ative pH (U) 6.0 [pH] [place] Protein (U) [Mass/Vol] Negative mg/dL [place], [place] Comment on above: Reference Range: Neg ative Specific Gordon, Urine >1.030 [place] Urobilinogen, Urine Normal mg/dL [place] Comment on above: Reference Range: Nor mal (0-1) Test Performed by [facility], [address], [place], [place] [address] [place], [place] Urine Drug Screenon 02-20-20 19 Amphetamines, urine Positive [facility], [place] Barbiturates, Ur Negative [facility], [place] Benzodiazepine Ur Qual Negative [place], [place] Cocaine Metabolites, Ur Negative [facility], [place] Methadone, Urine Negative [facility], [place] Opiates, Urine Positive [facility], [place] Oxycodone Screen, Ur Negative [facility], [place] PCP, Urine Negative [place], [place] Comment on above: The expected value f or all of the drugs listed above is Negative. The following drugs or drug groups have been screened for by Immunoassay at the following thresholds: Amphetamine class (1000 ng/mL), Barbiturates (200 ng/mL), Benzodiazepines (200 ng/mL), Cocaine (300 ng/mL), Methadone (300 ng/mL), Opiates (300 ng/mL), Oxycodone (100 ng/mL), and PCP (25 ng/mL). NOTE: These results are for medical treatment only. Analysis performed using non-forensic procedures. POSITIVE results are NOT confirmed by a more specific alternative method unless requested. If confirmation is needed, request confirmation under separate order. Test Performed by [facility], [address], [place], [place] [address] [place], [place] MRI BRAIN W WO CONTRASTon Patient Name: TIM RAMOS ---MRI--- Exam Date/Time 02/11/2019 13:20:50 EDT Exam MRI Brain w/ + w/o Contrast Ordering Physician SHEY CARVER KAITLIN Accession Number [id number] CPT4 Codes 00982 () Reason For Exam migraines Report MRI BRAIN WITHOUT AND WITH CONTRAST: CLINICAL INDICATION: Migraines TECHNIQUE: Transaxial, sagittal and coronal T1, transaxial fast T2, FLAIR and gradient echo along with diffusion weighted imaging was performed through the brain. Post contrast transaxial and coronal T1 weighted sequences were performed following administration of 20ml gadolinium contrast. COMPARISON: 01/25/2019 FINDINGS: Ventricular system and Extra-axial spaces: Normal in size and morphology for the patient's age. No extracerebral cerebral collection with mass effect. Cerebral and cerebellar parenchyma: No focus of restricted diffusion to suggest acute infarction. No susceptibility artifact on the gradient echo sequence to suggest intracranial hemorrhage. No enhancing mass or edema. Redemonstration of cerebellar tonsillar ectopia of approximately 7 mm. Brainstem: Normal. Sella turcica and pituitary: Prominent pituitary gland is again. Dedicated sellar imaging was not performed on this exam. Vascular system: Normal signal void is noted within the major intracranial vessels. Paranasal sinuses: Clear. Mastoid air cells: Normal. Orbits: Normal. 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 2. Prominent pituitary gland again noted. An underlying pituitary lesion cannot be excluded in the absence of dedicated sellar imaging. 3. No enhancing mass or edema. Report Dictated on --- Final --- Dictating Physician: MD MCKEON NICHOLAS Signed Date and Time: 02/11/2019 1:47 pm Signed by: MD MCKEON NICHOLAS Transcribed Date and Time: 02/11/2019 1:48 [facility], [place], [facility] Incoming Radiology Results From [facility] - 02/11/2019 1:49 PM EDT Patient Name: TIM CORDOVA ---MRI--- Exam Date/Time 02/11/2019 13:20:50 EDT Exam MRI Brain w/ + w/o Contrast Ordering Physician SHEY CARVER KAITLIN Accession Number [id number] CPT4 Codes 86493 () Reason For Exam migraines Report MRI BRAIN WITHOUT AND WITH CONTRAST: CLINICAL INDICATION: Migraines TECHNIQUE: Transaxial, sagittal and coronal T1, transaxial fast T2, FLAIR and gradient echo along with diffusion weighted imaging was performed through the brain. Post contrast transaxial and coronal T1 weighted sequences were performed following administration of 20ml gadolinium contrast. COMPARISON: 01/25/2019 FINDINGS: Ventricular system and Extra-axial spaces: Normal in size and morphology for the patient's age. No extracerebral cerebral collection with mass effect. Cerebral and cerebellar parenchyma: No focus of restricted diffusion to suggest acute infarction. No susceptibility artifact on the gradient echo sequence to suggest intracranial hemorrhage. No enhancing mass or edema. Redemonstration of cerebellar tonsillar ectopia of approximately 7 mm. Brainstem: Normal. Sella turcica and pituitary: Prominent pituitary gland is again. Dedicated sellar imaging was not performed on this exam. Vascular system: Normal signal void is noted within the major intracranial vessels. Paranasal sinuses: Clear. Mastoid air cells: Normal. Orbits: Normal. 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 2. Prominent pituitary gland again noted. An underlying pituitary lesion cannot be excluded in the absence of dedicated sellar imaging. 3. No enhancing mass or edema. Report Dictated on --- Final --- Dictating Physician: MD MCKEON NICHOLAS Signed Date and Time: 02/11/2019 1:47 pm Signed by: MD MCKEON NICHOLAS Transcribed Date and Time: 02/11/2019 1:48 [place] MRI Brain w/ + w/o Contrasto n 02-11-2019 MRI Brain w/ + w/o Contrast Patient Name: TIM CORDOVA MRI Exam Date/Time 02/11/2019 13:20:50 EDT Exam MRI Brain w/ + w/o Contrast Ordering Physician SHEY CARVER KAITLIN Accession Number [id number] CPT4 Codes 32385 () Reason For Exam migraines Report MRI BRAIN WITHOUT AND WITH CONTRAST: CLINICAL INDICATION: Migraines TECHNIQUE: Transaxial, sagittal and coronal T1, transaxial fast T2, FLAIR and gradient echo along with diffusion weighted imaging was performed through the brain. Post contrast transaxial and coronal T1 weighted sequences were performed following administration of 20ml gadolinium contrast. COMPARISON: 01/25/2019 FINDINGS: Ventricular system and Extra-axial spaces: Normal in size and morphology for the patient's age. No extracerebral cerebral collection with mass effect. Cerebral and cerebellar parenchyma: No focus of restricted diffusion to suggest acute infarction. No susceptibility artifact on the gradient echo sequence to suggest intracranial hemorrhage. No enhancing mass or edema. Redemonstration of cerebellar tonsillar ectopia of approximately 7 mm. Brainstem: Normal. Sella turcica and pituitary: Prominent pituitary gland is again. Dedicated sellar imaging was not performed on this exam. Vascular system: Normal signal void is noted within the major intracranial vessels. Paranasal sinuses: Clear. Mastoid air cells: Normal. Orbits: Normal. 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 2. Prominent pituitary gland again noted. An underlying pituitary lesion cannot be excluded in the absence of dedicated sellar imaging. 3. No enhancing mass or edema. Report Dictated on Final Dictating Physician: MD MCKEON NICHOLAS Signed Date and Time: 02/11/2019 1:47 pm Signed by: MD MCKEON NICHOLAS Transcribed Date and Time: 02/11/2019 1:48 Normal [facility] MRI CERVICAL SPINE MARIAMA Rico 02-11-2019 Patient Name: TIM RAMOS ---MRI--- Exam Date/Time 02/11/2019 13:20:12 EDT Exam MRI Spine Cervical w/o Contrast Ordering Physician SHEY CARVER KAITLIN Accession Number [id number] CPT4 Codes 37482 () Reason For Exam migraines Report EXAM TYPE: MRI Spine Cervical w/o Contrast EXAM DATE AND TIME: 02/11/2019 1:20 PM EDT INDICATION: None available COMPARISON: None available. TECHNIQUE: MR imaging of the cervical spine was performed without contrast. FINDINGS: There is straightening of the normal cervical lordosis. No subluxation. Vertebral body heights are maintained. No prevertebral soft tissue swelling. Multilevel degenerative endplate changes are present throughout the lumbar spine, most severely at C6-C7 with edema within the vertebral bodies. Multilevel disc desiccation. Loss of disc height at C6-C7. The cervical spinal cord is normal in size and signal characteristics. No visualized syrinx. Visualized portion of the posterior fossa is unremarkable. 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 C2-C3: No disc herniation. No spinal canal or foraminal narrowing. C3-C4: No disc herniation. No spinal canal or foraminal narrowing. C4-C5: Minimal disc osteophyte complex. Mild facet arthropathy. No spinal canal or foraminal narrowing. C5-C6: Mild disc osteophyte complex eccentric to left that abuts and mildly flattens the ventral cord. Bilateral uncovertebral and facet hypertrophy. Narrowing of the left lateral recess. Moderate left and no right foraminal narrowing. Mild spinal canal narrowing. C6-C7: Moderate disc osteophyte complex that abuts and mildly flattens ventral cord. Mild spinal canal narrowing. Bilateral uncovertebral and facet hypertrophy. Severe bilateral foraminal narrowing. Narrowing of lateral recesses. C7-T1: No disc herniation. No spinal canal or foraminal narrowing. In the visualized upper thoracic spine there is no disc herniation or central canal narrowing. IMPRESSION: 1. No cervical cord syrinx. 2. Disc osteophyte complexes at C5-C6 and C6-C7 that abut and mildly flatten the ventral cord. 3. Severe bone marrow edema at the C6 and C7 vertebral bodies. This is likely on a degenerative basis, however infectious processes may have a similar appearance in the appropriate clinical setting. Lack of fluid within the C6-C7 disc is more consistent with degenerative change rather than infection. Report Dictated on --- Final --- Dictating Physician: MD ELLIOTT NEIL Signed Date and Time: 02/11/2019 3:13 pm Signed by: MD ELLIOTT NEIL Transcribed Date and Time: 02/11/2019 3:14 [place] 02/11/2019 3:14 PM EDT Patient Name: TIM CORDOVA ---MRI--- Exam Date/Time 02/11/2019 13:20:12 EDT Exam MRI Spine Cervical w/o Contrast Ordering Physician SHEY CARVER KAITLIN Accession Number [id number] CPT4 Codes 49198 () Reason For Exam migraines Report EXAM TYPE: MRI Spine Cervical w/o Contrast EXAM DATE AND TIME: 02/11/2019 1:20 PM EDT INDICATION: None available COMPARISON: None available. TECHNIQUE: MR imaging of the cervical spine was performed without contrast. FINDINGS: There is straightening of the normal cervical lordosis. No subluxation. Vertebral body heights are maintained. No prevertebral soft tissue swelling. Multilevel degenerative endplate changes are present throughout the lumbar spine, most severely at C6-C7 with edema within the vertebral bodies. Multilevel disc desiccation. Loss of disc height at C6-C7. The cervical spinal cord is normal in size and signal characteristics. No visualized syrinx. Visualized portion of the posterior fossa is unremarkable. 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 C2-C3: No disc herniation. No spinal canal or foraminal narrowing. C3-C4: No disc herniation. No spinal canal or foraminal narrowing. C4-C5: Minimal disc osteophyte complex. Mild facet arthropathy. No spinal canal or foraminal narrowing. C5-C6: Mild disc osteophyte complex eccentric to left that abuts and mildly flattens the ventral cord. Bilateral uncovertebral and facet hypertrophy. Narrowing of the left lateral recess. Moderate left and no right foraminal narrowing. Mild spinal canal narrowing. C6-C7: Moderate disc osteophyte complex that abuts and mildly flattens ventral cord. Mild spinal canal narrowing. Bilateral uncovertebral and facet hypertrophy. Severe bilateral foraminal narrowing. Narrowing of lateral recesses. C7-T1: No disc herniation. No spinal canal or foraminal narrowing. In the visualized upper thoracic spine there is no disc herniation or central canal narrowing. IMPRESSION: 1. No cervical cord syrinx. 2. Disc osteophyte complexes at C5-C6 and C6-C7 that abut and mildly flatten the ventral cord. 3. Severe bone marrow edema at the C6 and C7 vertebral bodies. This is likely on a degenerative basis, however infectious processes may have a similar appearance in the appropriate clinical setting. Lack of fluid within the C6-C7 disc is more consistent with degenerative change rather than infection. Report Dictated on --- Final --- Dictating Physician: MD ELLIOTT NEIL Signed Date and Time: 02/11/2019 3:13 pm Signed by: MD ELLIOTT NEIL Transcribed Date and Time: 02/11/2019 3:14 [place] MRI Spine Cervical w/o Contr anthony 02-11-2019 MRI Spine Cervical w/o Contrast Patient Name: TIM CORDOVA MRI Exam Date/Time 02/11/2019 13:20:12 EDT Exam MRI Spine Cervical w/o Contrast Ordering Physician SHEY CARVER KAITLIN Accession Number [id number] CPT4 Codes 78232 () Reason For Exam migraines Report EXAM TYPE: MRI Spine Cervical w/o Contrast EXAM DATE AND TIME: 02/11/2019 1:20 PM EDT INDICATION: None available COMPARISON: None available. TECHNIQUE: MR imaging of the cervical spine was performed without contrast. FINDINGS: There is straightening of the normal cervical lordosis. No subluxation. Vertebral body heights are maintained. No prevertebral soft tissue swelling. Multilevel degenerative endplate changes are present throughout the lumbar spine, most severely at C6-C7 with edema within the vertebral bodies. Multilevel disc desiccation. Loss of disc height at C6-C7. The cervical spinal cord is normal in size and signal characteristics. No visualized syrinx. Visualized portion of the posterior fossa is unremarkable. 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 C2-C3: No disc herniation. No spinal canal or foraminal narrowing. C3-C4: No disc herniation. No spinal canal or foraminal narrowing. C4-C5: Minimal disc osteophyte complex. Mild facet arthropathy. No spinal canal or foraminal narrowing. C5-C6: Mild disc osteophyte complex eccentric to left that abuts and mildly flattens the ventral cord. Bilateral uncovertebral and facet hypertrophy. Narrowing of the left lateral recess. Moderate left and no right foraminal narrowing. Mild spinal canal narrowing. C6-C7: Moderate disc osteophyte complex that abuts and mildly flattens ventral cord. Mild spinal canal narrowing. Bilateral uncovertebral and facet hypertrophy. Severe bilateral foraminal narrowing. Narrowing of lateral recesses. C7-T1: No disc herniation. No spinal canal or foraminal narrowing. In the visualized upper thoracic spine there is no disc herniation or central canal narrowing. IMPRESSION: 1. No cervical cord syrinx. 2. Disc osteophyte complexes at C5-C6 and C6-C7 that abut and mildly flatten the ventral cord. 3. Severe bone marrow edema at the C6 and C7 vertebral bodies. This is likely on a degenerative basis, however infectious processes may have a similar appearance in the appropriate clinical setting. Lack of fluid within the C6-C7 disc is more consistent with degenerative change rather than infection. Report Dictated on Final Dictating Physician: MD ELLIOTT NEIL Signed Date and Time: 02/11/2019 3:13 pm Signed by: MD ELLIOTT NEIL Transcribed Date and Time: 02/11/2019 3:14 Normal [facility] MRI BRAIN WO CONTRASTon 01-04 Patient Name: TIM RAMOS ---MRI--- Exam Date/Time 01/25/2019 16:11:45 EDT Exam MRI Brain w/o Contrast Ordering Physician UNASSIGNED, UNASSIGNED Accession Number [id number] CPT4 Codes 62025 () Reason For Exam migraines Report EXAM TYPE: MRI Brain w/o Contrast EXAM DATE AND TIME: 01/25/2019 4:11 PM EDT INDICATION: Headaches, migraines, memory loss COMPARISON: NONE TECHNIQUE: MR imaging of the brain was obtained without contrast. FINDINGS: Ventricles and sulci are normal in size and configuration. No extra axial collection. No cerebral edema, mass effect or evidence of intra-axial mass. No acute infarction seen on the diffusion sequence. No evidence of hemorrhage on the gradient echo sequence. The intracranial vascular flow voids are normal in appearance. 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 Prominent pituitary gland with convex upper border. Mild scattered paranasal sinus mucosal thickening. Mastoids are well aerated. Bone marrow signal is unremarkable. IMPRESSION: 1. Prominent pituitary gland with convex upper border. Further evaluation with MRI of the sella/pituitary gland with and without contrast is recommended to evaluate for underlying pituitary lesion. 2. 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 Recommend MRI of the cervical spine for evaluation for potential syrinx. Report Dictated on Workstation: [id number] --- Final --- Dictating Physician: MD ELLIOTT NEIL Signed Date and Time: 01/25/2019 4:24 pm Signed by: MD ELLIOTT NEIL Transcribed Date and Time: 01/25/2019 4:25 [facility]- [place], [place] Incoming Radiology Results From [facility] - 01/25/2019 4:25 PM EDT Patient Name: TIM CORDOVA ---MRI--- Exam Date/Time 01/25/2019 16:11:45 EDT Exam MRI Brain w/o Contrast Ordering Physician UNASSIGNED, UNASSIGNED Accession Number [id number] CPT4 Codes 48679 () Reason For Exam migraines Report EXAM TYPE: MRI Brain w/o Contrast EXAM DATE AND TIME: 01/25/2019 4:11 PM EDT INDICATION: Headaches, migraines, memory loss COMPARISON: NONE TECHNIQUE: MR imaging of the brain was obtained without contrast. FINDINGS: Ventricles and sulci are normal in size and configuration. No extra axial collection. No cerebral edema, mass effect or evidence of intra-axial mass. No acute infarction seen on the diffusion sequence. No evidence of hemorrhage on the gradient echo sequence. The intracranial vascular flow voids are normal in appearance. 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 Prominent pituitary gland with convex upper border. Mild scattered paranasal sinus mucosal thickening. Mastoids are well aerated. Bone marrow signal is unremarkable. IMPRESSION: 1. Prominent pituitary gland with convex upper border. Further evaluation with MRI of the sella/pituitary gland with and without contrast is recommended to evaluate for underlying pituitary lesion. 2. 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 Recommend MRI of the cervical spine for evaluation for potential syrinx. Report Dictated on Workstation: [id number] --- Final --- Dictating Physician: MD ELLIOTT NEIL Signed Date and Time: 01/25/2019 4:24 pm Signed by: MD ELLIOTT NEIL Transcribed Date and Time: 01/25/2019 4:25 [place] MRI Brain w/o Contraston MRI Brain w/o Contrast Patient Name: TIM CALLAHAN MRI Exam Date/Time 01/25/2019 16:11:45 EDT Exam MRI Brain w/o Contrast Ordering Physician UNASSIGNED, UNASSIGNED Accession Number [id number] CPT4 Codes 48523 () Reason For Exam migraines Report EXAM TYPE: MRI Brain w/o Contrast EXAM DATE AND TIME: 01/25/2019 4:11 PM EDT INDICATION: Headaches, migraines, memory loss COMPARISON: NONE TECHNIQUE: MR imaging of the brain was obtained without contrast. FINDINGS: Ventricles and sulci are normal in size and configuration. No extra axial collection. No cerebral edema, mass effect or evidence of intra-axial mass. No acute infarction seen on the diffusion sequence. No evidence of hemorrhage on the gradient echo sequence. The intracranial vascular flow voids are normal in appearance. 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 Prominent pituitary gland with convex upper border. Mild scattered paranasal sinus mucosal thickening. Mastoids are well aerated. Bone marrow signal is unremarkable. IMPRESSION: 1. Prominent pituitary gland with convex upper border. Further evaluation with MRI of the sella/pituitary gland with and without contrast is recommended to evaluate for underlying pituitary lesion. 2. 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 Recommend MRI of the cervical spine for evaluation for potential syrinx. Report Dictated on Workstation: [id number] Final Dictating Physician: MD ELLIOTT NEIL Signed Date and Time: 01/25/2019 4:24 pm Signed by: MD ELLIOTT NEIL Transcribed Date and Time: 01/25/2019 4:25 [facility] CR Clavicle Complete Righton 10-15-2018 CR Clavicle Complete Right Patient Name: TIM CORDOVA Diagnostic Radiology Exam Date/Time 10/15/2018 20:39:30 EDT Exam CR Clavicle Complete Right Ordering Physician SHEY HYATT DANIEL M Accession Number [id number] CPT4 Codes 40666 () Reason For Exam trauma Report RIGHT CLAVICLE TWO VIEWS CLINICAL INDICATION: trauma, injury TECHNIQUE: Two views of the right clavicle. COMPARISON: None FINDINGS: Normal AC joint, glenohumeral joint, and subacromial space. No acute fracture or dislocation. Clavicle appears intact. IMPRESSION: 1. No significant finding. Report Dictated on Final Dictating Physician: MD TUTTLE JOHN R Signed Date and Time: 10/15/2018 9:10 pm Signed by: MD TUTTLE JOHN R Transcribed Date and Time: 10/15/2018 9:13 Normal [facility] CR Shoulder 2+ Views Righton 10-15-2018 CR Shoulder 2+ Views Right Patient Name: TIM CORDOVA Diagnostic Radiology Exam Date/Time 10/15/2018 20:39:30 EDT Exam CR Shoulder 2+ Views Right Ordering Physician SHEY HYATT DANIEL M Accession Number [id number] CPT4 Codes 80919 () Reason For Exam pain, fall Addendum Addendum dated 10/15/2018 at 9:30 PM: There is subtle irregularity of the clavicle in the AP view of the shoulder (image two series 1) that could represent a nondisplaced fracture, however, it is not seen on the dedicated clavicular views. Alternatively, this may be projectional. If there is persistent pain at the distal clavicle recommend repeat radiographs in 7-10 days. CRITICAL TEST RESULT COMMUNICATION: Kiko Hyatt CNP of the emergency department was notified of these findings at 9:30 pm on 10/15/2018. Report Dictated on Final Addendum Addendum Dictating Physician: MD LEDBETTER GEORGE RICHARD Signed Date and Time: 10/15/2018 9:36 pm Signed by: MD LEDBETTER GEORGE RICHARD Transcribed Date and Time: 10/15/2018 9:37 Report RIGHT SHOULDER: CLINICAL INDICATION: Pain after fall. TECHNIQUE: Three views COMPARISON: Chest radiograph 05/22/2016 FINDINGS: No evidence for fracture. Visualized portions of the right lung are clear. Soft tissues are unremarkable. IMPRESSION: 1. No evidence for fracture or traumatic malalignment. Report Dictated on Final Dictating Physician: MD ANATOLY, GOOD SIEGEL Signed Date and Time: 10/15/2018 9:09 pm Signed by: MD LEDBETTER GEORGE RICHARD Transcribed Date and Time: 10/15/2018 9:10 Normal [facility] Basic Metabolic Panelon 10-04 Anion gap 14 mmol/L Normal [facility] Comment on above: Performed By: #### H EMDF, BMP3 ####[facility] Yzxoxowai3070Rtcnpx [place] [address] Calcium 8.7 mg/dL Normal 8.2-10.1 [facility] Comment on above: Performed By: #### H EMDF, BMP3 ####[facility] Vocvmjeam3374Tdttxz [facility][1], [place] [address] Chloride 108 mmol/L Normal 98-109 [facility] Comment on above: Performed By: #### H EMDF, BMP3 ####[facility] Fyfdggkfk2667Cywfhp [place] [address] CO2 20 mmol/L Low 21-32 [facility] Comment on above: Performed By: #### H EMDF, BMP3 ####[facility] Qxdzvtsbx2251Ymrhnf [facility] [place] [address] Creatinine 0.93 mg/dL Normal 0.55-1.40 [facility] Comment on above: Performed By: #### H EMDF, BMP3 ####[facility] Dwbmrvlcs0025Vkyvlc [place] [address] eGFR (black) mL/min/{1.73_m2} Normal >60 [facility] Comment on above: Performed By: #### H EMDF, BMP3 ####[facility] Ffppcpxvs6468Beyxtk [place] [address] eGFR (non-black) mL/min/{1.73_m2} Normal >60 [facility] Comment on above: Result Comment: Sour ce- MDRD equation with creatinine calibration to IDMS(NKDEP)eGFR not recommended for drug dose adjustment Performed By: #### H VINAY, BMP3 ####Júnior Zvblzvetw9030Mnspjj[place] [address] Glucose mass conc 122 mg/dL High 70-100 [facility] Comment on above: Performed By: #### H RANIF, BMP3 ####itadave Lbejsdvib4254[place]qkele[place] [address] Potassium molar conc 2.9 mmol/L Low 3.5-5.1 [facility] Comment on above: Performed By: #### H VINAY, BMP3 ####Júnior Hduinwezb2023WoydcdS[place] [address] Sodium 142 mmol/L Normal 135-145 [facility] Comment on above: Performed By: #### H VINAY, BMP3 ####Vincenzodave Gucsqpomr5322[place]bg[place] [address] Urea nitrogen 11 mg/dL Normal 7-25 [facility] Comment on above: Performed By: #### H VINAY, BMP3 ####Júnior Mkvxrlwml8127ViqdwjP[place] [address] CULTURE BLOODon 10-26-2016 CULTURE BLOOD Specimen Source Comment:Blood [facility] Patient name: TIM CORDOVA MDarcieR.N.: [id number] : 1980 Age: 35 Sex: F Ord. Physician: ERIC BRONSON Location: [address] [place] [address] Copy to: ERIC BRONSON DISCHARGED: 10/26/16 Adm. Date: 10/26/16 MICROBIOLOGYORDER#: [id number] COLLECTED: 10/26/16 20:12SOURCE: Blood (Left -hand) RECEIVED: 10/26/16 20:51 OE C O M M E N T S Specim en Source Comment:BloodCULTURE BLOOD FINAL 11/01/16 11:No growth at 5 days. Normal [facility] Comment on above: Performed By: #### C /BLD ####[address] [address] CULTURE BLOOD (Two)on 2016 CULTURE BLOOD (Two) Specimen Source Comment:Blood [facility] Patient name: TIM CORDOVA MDarcieR.N.: [id number] : 1980 Age: 35 Sex: F Ord. Physician: ERIC BRONSON Location: [address] [place] [address] Copy to: ERIC BRONSON DISCHARGED: 10/26/16 Adm. Date: 10/26/16 MICROBIOLOGYORDER#: [id number] COLLECTED: 10/26/16 20:00SOURCE: Blood (Right -antecub) RECEIVED: 10/26/16 20:51 OE C O M M E N T S Specim en Source Comment:BloodCULTURE BLOOD (Two) FINAL 11/01/16 11:No growth at 5 days. Normal [facility] Comment on above: Performed By: #### C /BLT ####[address] [address] [place] [address] Hemogram w/ Autodiffon 10-26 Abs Baso Cnt 0.1 10*3/uL Normal 0.0-0.2 [facility] Comment on above: Performed By: #### H VINAY BMP3 ####Júnior McbrideEmuofvrkz6375Rqar[place] [address] Basophils/100 WBC Auto (Bld) 1.2 % Normal [facility] Comment on above: Performed By: #### H EMDSara BMP3 ####Júnior McbrideXmbkpyjog5260Avd[place] [address] Eosinophils 0.4 10*3/uL Normal 0.0-0.5 [facility] Comment on above: Performed By: #### H EMDF, BMP3 ####[facility] Azxyksgeo1213Vlsqfo [facility][1], [place] [address] Eosinophils/100 leukocytes 3.3 % Normal [facility] Comment on above: Performed By: #### H EMDF, BMP3 ####[facility]itage Eucvqsevi1140Hfgjfv [facility][1], [place] [address] Erythrocyte distribution width Auto Ratio (RBC) 13.3 % Normal 11.5-14.5 [facility] Comment on above: Performed By: #### H EMDF, BMP3 ####[facility] Gidfbdcrh2860NaioqaCommunity [place] [address] Erythrocytes (RBC) 3.95 10*6/uL Normal 3.80-5.20 [facility] Comment on above: Performed By: #### H EMDF, BMP3 ####[facility] Dqhhwzfkj7119DqilsnCommunity [place] [address] Granulocytes/100 WBC (Bld) 52.9 % Normal [facility] Comment on above: Performed By: #### H EMDF, BMP3 ####Herita Svnjjtdcm0635IerlmfCommunity Hospital [place] [address] Hematocrit (HCT) 35.8 % Normal 35.0-47.0 [facility] Comment on above: Performed By: #### H EMDF, BMP3 ####Heritage Wmvcqvxul4709[place]tykdv[place] [address] Hemoglobin mass conc (Bld) 12.1 g/dL Normal 11.7-16.0 [facility] Comment on above: Performed By: #### H EMDF, BMP3 ####Heritage Bzudplary4255Wrdamy [facility][1[place] [address] Lymphocytes 4.3 10*3/uL Normal [facility] Comment on above: Performed By: #### H EMDF, BMP3 ####Heritage Nmmrzikye6667Isondc [facility][1], [place] [address] Lymphocytes/100 leukocytes 35.7 % Normal [facility] Comment on above: Performed By: #### H EMDF, BMP3 ####[facility]itage Kelmlkqig0933Zvdhqz [place] [address] MCH 30.7 pg Normal 26.0-34.0 [facility] Comment on above: Performed By: #### H EMDF, BMP3 ####[facility]itage Vwdjhsmdq6983Kamyvv [place] [address] MCHC mass conc (RBC) 33.9 % Normal 32.0-36.0 [facility] Comment on above: Performed By: #### H EMDF, BMP3 ####Heritage Xuyyivvej5627Ttvbec [place] [address] MCV 90.7 fL Normal 79.0-98.0 [facility] Comment on above: Performed By: #### H EMDF, BMP3 ####[facility]itage Vmdyxpudm8151Olrllh [facility][1], [place] [address] Monocytes 0.8 10*3/uL Normal 0.0-0.8 [facility] Comment on above: Performed By: #### H EMDF, BMP3 ####Heritage Ggphcpenc7550Acupcb [facility][1], [place] [address] Monocytes/100 leukocytes 6.9 % Normal [facility] Comment on above: Performed By: #### H EMDF, BMP3 ####[facility]itage Mnigqxzgp3098Knrptc [place] [address] Neutrophils 6.4 10*3/uL Normal 1.8-7.0 [facility] Comment on above: Performed By: #### H EMDF, BMP3 ####[facility]itage Sfwxrapxj0953Ocnkqg [place] [address] Platelet mean volume (PMV) 11.4 fL High 7.4-10.4 [facility] Comment on above: Performed By: #### H EMDF, BMP3 ####[facility] Tilypakku9276Gclzgz [place] [address] Platelets 161 10*3/uL Normal 140-440 [facility] Comment on above: Performed By: #### H EMDF, BMP3 ####Júnior Sekzsmyvu3798Merhsn[place] [address] WBC (Leukocytes) 12.0 10*3/uL High 3.6-10.7 [facility] Comment on above: Performed By: #### H EMDF, BMP3 ####Júnior McbrideZurkdhfiu5957Sym[place] [address] CR Foot Complete 3+ Views Le fton 10-24-2016 CR Foot Complete 3+ Views Left Patient Name: TIM CORDOVA Diagnostic Radiology Exam Date/Time 10/24/2016 07:50:27 EDT Exam CR Foot Complete 3+ Views Left Ordering Physician MD MORTON MARERIL Accession Number [id number] CPT4 Codes 14356 () Reason For Exam Dog bite Report Examination: Left foot Clinical Indication: Trauma, dog bite, laceration Comparison: None Findings: Three views of the left foot. Normal bone mineralization. No fracture or dislocation. No radiopaque foreign body. There is a large soft tissue defect, laceration seen along the dorsum of the foot at the tarsal metatarsal articulation measuring 1.5 cm anterior to posterior and 0.5 cm deep. Minimal hallux valgus of the great toe. No productive or erosive arthropathy. Enthesophyte at the Achilles insertion on the calcaneus. Impression: Large soft tissue laceration dorsum of the foot. No fracture, subluxation or radiopaque foreign body. Report Dictated on Final Dictated: 10/24/2016 7:57 am Dictating Physician: MD CHANEY ANTHONY J Signed Date and Time: 10/24/2016 7:59 am Signed by: MD CHANEY ANTHONY J Transcribed Date and Time: 10/24/2016 7:57 Normal [facility] Vital Signs Date Time Vital Sign Value Performing Clinician Facility 01-24-2024 13:56-0400 Body mass index (BMI) [Ratio] 36.74 kg/m2 Kelly Renner APRN.CNP Work Phone: [facility] 01-24-2024 13:56-0400 Body temperature 98.2 [degF] Kelly Zurdo ELECTRICAL INSTALLER.KEY CUTTER Work Phone: [facility] 01-24-2024 13:56-0400 Body weight 106.4 kg Kelly Zurdo ELECTRICAL INSTALLER.KEY CUTTER Work Phone: [facility] 01-24-2024 13:56-0400 Diastolic blood pressure 78 mm[Hg] Kelly Zurdo ELECTRICAL INSTALLER.KEY CUTTER Work Phone: [facility] 01-24-2024 13:56-0400 Heart rate 78 /min Kelly Zurdo ELECTRICAL INSTALLER.KEY CUTTER Work Phone: [facility] 01-24-2024 13:56-0400 Respiratory rate 16 /min Kelly Renner ELECTRICAL INSTALLER.KEY CUTTER Work Phone: [facility] 01-24-2024 13:56-0400 SaO2% (BldA) [Mass fraction] 98 % Kelly Renner ELECTRICAL INSTALLER.KEY CUTTER Work Phone: [facility] 01-24-2024 13:56-0400 Systolic blood pressure 110 mm[Hg] Kelly Renner ELECTRICAL INSTALLER.KEY CUTTER Work Phone: [facility] 10-08-2023 15:45-0400 Body mass index (BMI) [Ratio] 37.88 kg/m2 Constance Overton ELECTRICAL INSTALLER.KEY CUTTER Work Phone: [facility] 10-08-2023 15:45-0400 Body temperature 98.4 [degF] Constance Overton ELECTRICAL INSTALLER.KEY CUTTER Work Phone: [facility] 10-08-2023 15:45-0400 Body weight 109.7 kg Constance Overton ELECTRICAL INSTALLER.KEY CUTTER Work Phone: [facility] 10-08-2023 15:45-0400 Diastolic blood pressure 78 mm[Hg] Constance Overton ELECTRICAL INSTALLER.KEY CUTTER Work Phone: [facility] 10-08-2023 15:45-0400 Heart rate 86 /min Constance Overton ELECTRICAL INSTALLER.KEY CUTTER Work Phone: [facility] 10-08-2023 15:45-0400 Respiratory rate 18 /min Constance Overton ELECTRICAL INSTALLER.KEY CUTTER Work Phone: [facility] 10-08-2023 15:45-0400 SaO2% (BldA) [Mass fraction] 97 % Constance Overton ELECTRICAL INSTALLER.KEY CUTTER Work Phone: [facility] 10-08-2023 15:45-0400 Systolic blood pressure 110 mm[Hg] Constance Overton ELECTRICAL INSTALLER.KEY CUTTER Work Phone: [facility] 08-19-2023 11:01-0400 Body weight 109.6 kg Chely Bardales MD Work Phone: [facility] 08-19-2023 11:01-0400 Diastolic blood pressure 66 mm[Hg] Chely Bardales MD Work Phone: [facility] 08-19-2023 11:01-0400 Heart rate 80 /min Chely Bardales MD Work Phone: [facility] 08-19-2023 11:01-0400 Respiratory rate 16 /min Chely Bardales MD Work Phone: [facility] 08-19-2023 11:01-0400 SaO2% (BldA) [Mass fraction] 98 % Chely Bardales MD Work Phone: [facility] 08-19-2023 11:01-0400 Systolic blood pressure 118 mm[Hg] Chely Bardales MD Work Phone: [facility] 08-12-2023 10:08-0400 Body height 170.2 cm Eric Wilson MD Work Phone: [facility] 08-12-2023 10:08-0400 Body weight 108.41 kg Eric Wilson MD Work Phone: [facility] 08-12-2023 10:08-0400 Diastolic blood pressure 78 mm[Hg] Eric Wilson MD Work Phone: [facility] 08-12-2023 10:08-0400 Heart rate 78 /min Eric Wilson MD Work Phone: [facility] 08-12-2023 10:08-0400 Systolic blood pressure 118 mm[Hg] Eric Wilson MD Work Phone: [facility] 07-18-2023 16:50-0400 Body temperature 98.2 [degF] Mery Athy PA-C Work Phone: [facility] 07-18-2023 16:50-0400 Body weight 109.7 kg Mery Athy PA-C Work Phone: [facility] 07-18-2023 16:50-0400 Diastolic blood pressure 67 mm[Hg] Mery Athy PA-C Work Phone: [facility] 07-18-2023 16:50-0400 Heart rate 84 /min Mery Athy PA-C Work Phone: [facility] 07-18-2023 16:50-0400 Respiratory rate 18 /min Mery Athy PA-C Work Phone: [facility] 07-18-2023 16:50-0400 SaO2% (BldA) [Mass fraction] 98 % Mery Athy PA-C Work Phone: [facility] 07-18-2023 16:50-0400 Systolic blood pressure 127 mm[Hg] Mery Athy PA-C Work Phone: [facility] 01-31-2023 15:03-0400 Body temperature 98.01 [degF] Roz Adrian APRN.KEY CUTTER Work Phone: [facility] 01-31-2023 15:03-0400 Body weight 107.96 kg Roz Adrian APRN.KEY CUTTER Work Phone: [facility] 01-31-2023 15:03-0400 Diastolic blood pressure 75 mm[Hg] Roz Adrian APRN.KEY CUTTER Work Phone: [facility] 01-31-2023 15:03-0400 Heart rate 85 /min Roz Adrian APRN.KEY CUTTER Work Phone: [facility] 01-31-2023 15:03-0400 Respiratory rate 18 /min Roz Adrian APRN.KEY CUTTER Work Phone: [facility] 01-31-2023 15:03-0400 SaO2% (BldA) [Mass fraction] 97 % Roz Adrian APRN.KEY CUTTER Work Phone: [facility] 01-31-2023 15:03-0400 Systolic blood pressure 111 mm[Hg] Roz Adrian APRN.KEY CUTTER Work Phone: [facility] 12-24-2022 18:04-0400 Body temperature 98.7 [degF] No Primary Care Physician [facility] 12-24-2022 18:04-0400 Diastolic blood pressure 89 mm[Hg] No Primary Care Physician [facility] 12-24-2022 18:04-0400 Heart rate 60 /min No Primary Care Physician [facility] 12-24-2022 18:04-0400 Respiratory rate 16 /min No Primary Care Physician [facility] 12-24-2022 18:04-0400 SaO2% (BldA) [Mass fraction] 99 % No Primary Care Physician [facility] 12-24-2022 18:04-0400 Systolic blood pressure 157 mm[Hg] No Primary Care Physician [facility] 12-24-2022 12:05-0400 Body height 170.18 cm No Primary Care Physician [facility] 12-24-2022 12:05-0400 Body mass index (BMI) [Ratio] 37 kg/m2 No Primary Care Physician [facility] 12-24-2022 12:05-0400 Body weight 107.3 kg No Primary Care Physician [facility] 12-13-2022 13:22-0400 Body height 170.18 cm No Primary Care Physician [facility] 12-13-2022 13:22-0400 Body mass index (BMI) [Ratio] 37.3 kg/m2 No Primary Care Physician [facility] 12-13-2022 13:22-0400 Body temperature 97.2 [degF] No Primary Care Physician [facility] 12-13-2022 13:22-0400 Body weight 107.95 kg No Primary Care Physician [facility] 12-13-2022 13:22-0400 Diastolic blood pressure 84 mm[Hg] No Primary Care Physician [facility] 12-13-2022 13:22-0400 Heart rate 80 /min No Primary Care Physician [facility] 12-13-2022 13:22-0400 Respiratory rate 18 /min No Primary Care Physician [facility] 12-13-2022 13:22-0400 Systolic blood pressure 136 mm[Hg] No Primary Care Physician [facility] 11-24-2022 08:26-0400 Body temperature 98.3 [degF] No Primary Care Physician [facility] 11-24-2022 08:26-0400 Diastolic blood pressure 68 mm[Hg] No Primary Care Physician [facility] 11-24-2022 08:26-0400 Heart rate 72 /min No Primary Care Physician [facility] 11-24-2022 08:26-0400 Respiratory rate 16 /min No Primary Care Physician [facility] 11-24-2022 08:26-0400 SaO2% (BldA) [Mass fraction] 97 % No Primary Care Physician [facility] 11-24-2022 08:26-0400 Systolic blood pressure 141 mm[Hg] No Primary Care Physician [facility] 11-23-2022 12:28-0400 Body height 170.18 cm No Primary Care Physician [facility] 11-23-2022 12:28-0400 Body mass index (BMI) [Ratio] 38.2 kg/m2 No Primary Care Physician [facility] 11-23-2022 12:28-0400 Body weight 110.6 kg No Primary Care Physician [facility] 11-18-2022 12:54-0400 Body temperature 97.81 [degF] Mery Wright PA-C Work Phone: [facility] 11-18-2022 12:54-0400 Body weight 107.68 kg Mery SOTO-Chandni Work Phone: [facility] 11-18-2022 12:54-0400 Diastolic blood pressure 80 mm[Hg] Mery Athy PA-C Work Phone: [facility] 11-18-2022 12:54-0400 Heart rate 86 /min Mery Athy PA-C Work Phone: [facility] 11-18-2022 12:54-0400 Respiratory rate 21 /min Mery Athy PA-C Work Phone: [facility] 11-18-2022 12:54-0400 SaO2% (BldA) [Mass fraction] 96 % Mery Athy PA-C Work Phone: [facility] 11-18-2022 12:54-0400 Systolic blood pressure 134 mm[Hg] Mery Athy PA-C Work Phone: [facility] 09-10-2022 13:51-0400 Body height 170.2 cm Eric Wilson MD Work Phone: [facility] 09-10-2022 13:51-0400 Body weight 108.86 kg Eric Wilson MD Work Phone: [facility] 09-10-2022 13:51-0400 Diastolic blood pressure 85 mm[Hg] Eric Wilson MD Work Phone: [facility] 09-10-2022 13:51-0400 Heart rate 106 /min Eric Wilson MD Work Phone: [facility] 09-10-2022 13:51-0400 Systolic blood pressure 128 mm[Hg] Eric Wilson MD Work Phone: [facility] 08-30-2022 11:54-0400 Body temperature 98.6 [degF] Krislyn Aberegg PA Work Phone: [facility] 08-30-2022 11:54-0400 Body weight 110.31 kg Krislyn Aberegg PA Work Phone: [facility] 08-30-2022 11:54-0400 Diastolic blood pressure 86 mm[Hg] Krislyn Aberegg PA Work Phone: [facility] 08-30-2022 11:54-0400 Heart rate 83 /min Krislyn Aberegg PA Work Phone: [facility] 08-30-2022 11:54-0400 Respiratory rate 18 /min Krislyn Aberegg PA Work Phone: [facility] 08-30-2022 11:54-0400 SaO2% (BldA) [Mass fraction] 97 % Krislyn Aberegg PA Work Phone: [facility] 08-30-2022 11:54-0400 Systolic blood pressure 128 mm[Hg] Krislyn Aberegg PA Work Phone: [facility] 05-20-2022 08:20-0500 Body height 170.2 cm Chely Bardales MD Work Phone: [facility] 05-20-2022 08:20-0500 Body weight 109.3 kg Chely Bardales MD Work Phone: [facility] 05-20-2022 08:20-0500 Diastolic blood pressure 78 mm[Hg] Chely Bardales MD Work Phone: [facility] 05-20-2022 08:20-0500 Heart rate 92 /min Chely Bardales MD Work Phone: [facility] 05-20-2022 08:20-0500 Respiratory rate 16 /min Chely Bardales MD Work Phone: [facility] 05-20-2022 08:20-0500 SaO2% (BldA) [Mass fraction] 98 % Chely Bardales MD Work Phone: [facility] 05-20-2022 08:20-0500 Systolic blood pressure 119 mm[Hg] Chely Bardales MD Work Phone: [facility] 10-11-2021 15:36-0400 Body height 170.2 cm Eric Wilson MD Work Phone: [facility] 10-11-2021 15:36-0400 Body weight 112.4 kg Eric Wilson MD Work Phone: [facility] 10-11-2021 15:36-0400 Diastolic blood pressure 84 mm[Hg] Eric Wilson MD Work Phone: [facility] 10-11-2021 15:36-0400 Heart rate 90 /min Eric Wilson MD Work Phone: [facility] 10-11-2021 15:36-0400 Systolic blood pressure 131 mm[Hg] Eric Wilson MD Work Phone: [facility] 02-20-2019 08:26-0400 Body Temperature 98.71 [degF] [place], [place] 02-20-2019 08:26-0400 BP Diastolic 48 mm[Hg] [place], [place] 02-20-2019 08:26-0400 BP Systolic 122 mm[Hg] [place] 02-20-2019 08:26-0400 Pulse (Heart Rate) 61 /min [place], [place] 02-20-2019 08:26-0400 Pulse Oximetry 98 % [place] 02-20-2019 08:26-0400 Respiratory Rate 18 /min [place] 02-19-2019 07:48-0400 BMI (Body Mass Index) 29.29 kg/m2 [place], [place] 02-19-2019 07:48-0400 Body weight 84.82 kg [place] 02-19-2019 07:48-0400 Height 170.2 cm [place] Encounters Encounter Date Encounter Type Care Provider Facility Start: 12-17-2024 End: 12-17-2024 Emergency department patient visit LUCITA VENEGAS MD [facility] Start: 04-20-2024 End: 04-20-2024 Emergency department patient visit [facility] Facility:[facility] Start: 03-15-2024 End: 03-15-2024 Emergency department patient visit Reynaldo Bertrand Facility:[facility] Start: 02-01-2024 End: 02-01-2024 Emergency department patient visit No Primary Care Physician [facility] [facility] Start: 01-24-2024 End: 01-24-2024 [facility] Facility:[facility] Start: 01-24-2024 End: 01-24-2024 Patient encounter procedure Kelly Renner ELECTRICAL INSTALLER.KEY CUTTER Work Phone: [facility] [employer] [facility] Comment on above: Lower resp. tract in fection (Primary Dx) Start: 11-19-2023 End: 11-19-2023 Emergency department patient visit No Primary Care Physician Facility:[facility] Start: 10-08-2023 End: 10-08-2023 Emergency department patient visit No Primary Care Physician Facility:[facility] Start: 10-08-2023 End: 10-08-2023 ambulatory [facility] Facility:[facility] Start: 10-08-2023 End: 10-08-2023 Patient encounter procedure Constance Overton ELECTRICAL INSTALLER.KEY CUTTER Work Phone: [facility] [employer] [facility] Comment on above: Finger pain, right ( Primary Dx) Start: 08-19-2023 End: 08-19-2023 ambulatory CHELY BARDALES Facility:[facility] Start: 08-19-2023 End: 08-19-2023 Office outpatient visit 25 minutes Chely Bardales MD Work Phone: [facility] Comment on above: Pituitary adenoma (H CC) (Primary Dx); Nonruptured cerebral aneurysm; Chiari I malformation (HCC) Start: 08-13-2023 ambulatory CHELY BARDALES [facility] ty:[facility] Start: 08-13-2023 End: 08-13-2023 Subsequent hospital visit by physician [facility] (1.5t) [facility] Comment on above: Pituitary adenoma (H CC) [D35.2] Nonruptured cerebral aneurysm [I67.1] Start: 08-13-2023 End: 08-13-2023 ambulatory [facility] Facility:[facility] Start: 08-12-2023 End: 08-12-2023 ambulatory [facility] Facility:[facility] Start: 08-12-2023 End: 08-12-2023 Patient encounter procedure Eric Wilson MD Work Phone: [facility] Endocrinology Comment on above: Pituitary tumor (Carleen dunlap Dx); Pituitary abnormality (HCC); Chiari I malformation (HCC); Fatigue, unspecified type; Former tobacco use Start: 07-18-2023 End: 07-18-2023 [facility] Start: 07-18-2023 End: 07-18-2023 Patient encounter procedure Mery Wright PA-C Work Phone: [facility] Comment on above: Otalgia of left ear (Primary Dx) Start: 05-03-2023 End: 05-03-2023 [facility] Facility:[facility] Start: 01-31-2023 End: 01-31-2023 [facility] Facility:[facility] Start: 01-31-2023 End: 01-31-2023 Patient encounter procedure Roz Adrian APRN.CNP Work Phone: [facility] Comment on above: Acute otitis media, right (Primary Dx) Start: 12-24-2022 Non-patient / Non-visit No Carleen dunlap Care Physician [facility] Start: 12-24-2022 End: 12-24-2022 Admission to same day surgery center No Primary Care Physician [facility] Start: 12-24-2022 End: 12-24-2022 ambulatory No Primary Care Physician [facility] Work Phone: Start: 12-13-2022 End: 12-13-2022 Patient encounter procedure No Primary Care Physician [facility] Work Phone: Start: 12-10-2022 End: 12-10-2022 ambulatory No Primary Care Physician [facility] Work Phone: Start: 12-10-2022 End: 12-10-2022 Patient encounter procedure No Primary Care Physician [facility] Work Phone: Start: 11-24-2022 Non-patient / Non-visit No Carleen dunlap Care Physician [facility] Work Phone: Start: 11-23-2022 Non-patient / Non-visit No Carleen dunlap [facility] Physician [facility] Start: 11-23-2022 End: 11-24-2022 Evaluation and management of inpatient No Primary Care Physician [facility] 3 Work Phone: Start: 11-18-2022 End: 11-18-2022 Patient encounter procedure Mery Wright PA-C Work Phone: [facility] Comment on above: Low back pain withou t sciatica, unspecified back pain laterality, unspecified chronicity (Primary Dx); Microscopic hematuria Start: 11-08-2022 End: 11-08-2022 Subsequent hospital visit by physician [facility] (I-Stat/1.5t) Work Phone: Radiology Comment on above: Spinal stenosis of c ervical region [M48.02] Start: 09-10-2022 End: 09-10-2022 ambulatory ERIC WILSON Facility:[facility] Start: 09-10-2022 End: 09-10-2022 Patient encounter procedure Eric Wilson MD Work Phone: [facility] Endocrinology Comment on above: Pituitary tumor (Carleen dunlap Dx); Pituitary abnormality (HCC); Chiari I malformation (HCC); Fatigue, unspecified type; Former tobacco use Start: 08-30-2022 End: 08-30-2022 Patient encounter procedure Sania SOTO Work Phone: [facility] Comment on above: Sore throat (Primary Dx); Acute non-recurrent sinusitis, unspecified location Start: 07-17-2022 Telephone encounter Chely lunsford MD Work Phone: [facility] Comment on above: Appointment Start: 07-16-2022 End: 07-16-2022 Subsequent hospital visit by physician [facility] (I-Stat/1.5t) Work Phone: Radiology Comment on above: Canceled (CC cx: Pro vider Unavailable Planned (Meeting, PTO, Business)) Start: 06-24-2022 End: 06-24-2022 Subsequent hospital visit by physician Mri [facility] (I-Stat/1.5t) Work Phone: Radiology Comment on above: Canceled (Pt cx: John ointment Conflict) Start: 05-20-2022 End: 05-20-2022 Patient encounter procedure Chely Bardales MD Work Phone: [facility] Comment on above: Neck pain (Primary D x); Radiculopathy, cervical region; Spinal stenosis of cervical region Start: 05-20-2022 End: 05-20-2022 Subsequent hospital visit by physician [employer] [facility] [place] [employer] Comment on above: Cervical disc hernia tion [M50.20] Start: 05-16-2022 Telephone encounter Chely lunsford MD Work Phone: [facility] Comment on above: Appointment Start: 02-04-2022 Chart abstracting Eric Wilson MD Work Phone: [facility] Endocrinology Comment on above: Abstract (Chart upda te) Start: 02-04-2022 End: 02-04-2022 ambulatory Chely Bardales MD Work Phone: [facility] Comment on above: Chiari I malformatio n (HCC) (Primary Dx); Pituitary adenoma (HCC); Cervical disc herniation; Nonruptured cerebral aneurysm; Family history of ischemic heart disease and other diseases of the circulatory system Start: 02-04-2022 End: 02-04-2022 Telemedicine consultation with patient Chely Bardales MD [facility] Start: 02-01-2022 End: 02-01-2022 Subsequent hospital visit by physician Nimesh Bath (1.5t/Lg Bore 70cm) Work Phone: [facility] Comment on above: Benign neoplasm of p ituitary gland (HCC) [D35.2] Start: 11-12-2021 Telephone encounter Chely lunsford MD Work Phone: [facility] Comment on above: Patient Question Start: 10-11-2021 End: 10-11-2021 Patient encounter procedure Eric Wilson MD Work Phone: [facility] End[facility] Comment on above: Pituitary tumor (Carleen fabi Dx); Pituitary abnormality (HCC); Chiari I malformation (HCC); Fatigue, unspecified type; Former tobacco use Start: 05-12-2019 End: 05-12-2019 Subsequent hospital visit by physician Chely Bardales MD Work Phone: [facility] Start: 02-19-2019 End: 02-20-2019 Emergency department patient visit Gregory Betancur Scott Work Phone: [facility] Comment on above: Cholecystitis (Prima ry Dx); Transaminitis; Hyperbilirubinemia; Renal cyst, right Start: 02-11-2019 End: 02-11-2019 Subsequent hospital visit by physician Ladonna Carver Work Phone: [facility] Comment on above: Arrived Start: 01-25-2019 End: 01-25-2019 Subsequent hospital visit by physician radha Beavers Rm 1 [facility] Comment on above: Arrived Start: 10-26-2016 Emergency department patient visit Mike Ellsworth [facility] Start: 10-24-2016 Emergency department patient visit Yonatan Morton [facility] Procedures Date Procedure Procedure Detail Performing Clinician Start: 12-24-2022 Cholangiogram No Primary Care Physician Start: 12-24-2022 Fluoroscopic guidance No Primary Care Physician Start: 12-24-2022 Total cholecystectomy and exploration of common bile duct No Primary Care Physician Start: 12-10-2022 Radionuclide imaging of liver and/or biliary tract using radioactive isotope No Primary Care Physician Start: 07-22-2023 Magnetic resonance cholangiopancreatography No Primary Care Physician Start: 11-23-2022 US scan of gallbladder No Primary Care Physician Start: 11-23-2022 CT of abdomen and pelvis without contrast No Primary Care Physician Start: 11-18-2022 Urnls dip stick/tablet rgnt auto w/o microscopy Kena Arteaga APRN.KEY CUTTER Work Phone: Start: 11-08-2022 Mri spinal canal cervical w/o contrast matrl Chely Bardales MD Work Phone: Start: 08-30-2022 STREP A MOLECULAR (POC) Roz Adrian APRN.KEY CUTTER Work Phone: Start: 05-20-2022 Radex spine cervical 4 or 5 views Chely Bardales MD Work Phone: Start: 05-16-2020 Adult depression screening assessment Eric Wilson MD Work Phone: Start: 02-20-2019 Comprehensive metabolic panel Kiko mary Work Phone: Start: 02-20-2019 Blood count complete automated Wenceslao Son Work Phone: Start: 02-19-2019 Mri abdomen w/o contrast material Morris Leonardo Work Phone: Start: 02-19-2019 Us abdominal real time w/image limited Kiko Ceja Work Phone: Start: 02-19-2019 Drug screen class list a Gregory Chavez Work Phone: Start: 02-19-2019 Urnls dip stick/tablet rgnt auto w/o microscopy Gregory Chavez Work Phone: Start: 02-19-2019 Acute hepatitis panel Kiko Ceja Work Phone: Start: 02-19-2019 Thromboplastin time partial plasma/whole blood Gregory Chavez Work Phone: Start: 02-19-2019 ADD ON LAB TEST Gregory Chavez Work Phone: Start: 02-19-2019 Assay of acetaminophen Gregory Chavez Work Phone: Start: 02-19-2019 Assay of ammonia Gregory Márquezh Work Phone: Start: 02-19-2019 Assay of glutamyltrase gamma Gregory Martel Work Phone: Start: 02-19-2019 Assay of lactate Gregory Márquezh Work Phone: Start: 02-19-2019 Assay of lipase Gregory Márquezh Work Phone: Start: 02-19-2019 Bilirubin direct Gregory Márquezh Work Phone: Start: 02-19-2019 Blood count complete auto&auto difrntl wbc Gregory Márquezh Work Phone: Start: 02-19-2019 C-reactive protein Gregory Chavez Work Phone: Start: 02-19-2019 Comprehensive metabolic panel Gregory bryant Work Phone: Start: 02-19-2019 Prothrombin time Gregory Chavez Work Phone: Start: 02-19-2019 CT ABDOMEN PELVIS W CONTRAST Gregory Martel Work Phone: Start: 02-11-2019 Mri spinal canal cervical w/o contrast matrl Ladonna Six Work Phone: Start: 02-11-2019 Mri brain brain stem w/o w/contrast material Ladonna Six Work Phone: Start: 01-25-2019 Mri brain brain stem w/o contrast material Lucille (Isac Mcqueen) Leda Plan of Treatment Date Care Activity Detail Author Start: 01-04-2024 Covid-19 Vaccine ( season) Covid-19 Vaccine ( season) [facility] Start: 01-04-2024 Influenza vaccination [facility] Start: 08-12-2023 End: 11-11-2023 Basic metabolic 2000 panel - Serum or Plasma BASIC METABOLIC PNL Lab Routine Pituitary tumor Fatigue, unspecified type Expected: 08/12/2023, Expires: 11/11/2023 [facility] Work Phone: Comment on above: Expected: 08/12/2023, Expires: Start: 08-12-2023 End: 11-11-2023 Cortisol [Mass/volume] in Serum or Plasma CORTISOL BLD Lab Routine Pituitary tumor Fatigue, unspecified type Expected: 08/12/2023, Expires: 11/11/2023 [facility] Work Phone: Comment on above: Expected: 08/12/2023, Expires: Start: 08-12-2023 End: 11-11-2023 DHEA-S BLD DHEA-S BLD Lab Routine Pituitary tumor Fatigue, unspecified type Expected: 08/12/2023, Expires: 11/11/2023 [facility] Work Phone: Comment on above: Expected: 08/12/2023, Expires: Start: 08-12-2023 End: 11-11-2023 Follitropin [Units/volume] in Serum or Plasma FSH BLD Lab Routine Pituitary tumor Expected: 08/12/2023, Expires: 11/11/2023 [facility] Work Phone: Comment on above: Expected: 08/12/2023, Expires: Start: 08-12-2023 End: 11-11-2023 INSULIN LIK GR FAC I INSULIN LIK GR FAC I Lab Routine Pituitary tumor Expected: 08/12/2023, Expires: 11/11/2023 [facility] Work Phone: Comment on above: Expected: 08/12/2023, Expires: Start: 08-12-2023 End: 11-11-2023 Lutropin [Units/volume] in Serum or Plasma LUTEINIZING HORMONE Lab Routine Pituitary tumor Expected: 08/12/2023, Expires: 11/11/2023 [facility] Work Phone: Comment on above: Expected: 08/12/2023, Expires: Start: 08-12-2023 End: 11-11-2023 Prolactin [Mass/volume] in Serum or Plasma PROLACTIN BLD Lab Routine Pituitary tumor Expected: 08/12/2023, Expires: 11/11/2023 [facility] Work Phone: Comment on above: Expected: 08/12/2023, Expires: Start: 08-12-2023 End: 11-11-2023 Thyrotropin [Units/volume] in Serum or Plasma TSH BLD Lab Routine Pituitary tumor Fatigue, unspecified type Expected: 08/12/2023, Expires: 11/11/2023 [facility] Work Phone: Comment on above: Expected: 08/12/2023, Expires: Start: 08-12-2023 End: 11-11-2023 Thyroxine (T4) free [Mass/volume] in Serum or Plasma T4 FREE/FREE THYROX Lab Routine Pituitary tumor Fatigue, unspecified type Expected: 08/12/2023, Expires: 11/11/2023 [facility] Work Phone: Comment on above: Expected: 08/12/2023, Expires: Start: 05-05-2023 Behavioral Health Screening Behavioral Health Screening [facility] Start: 05-05-2023 Depression Assessment Depression Assessment [facility] Start: 01-03-2023 Covid-19 Vaccine ( season) Covid-19 Vaccine () [facility] Start: 01-03-2023 Influenza vaccination [facility] Start: 12-24-2022 Patient discharge [facility] Start: 12-24-2022 Electrocardiographic procedure [facility] Start: 11-24-2022 Patient discharge [facility] Start: 11-23-2022 Following clinical pathway protocol [facility] Start: 11-23-2022 Assessment of risk of venous thromboembolism [facility] Start: 11-23-2022 Inhalation therapy procedure [facility] Start: 11-23-2022 Insertion of catheter into peripheral vein [facility] Start: 11-23-2022 Providing care according to standard [facility] Start: 11-23-2022 Provision of activity privileges [facility] Start: 11-23-2022 Referral to gastroenterology service [facility] Start: 11-23-2022 [facility] Start: 11-23-2022 Admission procedure [facility] Start: 11-23-2022 Verification routine [facility] Start: 09-10-2022 End: 11-10-2022 Basic metabolic 2000 panel - Serum or Plasma BASIC METABOLIC PNL Lab Routine Pituitary tumor Fatigue, unspecified type Expected: 09/10/2022, Expires: 11/10/2022 [facility] Work Phone: Comment on above: Expected: 09/10/2022, Expires: 3 Start: 09-10-2022 End: 11-10-2022 Cortisol [Mass/volume] in Serum or Plasma CORTISOL BLD Lab Routine Pituitary tumor Fatigue, unspecified type Expected: 09/10/2022, Expires: 11/10/2022 [facility] Work Phone: Comment on above: Expected: 09/10/2022, Expires: 3 Start: 09-10-2022 End: 11-10-2022 DHEA-S BLD DHEA-S BLD Lab Routine Pituitary tumor Fatigue, unspecified type Expected: 09/10/2022, Expires: 11/10/2022 [facility] Work Phone: Comment on above: Expected: 09/10/2022, Expires: 3 Start: 09-10-2022 End: 11-10-2022 Follitropin [Units/volume] in Serum or Plasma FSH BLD Lab Routine Pituitary tumor Expected: 09/10/2022, Expires: 11/10/2022 [facility] Work Phone: Comment on above: Expected: 09/10/2022, Expires: 3 Start: 09-10-2022 End: 11-10-2022 INSULIN LIK GR FAC I INSULIN LIK GR FAC I Lab Routine Pituitary tumor Expected: 09/10/2022, Expires: 11/10/2022 [facility] Work Phone: Comment on above: Expected: 09/10/2022, Expires: 3 Start: 09-10-2022 End: 11-10-2022 Lutropin [Units/volume] in Serum or Plasma LUTEINIZING HORMONE Lab Routine Pituitary tumor Expected: 09/10/2022, Expires: 11/10/2022 [facility] Work Phone: Comment on above: Expected: 09/10/2022, Expires: 3 Start: 09-10-2022 End: 11-10-2022 Prolactin [Mass/volume] in Serum or Plasma PROLACTIN BLD Lab Routine Pituitary tumor Expected: 09/10/2022, Expires: 11/10/2022 [facility] Work Phone: Comment on above: Expected: 09/10/2022, Expires: 3 Start: 09-10-2022 End: 11-10-2022 Thyrotropin [Units/volume] in Serum or Plasma TSH BLD Lab Routine Pituitary tumor Fatigue, unspecified type Expected: 09/10/2022, Expires: 11/10/2022 [facility] Work Phone: Comment on above: Expected: 09/10/2022, Expires: 3 Start: 09-10-2022 End: 11-10-2022 Thyroxine (T4) free [Mass/volume] in Serum or Plasma T4 FREE/FREE THYROX Lab Routine Pituitary tumor Fatigue, unspecified type Expected: 09/10/2022, Expires: 11/10/2022 [facility] Work Phone: Comment on above: Expected: 09/10/2022, Expires: 3 Start: 05-05-2022 DEPRESSION ASSESSMENT DEPRESSION ASSESSMENT [facility] Start: 01-03-2022 Influenza vaccination [facility] Start: 10-11-2021 End: 12-11-2021 Basic metabolic 2000 panel - Serum or Plasma BASIC METABOLIC PNL Lab Routine Pituitary tumor Pituitary abnormality (HCC) Expected: 10/11/2021, Expires: 12/11/2021 [facility] Work Phone: Comment on above: Expected: 10/11/2021, Expires: 2 Start: 10-11-2021 End: 12-11-2021 Cortisol [Mass/volume] in Serum or Plasma CORTISOL BLD Lab Routine Fatigue, unspecified type Expected: 10/11/2021, Expires: 12/11/2021 [facility] Work Phone: Comment on above: Expected: 10/11/2021, Expires: 2 Start: 10-11-2021 End: 12-11-2021 Follitropin [Units/volume] in Serum or Plasma FSH BLD Lab Routine Pituitary tumor Expected: 10/11/2021, Expires: 12/11/2021 [facility] Work Phone: Comment on above: Expected: 10/11/2021, Expires: 2 Start: 10-11-2021 End: 12-11-2021 INSULIN LIK GR FAC I INSULIN LIK GR FAC I Lab Routine Pituitary tumor Expected: 10/11/2021, Expires: 12/11/2021 [facility] Work Phone: Comment on above: Expected: 10/11/2021, Expires: 2 Start: 10-11-2021 End: 12-11-2021 Lutropin [Units/volume] in Serum or Plasma LUTEINIZING HORMONE Lab Routine Pituitary tumor Expected: 10/11/2021, Expires: 12/11/2021 [facility] Work Phone: Comment on above: Expected: 10/11/2021, Expires: 2 Start: 10-11-2021 End: 12-11-2021 Prolactin [Mass/volume] in Serum or Plasma PROLACTIN BLD Lab Routine Pituitary tumor Expected: 10/11/2021, Expires: 12/11/2021 [facility] Work Phone: Comment on above: Expected: 10/11/2021, Expires: 2 Start: 10-11-2021 End: 12-11-2021 T4 FREE/FREE THYROX T4 FREE/FREE THYROX Lab Routine Fatigue, unspecified type Expected: 10/11/2021, Expires: 12/11/2021 [facility] Work Phone: Comment on above: Expected: 10/11/2021, Expires: 2 Start: 10-11-2021 End: 12-11-2021 Thyrotropin [Units/volume] in Serum or Plasma TSH BLD Lab Routine Fatigue, unspecified type Expected: 10/11/2021, Expires: 12/11/2021 [facility] Work Phone: Comment on above: Expected: 10/11/2021, Expires: 2 Start: 05-16-2021 Adult depression screening assessment DEPRESSION SCREENING [facility] Start: 05-05-2021 DEPRESSION ASSESSMENT DEPRESSION ASSESSMENT [facility] Start: 2019 Mammography [facility] Start: 2019 Screening for malignant neoplasm of breast Mammogram Screening [facility] Start: 01-03-2019 Influenza vaccination Flu vaccine (#1) [place], [place] Start: 05-24-2018 PAP TESTING PAP TESTING [facility] Start: 05-24-2018 Screening for malignant neoplasm of cervix Pap Testing [facility] Start: 05-24-2016 Screening for malignant neoplasm of cervix Cervical Cancer Screening [facility] Start: 12-02-2009 HPV TESTING HPV TESTING [facility] Start: 12-02-2009 Screening for malignant neoplasm of cervix HPV Testing [facility] Start: 12-02-2000 Cervical cancer screen Cervical cancer screen [place], [place] Start: 12-02-1998 DTaP/Tdap/Td vaccine (1 - Tdap) DTaP/Tdap/Td vaccine (1 - Tdap) [place] Start: 12-02-1998 Hepatitis B Vaccine (1 of 3 - 19+ 3-dose series) Hepatitis B Vaccine (1 of 3 - 19+ 3-dose series) [facility] Start: 12-02-1998 [facility] Start: 12-02-1997 Depression Screening Depression Screening [facility] Start: 12-02-1997 HEPATITIS C SCREENING HEPATITIS C SCREENING [facility] Start: 12-02-1997 Hepatitis C screening Hepatitis C Screening [facility] Start: 12-02-1997 HIV SCREENING HIV SCREENING [facility] Start: 12-02-1997 HIV screening HIV Screening [facility] Start: 12-02-1994 HIV screen HIV screen [place], [place] Start: 12-02-1992 Varicella Vaccine (1 of 2 - 13+ 2-dose series) Varicella Vaccine (1 of 2 - 13+ 2-dose series) [place] Start: 12-02-1990 DTaP/Tdap/Td vaccine (1 - Tdap) DTaP/Tdap/Td vaccine (1 - Tdap) [facility] Work Phone: Start: 12-02-1985 Pneumococcal 0-64 years Vaccine (1 of 1 - PPSV23) Pneumococcal 0-64 years Vaccine (1 of 1 - PPSV23) [place], [place] Start: 12-02-1984 COVID-19 VACCINE (#1) COVID-19 VACCINE (#1) [facility] Start: 12-02-1980 Varicella Vaccine (1 of 2 - 2-dose childhood series) Varicella Vaccine (1 of 2 - 2-dose childhood series) [facility] Work Phone: Start: 06-04-1980 COVID-19 VACCINE (#1) COVID-19 VACCINE (#1) [facility] Start: 1979 HEPATITIS B (1 of 3 - 3-dose series) HEPATITIS B (1 of 3 - 3-dose series) [facility] Start: 1979 Hepatitis B Vaccine (1 of 3 - 3-dose series) Hepatitis B Vaccine (1 of 3 - 3-dose series) [facility] Bacteria identified in Urine by Culture URINE CULTURE Microbiology Routine Low back pain without sciatica, unspecified back pain laterality, unspecified chronicity 11/18/2022 1:28 PM EDT [facility] Work Phone: End: 02-19-2019 Bilirubin.direct [Mass/Vol] BILIRUBIN, DIRECT Lab Add-On One Time for 1 Occurrences starting 02/19/2019 until 02/19/2019 [place] Comment on above: One Time for 1 Occurrences starting 02/02 until 02/19/2019 End: 02-19-2019 Gamma GT Gamma GT Lab Add-On One Time for 1 Occurrences starting 02/19/2019 until 02/19/2019 [place] Comment on above: One Time for 1 Occurrences starting 02/02 until 02/19/2019 End: 02-19-2019 Hep B DNA PCR Quant Hep B DNA PCR Quant Lab Routine One Time for 1 Occurrences starting 02/19/2019 until 02/19/2019 [facility] [place] Comment on above: One Time for 1 Occurrences starting 02/02 until 02/19/2019 Hep B DNA PCR Quant Hep B DNA PC R Quant Lab Routine 02/19/2019 1:34 PM EDT [place] Hepatitis A virus Ig M Ab [Presence] in Serum [facility] Hepatitis B core ant ibody measurement, IgM type [facility] Hepatitis B surface antigen measurement [facility] Hepatitis C antibody measurement [facility] End: 02-19-2019 Hepatitis Panel, Acute Hepatitis Panel, Acute Lab Add-On One Time for 1 Occurrences starting 02/19/2019 until 02/19/2019 [facility] [place] Comment on above: One Time for 1 Occurrences starting 02/02 until 02/19/2019 Initiate Oxygen Ther apy Protocol Initiate Oxygen Therapy Protocol Respiratory Care Routine Daily until discontinued starting 02/19/2019 [facility] [place] Comment on above: Daily until discontinued starting 2018 End: 02-19-2019 Miscellaneous Sendout 1 Miscellaneous Sendout 1 Lab STAT Once for 1 Occurrences starting 02/19/2019 until 02/19/2019 [facility] [place] Comment on above: Once for 1 Occurrences starting 02/20/20 until 02/19/2019 Miscellaneous Sendout 1 Miscella neous Sendout 1 Lab STAT 02/19/2019 5:52 AM EDT [facility] [place] MR Brain WO and W contrast IV MR I BRAIN WO/W IVCON Radiology Routine Pituitary adenoma (HCC) 08/13/2023 3:59 PM EDT [facility] Work Phone: End: 08-20-2024 MRA Head vessels WO contrast MRA BRAIN WO IVCON Radiology Routine Nonruptured cerebral aneurysm 1 Occurrences starting 07/22/2023 until 08/20/2024 [facility] Work Phone: Comment on above: 1 Occurrences starting 07/22/2023 until 08/20/2024 MRA Head vessels WO contrast MRA BRAIN WO IVCON Radiology Routine Nonruptured cerebral aneurysm 08/13/2023 3:59 PM EDT [facility] Work Phone: End: 02-01-2022 Mra head w/o contrst material [facility] Work Phone: Comment on above: 1 Occurrences starting 02/01/2022 until 02/01/2022 End: 03-06-2023 Mra head w/o contrst material MRA BRAIN WO IVCON Radiology Routine Family history of ischemic heart disease and other diseases of the circulatory system 1 Occurrences starting 02/04/2022 until 03/06/2023 [facility] Work Phone: Comment on above: 1 Occurrences starting 02/04/2022 until 03/06/2023 End: 02-01-2022 Mri brain brain stem w/o w/contrast material [facility] Work Phone: Comment on above: 1 Occurrences starting 02/01/2022 until 02/01/2022 End: 03-06-2023 Mri brain brain stem w/o w/contrast material MRI BRAIN WO/W IVCON Radiology Routine Chiari I malformation (HCC) Pituitary adenoma (HCC) 1 Occurrences starting 02/04/2022 until 03/06/2023 [facility] Work Phone: Comment on above: 1 Occurrences starting 02/04/2022 until 03/06/2023 End: 06-19-2023 Mri spinal canal cervical w/o contrast matrl MRI CERVICAL SPINE WO IVCON Radiology Routine Spinal stenosis of cervical region 1 Occurrences starting 05/20/2022 until 06/19/2023 [facility] Work Phone: Comment on above: 1 Occurrences starting 05/20/2022 until 06/19/2023 Patient Education Abdominal Pain Gallstones Dc [facility] Work Phone: Patient referral [facility] Work Phone: End: 06-15-2023 Radex spine cervical 4 or 5 views XR CERV OTHER 4V AP/LAT/FLX/EXT Radiology Routine Cervical disc herniation 1 Occurrences starting 05/16/2022 until 06/15/2023 [facility] Work Phone: Comment on above: 1 Occurrences starting 05/16/2022 until 06/15/2023 [facility] Payers Date Payer Category Payer Self-pay [id number] 2022 Unknown [employer] FERRED CHOICE FULLY INSURED [id number] 2022-Present [phone] [address] [place] [address] PPO [id number] 2022 Medicaid [id number] 2020 Medicaid [employer] MED[employer] ID [employer]VANTAGE MEDICAID [id number] 2020-Present [phone] [address] [place] [address] Medicaid [id number] 2020 Medicaid [id number] 2018 Unknown [employer] ADVANT AGE [employer] ADVANTAGE xxxxxxxxxxx 2018-Present [phone] [address] [place] [address] xxxxxxxxxxx [id number] 1979 Unknown [id number] Private Health Insurance Unknown PARAMOUNT ADV MC D *DO NOT USE* [id number] Unknown [facility] [id number] Unknown [id number] Unknown [id number] Unknown [id number] Unknown [id number] Unknown [id number] Social History Date Type Detail Facility Start: 10-15-2018 End: 04-12-2019 Tobacco smoking status MAIS Current every day smoker [place] Start: 10-15-2018 End: 09-10-2022 Alcohol intake Never [facility] Start: 09-19-2018 History SDOH Alcohol Frequency 1 [place] Sex Assigned At Not on file [place] Start: 1980 Sex Assigned At Female M [place], [place] Start: 02-19-2019 End: 09-10-2022 Cigarettes smoked current (pack per day) - Reported [facility] Start: 02-19-2019 Tobacco Comment 20 years [place], [place] Start: 04-12-2019 Alcohol intake Lifetime non-d catia (finding) [facility] Work Phone: Start: 06-05-2020 End: 01-24-2024 Tobacco smoking status MAIS Ex-smoker [facility] Work Phone: Start: 10-27-2001 End: 10-27-2016 History of tobacco use Current smoker [facility] Work Phone: Start: 10-27-2001 End: 10-27-2016 History of tobacco use Cigarette Smoker [facility] Work Phone: Start: 06-05-2020 End: 01-24-2024 Tobacco use and exposure Smokeless tobacco non-user [facility] Work Phone: Start: 10-11-2021 End: 01-24-2024 Alcohol intake Current non-drinker of alcohol (finding) [facility] Start: 06-05-2020 End: 05-20-2022 Tobacco Comment Quit 04/2020 [facility] Start: 09-29-2021 End: 01-02-2022 Exposure to SARS-CoV-2 (event) Not sure [facility] Adult Depression Screening Assessment 0 [facility] Start: 04-17-2019 Gender identity Identifies as female gender (finding) [facility] Start: 04-17-2019 Sexual orientation Heterosexual (fin ding) [facility] Start: 11-23-2022 End: 12-23-2022 Tobacco smoking status NHIS Unknown if ever smoked [facility] Start: 08-21-2020 None [facility] Tobacco smoking status [facility] Start: 12-17-2024 Sex Female (finding) [facility] NEGATED: Highlighted row [facility] Goals Date Patient Goal Desired Activity /State Functional Status Date Assessment Result Facility 12-24-2022 Functional status Ambulates;Bathroom Priv ilege [facility] Work Phone: 11-24-2022 Functional status Chair [facility] Work Phone: Mental Status Date Assessment Result Facility 12-24-2022 Cognitive function Voice/Name [facility] Work Phone: Clinical Notes 10-11-2021 to 12-17-2024 Note Date & Type Note Facility 12-17-2024 Hospital Discharg e instructions Follow Up Care 12/17/2024 10:12:19 With:CARMEN COOK MD Address: [address] [place], [place] [address] [address] [place] [address] [phone] When:2-4 days With:Follow up with primary care provider Address:Unknown When:2-4 days [facility] 12-17-2024 Note Discharge Instructions Thank you for allowing [facility] to assist you with your healthcare needs. The following is important discharge information regarding your hospital visit. Diagnosis from Today's Visit Knee pain What to Do Next Instructions from Your Care Team No qualifying data available. Post Acute Orders No qualifying data available. You Need to Schedule the Following Appointments Follow Up with CARMEN COOK MD When:Within 2-4 days Where:[address] [place] [address] [phone] Follow Up with Follow up with primary care provider When:Within 2-4 days Allergies No Known Medication Allergies Medications Please ask your primary doctor or pharmacist before taking any other medication not listed, including over the counter drugs, herbal medications, vitamins and or supplements as they may interact with your home medications. What How Much When Instructions Last Dose New predniSONE (predniSONE 50 mg oral tablet) 1 tab(s) by mouth Once a day Duration: 5 Days Take with food Printed Prescription Please take this list to your next doctor s visit. Bring all medications you take, including over the counter medications, herbals and other supplements with you to your doctor s visit. Patients and families are reminded to discard old lists and to update any records with all medication providers or retail pharmacies. Medication Leaflets prednisone (PRED sukhjinder soncarolyne) Alexis What is the most important information I should know about prednisone? You should not use prednisone if you have a fungal infection anywhere in your body. You should not stop using prednisone suddenly. Follow your doctor's instructions about tapering your dose. What is prednisone? Prednisone is a steroid that reduces inflammation in the body, and also suppresses your immune system. Prednisone is used to treat many different conditions such as hormonal disorders, skin diseases, arthritis, lupus, psoriasis, allergic conditions, ulcerative colitis, Crohn's disease, eye diseases, lung diseases, asthma, tuberculosis, blood cell disorders, kidney disorders, leukemia, lymphoma, multiple sclerosis, organ transplant rejection, swelling from a brain tumor or injury. Prednisone may also be used for purposes not listed in this medication guide. What should I discuss with my healthcare provider before taking prednisone? You should not use prednisone if you are allergic to it, or if you have a fungal infection anywhere in your body. Steroid medication can weaken your immune system, making it easier for you to get an infection or worsening an infection you already have. Tell your doctor about any illness or infection you've had within the past several weeks. Tell your doctor if you have ever had: heart problems, high blood pressure, or a heart attack; glaucoma or cataracts; herpes infection of the eyes; past or present tuberculosis; a parasite infection that causes diarrhea (such as threadworms); any illness that causes diarrhea; underactive thyroid; diabetes; a stomach ulcer, diverticulitis; a colostomy or ileostomy; osteoporosis or low bone mineral density (steroid medication can increase your risk of bone loss); low levels of calcium or potassium in your blood; cirrhosis or other liver disease; mental illness or psychosis; or a muscle disorder such as myasthenia gravis. Long-term use of steroids may lead to bone loss (osteoporosis), especially if you smoke or drink alcohol, if you do not exercise, or if you do not get enough vitamin D or calcium in your diet. It is not known whether this medicine will harm an unborn baby. Tell your doctor if you are or plan to become . You should not breastfeed while using prednisone. How should I take prednisone? Follow all directions on your prescription label and read all medication guides or instruction sheets. Your doctor may occasionally change your dose. Use the medicine exactly as directed. Prednisone is taken daily or every other day, depending on the condition being treated. You may need to take the medicine at a certain time of day. Follow your doctor's instructions about when and how often to take this medicine. Take with food if prednisone upsets your stomach. Measure liquid medicine carefully. Use the dosing syringe provided, or use a medicine dose-measuring device (not a kitchen spoon). Swallow the delayed-release tablet whole and do not crush, chew, or break it. Prednisone can weaken (suppress) your immune system, and you may get an infection more easily. Call your doctor if you have signs of infection (fever, weakness, cold or flu symptoms, skin sores, diarrhea, frequent or recurring illness). If you have major surgery or a severe injury or infection, your prednisone dose needs may change. Make sure any doctor caring for you knows you are using this medicine. If you use this medicine long-term, you may need medical tests and vision exams. In case of emergency, wear or carry medical identification to let others know you use a steroid. You should not stop using prednisone suddenly. Follow your doctor's instructions about tapering your dose. Store at room temperature away from moisture, heat, and light. What happens if I miss a dose? Take the medicine as soon as you can, but skip the missed dose if it is almost time for your next dose. Do not take two doses at one time. What happens if I overdose? Seek emergency medical attention or call the Poison Help line at . High doses or long-term use of prednisone can lead to thinning skin, easy bruising, changes in body fat (especially in your face, neck, back, and waist), increased acne or facial hair, menstrual problems, impotence, or loss of interest in sex. What should I avoid while taking prednisone? Do not receive a 'live' vaccine while using prednisone. The vaccine may not work as well and may not fully protect you from disease. Live vaccines include measles, mumps, rubella (MMR), polio, rotavirus, typhoid, yellow fever, varicella (chickenpox), zoster (shingles), and nasal flu (influenza) vaccine. Avoid being near people who are sick or have infections. Call your doctor for preventive treatment if you are exposed to chickenpox or measles. These conditions can be serious or even fatal in people who are using steroid medicine. Avoid drinking alcohol. What are the possible side effects of prednisone? Get emergency medical help if you have signs of an allergic reaction: hives; difficult breathing; swelling of your face, lips, tongue, or throat. Call your doctor at once if you have: muscle pain or weakness; blurred vision, tunnel vision, eye pain, or seeing halos around lights; severe depression, changes in personality, unusual thoughts or behavior; bloody or tarry stools, coughing up blood or vomit that looks like coffee grounds; swelling, rapid weight gain, feeling short of breath; irregular heartbeats; severe headache, pounding in your neck or ears; decreased adrenal gland hormones--muscle weakness, tiredness, diarrhea, nausea, menstrual changes, skin discoloration, craving salty foods, and feeling light-headed; or low potassium level--leg cramps, constipation, irregular heartbeats, fluttering in your chest, increased thirst or urination, numbness or tingling, muscle weakness or limp feeling. Prednisone can affect growth in children. Tell your doctor if your child is not growing at a normal rate while using this medicine. Common side effects may include: weight gain (especially in your face or your upper back and torso); increased appetite; mood changes, trouble sleeping; changes in your menstrual periods; problems with memory or thought; muscle or joint pain; weakness; headache, dizziness, spinning sensation; nausea, bloating, loss of appetite; slow wound healing; or acne, increased sweating, thinning skin, bruising, pinpoint spots under your skin. This is not a complete list of side effects and others may occur. Call your doctor for medical advice about side effects. You may report side effects to FDA at 7-418-VJZ-7772. What other drugs will affect prednisone? Sometimes it is not safe to use certain medications at the same time. Some drugs can affect your blood levels of other drugs you take, which may increase side effects or make the medications less effective. Tell your doctor about all your current medicines. Many drugs can affect prednisone, especially: bupropion; cyclosporine; digoxin; ketoconazole; an antibiotic; control pills or hormone replacement therapy; a diuretic or 'water pill'; insulin or oral diabetes medicine; a blood thinner--warfarin, Coumadin, Jantoven; or NSAIDs (nonsteroidal anti-inflammatory drugs)--aspirin, ibuprofen (Advil, Motrin), naproxen (Aleve), celecoxib, diclofenac, indomethacin, meloxicam, and others. This list is not complete and many other drugs may affect prednisone. This includes prescription and fcek-qzm-htoshyr medicines, vitamins, and herbal products. Not all possible drug interactions are listed here. Where can I get more information? Your pharmacist can provide more information about prednisone. Remember, keep this and all other medicines out of the reach of children, never share your medicines with others, and use this medication only for the indication prescribed. Every effort has been made to ensure that the information provided by [employer]') is accurate, up-to-date, and complete, but no guarantee is made to that effect. Drug information contained herein may be time sensitive. [employer] information has been compiled for use by healthcare practitioners and consumers in the [place] and therefore [employer] does not warrant that uses outside of the [place] are appropriate, unless specifically indicated otherwise. [employer]'s drug information does not endorse drugs, diagnose patients or recommend therapy. [employer] drug information is an informational resource designed to assist licensed healthcare practitioners in caring for their patients and/or to serve consumers viewing this service as a supplement to, and not a substitute for, the expertise, skill, knowledge and judgment of healthcare practitioners. The absence of a warning for a given drug or drug combination in no way should be construed to indicate that the drug or drug combination is safe, effective or appropriate for any given patient. [facility] does not assume any responsibility for any aspect of healthcare administered with the aid of information [facility] provides. The information contained herein is not intended to cover all possible uses, directions, precautions, warnings, drug interactions, allergic reactions, or adverse effects. If you have questions about the drugs you are taking, check with your doctor, nurse or pharmacist. Copyright 4366-4065 [facility] Version: 10.. Revision Date: 07/30/2018. Additional Information VACCINATE! IT SAVES LIVES! Members of the community who have not yet received the COVID-19 vaccine and would like to receive it can visit one of [facility] vaccine clinics. There are many vaccine clinic locations within the [facility]. For locations and available times, please visit www.[email or web address]. gov/. It is important to note that some COVID mobile vaccine clinics are held outdoors and may be canceled in rainy or stormy conditions. To learn more about pediatric vaccinations (ages 5-11), we invite you to visit the [facility] webpage. https://www.[facility].org/p ages/8003-Lekvs-Loqivqwjdkc-Freq rikgiq-Ufmwa-Mhxqffnre.html To learn more about the COVID-19 vaccine, we invite you to visit the CDC website for a list of frequently asked questions. https://www.cdc.gov/coronavirus/ 2019-ncov/vaccines/faq.html [facility] Patient Portal Access Instructions: Stay connected with your healthcare team and access your personal medical information anytime with the [facility] Patient Portal. If you would like a full copy of your medical records please contact the [facility] Medical Records Department Friday through Friday between 8a.m. and 4:30p.m. Please follow the directions below to access the portal: 1.Access the email account you provided upon registration to the [facility].2.Look for an invitation email from [facility].3.Open the email and access the invitation link: Accept Invitation to [employer].Fill in the required nava to create your account. Sign into [email or web address] with your username and password that you created in the above steps to stay up to date. You can then view a summary of results, a summary of your visits, and the ability to download your summaries to your computer or send the information securely to a physician. Remember that your healthcare information is confidential, so carefully consider who you will allow to register on the [facility] Patient Portal for access to your information. You can also access the [facility] Patient Portal on the [employer] john. Simply click on Health Records under Health Data and then click on the [employer] logo. HOW TO SAFELY DISPOSE OF PRESCRIPTION MEDICATIONS Please use one of the following methods to safely dispose of your unused medications. 1.Use a drug disposal kit: the drug disposal pouch allows you to safely discard your old and unused drugs. Ask your nurse to give you one when you are discharged.2.Visit a local take-back location: Many local pharmacies and police departments have programs that collect old and unwanted prescription drugs. Call your local pharmacy or go to http://ideacts innovations.Videodeclasse.com/6Q8Wu4q to find one close to you.3.Make use of household items: Use cat litter or old coffee grounds to dispose medications if other options are not available. Mix your drugs with these household products, seal them in an airtight container and throw it into the garbage. Call [facility]: [phone] to be sure your drugs can be disposed of in this way. Some medicines may require a different approach.4.Never flush your medications down the toilet. IF YOU HAVE BEEN PRESCRIBED AN OPIOIDS FOR PAIN If you have been prescribed an opioid (such as hydrocodone, oxycodone or morphine), it is critical to understand the possible side effects and risks of opioid pain medications. Even when taken as directed, opioids can have several side effects including: Tolerance, meaning you might need to take more of a medication for the same pain relief. Nausea, vomiting and/or constipation. Sleepiness, dizziness, dry mouth, confusion, depression or itching. Physical dependence, meaning you have withdrawal symptoms when a medication is stopped ? this can develop within a few days. KNOW YOUR RESPONSIBILITIES It is important to know exactly how much and how often to take the opioid pain medications you are prescribed. Never take opioids in higher amounts or more often than prescribed. Do not combine opioids with alcohol or other drugs that cause drowsiness, such as benzodiazepines, also known as benzos, including diazepam and alprazolam, muscle relaxants or sleep aids. Never sell or share prescription opioids. This is illegal. Store opioids in a secure place and out of reach of others (including children, family, friends and visitors). The last page(s) of this document has been signed and retained as a CHART COPY Signatures Patient Education Materials Medication Leaflets prednisone My discharge plan and instructions have been reviewed and explained to me and I,TIM CORDOVA understand my current condition and have read and understand these discharge instructions. I have received a written copy of the plan/instructions. If I have questions, I am aware that I should contact my doctor. 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 HISTORY: ORDERING SYSTEM PROVIDED HISTORY: Reason for Exam: rt knee pain x1 week, worse with flexion. NKI pain FINDINGS: No acute fracture or dislocation. Joint spaces are preserved. No joint effusion or significant soft tissue swelling. IMPRESSION: No acute radiographic findings. Interpreted by: Kiko Figueroa Preliminary Report By: Kiko Figueroa Electronically signed By Kiko Figueroa Dictated Date: 12/17/2024 11:09:39 AM Prelim Date: 12/17/2024 11:10:26 AM Sign Date: 12/17/2024 11:10:26 AM Ordering Provider: LUCITA VENEGAS [facility]09-21-2024 NoteHNO ID: [id number] Author: KELLY RENNER APRN.KEY CUTTER Service: ? Author Type: Nurse Practitioner Type: Progress Notes Filed: 01/24/2024 15:18 Note Text: Subjective HPI HPI Tim Cordova is a 43 year old female who presents today for CC of cough, congestion. This started 3 days/worsening. Has tried otc medication for relief. Symptoms are worsened by nothing. Denies possibility of being . .Patient presents with: Cough: Cough, congestion and chest pressure x 3 days and sinus issues x 1 day PAST MEDICAL HISTORY Diagnosis Date Acute laryngitis Acute sinusitis Arnold-Chiari malformation (HCC) s/p decompression Cervical disc herniation neck pain Dysmenorrhea Hepatitis B 02/2019 Left foot pain Menorrhagia Migraine PAST SURGICAL HISTORY Procedure Laterality Date BRAIN SURGERY HX 10/22/2019 suboccipital craniectomy for decompression Chiari I malformation by Dr. Chely Bardales CHOLECYSTECTOMY HX 12/2022 FOOT SURGERY HX Left 10/2016 debridement from dog bite HYSTERECTOMY 09/2017 one ovary remains TUBAL LIGATION 2002 ALLERGIES Oxycodone-Acetaminophen MEDICATIONS acetaminophen (TYLENOL) 325 mg tablet Take 650 mg by mouth as needed. FAMILY HISTORY Problem Relation Age of Onset Hypertension Mother Cancer Father Lung cancer Aneurysm Father Head/brain Hypertension Father Aneurysm Paternal Grandmother Head/brain Social History Tobacco Use Smoking status: Former Current packs/day: 0.00 Average packs/day: 1 pack/day for 15.0 years (15.0 ttl pk-yrs) Types: Cigarettes Start date: 10/27/2001 Quit date: 10/27/2016 Years since quittin.2 Smokeless tobacco: Never Tobacco comments: Quit 04/2020 Vaping Use Vaping status: Never Used Substance Use Topics Alcohol use: No Comment: Non alcohol user. Drug use: No Review of Systems Constitutional: Negative for fever. HENT: Positive for congestion and sore throat. Negative for ear pain and nosebleeds. Respiratory: Positive for cough and sputum production. Negative for shortness of breath and wheezing. Musculoskeletal: Negative for neck pain. Objective Blood pressure 110/78, pulse 78, temperature 36.8 ?C (98.2 ?F), temperature source Tympanic, resp. rate 16, weight 106.4 kg (234 lb 9.1 oz), SpO2 98%. Physical Exam Constitutional: General: She is not in acute distress. Appearance: She is not toxic-appearing or diaphoretic. HENT: Head: Normocephalic and atraumatic. Cardiovascular: Rate and Rhythm: Normal rate and regular rhythm. Heart sounds: Normal heart sounds, S1 normal and S2 normal. Pulmonary: Effort: Pulmonary effort is normal. Breath sounds: Examination of the right-lower field reveals rhonchi. Rhonchi present. No decreased breath sounds, wheezing or rales. Lymphadenopathy: Cervical: No cervical adenopathy. Right cervical: No superficial cervical adenopathy. Left cervical: No superficial cervical adenopathy. Neurological: Mental Status: She is alert and oriented to person, place, and time. Gait: Gait is intact. ASSESSMENT/PLAN: 1. Lower resp. tract infection - ICD9: 519.8, ICD10: J22 No xray at time of exam -use medication as prescribed -follow up if symptoms persist, worsen, change - DOXYCYCLINE MONOHYDRATE 100 MG TABLET Kelly Renner APRN.[facility]09-21-2024 History of Present illness Narrative* Kelly Renner APRN.[facility] - 01/24/2024 2:05 PM EDT Subjective HPI HPI Tim Cordova is a 43 year old female who presents today for CC of cough, congestion. This started 3 days/worsening. Has tried otc medication for relief. Symptoms are worsened by nothing. Denies possibility of being . .Patient presents with: Cough: Cough, congestion and chest pressure x 3 days and sinus issues x 1 day PAST MEDICAL HISTORY Diagnosis Date Acute laryngitis Acute sinusitis Arnold-Chiari malformation (HCC) s/p decompression Cervical disc herniation neck pain Dysmenorrhea Hepatitis B 02/2019 Left foot pain Menorrhagia Migraine PAST SURGICAL HISTORY Procedure Laterality Date BRAIN SURGERY HX 10/22/2019 suboccipital craniectomy for decompression Chiari I malformation by Dr. Chely Bardales CHOLECYSTECTOMY HX 12/2022 FOOT SURGERY HX Left 10/2016 debridement from dog bite HYSTERECTOMY 09/2017 one ovary remains TUBAL LIGATION 2001 ALLERGIES Oxycodone-Acetaminophen MEDICATIONS acetaminophen (TYLENOL) 325 mg tablet Take 650 mg by mouth as needed. FAMILY HISTORY Problem Relation Age of Onset Hypertension Mother Cancer Father Lung cancer Aneurysm Father Head/brain Hypertension Father Aneurysm Paternal Grandmother Head/brain Social History Tobacco Use Smoking status: Former Current packs/day: 0.00 Average packs/day: 1 pack/day for 15.0 years (15.0 ttl pk-yrs) Types: Cigarettes Start date: 10/27/2001 Quit date: 10/27/2016 Years since quittin.2 Smokeless tobacco: Never Tobacco comments: Quit 04/2020 Vaping Use Vaping status: Never Used Substance Use Topics Alcohol use: No Comment: Non alcohol user. Drug use: No Review of Systems Constitutional: Negative for fever. HENT: Positive for congestion and sore throat. Negative for ear pain and nosebleeds. Respiratory: Positive for cough and sputum production. Negative for shortness of breath and wheezing. Musculoskeletal: Negative for neck pain. Objective Blood pressure 110/78, pulse 78, temperature 36.8 C (98.2 F), temperature source Tympanic, resp. rate 16, weight 106.4 kg (234 lb 9.1 oz), SpO2 98%. Physical Exam Constitutional: General: She is not in acute distress. Appearance: She is not toxic-appearing or diaphoretic. HENT: Head: Normocephalic and atraumatic. Cardiovascular: Rate and Rhythm: Normal rate and regular rhythm. Heart sounds: Normal heart sounds, S1 normal and S2 normal. Pulmonary: Effort: Pulmonary effort is normal. Breath sounds: Examination of the right-lower field reveals rhonchi. Rhonchi present. No decreased breath sounds, wheezing or rales. Lymphadenopathy: Cervical: No cervical adenopathy. Right cervical: No superficial cervical adenopathy. Left cervical: No superficial cervical adenopathy. Neurological: Mental Status: She is alert and oriented to person, place, and time. Gait: Gait is intact. ASSESSMENT/PLAN: 1. Lower resp. tract infection - ICD9: 519.8, ICD10: J22 No xray at time of exam -use medication as prescribed -follow up if symptoms persist, worsen, change - DOXYCYCLINE MONOHYDRATE 100 MG TABLET Kelly Renner APRN.CNP documented in [facility]Bl[facility] NoteHNO ID: [id number] Author: CONSTANCE OVERTON APRN.[facility] Service: ? Author Type: Nurse Practitioner Type: Progress Notes Filed: 10/08/2023 16:47 Note Text: This note was created using [email or web address]. Subjective Tim Cordova is a 42 year old female. Tim Cordova is a 42 year old female with a PMH of Arnold-Chiari malformation, cervical disc herniation, presenting today with right index finger pain since 8:30p yesterday. She states she is experiencing pain, swelling, decreased ROM. Cannot recall injury. She states she cannot bend her finger or put pressure onto it. Pain is localized to the middle section of her right index finger. She states she often blows veins, as in her veins roll easily and they seem to be fragile. Denies bruising and discoloration. She has tried ice, ibuprofen, tylenol, immobilization to no relief. This has never happened to her before. She complains of no appetite due to the pain. Denies IV drug usage Denies prior history of surgery Right hand dominant Pertinent negatives: -chest pain -shortness of breath -fever -fatigue -chills -n/v/d Pertinent positives: -pain -swelling -decreased ROM The history is provided by the patient. Musculoskeletal Problem This is a new problem. The current episode started yesterday. The problem has been gradually worsening. Associated symptoms include joint swelling. Pertinent negatives include no abdominal pain, anorexia, arthralgias, change in bowel habit, chest pain, chills, congestion, coughing, diaphoresis, fatigue, fever, headaches, myalgias, nausea, neck pain, numbness, rash, sore throat, swollen glands, urinary symptoms, vertigo, visual change, vomiting or weakness. The symptoms are aggravated by bending. She has tried immobilization, acetaminophen, NSAIDs and ice for the symptoms. The treatment provided no relief. PAST MEDICAL HISTORY Diagnosis Date Acute laryngitis Acute sinusitis Arnold-Chiari malformation (HCC) s/p decompression Cervical disc herniation neck pain Dysmenorrhea Hepatitis B 02/2019 Left foot pain Menorrhagia Migraine PAST SURGICAL HISTORY Procedure Laterality Date BRAIN SURGERY HX 10/22/2019 suboccipital craniectomy for decompression Chiari I malformation by Dr. Chely Bardales CHOLECYSTECTOMY HX 12/2022 FOOT SURGERY HX Left 10/2016 debridement from dog bite HYSTERECTOMY 09/2017 one ovary remains TUBAL LIGATION 2002 ALLERGIES Oxycodone-Acetaminophen MEDICATIONS acetaminophen (TYLENOL) 325 mg tablet Take 650 mg by mouth as needed. FAMILY HISTORY Problem Relation Age of Onset Hypertension Mother Cancer Father Lung cancer Aneurysm Father Head/brain Hypertension Father Aneurysm Paternal Grandmother Head/brain Social History Tobacco Use Smoking status: Former Packs/day: 1.00 Years: 15.00 Additional pack years: 0.00 Total pack years: 15.00 Types: Cigarettes Quit date: 10/27/2016 Years since quittin.9 Smokeless tobacco: Never Tobacco comments: Quit 04/2020 Vaping Use Vaping Use: Never used Substance Use Topics Alcohol use: No Comment: Non alcohol user. Drug use: No Review of Systems Constitutional: Positive for appetite change. Negative for chills, diaphoresis, fatigue and fever. Loss of appetite due to pain. HENT: Negative for congestion and sore throat. Respiratory: Negative for cough, chest tightness, shortness of breath, wheezing and stridor. Cardiovascular: Negative for chest pain and palpitations. Gastrointestinal: Negative for abdominal pain, anorexia, change in bowel habit, constipation, diarrhea, nausea and vomiting. Musculoskeletal: Positive for joint swelling. Negative for arthralgias, myalgias and neck pain. Skin: Negative for color change, rash and wound. Neurological: Negative for vertigo, weakness, numbness and headaches. Hematological: Bruises/bleeds easily. States she often blows veins. Objective BP 110/78 Pulse 86 Temp 36.9 ?C (98.4 ?F) (Tympanic) Resp 18 Wt 109.7 kg (241 lb 13.5 oz) LMP (LMP Unknown) SpO2 97% BMI 37.88 kg/m? Physical Exam Constitutional: General: She is not in acute distress. Appearance: Normal appearance. She is not toxic-appearing. HENT: Head: Normocephalic and atraumatic. Cardiovascular: Rate and Rhythm: Normal rate and regular rhythm. Heart sounds: Normal heart sounds. No murmur heard. No friction rub. No gallop. Pulmonary: Effort: Pulmonary effort is normal. No accessory muscle usage or respiratory distress. Breath sounds: No stridor. Examination of the right-upper field reveals wheezing. Examination of the left-upper field reveals wheezing. Wheezing present. Comments: Low-pitched wheezing noted in bilateral upper lung nava. Musculoskeletal: Right wrist: No swelling, tenderness or bony tenderness. Normal range of motion. Left wrist: No swelling, tenderness or bony tenderness. Normal range of motion. R (more content not included)...[facility]06-05-2024 History of Present illness Narrative* Constance Overton APRN.[facility] - 10/08/2023 4:01 PM EDT This note was created using [email or web address]. Subjective Tim Cordova is a 42 year old female. Tim Cordova is a 42 year old female with a PMH of Arnold-Chiari malformation, cervical disc herniation, presenting today with right index finger pain since 8:30p yesterday. She states she is experiencing pain, swelling, decreased ROM. Cannot recall injury. She states she cannot bend her finger or put pressure onto it. Pain is localized to the middle section of her right index finger. She states she often blows veins, as in her veins roll easily and they seem to be fragile. Denies bruisingand discoloration. She has tried ice, ibuprofen, tylenol, immobilization to no relief. This has never happened to her before. She complains of no appetite due to the pain. Denies IV drug usage Denies prior history of surgery Right hand dominant Pertinent negatives: -chest pain -shortness of breath -fever -fatigue -chills -n/v/d Pertinent positives: -pain -swelling -decreased ROM The history is provided by the patient. Musculoskeletal Problem This is a new problem. The current episode started yesterday. The problem has been gradually worsening. Associated symptoms include joint swelling. Pertinent negatives include no abdominal pain, anorexia, arthralgias, change in bowel habit, chest pain, chills, congestion, coughing, diaphoresis, fatigue, fever, headaches, myalgias, nausea, neck pain, numbness, rash, sore throat, swollen glands, urinary symptoms, vertigo, visual change, vomiting or weakness. The symptoms are aggravated by bending. She has tried immobilization, acetaminophen, NSAIDs and ice for the symptoms. The treatment provided no relief. PAST MEDICAL HISTORY Diagnosis Date Acute laryngitis Acute sinusitis Arnold-Chiari malformation (HCC) s/p decompression Cervical disc herniation neck pain Dysmenorrhea Hepatitis B 02/2019 Left foot pain Menorrhagia Migraine PAST SURGICAL HISTORY Procedure Laterality Date BRAIN SURGERY HX 10/22/2019 suboccipital craniectomy for decompression Chiari I malformation by Dr. Chely Bardales CHOLECYSTECTOMY HX 12/2022 FOOT SURGERY HX Left 10/2016 debridement from dog bite HYSTERECTOMY 09/2017 one ovary remains TUBAL LIGATION 2002 ALLERGIES Oxycodone-Acetaminophen MEDICATIONS acetaminophen (TYLENOL) 325 mg tablet Take 650 mg by mouth as needed. FAMILY HISTORY Problem Relation Age of Onset Hypertension Mother Cancer Father Lung cancer Aneurysm Father Head/brain Hypertension Father Aneurysm Paternal Grandmother Head/brain Social History Tobacco Use Smoking status: Former Packs/day: 1.00 Years: 15.00 Additional pack years: 0.00 Total pack years: 15.00 Types: Cigarettes Quit date: 10/27/2016 Years since quittin.9 Smokeless tobacco: Never Tobacco comments: Quit 04/2020 Vaping Use Vaping Use: Never used Substance Use Topics Alcohol use: No Comment: Non alcohol user. Drug use: No Review of Systems Constitutional: Positive for appetite change. Negative for chills, diaphoresis, fatigue and fever. Loss of appetite due to pain. HENT: Negative for congestion and sore throat. Respiratory: Negative for cough, chest tightness, shortness of breath, wheezing and stridor. Cardiovascular: Negative for chest pain and palpitations. Gastrointestinal: Negative for abdominal pain, anorexia, change in bowel habit, constipation, diarrhea, nausea and vomiting. Musculoskeletal: Positive for joint swelling. Negative for arthralgias, myalgias and neck pain. Skin: Negative for color change, rash and wound. Neurological: Negative for vertigo, weakness, numbness and headaches. Hematological: Bruises/bleeds easily. States she often blows veins. Objective BP 110/78 Pulse 86 Temp 36.9 C (98.4 F) (Tympanic) Resp 18 Wt 109.7 kg (241 lb 13.5 oz) LMP (LMP Unknown) SpO2 97% BMI 37.88 kg/m Physical Exam Constitutional: General: She is not in acute distress. Appearance: Normal appearance. She is not toxic-appearing. HENT: Head: Normocephalic and atraumatic. Cardiovascular: Rate and Rhythm: Normal rate and regular rhythm. Heart sounds: Normal heart sounds. No murmur heard. No friction rub. No gallop. Pulmonary: Effort: Pulmonary effort is normal. No accessory muscle usage or respiratory distress. Breath sounds: No stridor. Examination of the right-upper field reveals wheezing. Examination of the left-upper field reveals wheezing. Wheezing present. Comments: Low-pitched wheezing noted in bilateral upper lung nava. Musculoskeletal: Right wrist: No swelling, tenderness or bony tenderness. Normal range of motion. Left wrist: No swelling, tenderness or bony tenderness. Normal range of motion. Right hand: Swelling, tenderness and bony tenderness present. Decreased range of motion. Left hand: Normal. No swelling, tenderness or bony tenderness. Normal range of motion. Comments: Swelling noted to right index finger. No bruising or discoloration. Unable to make a fistwith the right hand. Tenderness along medial and lateral aspects of the finger. No tenderness on the anterior or posterior aspects. Skin: General: Skin is warm and dry. Findings: No bruising or erythema. Neurological: Mental Status: She is alert. Psychiatric: Mood and Affect: Mood normal. Behavior: Behavior normal. Thought Content: Thought content normal. Judgment: Judgment normal. Assessment and Plan Jeannine Tony ASSESSMENT/PLAN: 1. Finger pain, right - ICD9: 729.5, ICD10: M79.644 Acute onset yesterday Denies known trauma or injury She is holding it in flexed position, swelling, and cannot perform ROM Cannot exclude flexor tenosynovitis in express care setting Referred to ED for further management and ortho consult Constance Overton APRN.[employer] documented in this encounterBl[facility]04-16-[facility]24 NoteHNO ID: [id number] Author: CHELY BARDALES MD Service: ? Author Type: Physician Type: Progress Notes Filed: 08/19/2023 11:39 Note Text: NEUROSURGERY FOLLOW UP OFFICE NOTE Chely Bardales MD Date of visit: August 19, 2023 Patient Name: Ms.Shannon Melvin Cordova Date of : 1980 Current Age: [age] year old Sex: female MRN/E# [id number] Last Office Visit: Visit date not found CLINICAL SUMMARY: * Chiari I malformation, s/p suboccipital bony decompression 10/22/2019 * Cervical disc herniation, C5-6 and C6-7 * Pituitary adenoma vs Rathke's cyst (12 mm x 12 mm) * 2 mm left cavernous segment aneurysm Dr. Wilson - endocrinology SUBJECTIVE: History of Present Illness. Tim Cordova is a 42 year old right-handed female presenting with fiance. Patient was last seen on 05/20/2022 where she had been having posterior neck pain. Most pain was located at the base of her neck, described as a burning sensation. Pain intermittently radiated to left arm, worst in posterior left forearm. Xrays of cervical spine demonstrated good alignment, no evidence of instability. Degenerative changes most pronounced at C6-7. She was recommended to follow up with MRI cervical spine. Physical therapy and pain management referrals were placed. Today she presents with MRI and MRA imaging. She has been doing well overall. She has noted that her cervical pain she was having at last office visit has improved. She still does have posterior neck pain. She notices when she lays down on her right side that her right hand will go numb. She follows with Dr. Wilson with endocrinology, recently had lab work done and was recommended a one year follow up with him. She is pleased overall since her chiari decompression surgery with her surgical outcome. Smoker: YES Diabetic: No Anticoagulants / Antiplatelets: No Occupation: Disabled PAIN EVALUATION No data found in the last 1 encounters. PAST MEDICAL HISTORY Diagnosis Date Acute laryngitis Acute sinusitis Arnold-Chiari malformation (HCC) s/p decompression Cervical disc herniation neck pain Dysmenorrhea Hepatitis B 02/2019 Left foot pain Menorrhagia Migraine PAST SURGICAL HISTORY Procedure Laterality Date BRAIN SURGERY HX 10/22/2019 suboccipital craniectomy for decompression Chiari I malformation by Dr. Chely Bardales CHOLECYSTECTOMY HX 12/2022 FOOT SURGERY HX Left 10/2016 debridement from dog bite HYSTERECTOMY 09/2017 one ovary remains TUBAL LIGATION 2001 FAMILY HISTORY Problem Relation Age of Onset Hypertension Mother Cancer Father Lung cancer Aneurysm Father Head/brain Hypertension Father Aneurysm Paternal Grandmother Head/brain ALLERGIES Allergen Reactions Oxycodone-Acetamino* Itching Current Outpatient Medications Medication Sig Dispense Refill acetaminophen (TYLENOL) 325 mg tablet Take 650 mg by mouth as needed. No current facility-administered medications for this visit. OBJECTIVE: BP 118/66 Pulse 80 Resp 16 Wt 241 lb 10 oz (109.6kg) SpO2 98% PHYSICAL EXAM Mental Status Awake, alert and oriented to person, place and time. Speech is normal. Language is fluent with no aphasia. Attention and concentration are normal. Cranial Nerves CN II: Visual acuity is normal. Visual nava full to confrontation. CN III, IV, : Extraocular movements intact bilaterally. Normal lids and orbits bilaterally. Pupils equal round and reactive to light bilaterally. CN V: Facial sensation is normal. CN VII: Full and symmetric facial movement. CN XI: Shoulder shrug strength is normal. Sensory: Normal sensation in upper and lower extremities and trunk to touch Motor: Normal muscle tone. No spasticity or tremor. No evidence of pronator drift. Full strength in upper and lower extremities Coordination: [id number] normal. Rapid alternating movement normal. Gait: Normal casual gait. Normal toe walking. Normal heel walking. Normal tandem gait. Romberg is absent. Data Review IMAGING STUDIES: MRI / MRA brain obtained on 08/13/2023 demonstrates: IMPRESSION: 1.Redemonstration of a nonenhancing T1 hyperintense lesion in the pars intermedia region of the pituitary gland without suprasellar extension. Compared to last exam, it has decreased in size and now measures 7 mm craniocaudal by 5 mm AP compared to 11 x 8.4 mm measured in the same manner on T1 sagittal image 6. 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 2.Stable 1 to 2 mm outpouching in the left cavernous ICA, which may represent a prominent vessel origin versus a tiny saccular aneurysm. 3.Status post Chiari decompression unchanged position of the cerebellar tonsils. Foramen magnum is patent without evidence of mass effect on the brainstem. Unchanged bilateral cerebellar tonsillar ectopia Dictated by : RAUL COTO MD MRI cervical spine 11/08/2022 demonstrates: IMPRESSION: Multilevel degenerative changes of th (more content not included)...[facility]04-16-2024 History of Present illness Narrative* Chely Bardales MD - 08/19/2023 11:30 AM EDT NEUROSURGERY FOLLOW UP OFFICE NOTE Chely Bardales MD Date of visit: August 19, 2023 Patient Name: Ms.Shannon Melvin Cordova Date of : 1980 Current Age: [age] year old Sex: female MRN/E# [id number] Last Office Visit: Visit date not found CLINICAL SUMMARY: * Chiari I malformation, s/p suboccipital bony decompression 10/22/2019 * Cervical disc herniation, C5-6 and C6-7 * Pituitary adenoma vs Rathke's cyst (12 mm x 12 mm) * 2 mm left cavernous segment aneurysm Dr. Wilson - endocrinology SUBJECTIVE: History of Present Illness. Tim Cordova is a 42 year old right-handed female presenting with fiance. Patient was last seen on 05/20/2022 where she had been having posterior neck pain. Most pain was located at the base of her neck, described as a burning sensation. Pain intermittently radiated to leftarm, worst in posterior left forearm. Xrays of cervical spine demonstrated good alignment, no evidence of instability. Degenerative changes most pronounced at C6-7. She was recommended to follow up with MRI cervical spine. Physical therapy and pain management referrals were placed. Today she presents with MRI and MRA imaging. She has been doing well overall. She has noted that her cervical pain she was having at last office visit has improved. She still does have posterior neckpain. She notices when she lays down on her right side that her right hand will go numb. She follows with Dr. Wilson with endocrinology, recently had lab work done and was recommended a one year follow up with him. She is pleased overall since her chiari decompression surgery with her surgical outcome. Smoker: YES Diabetic: No Anticoagulants / Antiplatelets: No Occupation: Disabled PAIN EVALUATION No data found in the last 1 encounters. PAST MEDICAL HISTORY Diagnosis Date Acute laryngitis Acute sinusitis Arnold-Chiari malformation (HCC) s/p decompression Cervical disc herniation neck pain Dysmenorrhea Hepatitis B 02/2019 Left foot pain Menorrhagia Migraine PAST SURGICAL HISTORY Procedure Laterality Date BRAIN SURGERY HX 10/22/2019 suboccipital craniectomy for decompression Chiari I malformation by Dr. Chely Bardales CHOLECYSTECTOMY HX 12/2022 FOOT SURGERY HX Left 10/2016 debridement from dog bite HYSTERECTOMY 09/2017 one ovary remains TUBAL LIGATION 2001 FAMILY HISTORY Problem Relation Age of Onset Hypertension Mother Cancer Father Lung cancer Aneurysm Father Head/brain Hypertension Father Aneurysm Paternal Grandmother Head/brain ALLERGIES Allergen Reactions Oxycodone-Acetamino* Itching Current Outpatient Medications Medication Sig Dispense Refill acetaminophen (TYLENOL) 325 mg tablet Take 650 mg by mouth as needed. No current facility-administered medications for this visit. OBJECTIVE: BP 118/66 Pulse 80 Resp 16 Wt 241 lb 10 oz (109.6kg) SpO2 98% PHYSICAL EXAM Mental Status Awake, alert and oriented to person, place and time. Speech is normal. Language is fluent with no aphasia. Attention and concentration are normal. Cranial Nerves CN II: Visual acuity is normal. Visual nava full to confrontation. CN III, IV, : Extraocular movements intact bilaterally. Normal lids and orbits bilaterally. Pupils equal round and reactive to light bilaterally. CN V: Facial sensation is normal. CN VII: Full and symmetric facial movement. CN XI: Shoulder shrug strength is normal. Sensory: Normal sensation in upper and lower extremities and trunk to touch Motor: Normal muscle tone. No spasticity or tremor. No evidence of pronator drift. Full strength inupper and lower extremities Coordination: Zoukmm-mz-hnzy normal. Rapid alternating movement normal. Gait: Normal casual gait. Normal toe walking. Normal heel walking. Normal tandem gait. Romberg is absent. Data Review IMAGING STUDIES: MRI / MRA brain obtained on 08/13/2023 demonstrates: IMPRESSION: 1.Redemonstration of a nonenhancing T1 hyperintense lesion in the pars intermedia region of the pituitary gland without suprasellar extension. Compared to last exam, it has decreased in size and now measures 7 mm craniocaudal by 5 mm AP compared to 11 x 8.4 mm measured in the same manner on T1 sagittal image 6. 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 2.Stable 1 to 2 mm outpouching in the left cavernous ICA, which may represent a prominent vessel origin versus a tiny saccular aneurysm. 3.Status post Chiari decompression unchanged position of the cerebellar tonsils. Foramen magnum is patent without evidence of mass effect on the brainstem. Unchanged bilateral cerebellar tonsillar ectopia Dictated by : RAUL COTO MD MRI cervical spine 11/08/2022 demonstrates: IMPRESSION: Multilevel degenerative changes of the cervical spine without high-grade spinal canal or foraminal stenosis. Anatomic Variant: None. Assume 7 cervical vertebrae with counting from the craniocervical junction. Dictated by : JOSSELYN MEAD MD Images independently reviewed The following portions of the patient's history were reviewed, confirmed, updated as necessary: allergies, current medications, past family history, past medical history, past social history, past surgical history, problem list, HPI and ROS obtained by others. The clinical and radiographic findings as well as the risks, benefits, and alternatives of treatment have been reviewed in detail with the patient. ASSESSMENT/PLAN 1. 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 Nonruptured cerebral aneurysm Stable left cavernous segment aneurysm/outpouching of left ICA - discussed possibility of establishing with a vascular neurologist to better assess and follow, patient is agreeable. Will set up an appointment with Dr Winn. - CONSULT TO NEUROSURGERY; Future 3. Chiari I malformation (HCC) Stable post decompression with decreased frequency of headaches post op. Encouraged patient to contact our office should there be any further questions, concerns, or changein symptoms. Patient expressed understanding and is in agreement with plan. Some elements may have been copied from a previous note and have been updated/reviewed where appropriate. All portions reflect current medical decision making from today. Chely Bardales MD I spent a total of 30 minutes on the date of the service which included preparing to see the patient, vyvl-iz-revz patient care, completing clinical documentation, obtaining and/or reviewing separately obtained history, performing a medically appropriate examination, counseling and educating the pat ient/family/caregiver, ordering medications, tests, or procedures, independently interpreting results (not separately reported), and communicating results to the patient/family/caregiver. documented in this encounterBlanchard Valley Health System04-09-2024 NoteHNO ID: [id number] Author: ERIC WILSON MD Service: ? Author Type: Physician Type: Progress Notes Filed: 08/14/2023 15:18 Note Text: . [facility] - [place] [address] [facility], [address] General Endocrinology [address], [address] [place], [place] [address] Patient's name: Tim Cordova Patient's date of : 1980 Date of encounter: 08/12/2023 History of present illness: Tim Cordova is a 42 year old female who presents for follow up of an endocrinology issue. Previous history: 04/21/2019: Consultation with neurosurgery, Dr Bardales. 04/30/2019: MRI head: Impression: Pituitary gland is enlarged without evidence of focal area of altered signal intensity or enhancement. Measures 12 mm craniocaudal by 12 mm transverse on postcontrast coronal image 11, unchanged. Diagnostic considerations include pituitary macroadenoma versus pituitary hyperplasia. Correlation with appropriate pituitary gland results. 05/18/2019: TSH 1.580 (0.270-4.200 uU/mL), free T4 1.0 (0.9 - 1.7 ng/dL), prolactin 12.2 (4.5-26.8 ng/mL), random cortisol 7.6 ug/dL, Luteinizing Hormone (LH) 33.0 IU/mL, Follicle Stimulating Hormone (FSH) 39.2 IU/mL, 10/22/2019: Neurosurgery: Suboccipital craniectomy for decompression of Chiari I malformation. 12/02/2019: Initial consultation with nc. 01/2020: Luteinizing Hormone (LH) 36.49 mIU/mL, Follicle Stimulating Hormone (FSH) 48.56 mIU/mL, prolactin 11.2 (non- female 2.8-29.2 ng/mL), Sodium 140 (136-144 mEq/L), TSH 1.590 (0.270-4.200 uU/mL), free T4 1.1 (0.9-1.7 ng/dL), Insulin-like growth factor 1 (IGF-1, somatomedin C) 142 (76-271 ng/mL), 01/2020: cortisol 7.8 ug/dL at 08:30 AM. Adrenocorticotropic Hormone (ACTH) 28 (<47 pg/mL), 05/2020: MRI Brain: ... Stable T1 intrinsically hyperintense, nonenhancing lesion in the pituitary gland, most likely representing a Rathke's cyst. No mass effect on the optic chiasm. 06/2020: Follicle Stimulating Hormone (FSH) 54.5 mU/mL, Luteinizing Hormone (LH) 29.3 mU/mL, prolactin 7.9 (non 2.8-29.2. 9.7-208.5. Postmenopausal 1.8-20.3 ng/mL), Sodium 138 (136-144 mmol/L), 06/2020: TSH 1.480 (0.270-4.200 uIU/mL), free T4 0.9 (0.9-1.7 ng/dL), 06/2020: Cosyntropin stimulation test: Baseline cortisol 5.5 ug/dL, 30 minute stimulated cortisol 20.5 ug/dL, 60 minute stimulated cortisol 22.1 ug/dL. 01/01/2021: MRI brain: Impression: 1. Unchanged Rathke's cleft cyst, as described above. No suprasellar mass effect. 2. Status post Chiari decompression with wide anatomic patency of the foramen magnum. No evidence for hydrocephalus. 01/04/2021: Follow up with neurosurgery. Plan was monitoring. 02/2021: prolactin 6.6 (non 2.8-29.2. 9.7-208.5. Postmenopausal 1.8-20.3 ng/mL), Luteinizing Hormone (LH) 29.7 mU/mL, Follicle Stimulating Hormone (FSH) 52.0 mU/mL, Sodium 141 (136-144 mmol/L), 02/2021: TSH 1.400 (0.270-4.200 uIU/mL), free T4 1.0 (0.9-1.7 ng/dL), 10/2021: Cortisol 14.0 ug/dL at 08:10 AM, TSH 2.240 (0.270-4.200 uIU/mL), free T4 1.0 (0.9-1.7 ng/dL), Luteinizing Hormone (LH) 27.1 mIU/mL. Follicle Stimulating Hormone (FSH) 42.0 mIU/mL, prolactin 24.9 (4.5-26.8 ng/mL), Sodium 143 (136-144 mmol/L), Insulin-like growth factor 1 (IGF-1, somatomedin C) 119 (75-267 ng/mL), 01/04/2022: Neurosurgery follow up. see note. 02/2022: MRI brain: ... Pituitary gland: There is a stable T1 hyperintense space occupying lesion in the pars intermedia region of the pituitary gland. It does not enhance. It measures approximately 1.1 x 0.8 x 1.1 cm in greatest CC, AP, transverse dimensions, respectively. It again reveals slight suprasellar extension. No compression of the chiasm or optic nerves. 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 ... IMPRESSION: Stable examination. Pituitary Rathke's cleft cyst. ... 09/2022: sodium 141 (136-144 mmol/L), TSH 2.300 (0.270-4.200 uU/mL), free T4 1.1 (0.9-1.7 ng/dL), luteinizing hormone 14.9 mIU/mL), follicle stimulating hormone 27.7 mIU/mL), prolactin 23.8 (4.5-26.8 ng/mL), Insulin-like growth factor 1 (IGF-1, somatomedin C) 84 (73-263 ng/mL), 09/2022: cortisol 14.6 ug/dL, at 07:40 AM, DHEA-s 164.8 (60.9-337 ug/dL), Interval history: The patient now returns for re-evaluation and follow-up. The above history was re-confirmed. When asked how she feels overall, she responded pretty good Last MRI brain 01/2022. Has orders for MRI brain from neurosurgeon. Next neurosurg appointment is 08/19/23. Not on any hormone replacement or suppressant meds. Last endocrine workup 09/2022 as above. Some fatigue. Some orthostatic symptoms. Has trained herself to get up slowly. No new galactorrhea, or breast tenderness Menses none (hysterectomy) Noted hot flashes Biotin use (v (more content not included)...[facility] 08-12-2023 Instructions* Patient Instructions* Eric Wilson MD - 08/12/2023 10:44 AM EDT Labs have been ordered in our electronic medical record, [employer]. Please report to the closest [facility] lab, [facility] lab, or any [facility] lab, to get these labs done. When you register, the tech can retrieve the orders from the [employer] computer. Fasting: Yes, stop eating after midnight. Biotin: Please don't use any biotin supplementation for at least 2 days prior to your lab draw. This includes any irgw-krr-uiaejsm Biotin pills, any Fljq-Spft-Gcrl Vitamins, or any B-complex vitamin preparations. If you use a leave-in hair product, please make sure it does not contain biotin. If it does have biotin, then please do not use that product for at least 2 days prior to your lab draw.The biotin could interfere with lab results. Thyroid cancer patients: please avoid any biotin for at least 7 (seven) days prior to labs, so there is no chance of interference with Thyroglobulin levels. Lab Locations and phone numbers (please see [facility] website for all locations, and for updates to the information below) [place]: - Lab [facility], outpatient lab ([facility] [address] [facility], [place] [address]. [phone]. Hours: Friday - Friday 6:30 AM to 4:30 PM, Friday and Fridayclosed. [place]: - [facility] - [place]: [address], [place] [address]. [phone]. Hours: Friday - Friday 7 AM- 4:30 PM, Friday 8 AM-11:45 AM. [place] / [place]: - [facility] - [address] [address]. [phone]. Lab hours Friday 10 AM - 6:30 PM, Friday-: 8 AM to 4:30 PM, Friday: 8 AM to 4 PM. Friday: Closed. [place]: - Lab, [facility]. [address] [place], [place] [address]. [phone]. Hours: Friday- 8:00 AM to 8:00 PM, Friday 8:00 AM to 5:00 PM, Friday 8:00 AM to noon. [place] ([place]): - Lab, [facility] ([place]): [address] [facility]. [place], [place] [address]. [phone]. Hours: Friday - Friday 7 AM- 4:30 PM, Friday 8 AM-11:45 AM. [place]: - [facility], [address] [place] [address]. Main number [phone], ask for outpatient lab. [place]: - Lab, [facility] - [place]: [address] [facility]. [place], [place] [address]. [phone]. Hours: Friday - Friday 7 AM- 4:30 PM, Friday 8 AM-11:45 AM. [place]: -[facility]. [address] [facility]. [phone] -[place] [facility] (this is a [facility] location) [address] [facility]. [phone] [place]: [facility]. [address]. [phone] [place]: - [facility]. [address] [facility]. [phone] - Laboratory. 6:45 a.m. - 4 p.m., Friday - Friday. 7 a.m. - 12 p.m., Friday. Closed on Friday. [place]: - [place] [facility]. [address] [facility]. [phone]. - [place] [facility]. [address] [facility]. [phone] - [facility] at [facility]. [address], [address], [place], [place]. [phone]. 8 a.m. - 12 p.m., Friday and . [place]: - [facility]. [address] [facility]. [phone]. [place]: - [place] [facility]. [address] [facility]. [phone]. [place] area: - [facility]; [address] [place] [address]. Registration [phone]. When entering hospital, report to Registration first. [place]: - [facility]. [address] [place], [place] [address]. [phone] (appointment recommended) - [facility]. [address], [place] [address]. [phone] (appointment recommended) [facility] area: - [place], [place]. Call main number, and ask to be connected to outpatient lab. If needed Fax for [facility][1] lab is: [phone]. [place] area: -[facility], [address] [place] [address]. . -[facility], [address] [place], [place], . *the above information, including hours, may not be up to date. Please see the [facility] website for the most current information. documented in this encounterBlanchard Valley Health System04-09-2024 History of Present illness Narrative* Eric Wilson MD - 08/12/2023 10:26 AM EDT Images from the original note were not included. . [facility] - [place] [address] [facility], [address] [place], [place] [address] [facility] Endocrinology - [address], [address] [place], [place] [address] Patient's name: Tim Cordova Patient's date of : 1980 Date of encounter: 08/12/2023 History of present illness: Tim Cordova is a 42 year old female who presents for follow up of an endocrinology issue. Previous history: 04/21/2019: Consultation with neurosurgery, Dr Bardales. 04/30/2019: MRI head: Impression: Pituitary gland is enlarged without evidence of focal area of altered signal intensity or enhancement. Measures 12 mm craniocaudal by 12 mm transverse on postcontrast coronal image 11, unchanged. Diagnostic considerations include pituitary macroadenoma versus pituitaryhyperplasia. Correlation with appropriate pituitary gland results. 05/18/2019: TSH 1.580 (0.270-4.200 uU/mL), free T4 1.0 (0.9 - 1.7 ng/dL), prolactin 12.2 (4.5-26.8 ng/mL), random cortisol 7.6 ug/dL, Luteinizing Hormone (LH) 33.0 IU/mL, Follicle Stimulating Hormone (FSH) 39.2 IU/mL, 10/22/2019: Neurosurgery: Suboccipital craniectomy for decompression of Chiari I malformation. 12/02/2019: Initial consultation with nc. 01/2020: Luteinizing Hormone (LH) 36.49 mIU/mL, Follicle Stimulating Hormone (FSH) 48.56 mIU/mL, prolactin 11.2 (non- female 2.8-29.2 ng/mL), Sodium 140 (136-144 mEq/L), TSH 1.590 (0.270-4.200uU/mL), free T4 1.1 (0.9-1.7 ng/dL), Insulin-like growth factor 1 (IGF-1, somatomedin C) 142 (76-271 ng/mL), 01/2020: cortisol 7.8 ug/dL at 08:30 AM. Adrenocorticotropic Hormone (ACTH) 28 (<47 pg/mL), 05/2020: MRI Brain: ... Stable T1 intrinsically hyperintense, nonenhancing lesion in the pituitary gland, most likely representing a Rathke's cyst. No mass effect on the optic chiasm. 06/2020: Follicle Stimulating Hormone (FSH) 54.5 mU/mL, Luteinizing Hormone (LH) 29.3 mU/mL, prolactin 7.9 (non 2.8-29.2. 9.7-208.5. Postmenopausal 1.8-20.3 ng/mL), Sodium 138 (136-144 mmol/L), 06/2020: TSH 1.480 (0.270-4.200 uIU/mL), free T4 0.9 (0.9-1.7 ng/dL), 06/2020: Cosyntropin stimulation test: Baseline cortisol 5.5 ug/dL, 30 minute stimulated cortisol 20.5 ug/dL, 60 minute stimulated cortisol 22.1 ug/dL. 01/01/2021: MRI brain: Impression: 1. Unchanged Rathke's cleft cyst, as described above. No suprasellar mass effect. 2. Status post Chiari decompression with wide anatomic patency of the foramen magnum. No evidence for hydrocephalus. 01/04/2021: Follow up with neurosurgery. Plan was monitoring. 02/2021: prolactin 6.6 (non 2.8-29.2. 9.7-208.5. Postmenopausal 1.8-20.3 ng/mL), Luteinizing Hormone (LH) 29.7 mU/mL, Follicle Stimulating Hormone (FSH) 52.0 mU/mL, Sodium 141 (136-144 mmol/L), 02/2021: TSH 1.400 (0.270-4.200 uIU/mL), free T4 1.0 (0.9-1.7 ng/dL), 10/2021: Cortisol 14.0 ug/dL at 08:10 AM, TSH 2.240 (0.270-4.200 uIU/mL), free T4 1.0 (0.9-1.7 ng/dL), Luteinizing Hormone (LH) 27.1 mIU/mL. Follicle Stimulating Hormone (FSH) 42.0 mIU/mL, prolactin 24.9 (4.5-26.8 ng/mL), Sodium 143 (136-144 mmol/L), Insulin-like growth factor 1 (IGF-1, somatomedin C) 119 (75-267 ng/mL), 01/04/2022: Neurosurgery follow up. see note. 02/2022: MRI brain: ... Pituitary gland: There is a stable T1 hyperintense space occupying lesion in the pars intermedia region of the pituitary gland. It does not enhance. It measures approximately 1.1 x 0.8 x 1.1 cm in greatest CC, AP, transverse dimensions, respectively. It again reveals slight suprasellar extension. No compression of the chiasm or optic nerves. 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 ... IMPRESSION: Stable examination. Pituitary Rathke's cleft cyst. ... 09/2022: sodium 141 (136-144 mmol/L), TSH 2.300 (0.270-4.200 uU/mL), free T4 1.1 (0.9-1.7 ng/dL), luteinizing hormone 14.9 mIU/mL), follicle stimulating hormone 27.7 mIU/mL), prolactin 23.8 (4.5-26.8 ng/mL), Insulin-like growth factor 1 (IGF-1, somatomedin C) 84 (73-263 ng/mL), 09/2022: cortisol 14.6 ug/dL, at 07:40 AM, DHEA-s 164.8 (60.9-337 ug/dL), Interval history: The patient now returns for re-evaluation and follow-up. The above history was re-confirmed. When asked how she feels overall, she responded pretty good Last MRI brain 01/2022. Has orders for MRI brain from neurosurgeon. Next neurosurg appointment is 08/19/23. Not on any hormone replacement or suppressant meds. Last endocrine workup 09/2022 as above. Some fatigue. Some orthostatic symptoms. Has trained herself to get up slowly. No new galactorrhea, or breast tenderness Menses none (hysterectomy) Noted hot flashes Biotin use (vitamin B-7) : Use of zexd-jbc-gixftue, high dose, biotin supplement: None. Use of Dfeu-Gtvr-Zhby vitamins, or similar formulation with high-dose biotin: None. Use of B-complex vitamin preparations with high-dose biotin: None. Use of ujjp-uwl-vfkyuxl leave-in hair conditioners that contain biotin: None. Allergies, medications, medical and surgical history, family history and social history, and problem list reviewed. Preferred pharmacy for the medications I prescribe (or may prescribe) is: [facility] [address] [place] [address] [address] [facility] [phone] Review of Systems Review of Systems Constitutional: Positive for diaphoresis (hot flashes) and malaise/fatigue. Respiratory: Negative for shortness of breath. Cardiovascular: Negative for chest pain. Gastrointestinal: Negative for nausea and vomiting. Genitourinary: Positive for urgency (noted this as she gets older). Negative for frequency. Musculoskeletal: Positive for joint pain (only hurt when I work). Neurological: Negative for tremors and headaches (under control). Endo/Heme/Allergies: See the history of present illness section Past Medical, Surgical, Family and Social History PAST MEDICAL HISTORY Diagnosis Date Acute laryngitis Acute sinusitis Arnold-Chiari malformation (HCC) s/p decompression Cervical disc herniation neck pain Dysmenorrhea Hepatitis B 02/2019 Left foot pain Menorrhagia Migraine PAST SURGICAL HISTORY Procedure Laterality Date BRAIN SURGERY HX 10/22/2019 suboccipital craniectomy for decompression Chiari I malformation by Dr. Chely Bardales FOOT SURGERY HX Left 10/2016 debridement from dog bite HYSTERECTOMY 09/2017 one ovary remains TUBAL LIGATION 2002 FAMILY HISTORY Problem Relation Age of Onset Hypertension Mother Cancer Father Lung cancer Aneurysm Father Head/brain Hypertension Father Aneurysm Paternal Grandmother Head/brain Social History Tobacco Use Smoking status: Former Packs/day: 1.00 Years: 15.00 Additional pack years: 0.00 Total pack years: 15.00 Types: Cigarettes Quit date: 10/27/2016 Years since quittin.7 Smokeless tobacco: Never Tobacco comments: Quit 04/2020 Vaping Use Vaping Use: Never used Substance Use Topics Alcohol use: No Comment: Non alcohol user. Drug use: No Medications Current Outpatient Medications Medication Sig Dispense Refill acetaminophen (TYLENOL) 325 mg tablet Take 650 mg by mouth as needed. No current facility-administered medications for this visit. Physical Examination and Vitals 08/12/23 1008 BP: 118/78 Pulse: 78 Weight: 108.4 kg (239 lb) Height: 170.2 cm (5' 7) Body Mass Index (BMI): Body mass index is 37.43 kg/m . Last 5 Encounter Wt Readings: Date: Wt: 08/12/2023 108.4 kg (239 lb) 07/18/2023 109.7 kg (241 lb 13.5 oz) 05/03/2023 107.4 kg (236 lb 12.8 oz) 01/31/2023 108 kg (238 lb) 11/18/2022 107.7 kg (237 lb 6.4 oz) Physical Exam Vitals reviewed. Constitutional: Appearance: She is not toxic-appearing or diaphoretic. HENT: Head: Normocephalic and atraumatic. Eyes: General: No scleral icterus. Extraocular Movements: Right eye: Normal extraocular motion. Left eye: Normal extraocular motion. Comments: Temporal visual nava: Normal to gross examination Neck: Thyroid: No thyroid mass or thyromegaly. Cardiovascular: Rate and Rhythm: Normal rate and regular rhythm. Pulmonary: Effort: Pulmonary effort is normal. No respiratory distress. Breath sounds: Normal breath sounds. Abdominal: Palpations: Abdomen is soft. There is no hepatomegaly. Tenderness: There is no abdominal tenderness. There is no guarding. Skin: General: Skin is warm. Neurological: Mental Status: She is alert and oriented to person, place, and time. Motor: No tremor. Psychiatric: Mood and Affect: Mood and affect normal. Judgment: Judgment normal. Assessment and Plans: 1. 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 Lets re-evaluate pituitary related hormones. Will do ~0800 basal labs. She will do at [facility]. - TSH BLD; Future - T4 FREE/FREE THYROX; Future - CORTISOL BLD; Future - DHEA-S BLD; Future - LUTEINIZING HORMONE; Future - FSH BLD; Future - PROLACTIN BLD; Future - INSULIN LIK GR FAC I; Future - BASIC METABOLIC PNL; Future 2. Pituitary abnormality (HCC) See #1 3. Chiari I malformation (HCC) 4. Fatigue, unspecified type - TSH BLD; Future - T4 FREE/FREE THYROX; Future - CORTISOL BLD; Future - DHEA-S BLD; Future - BASIC METABOLIC PNL; Future 5. Former tobacco use Off tobacco. Eric Wilson MD [facility] [place] documented in this encounterBlanchard Valley Health System03-15-2024 NoteHNO ID: [id number] Author: MREY WRIGHT PA-C Service: ? Author Type: Physician Tamping Machine Operator Road Forms Type: Progress Notes Filed: 07/18/2023 17:19 Note Text: This note was created using [employer]. Subjective Tim Cordova is a 42 year old female. HPI Presents with a chief complaint of left ear pain. She states she did start with some mild cough and postnasal drip today as well. No fever. No drainage out of her ear. She denies headache. Ear does hurt when she opens and closes her jaw. No trouble hearing. No recent swimming. Review of Systems Constitutional: Negative for fever. HENT: Positive for congestion, ear pain and postnasal drip. Negative for ear discharge, hearing loss and sore throat. Respiratory: Positive for cough. Cardiovascular: Negative. Gastrointestinal: Negative. Genitourinary: Negative. Musculoskeletal: Negative. All other systems reviewed and are negative. PAST MEDICAL HISTORY Diagnosis Date Acute laryngitis Acute sinusitis Arnold-Chiari malformation (HCC) s/p decompression Cervical disc herniation neck pain Dysmenorrhea Hepatitis B 02/2019 Left foot pain Menorrhagia Migraine Current Outpatient Medications Medication Sig Dispense Refill cetirizine (ZYRTEC) 10 mg tablet Take 1 tablet by mouth once daily for 14 days. 14 tablet 0 fluticasone (FLONASE) 50 mcg/actuation nasal spray Use 2 Sprays in each nostril once daily. Rinse mouth after use. 1 Each 0 acetaminophen (TYLENOL) 325 mg tablet Take 650 mg by mouth as needed. No current facility-administered medications for this visit. PAST SURGICAL HISTORY Procedure Laterality Date BRAIN SURGERY HX 10/22/2019 suboccipital craniectomy for decompression Chiari I malformation by Dr. Chely Bardales FOOT SURGERY HX Left 10/2016 debridement from dog bite HYSTERECTOMY 09/2017 one ovary remains TUBAL LIGATION 2001 FAMILY HISTORY Problem Relation Age of Onset Hypertension Mother Cancer Father Lung cancer Aneurysm Father Head/brain Hypertension Father Aneurysm Paternal Grandmother Head/brain Social History Tobacco Use Smoking status: Former Packs/day: 1.00 Years: 15.00 Additional pack years: 0.00 Total pack years: 15.00 Types: Cigarettes Quit date: 10/27/2016 Years since quittin.7 Smokeless tobacco: Never Tobacco comments: Quit 04/2020 Vaping Use Vaping Use: Never used Substance Use Topics Alcohol use: No Comment: Non alcohol user. Drug use: No Objective BP 127/67 Pulse 84 Temp 36.8 ?C (98.2 ?F) Resp 18 Wt 109.7 kg (241 lb 13.5 oz) LMP (LMP Unknown) SpO2 98% BMI 37.88 kg/m? Physical Exam Vitals reviewed. Constitutional: Appearance: Normal appearance. HENT: Head: Normocephalic and atraumatic. Right Ear: Tympanic membrane, ear canal and external ear normal. Left Ear: Tympanic membrane, ear canal and external ear normal. Nose: Nose normal. Mouth/Throat: Mouth: Mucous membranes are moist. Pharynx: Oropharynx is clear. Cardiovascular: Rate and Rhythm: Normal rate and regular rhythm. Heart sounds: Normal heart sounds. Pulmonary: Effort: Pulmonary effort is normal. Breath sounds: Normal breath sounds. Musculoskeletal: Cervical back: Neck supple. Skin: General: Skin is warm and dry. Neurological: Mental Status: She is alert. Assessment and Plan ASSESSMENT/PLAN: 1. Otalgia of left ear - ICD9: 388.70, ICD10: H92.02 Normal exam, likely eustachian tube dysfunction. Discussed using Flonase and Zyrtec. Follow-up with PCP if not improving. Work note provided as well. BRITTANY [facility]03-15-2024 History of Present illness Narrative* Mery Wright PA-C - 07/18/2023 5:17 PM EDT This note was created using NoteWriter. Subjective Tim Cordova is a 42 year old female. HPI Presents with a chief complaint of left ear pain. She states she did start with some mild cough andpostnasal drip today as well. No fever. No drainage out of her ear. She denies headache. Ear does hurt when she opens and closes her jaw. No trouble hearing. No recent swimming. Review of Systems Constitutional: Negative for fever. HENT: Positive for congestion, ear pain and postnasal drip. Negative for ear discharge, hearing loss and sore throat. Respiratory: Positive for cough. Cardiovascular: Negative. Gastrointestinal: Negative. Genitourinary: Negative. Musculoskeletal: Negative. All other systems reviewed and are negative. PAST MEDICAL HISTORY Diagnosis Date Acute laryngitis Acute sinusitis Arnold-Chiari malformation (HCC) s/p decompression Cervical disc herniation neck pain Dysmenorrhea Hepatitis B 02/2019 Left foot pain Menorrhagia Migraine Current Outpatient Medications Medication Sig Dispense Refill cetirizine (ZYRTEC) 10 mg tablet Take 1 tablet by mouth once daily for 14 days. 14 tablet 0 fluticasone (FLONASE) 50 mcg/actuation nasal spray Use 2 Sprays in each nostril once daily. Rinse mouth after use. 1 Each 0 acetaminophen (TYLENOL) 325 mg tablet Take 650 mg by mouth as needed. No current facility-administered medications for this visit. PAST SURGICAL HISTORY Procedure Laterality Date BRAIN SURGERY HX 10/22/2019 suboccipital craniectomy for decompression Chiari I malformation by Dr. Chely Bardales FOOT SURGERY HX Left 10/2016 debridement from dog bite HYSTERECTOMY 09/2017 one ovary remains TUBAL LIGATION 2002 FAMILY HISTORY Problem Relation Age of Onset Hypertension Mother Cancer Father Lung cancer Aneurysm Father Head/brain Hypertension Father Aneurysm Paternal Grandmother Head/brain Social History Tobacco Use Smoking status: Former Packs/day: 1.00 Years: 15.00 Additional pack years: 0.00 Total pack years: 15.00 Types: Cigarettes Quit date: 10/27/2016 Years since quittin.7 Smokeless tobacco: Never Tobacco comments: Quit 04/2020 Vaping Use Vaping Use: Never used Substance Use Topics Alcohol use: No Comment: Non alcohol user. Drug use: No Objective BP 127/67 Pulse 84 Temp 36.8 C (98.2 F) Resp 18 Wt 109.7 kg (241 lb 13.5 oz) LMP (LMP Unknown) SpO2 98% BMI 37.88 kg/m Physical Exam Vitals reviewed. Constitutional: Appearance: Normal appearance. HENT: Head: Normocephalic and atraumatic. Right Ear: Tympanic membrane, ear canal and external ear normal. Left Ear: Tympanic membrane, ear canal and external ear normal. Nose: Nose normal. Mouth/Throat: Mouth: Mucous membranes are moist. Pharynx: Oropharynx is clear. Cardiovascular: Rate and Rhythm: Normal rate and regular rhythm. Heart sounds: Normal heart sounds. Pulmonary: Effort: Pulmonary effort is normal. Breath sounds: Normal breath sounds. Musculoskeletal: Cervical back: Neck supple. Skin: General: Skin is warm and dry. Neurological: Mental Status: She is alert. Assessment and Plan ASSESSMENT/PLAN: 1. Otalgia of left ear - ICD9: 388.70, ICD10: H92.02 Normal exam, likely eustachian tube dysfunction. Discussed using Flonase and Zyrtec. Follow-up withPCP if not improving. Work note provided as well. Mery Wright PA-C [facility] NoteHNO ID: [id number] Author: Sania Villalpando PA Service: ? Author Type: Physician Tamping Machine Operator Road Forms Type: Progress Notes Filed: 05/03/2023 11:48 AM Note Text: This note was created using NoteWriter. Subjective Tim Cordova is a 42 year old female. HPI 42-year-old female presents for bilateral ear pain, pressure, sinus congestion starting yesterday. Patient states she starting sinus congestion yesterday. Is worse this morning. She states she has pain in both ears, worse on the right. She has history of ear infections and sinus issues in the past. She tested for COVID which was negative. No fevers. No cough. No vomiting or diarrhea. No other complaint. PAST MEDICAL HISTORY Diagnosis Date Acute laryngitis Acute sinusitis Arnold-Chiari malformation (HCC) s/p decompression Cervical disc herniation neck pain Dysmenorrhea Hepatitis B 02/2019 Left foot pain Menorrhagia Migraine PAST SURGICAL HISTORY Procedure Laterality Date BRAIN SURGERY HX 10/22/2019 suboccipital craniectomy for decompression Chiari I malformation by Dr. Chely Bardales FOOT SURGERY HX Left 10/2016 debridement from dog bite HYSTERECTOMY 09/2017 one ovary remains TUBAL LIGATION 2001 ALLERGIES Oxycodone-Acetaminophen MEDICATIONS acetaminophen (TYLENOL) 325 mg tablet Take 650 mg by mouth as needed. amoxicillin (AMOXIL) 875 mg tablet Take 1 tablet by mouth two times a day for 7 days. FAMILY HISTORY Problem Relation Age of Onset Hypertension Mother Cancer Father Lung cancer Aneurysm Father Head/brain Hypertension Father Aneurysm Paternal Grandmother Head/brain Social History Tobacco Use Smoking status: Former Packs/day: 1.00 Years: 15.00 Additional pack years: 0.00 Total pack years: 15.00 Types: Cigarettes Quit date: 10/27/2016 Years since quittin.5 Smokeless tobacco: Never Tobacco comments: Quit 04/2020 Vaping Use Vaping Use: Never used Substance Use Topics Alcohol use: No Comment: Non alcohol user. Drug use: No Review of Systems Constitutional: Negative for chills and fever. HENT: Positive for congestion, ear pain, sinus pressure and sinus pain. Negative for sore throat. Respiratory: Negative for cough and shortness of breath. Cardiovascular: Negative for chest pain. Gastrointestinal: Negative for diarrhea and vomiting. Objective BP 102/82 Pulse 96 Temp 36.7 ?C (98 ?F) Resp 21 Wt 107.4 kg (236 lb 12.8 oz) LMP (LMP Unknown) SpO2 98% BMI 37.09 kg/m? Physical Exam Vitals and nursing note reviewed. Constitutional: General: She is not in acute distress. Appearance: Normal appearance. She is not toxic-appearing. HENT: Right Ear: Ear canal normal. A middle ear effusion is present. Tympanic membrane is erythematous. Left Ear: Tympanic membrane and ear canal normal. Nose: Nose normal. Mouth/Throat: Mouth: Mucous membranes are moist. Pharynx: No oropharyngeal exudate or posterior oropharyngeal erythema. Eyes: Conjunctiva/sclera: Conjunctivae normal. Cardiovascular: Rate and Rhythm: Normal rate and regular rhythm. Pulmonary: Effort: Pulmonary effort is normal. Breath sounds: Normal breath sounds. Neurological: Mental Status: She is alert. Assessment and Plan ASSESSMENT/PLAN: 1. URI, acute - ICD9: 465.9, ICD10: J06.9 (primary diagnosis) - Discussed viral etiology and rationale for treatment. - Symptomatic treatment with prn analgesia - Supportive care with fluids and rest - The patient may also use OTC decongestants prn. -Declines viral swab 2. Acute otitis media, right - ICD9: 382.9, ICD10: H66.91 - Will begin treatment with Amoxicillin for 7 days - Supportive care with plenty of fluids, rest, and analgesia prn. Diagnosis and treatment plan were discussed and questions were answered to the patient's satisfaction. Pt acknowledged understanding of concepts and follow up plan. Specific signs and symptoms that would indicate the need for higher level of care were discussed in detail warranting prompt ER evaluation. Sania Villalpando, [facility]09-29-2023 History of Present illness Narrative* Roz Adrian APRN.KEY CUTTER - 01/31/2023 3:13 PM EDT CC: Patient presents with: Ear Pain: Right ear x 2 days HPI: Tim Cordova is a 42 year old female who presents to the office with complaint of head congestion, sinus symptoms, and ear symptoms for a few days. Symptoms are worsening Associated symptoms includes ear pain and ear pressure . Denies fever, nausea, vomiting , and diarrhea. Treatments tried include nothing so far. with no relief of symptoms. Sick contacts: unknown. History of asthma, frequent episodes of bronchitis, chronic bronchitis, bronchiectasis or COPD: No Smoker: No Seasonal/environmental allergies: No The ROS is otherwise negative. The patient's pmh, medications, allergies, and past visits are reviewed. PHYSICAL EXAM: BP 111/75 Pulse 85 Temp 36.7 C (98 F) Resp 18 Wt 108 kg (238 lb) LMP (LMP Unknown) NbX043% BMI 37.28 kg/m General appearance: alert, cooperative, pleasant, in no acute distress Head: Normocephalic Eyes: EOM's intact, conjunctiva pink and moist, no icterus, sclera white, non-injected Ears: Right ear: External ear/canal- Normal, TM - erythematous, bulging. Left ear: External ear/canal- Normal, TM - clear with good landmarks Oropharynx:moist without lesions, No erythema, exudates or tonsillar hypertrophy. Heart: Negative. RRR without obvious murmur, gallop, or rubs. No ectopy. Lungs: clear to auscultation, without rales or wheeze, good air exchange PAST MEDICAL HISTORY Diagnosis Date Acute laryngitis Acute sinusitis Arnold-Chiari malformation (HCC) s/p decompression Cervical disc herniation neck pain Dysmenorrhea Hepatitis B 02/2019 Left foot pain Menorrhagia Migraine PAST SURGICAL HISTORY Procedure Laterality Date BRAIN SURGERY HX 10/22/2019 suboccipital craniectomy for decompression Chiari I malformation by Dr. Chely Bardales FOOT SURGERY HX Left 10/2016 debridement from dog bite HYSTERECTOMY 09/2017 one ovary remains TUBAL LIGATION 2002 ALLERGIES Oxycodone-Acetaminophen MEDICATIONS acetaminophen (TYLENOL) 325 mg tablet Take 650 mg by mouth as needed. FAMILY HISTORY Problem Relation Age of Onset Hypertension Mother Cancer Father Lung cancer Aneurysm Father Head/brain Hypertension Father Aneurysm Paternal Grandmother Head/brain Social History Tobacco Use Smoking status: Former Packs/day: 1.00 Years: 15.00 Additional pack years: 0.00 Total pack years: 15.00 Types: Cigarettes Quit date: 10/27/2016 Years since quittin.2 Smokeless tobacco: Never Tobacco comments: Quit 04/2020 Vaping Use Vaping Use: Never used Substance Use Topics Alcohol use: No Comment: Non alcohol user. Drug use: No ASSESSMENT/PLAN: 1. Acute otitis media, right - ICD9: 382.9, ICD10: H66.91 amoxicillin bid for 7 days. Prescription instructions reviewed with patient as applicable. Potential red flag symptoms discussed with the patient. Reviewed appropriate action plan to take if red flag symptoms occur. Patient agreeable to treatment plan. Roz Adrian APRN.SHEY documented in this encounterBl[facility]09-29-2023 NoteHNO ID: [id number] Author: Roz Adrian APRN.SHEY Service: ? Author Type: Nurse Practitioner Type: Progress Notes Filed: 01/31/2023 3:18 PM Note Text: CC: Patient presents with: Ear Pain: Right ear x 2 days HPI: Tim Cordova is a 42 year old female who presents to the office with complaint of head congestion, sinus symptoms, and ear symptoms for a few days. Symptoms are worsening Associated symptoms includes ear pain and ear pressure . Denies fever, nausea, vomiting , and diarrhea. Treatments tried include nothing so far. with no relief of symptoms. Sick contacts: unknown. History of asthma, frequent episodes of bronchitis, chronic bronchitis, bronchiectasis or COPD: No Smoker: No Seasonal/environmental allergies: No The ROS is otherwise negative. The patient's pmh, medications, allergies, and past visits are reviewed. PHYSICAL EXAM: BP 111/75 Pulse 85 Temp 36.7 ?C (98 ?F) Resp 18 Wt 108 kg (238 lb) LMP (LMP Unknown) SpO2 97% BMI 37.28 kg/m? General appearance: alert, cooperative, pleasant, in no acute distress Head: Normocephalic Eyes: EOM's intact, conjunctiva pink and moist, no icterus, sclera white, non-injected Ears: Right ear: External ear/canal- Normal, TM - erythematous, bulging. Left ear: External ear/canal- Normal, TM - clear with good landmarks Oropharynx:moist without lesions, No erythema, exudates or tonsillar hypertrophy. Heart: Negative. RRR without obvious murmur, gallop, or rubs. No ectopy. Lungs: clear to auscultation, without rales or wheeze, good air exchange PAST MEDICAL HISTORY Diagnosis Date Acute laryngitis Acute sinusitis Arnold-Chiari malformation (HCC) s/p decompression Cervical disc herniation neck pain Dysmenorrhea Hepatitis B 02/2019 Left foot pain Menorrhagia Migraine PAST SURGICAL HISTORY Procedure Laterality Date BRAIN SURGERY HX 10/22/2019 suboccipital craniectomy for decompression Chiari I malformation by Dr. Chely Bardales FOOT SURGERY HX Left 10/2016 debridement from dog bite HYSTERECTOMY 09/2017 one ovary remains TUBAL LIGATION 2002 ALLERGIES Oxycodone-Acetaminophen MEDICATIONS acetaminophen (TYLENOL) 325 mg tablet Take 650 mg by mouth as needed. FAMILY HISTORY Problem Relation Age of Onset Hypertension Mother Cancer Father Lung cancer Aneurysm Father Head/brain Hypertension Father Aneurysm Paternal Grandmother Head/brain Social History Tobacco Use Smoking status: Former Packs/day: 1.00 Years: 15.00 Additional pack years: 0.00 Total pack years: 15.00 Types: Cigarettes Quit date: 10/27/2016 Years since quittin.2 Smokeless tobacco: Never Tobacco comments: Quit 04/2020 Vaping Use Vaping Use: Never used Substance Use Topics Alcohol use: No Comment: Non alcohol user. Drug use: No ASSESSMENT/PLAN: 1. Acute otitis media, right - ICD9: 382.9, ICD10: H66.91 amoxicillin bid for 7 days. Prescription instructions reviewed with patient as applicable. Potential red flag symptoms discussed with the patient. Reviewed appropriate action plan to take if red flag symptoms occur. Patient agreeable to treatment plan. Roz Adrian APRN.[facility]08-22-2023 Discharge summary Author Ramon Turcios [facility] December 24, 2022 2:08pm Note Date/Time December 24, 2022 2: 06pm [facility] Medical Records Department [address] [place] [address] Instructions for Home/Discharge Instructions 12/24/22 1406 MR#: [id number] Acct: [id number] Name: TIM CORDOVA Rep #:[id number] : 1980 42 From: Ramon allan MD PCP: Care Physician,No Primary Status :[facility] Discharge Instructions Procedure Gallbladder Diet Discharge Diet: Light diet - advance as tolerated Activity Discharge Activity: May Not Drive (for 2-3 days or while taking narcotic pain medications.) and - (Do not drive, work heavy equipment or sign legal documents for 24 hours.) May shower in (days): 1 Lifting Restrictions: 20 lbs for 2 weeks Additional Activity Instructions:: Pain medication may cause nausea. You should typically eat light foods as you take your pain medications. Pain medication may also cause constipation. If this is a problem for you, please discuss with your doctor. Dressing / Incision Call your doctor if your incision/area has: Continuous Slow Oozing, Sudden Increased Bleeding, Increased Pain/ Swelling, Increased Redness and Foul Smelling Discharge Call your doctor if you observe: Fever of 101 or Higher Suture Line Care: Avoid Pulling/Pushing and Avoid Pinching/Bending Remove Dressing in: 2 days Additional Dressing/Incision Instructions:: Leave operative bandaids on for 2 days. When you remove dressing, leave Steri-Strips on until your follow-up appointment, or until the Steri-Strips fall off on their own. Follow Up Care Please Follow Up With: Ramon Turcios MD When: Please call to schedule 2 week follow up appointment. [phone] Test Results: Test results from this visit will be discussed in further detail at your follow- up appointment, if applicable. Discharge Plan Admission Attending Provider: Ramon Turcios Primary Care Provider: Care Physician,No Primary Discharge Orders/Prescriptions Prescriptions: New acetaminophen 325 mg Tablet 650 mg PO Q4H PRN PRN (Reason: Pain Or Fever) Qty: 0 0RF oxycodone 10 mg tablet 5 - 10 mg PO Q6H PRN (Reason: pain) 5 Days Qty: 10 0RF No Action Excedrin Tension Headache 500-65 mg tablet 1 tab PO Q12H PRN (Reason: pain) Referrals / Follow Up: Care Physician,No Primary [Primary Care Provider] - Disposition Disposition (needs filled in before D/C Order can be placed): Home, Self Care 12/24/22 1408<Electronically signed by Ramon Turcios MD>Ramon Turcios MD CC: No Primary Care Physician ~ Signed [facility] Work Phone: 1(817) 695-556908-22-2023 History and physical note Author Ramon HerreraAden[facility] December 24, 2022 12:39pm Note Date/Time December 24, 2022 12 :39pm [facility] Medical Records Department [address] [place] [id number] History & Physical Exam 12/24/22 1239 MR#: [id number] Acct: [id number] Name: TIM CORDOVA Rep #:[id number] : 1980 42 From: Ramon allan MD PCP: Care Physician,No Primary Status :[facility] Location: [place] [address] History and Physical Date of Admission: 12/24/22 Intake Vital Signs 11/24/2311:28 12/13/2312:22 Height 5 ft 7 in 5 ft 7 in Weight: 238 lb BMI 37.3 BP 136/84 H Blood Pressure Location Rt brachial Position Sitting Respiration 18 Pulse 80 Pulse Source Monitor Temp 97.2 F L Temp Source Tympanic Intake Visit Reasons: GALLBLADDER Chief Complaint: left sided weaknedd and headache Allergies mustard Allergy (Verified 03/06/21 08:33) Angioedemaoxycodone Allergy (Verified 03/06/21 08:33) Hives Medications acetaminophen-caffeine 500 mg-65 mg tablet (Excedrin Tension Headache) 1 tab PO Q12H PRN 12/13/22 [History Confirmed 12/13/22] PFSH Medical History Anemia Anxiety Brain TIA Chiari malformation GERD (gastroesophageal reflux disease) Hepatitis Hypothyroid Kidney stones Medical marijuana use Migraines Smoker Surgical History H/O: hysterectomy History of cranial surgery Family History Father Liver cancer Social History Smoking Status: Current every day smoker tobacco type: cigarettes HPI HPI HPI: Patient is a 42-year-old female with right upper quadrant pain. She reports that the pain happens especially after eating and she has not been able to eat since her HIDA scan. She had a recent hospitalization with a mildly dilated duct and there was suggestion of possible choledocholithiasis with the patient does not have any gallstones. Ultrasound did not show any thickening or gallstones in the gallbladder. She did have a HIDA which showed decreased ejection fraction. ROS General General: Yes weight change and fatigue; No appetite, colon cancer, breast cancer or weakness HEENT HEENT: No difficulty swallowing, eye injury, eye surgery, swollen glands or hoarseness Endo Endocrine: No thyroid disease, diabetes mellitus, thyroid cancer, Hair loss, heat intolerance or cold intolerance Skin Skin: No rash or changing moles Breast Breast: No left breast lump, right breast lump, nipple discharge, breast pain, abnormal mammogram, abnormal US or breast enlargement Musc Musculoskeletal: Yes back problems, arthritis and rheumatoid arthritis; No gout or joint pain Cardio Cardiovascular: No murmur, pacemaker, heart disease, atrial fibrillation, high blood pressure, heart attack, heart stent, palpitations, shortness of breat withexertion or chest pain Psych Psychiatric: No depression, anxiety or hearing voices Resp Respiratory: No shortness of breath, No sleep apnea, No cough, No COPD, No asthma, No emphysema and No wheezing Gastro Gastrointestinal: No abdominal pain, No nausea or vomiting, No diarrhea, No constipation, No blood in stool, No acid reflux, No hemorrhoids, No ulcers, No gallbladder problem and No black,tarry stools Mason Hematologic: No blood thinners, No blood disorders, No bleeding, No anemia and No blood clots Neuro Neurologic: No system reviewed and no additional complaints, except as documented, No as per HPI, No abnormal gait, No abnormal hearing, No abnormal movements, No abnormal speech, No behavioral changes, No burning sensations, No confusion, No convulsions, No disequilibrium, No dizziness, No localized weakness, No frequent falls, No headache(s), No lack of coordination, No loss ofvision, No memory loss, No numbness, No other visual disturbances, No radicular pain, No restless legs, No sensory deficit, No syncope, No tingling, No tremor(s), No weakness and No other (cva) Exam Const General: cooperative Orientation: alert and oriented x3 HENMT Head: normal to inspection Neck Neck: normal visual inspection and full ROM Chest Chest palpation & inspection: normal inspection of the chest Resp Effort & Inspection: normal respiratory effort Auscultation: clear to auscultation bilaterally Cardio Rate: regular rate Rhythm: regular rhythm GI Inspection: non-distended Palpation: soft and nontender Skin General: no rashes or lesions noted Neuro General: patient alert and patient oriented x3 Extrem General: full ROM Psych Appearance: grossly normal Mental Status: mental status grossly normal Assessment and Plan Assessment and Plan (1) Biliary dyskinesia: Status: Acute Plan: The patient has had a scan which showed ejection fraction of less than 5%. She does have right upper quadrant pain especially after eating with nausea. I recommended laparoscopic cholecystectomy for biliary dyskinesia. I discussed the procedure in detail with the patient. I discussed the risks, benefits, and alternatives of the procedure. I discussed the risks including but not limited to bleeding, infection, injury to surrounding organs such as the liver, bile duct, bowels. I did discuss the possibility of having to convert to an open procedure as well as the possibility that if any injuries occurred this may necessitate further surgery at a tertiary care center. Ramon Turcios MD Pager: [facility] [address] [place] [address], [address] [place] [address] Office: I have examined the patient and the H&P has been reviewed. There are no clinicalchanges since date of exam. 12/24/22 1239 <Electronically signed by Ramon Turcios MD> Cosigner Signature (if applicable): CC: Dr. Ramon Turcios MD; No Primary Care Physician~ Signed [facility] Work Phone: 1(772) 984-236508-22-2023 Procedure [facility] 11-23-2022 Consult note Author Rodger El [facility] November 23, 2022 4:04pm Note Date/Time November 23, 2022 3:44 pm [facility] Medical Records Department [address] [place] [address] Consultation - GI 11/23/22 1541 MR#: [id number] Acct: [id number] Name: TIM CORDOVA Rep #:[id number] : 1980 41 From: Rodger El DO PCP: Care Physician,No Primary Status :ADM IN Location: [facility] SB480-5 HPI Consult Data Date of Consult: 11/23/22 HPI Narrative Reason for Consultation: Right upper quadrant pain HPI Narrative: TIM CORDOVA, is a 41 F who presents with right upper quadrant abdominal pain. She had a similar presentation approximately 2 years ago when she developed right upper quadrant pain that was more into the hospital. She was determined to have cholestatic hepatitis and was told that her bile duct was obstructed. It she also was told that she had acute hepatitis B. This was at [facility]. She followed up with tail trimmer as an outpatient and he told her that it was nothing else to do. Approximately 5 days ago she developed right upper quadrant pain and was [facility]. She was determined to have blood in her urine so they told her that she had a stone that she likely passed in her urine and that caused her pain. She had been doing okay all week. However, she reports she was asleep and woke up at 2 AM with right sided back pain and right upper quadrant pain and said it was severe enough and not getting better so she came to the ED. In the ED she had an abdominal CT which showed probable gallbladder wall thickening and/or small amount of adjacent fluid although potentially motion artifact as well as amildly enlarged appendix with small appendicolith in the midportion but no otherfindings of acute appendicitis as well as left nephrolithiasis without hydronephrosis. General surgery was contacted who recommended gallbladder ultrasound and did notfeel appendix was culprit. Gallbladder ultrasound with dilated common bile ductwithout evidence of gallbladder wall thickening or cholelithiasis as well as hepatomegaly and mild hepatic steatosis. I recommended that she get a MRCP. Her MRCP did not show any signs of ductal dilation either, duct was noted to be 6 mm. Also her liver function test in the ED were not consistent with a biliaryobstruction. She notes her abdominal pain at this time had a 5 out of 10. PFSH Medical History Anemia Anxiety Brain TIA Chiari malformation GERD (gastroesophageal reflux disease) Hepatitis Hypothyroid Kidney stones Medical marijuana use Migraines Smoker Home Medications ondansetron 4 mg disintegrating tablet 4 mg PO Q8H PRN nausea and vomiting 3 days #9 tabs 11/23/22 [Rx Last Taken Unknown] Allergy/AdvReac Type Severity Reaction Status Date / Time mustard Allergy Angioedema Verified 03/06/21 08:33 oxycodone Allergy Hives Verified 03/06/21 08:33 Family History (Updated 03/06/21 @ 11:09 by Liv Vazquez) Father Liver cancer Surgical History H/O: hysterectomy History of cranial surgery Social History Smoking Status: Current every day smoker tobacco type: cigarettes ROS ROS Narrative General: Denies fever/chills HENT: Denies headache, denies stuffy nose, denies sore throat EYES: Denies changes in vision Resp: Denies cough, denies shortness of breath Cardiac: Denies chest pain GI: Right upper quadrant pain, no diarrhea or constipation, intermittent nausea : Denies changes in urination Extremity: Denies swelling MSK: Denies weakness Neuro: Denies any numbness/tingling Heme: Denies any bleeding or bruising Skin: Denies rashes Psychiatric: No complaints voiced Physical Exam Narrative General: Alert, oriented, no apparent distress HEENT: Atraumatic, normocephalic Eyes: Anicteric, normal conjunctiva, extraocular movements grossly intact Neck: Supple Respiratory: Clear to auscultation bilaterally, normal respiratory effort Cardiovascular: Regular rate and rhythm GI: Soft, no rebound, guarding, rigidity, nondistended Extremities: No edema Musculoskeletal: Moving all extremities Neuro: No overt focal neurological deficits Skin: No rashes appreciated, multiple tattoos, scar noted midline at base of skull with no abnormalities Psych: Cooperative Lab / Micro Data 11/23/22 03:31 11/23/22 03:31 Labs: Laboratory Results - last 24 hr 11/23/22 03:31: WBC 11.7 H, RBC 4.37, Hgb 13.5, Hct 40.1, MCV 91.8, MCH 30.9, MCHC 33.7, RDW Std Deviation 42.3, RDW Coeff of Eliazar 12.7, Plt Count 177, MPV 12.7 H, Immature Gran % (Auto) 0.200, Neut % (Auto) 42.5 L, Lymph % (Auto) 45.4 H, [place] % (Auto) 6.9, Eos % (Auto) 4.1, Baso % (Auto) 0.9, Absolute Neuts (auto)5.0, Absolute Lymphs (auto) 5.29 H, Nucleated RBC % 0, Differential Comment SCANNED, Sodium 144, Potassium 3.8, Chloride 114 H, Carbon Dioxide 24.0, Anion Gap 6, BUN 12, Creatinine 0.92, Estim Creat Clear Calc 77.46, Est GFR (MDRD) Af Amer 85, Est GFR (MDRD) Non-Af 71, BUN/Creatinine Ratio 13.0, Glucose 108 H, Calcium 8.5, Total Bilirubin 0.10 L, Direct Bilirubin < 0.05, AST 12 L, ALT 18, Alkaline Phosphatase 79, Total Protein 6.8, Albumin 3.5, Globulin 3.3, Lipase 62, Serum , Qual NEGATIVE 11/23/22 04:20: Urine Color Yellow, Urine Clarity Clear, Urine pH 6.0, Ur Specific Gordon 1.025, Urine Protein 15 H, Urine Glucose (UA) Normal, Urine Ketones Negative, Urine Occult Blood Negative, Urine Nitrite Negative, Urine Bilirubin Negative, Urine Urobilinogen 1 H, Ur Leukocyte Esterase 25 H, Urine RBC 0-5 SEEN, Urine WBC 0-5 SEEN, Ur Squamous Epith Cells 0-5 SEEN, Urine Bacteria 0 SEEN, Urine Mucus 0 SEEN Radiology Impression Abdomen/Pelvis CT 11/23/22 03:17 IMPRESSION: 1. Probable gallbladder wall thickening and/or small amount of adjacent fluid although potentially motion artifact. Correlation with ultrasound recommended to evaluate for acute cholecystectomy. 2. Appendix mildly enlarged with a small appendicolith in the midportion but no secondary findings of acute appendicitis. 3. Left nephrolithiasis without hydronephrosis. Electronically Signed: Ileana Jeffers MD at 5:20 EDT , Gallbladder Ultrasound 11/23/22 05:27 IMPRESSION: 1. Dilated common bile duct without evidence of gallbladder wall thickening or cholelithiasis. MRCP might be further value if clinically indicated. 2. Hepatomegaly and mild hepatic steatosis. Electronically Signed: Washington Ornelas MD at 8:21 EDT , MRCP 11/23/22 11:11 IMPRESSION: 1. Borderline to mildly prominent common bile duct measuring up to 6.5 mm in caliber. No evidence of retained stones. 2. Hepatomegaly. Electronically Signed: Washington Ornelas MD at 12:26 EDT , Assessment & Plan Assessment/Plan (1) Right upper quadrant abdominal pain: PLAN: Plan #Right upper quadrant pain -I suspect that she passed a gallstone into the common bile duct and that is thereason why her common bile duct was dilated on ultrasound. The MRCP shows that there is no signs of choledocholithiasis and her bile duct is down to normal. I think her elevated white blood cell count is secondary to reactive leukocytosis And I would not give her antibiotics. -I told her that she should try eating and see how she does and she can get an outpatient HIDA scan to see if she would benefit from a cholecystectomy. No plans for endoscopy at this time. - #History of acute hepatitis B several years ago -Outpatient viral serologies can be checked to make sure she perform hepatitis Bsurface antibody and she would probably benefit from hepatitis A vaccination. Charges/Coding Visit Charges Inpatient E&M: 75576 Init Hosp L3 11/23/22 1607 <Electronically signed by Rodger Friend > Cosigner Signature (if applicable): CC: No Primary Care Physician~ Signed [facility] Work Phone: 1(512) 433-452507-22-2023 History and physical note Author Risa Velasquez [facility] November 23, 2022 11:24am Note Date/Time November 23, 2022 11:2 4am [facility] Medical Records Department [address] [place] [address] H&P Exam - Hospitalist 11/23/22 1107 MR#: [id number] Acct: [id number] Name: TIM CORDOVA Rep #:[id number] : 1980 41 From: Risa Velasquez MD PCP: Care Physician,No Primary Status :ADM IN Location: [facility] VT204-1 HPI - General General Date of Admission: 11/23/22 Date of Service: 11/23/22 Chief Complaint: Right-sided flank and back pain HPI Narrative TIM CORDOVA, is a 41 F with history of tobacco use, Chiari malformation withhistory of surgical intervention on medical marijuana for this, tobacco use, acute hepatitis B several years ago who presented to [facility] 11/23/2022 with right sided abdominal pain to the back. She reports she was asleep and woke up at 2 AM with right sided back pain and right upper quadrant pain and said it was severe enough and not getting better so she came to the ED. In the ED she had an abdominal CT which showed probable gallbladder wall thickening and/or small amount of adjacent fluid although potentially motion artifact as well as a mildly enlarged appendix with small appendicolith in the midportion but no other findings of acute appendicitis as well as left nephrolithiasis without hydronephrosis. Surgery was contacted who recommended gallbladder ultrasound and did not feel appendix was culprit. Gallbladder ultrasound with dilated common bile duct without evidence of gallbladder wall thickening or cholelithiasis as well as hepatomegaly and mild hepatic steatosis. GI was contacted who recommended admission and MRCP and that they would see herin consult. Hospitalist consulted for admission. Patient evaluated at bedside who reports the above history and said that the pain in her back is slightly improved but still has the pain in her right upper quadrant. The pain is sharp and comes and goes. Did have gallbladder problems she said 22 years ago and hasnot since however several days ago she had a similar pain and went to urgent care and there they checked her urine and she had small blood they thought may be kidney stone. They sent her home and recommended if any worsening she come to the ED which is when she presented. No urinary complaints or bowel bladder changes. Has had some intermittent nausea since pain started but no fevers or chills, denies any other focal complaints. [facility] Medical History (Updated 11/23/22 @ 06:[address] Cliff De La O, DO) Brain TIA Chiari malformation Hypothyroid Home Medications albuterol sulfate 90 mcg/actuation aerosol inhaler inhalation 11/23/22 [History Last Taken Unknown] ondansetron 4 mg disintegrating tablet 4 mg PO Q8H PRN nausea and vomiting 3 days #9 tabs 11/23/22 [Rx Last Taken Unknown] Allergy/AdvReac Type Severity Reaction Status Date / Time mustard Allergy Angioedema Verified 03/06/21 08:33 oxycodone Allergy Hives Verified 03/06/21 08:33 Family History (Updated 03/06/21 @ 11:09 by Liv Vazquez) Father Liver cancer Surgical History H/O: hysterectomy History of cranial surgery Social History Smoking Status: Current every day smoker tobacco type: cigarettes ROS ROS Narrative General: Denies fever/chills HENT: Denies headache, denies stuffy nose, denies sore throat EYES: Denies changes in vision Resp: Denies cough, denies shortness of breath Cardiac: Denies chest pain GI: Right upper quadrant pain, no diarrhea or constipation, intermittent nausea : Denies changes in urination Extremity: Denies swelling MSK: Denies weakness Neuro: Denies any numbness/tingling Heme: Denies any bleeding or bruising Skin: Denies rashes Psychiatric: No complaints voiced Vital Signs Vital Signs Vital Signs: 11/23/22 03:05 11/23/22 03:05 11/23/22 03:43 Temperature 98.0 F 98.0 F Temperature Source Temporal Temporal Pulse Rate 87 87 Respiratory Rate 28 H 28 H Blood Pressure 140/122 H 140/122 H 130/62 H Blood Pressure Mean 128 128 84 Pulse Ox 97 97 Oxygen Delivery Method Room Air Room Air 11/23/22 07:07 11/23/22 09:00 11/23/22 10:35 Temperature Temperature Source Pulse Rate 61 Respiratory Rate 16 16 14 Blood Pressure 115/65 104/63 Blood Pressure Mean 81 76 Pulse Ox 97 Oxygen Delivery Method Room Air 11/23/22 10:40 Temperature 98.6 F Temperature Source Temporal Pulse Rate 61 Respiratory Rate 14 Blood Pressure 104/63 Blood Pressure Mean 76 Pulse Ox 97 Oxygen Delivery Method Room Air Weight Weight: 104 kg Body Mass Index (BMI) 35.9 Physical Exam Narrative General: Alert, oriented, no apparent distress HEENT: Atraumatic, normocephalic Eyes: Anicteric, normal conjunctiva, extraocular movements grossly intact Neck: Supple Respiratory: Clear to auscultation bilaterally, normal respiratory effort Cardiovascular: Regular rate and rhythm GI: Soft, no rebound, guarding, rigidity, nondistended Extremities: No edema Musculoskeletal: Moving all extremities Neuro: No overt focal neurological deficits Skin: No rashes appreciated, multiple tattoos, scar noted midline at base of skull with no abnormalities Psych: Cooperative Results Lab / Micro Data 11/23/22 03:31 11/23/22 03:31 Labs: Laboratory Results - last 24 hr 11/23/22 03:31: WBC 11.7 H, RBC 4.37, Hgb 13.5, Hct 40.1, MCV 91.8, MCH 30.9, MCHC 33.7, RDW Std Deviation 42.3, RDW Coeff of Eliazar 12.7, Plt Count 177, MPV 12.7 H, Immature Gran % (Auto) 0.200, Neut % (Auto) 42.5 L, Lymph % (Auto) 45.4 H, [place] % (Auto) 6.9, Eos % (Auto) 4.1, Baso % (Auto) 0.9, Absolute Neuts (auto)5.0, Absolute Lymphs (auto) 5.29 H, Nucleated RBC % 0, Differential Comment SCANNED, Sodium 144, Potassium 3.8, Chloride 114 H, Carbon Dioxide 24.0, Anion Gap 6, BUN 12, Creatinine 0.92, Estim Creat Clear Calc 77.46, Est GFR (MDRD) Af Amer 85, Est GFR (MDRD) Non-Af 71, BUN/Creatinine Ratio 13.0, Glucose 108 H, Calcium 8.5, Total Bilirubin 0.10 L, Direct Bilirubin < 0.05, AST 12 L, ALT 18, Alkaline Phosphatase 79, Total Protein 6.8, Albumin 3.5, Globulin 3.3, Lipase 62, Serum , Qual NEGATIVE 11/23/22 04:20: Urine Color Yellow, Urine Clarity Clear, Urine pH 6.0, Ur Specific Gordon 1.025, Urine Protein 15 H, Urine Glucose (UA) Normal, Urine Ketones Negative, Urine Occult Blood Negative, Urine Nitrite Negative, Urine Bilirubin Negative, Urine Urobilinogen 1 H, Ur Leukocyte Esterase 25 H, Urine RBC 0-5 SEEN, Urine WBC 0-5 SEEN, Ur Squamous Epith Cells 0-5 SEEN, Urine Bacteria 0 SEEN, Urine Mucus 0 SEEN Radiology Impression Abdomen/Pelvis CT 11/23/22 03:17 IMPRESSION: 1. Probable gallbladder wall thickening and/or small amount of adjacent fluid although potentially motion artifact. Correlation with ultrasound recommended to evaluate for acute cholecystectomy. 2. Appendix mildly enlarged with a small appendicolith in the midportion but no secondary findings of acute appendicitis. 3. Left nephrolithiasis without hydronephrosis. Electronically Signed: Ileana Jeffers MD at 5:20 EDT , Gallbladder Ultrasound 11/23/22 05:27 IMPRESSION: 1. Dilated common bile duct without evidence of gallbladder wall thickening or cholelithiasis. MRCP might be further value if clinically indicated. 2. Hepatomegaly and mild hepatic steatosis. Electronically Signed: Washington Ornelas MD at 8:21 EDT , Assessment & Plan Assessment/Plan (1) Right upper quadrant abdominal pain: PLAN: Plan #Right upper quadrant pain -abdominal CT which showed probable gallbladder wall thickening and/or small amount of adjacent fluid although potentially motion artifact as well as a mildly enlarged appendix with small appendicolith in the midportion but no otherfindings of acute appendicitis as well as left nephrolithiasis without hydronephrosis -Surgery was contacted who recommended gallbladder ultrasound and did not feel appendix was culprit -Gallbladder ultrasound with dilated common bile duct without evidence of gallbladder wall thickening or cholelithiasis as well as hepatomegaly and mild hepatic steatosis -GI was contacted who recommended admission and MRCP and that they would see herin consult. -Patient n.p.o., MRCP ordered, GI consulted -Pain control, nausea control -Suspect choledocholithiasis given onset, symptoms, bile duct dilation -Patient with no fever or jaundice, white blood cell count is 11.7 which is verymildly high but no left shift and total bili, direct bili, ALT, AST, alk phos are not elevated. Do not think patient needs urgent antibiotics at this time #History of Chiari malformation -Status post surgery -Uses home medical marijuana #History of acute hepatitis B several years ago -Patient denies history of hepatitis A or C #Tobacco use -Advise cessation -Patient denied nicotine replacement #DVT ppx: Lovenox subcu Risa Velasquez MD Time spent in the patient's overall evaluation,decision-making process, review of diagnostic data, adjustment of management, discussion with other providers, nursing nursing and ancillary staff involved in patient's care documentation, 56minutes Charges/Coding Visit Charges Inpatient E&M: 42659 Init Hosp L2 11/23/22 1124 <Electronically signed by Risa Velasquez MD> Cosigner Signature (if applicable): CC: Dr. Risa Velasquez MD; No Primary Care Physician~ Signed [facility] Work Phone: 1(133) 351-672707-22-2023 Discharge summary Author Edin Melo [facility] November 23, 2022 11:00am Note Date/Time November 23, 2022 3:09 am [facility] Medical Records Department [address] [place] [address] Emergency Department Summary 11/23/22 MR#: [id number] Acct: [id number] Name: TIM CORDOVA Rep #:[id number] 1 : 1980 41 From: Cliff Reinoso PCP: Care Physician,No Primary Status :REG ER Location: ED HPI HPI - Female History of Present Illness Chief Complaint: Flank Pain PFSH PFS Medical History (Updated 11/23/22 @ 06:[address] Cliff De La O, DO) Brain TIA Chiari malformation Hypothyroid Home Medications albuterol sulfate 90 mcg/actuation aerosol inhaler inhalation 11/23/22 [History Last Taken Unknown] Allergy/AdvReac Type Severity Reaction Status Date / Time mustard Allergy Angioedema Verified 03/06/21 08:33 oxycodone Allergy Hives Verified 03/06/21 08:33 Family History (Updated 03/06/21 @ 11:09 by Liv Vazquez) Father Liver cancer Surgical History H/O: hysterectomy History of cranial surgery Social History Smoking Status: Current every day smoker tobacco type: cigarettes EXAM Physical Exam Const Vital Signs: 11/23/22 03:05 11/23/22 03:05 11/23/22 03:43 Temperature 98.0 F 98.0 F Temperature Source Temporal Temporal Pulse Rate 87 87 Respiratory Rate 28 H 28 H Blood Pressure 140/122 H 140/122 H 130/62 H Blood Pressure Mean 128 128 84 Pulse Ox 97 97 Oxygen Delivery Method Room Air Room Air MDM MDM MDM Narrative Medical decision making narrative: HISTORY OF PRESENT ILLNESS: 39-year-old female here with right-sided flank pain rating to the right abdomen. Notes she passed several kidney stones earlier this week. She further states pain is constant severe radiating from the right flank into the right upper abdomen. Notes history of C-sections. Denies any vomiting or fever. Denies any urinary complaints. Denies any vaginal bleeding or discharge. Denies any constipation or diarrhea. No chest pain or shortness of breath. No history of connective tissue disorder such as David-Danlos or Marfan syndrome. REVIEW OF SYSTEMS: Pertinent positives: Flank pain Pertinent negatives: Syncope vaginal bleeding, increased urinary frequency PHYSICAL EXAM: Nursing triage notes reviewed, Vital signs reviewed Constitutional: please see mdm HENT: MMM Eyes: Pupils equal round and reactive to light, Extraocular muscles intact Neck: No stridor, no JVD, full neck ROM Lungs: Clear to auscultation, No wheezing or rales. No increased work of breathing, no conversational dyspnea, no accessory muscle use, no nasal flaring. No respiratory distress noted Heart: Regular rate and rhythm, No murmurs, No rubs and No gallops, 2+ distal pulses (radial, femoral, posterior tibial) in all extremities Abdomen: Soft, right upper quadrant TTP, positive Bowden sign, no rigidity, rebound or guarding, no obvious peritoneal signs, no palpable pulsatile abdominal masses, no auscultated abdominal bruit : Right CVA tenderness Extremities: No edema Neuro: No focal neurological deficits, cranial nerves II through XII intact, 5/5strength in all extremities. Intact sensation to light touch in all extremities,2+ reflexes bilateral patella tendons. Normal gait. No ataxia. Skin: No rash or lesions noted MEDICAL DECISION MAKING: Chief Complaint: Flank pain External records reviewed: Last ED visit was in 2020 for left-sided weakness andTIA Factors affecting care: Hypothyroidism, current malformation, TIA, nephrolithiasis Social determinants of health: tobacco abuse History obtained from others: Patient's significant other Consults: General surgery (Dr. Ayala) ALL IMAGES (IF OBTAINED) HAVE BEEN PERSONALLY REVIEWED AND INTERPRETED BY MYSELF. CBC with leukocytosis suggestive of systemic inflammation, no anemia or thrombocytopenia noted Urine test is negative Urinalysis shows no evidence of urinary inflammation suggestive of UTI Lipase is wnl indicating no pancreatic inflammation. BMP without evidence of significant electrolyte abnormalities, no anion gap, no acute kidney injury. LFTs show no evidence of hepatobiliary pathology. MDM Narrative: Patient was hemodynamically stable, tachypneic otherwise afebrile and nontoxic-appearing. Exam with right upper quadrant TTP, right flank TTP but no eyes peritoneal signs. I considered the following differential diagnosis: Nephrolithiasis, pyelonephritis, gallbladder etiology , AAA, musculoskeletal etiology. I obtained a broad lab and imaging work-up to further elucidate the etiology thepatient complaints. I treated the patient with IV morphine, Toradol Zofran and fluids. CT scan abdomen pelvis showed no evidence of definitive acute appendicitis but did showed an appendicolith, no findings of acute appendicitis nephrolithiasis. I discussed patient's finding of appendicolith with Dr. Ayala. States appendicolith on its own is not an indication for acute surgery however if there is no other surgical pathology found (i.e. acute cholecystitis) this may make the surgeon then just go ahead and remove the patient's appendix. Urine was not consistent with UTI or pyelonephritis. While there is no hepatobiliary obstruction and no elevation in patient's lipase no white count she did have ongoing right upper quadrant tenderness and her CT scan was concerning for gallbladder wall thickening/adjacent fluid so I thought it was prudent to obtain a right upper quadrant ultrasound to further elucidate any potential gallbladder etiology specifically ruling out acute cholecystitis. Unfortunately ultrasound was unavailable until 7 AM. Patient was signed out to a.m. physician pending ultrasound and final disposition. The patient and/or family, caregivers express understanding. The patient and/orfamily, caregivers agrees with the plan. Shared decision making: I will have a discussion with the patient and or visitors regarding risk/benefits of further testing or admission. They will be made aware of of the risk/benefits inherent in this decision they will be given the opportunity to voice understanding. Total critical care time today provided was at least 0 minutes. This excludes separately billable procedures. Critical care time (if documented) is secondary to the patient having high probability of clinically significant/life threatening deterioration in the patient's condition which required my urgent intervention. Lab Data Attestation: I reviewed the patient's lab results. Labs: Laboratory Results - last 24 hr 11/23/22 11/23/22 03:31 04:20 WBC 11.7 H RBC 4.37 Hgb 13.5 Hct 40.1 MCV 91.8 MCH 30.9 MCHC 33.7 RDW Std Deviation 42.3 RDW Coeff of Eliazar 12.7 Plt Count 177 MPV 12.7 H Immature Gran % (Auto) 0.200 Neut % (Auto) 42.5 L Lymph % (Auto) 45.4 H [place] % (Auto) 6.9 Eos % (Auto) 4.1 Baso % (Auto) 0.9 Absolute Neuts (auto) 5.0 Absolute Lymphs (auto) 5.29 H Nucleated RBC % 0 Sodium 144 Potassium 3.8 Chloride 114 H Carbon Dioxide 24.0 Anion Gap 6 BUN 12 Creatinine 0.92 Estim Creat Clear Calc 77.46 Est GFR (MDRD) Af Amer 85 Est GFR (MDRD) Non-Af 71 BUN/Creatinine Ratio 13.0 Glucose 108 H Calcium 8.5 Total Bilirubin 0.10 L Direct Bilirubin < 0.05 AST 12 L ALT 18 Alkaline Phosphatase 79 Total Protein 6.8 Albumin 3.5 Globulin 3.3 Lipase 62 Serum , Qual NEGATIVE Urine Color Yellow Urine Clarity Clear Urine pH 6.0 Ur Specific Gordon 1.025 Urine Protein 15 H Urine Glucose (UA) Normal Urine Ketones Negative Urine Occult Blood Negative Urine Nitrite Negative Urine Bilirubin Negative Urine Urobilinogen 1 H Ur Leukocyte Esterase 25 H Urine RBC 0-5 SEEN Urine WBC 0-5 SEEN Ur Squamous Epith Cells 0-5 SEEN Urine Bacteria 0 SEEN Urine Mucus 0 SEEN Radiography Diagnostic Testing: Clinical Impression(s) from Imaging Studies Abdomen/Pelvis CT 11/23/22 03:17 IMPRESSION: 1. Probable gallbladder wall thickening and/or small amount of adjacent fluid although potentially motion artifact. Correlation with ultrasound recommended to evaluate for acute cholecystectomy. 2. Appendix mildly enlarged with a small appendicolith in the midportion but no secondary findings of acute appendicitis. 3. Left nephrolithiasis without hydronephrosis. Electronically Signed: Ileana Jeffers MD at 5:20 EDT , Discharge Plan Triage Chief Complaint: Flank Pain ED Provider: Cliff De La O Dx/Rx/DC Orders Clinical Impression: Right upper quadrant abdominal pain Prescriptions: No Action albuterol sulfate 90 mcg/actuation HFA aerosol inhaler INHALATION Patient Comments: INHALE 2 PUFFS BY MOUTH EVERY 4 TO 6 HOURS Primary Care Provider: Care Physician,No Primary Referrals: Care Physician,No Primary [Primary Care Provider] - What to do if you have Problems For any increased pain, shortness of breath, bleeding, nausea or vomiting, chestpain, or any unexpected problems, contact your Primary Care Provider. Call [facility] ([phone]) or report to the closest Emergency Room. Call 911 if necessary. 11/23/22 0651 <Electronically signed by Cliff De La O DO> Cosigner Signature (if applicable): CC: No Primary Care Physician ~ Signed ADDENDUM by Dr. Edin Melo DO on 11/23/22 at 1100 Patient signed out to me at 7 AM this morning for follow-up on right upper quadrant ultrasound. Patient having flank pain. She required another dose of morphine while I was observing her. The right upper quadrant ultrasound does not show acute cholelithiasis or cholecystitis however there is a dilated commonbile duct. I initially spoke with Dr. Ayala who recommended I talk to GI. I did speak with Dr. El who was amenable to keeping the patient here and recommended an MRCP. Patient counseled on findings and she is amenable to staying in the hospital here. Patient transported to the floor in stable condition. Impression: 1. Dilated common bile duct 11/23/22 1100<Electronically signed by Edin Melo DO> Cosigner Signature (if applicable): cc: No Primary Care Physician ~* Signed [facility] Work Phone: [phone] History of Present illness Narrative* Mery Wright PA-C - 11/18/2022 3:25 PM EDT This note was created using [employer]. Subjective Tim Cordova is a 41 year old female. HPI Patient presents with right lower back pain since this morning. She took her temperature over the night and was 102. Denies abdominal pain. Denies dysuria. She states she always has frequency that has not changed recently. No blood in urine. She has had kidney stones previously but states its been over 2 years. No vomiting. Denies cough congestion or sore throat. No ear pain. Was concern for UTI. Review of Systems Constitutional: Positive for fatigue and fever. HENT: Negative. Respiratory: Negative. Cardiovascular: Negative. Gastrointestinal: Negative. Genitourinary: Positive for frequency. Negative for dysuria, flank pain, hematuria, pelvic pain, urgency, vaginal bleeding, vaginal discharge and vaginal pain. Musculoskeletal: Positive for back pain. Skin: Negative. All other systems reviewed and are negative. PAST MEDICAL HISTORY Diagnosis Date Acute laryngitis Acute sinusitis Arnold-Chiari malformation (HCC) s/p decompression Cervical disc herniation neck pain Dysmenorrhea Hepatitis B 02/2019 Left foot pain Menorrhagia Migraine Current Outpatient Medications Medication Sig Dispense Refill acetaminophen (TYLENOL) 325 mg tablet Take 650 mg by mouth as needed. No current facility-administered medications for this visit. PAST SURGICAL HISTORY Procedure Laterality Date BRAIN SURGERY HX 10/22/2019 suboccipital craniectomy for decompression Chiari I malformation by Dr. Chely Bardales FOOT SURGERY HX Left 10/2016 debridement from dog bite HYSTERECTOMY 09/2017 one ovary remains TUBAL LIGATION 2001 FAMILY HISTORY Problem Relation Age of Onset Hypertension Mother Cancer Father Lung cancer Aneurysm Father Head/brain Hypertension Father Aneurysm Paternal Grandmother Head/brain Social History Tobacco Use Smoking status: Former Packs/day: 1.00 Years: 15.00 Total pack years: 15.00 Types: Cigarettes Quit date: 10/27/2016 Years since quittin.0 Smokeless tobacco: Never Tobacco comments: Quit 04/2020 Vaping Use Vaping Use: Never used Substance Use Topics Alcohol use: No Comment: Non alcohol user. Drug use: No Objective BP 134/80 Pulse 86 Temp 36.6 C (97.8 F) Resp 21 Wt 107.7 kg (237 lb 6.4 oz) LMP (LMP Unknown) SpO2 96% BMI 37.18 kg/m Physical Exam Vitals reviewed. Constitutional: Appearance: Normal appearance. HENT: Head: Normocephalic and atraumatic. Cardiovascular: Rate and Rhythm: Normal rate and regular rhythm. Heart sounds: Normal heart sounds. Pulmonary: Effort: Pulmonary effort is normal. Breath sounds: Normal breath sounds. Abdominal: General: Abdomen is flat. Palpations: Abdomen is soft. Comments: Mild pelvic tenderness on palpation. No McBurney's point tenderness. Bowel sounds active.No guarding or rebound. No left lower quadrant tenderness on palpation. Musculoskeletal: Cervical back: Neck supple. Comments: Patient tender on palpation of the right lumbar paraspinal musculature. No midline tenderness. No CVA tenderness. Pain increases with range of motion. Skin: General: Skin is warm and dry. Neurological: General: No focal deficit present. Mental Status: She is alert and oriented to person, place, and time. Assessment and Plan ASSESSMENT/PLAN: 1. Low back pain without sciatica, unspecified back pain laterality, unspecified chronicity - ICD9:724.2, ICD10: M54.50 (primary diagnosis) Likely musculoskeletal however she does have trace blood in her urine, cannot rule out kidney stone. Discussed if symptoms worsen she needs to be seen in the ER, otherwise follow-up with PCP. No other signs of UTI. Will send for culture. Abdominal exam benign. Patient agreeable with plan. - UA DIP, URINE (POC) - URINE CULTURE 2. Microscopic hematuria - ICD9: 599.72, ICD10: R31.29 Follow up with pcp. Mery Wright PA-C documented in this encounterBlanch[facility]07-17-2023 Instructions* Patient Instructions* Mery Wright PA-C - 11/18/2022 1:17 PM EDT Otc tylenol or ibuprofen. Rest. Heating pad/ice. If you develop worsening pain, continued fevers beseen in the ED. documented in this encounterBlanchard Valley [facility] System07-07-2023 History of Present illness Narrative* Radha Gaitan RT(R) - 11/08/2022 10:00 AM EDT Radiology Service Progress Note PATIENT NAME: Tim Cordova DATE OF SERVICE: November 08, 2022 TIME: 9:57 AM PATIENT IDENTITY VERIFICATION COMPLETED USING TWO (2) IDENTIFIERS: Name and Date of confirmedby patient verbally. FALL SCREENING: Has the patient had 2 falls in the last year or 1 fall with injury or currently using an Ambulatory Assistive Device (Walker, Cane, Wheelchair, Crutches, etc.)? No PATIENT GENDER DATA: Female. status: : No status: NO. PATIENT RELEVANT IMPLANT DATA REVIEWED: Yes RADIOLOGY DEPARTMENT: MR; Exam(s) Completed: Spine: Cervical spine PERIPHERAL IV DATA: Not applicable SIGNED BY: VALERIANO Galvez) November 08, 2022 9:57 AM documented in this encounterBlanchard Valley Health System05-09-2023 NoteHNO ID: [id number] Author: Eric Wilson MD Service: ? Author Type: Physician Type: Progress Notes Filed: 09/12/2022 5:00 PM Note Text: . [facility] [place] [address], [address] [place], [place] [id number] [place] [address] General Endocrinology - [address], [address] [place], [place] [address] Patient's name: Tim Cordova Patient's date of : 1980 Date of encounter: 09/10/2022 History of present illness: Tim Cordova is a 41 year old female who presents for follow up of an endocrinology issue. Previous history: 04/21/2019: Consultation with neurosurgery, Dr Bardales. 04/30/2019: MRI head: Impression: Pituitary gland is enlarged without evidence of focal area of altered signal intensity or enhancement. Measures 12 mm craniocaudal by 12 mm transverse on postcontrast coronal image 11, unchanged. Diagnostic considerations include pituitary macroadenoma versus pituitary hyperplasia. Correlation with appropriate pituitary gland results. 05/18/2019: TSH 1.580 (0.270-4.200 uU/mL), free T4 1.0 (0.9 - 1.7 ng/dL), prolactin 12.2 (4.5-26.8 ng/mL), random cortisol 7.6 ug/dL, Luteinizing Hormone (LH) 33.0 IU/mL, Follicle Stimulating Hormone (FSH) 39.2 IU/mL, 10/22/2019: Neurosurgery: Suboccipital craniectomy for decompression of Chiari I malformation. 12/02/2019: Initial consultation with nc. 01/2020: Luteinizing Hormone (LH) 36.49 mIU/mL, Follicle Stimulating Hormone (FSH) 48.56 mIU/mL, prolactin 11.2 (non- female 2.8-29.2 ng/mL), Sodium 140 (136-144 mEq/L), TSH 1.590 (0.270-4.200 uU/mL), free T4 1.1 (0.9-1.7 ng/dL), Insulin-like growth factor 1 (IGF-1, somatomedin C) 142 (76-271 ng/mL), 01/2020: cortisol 7.8 ug/dL at 08:30 AM. Adrenocorticotropic Hormone (ACTH) 28 (<47 pg/mL), 05/2020: MRI Brain: ... Stable T1 intrinsically hyperintense, nonenhancing lesion in the pituitary gland, most likely representing a Rathke's cyst. No mass effect on the optic chiasm. 06/2020: Follicle Stimulating Hormone (FSH) 54.5 mU/mL, Luteinizing Hormone (LH) 29.3 mU/mL, prolactin 7.9 (non 2.8-29.2. 9.7-208.5. Postmenopausal 1.8-20.3 ng/mL), Sodium 138 (136-144 mmol/L), 06/2020: TSH 1.480 (0.270-4.200 uIU/mL), free T4 0.9 (0.9-1.7 ng/dL), 06/2020: Cosyntropin stimulation test: Baseline cortisol 5.5 ug/dL, 30 minute stimulated cortisol 20.5 ug/dL, 60 minute stimulated cortisol 22.1 ug/dL. 01/01/2021: MRI brain: Impression: 1. Unchanged Rathke's cleft cyst, as described above. No suprasellar mass effect. 2. Status post Chiari decompression with wide anatomic patency of the foramen magnum. No evidence for hydrocephalus. 01/04/2021: Follow up with neurosurgery. Plan was monitoring. 02/2021: prolactin 6.6 (non 2.8-29.2. 9.7-208.5. Postmenopausal 1.8-20.3 ng/mL), Luteinizing Hormone (LH) 29.7 mU/mL, Follicle Stimulating Hormone (FSH) 52.0 mU/mL, Sodium 141 (136-144 mmol/L), 02/2021: TSH 1.400 (0.270-4.200 uIU/mL), free T4 1.0 (0.9-1.7 ng/dL), 10/2021: Cortisol 14.0 ug/dL at 08:10 AM, TSH 2.240 (0.270-4.200 uIU/mL), free T4 1.0 (0.9-1.7 ng/dL), Luteinizing Hormone (LH) 27.1 mIU/mL. Follicle Stimulating Hormone (FSH) 42.0 mIU/mL, prolactin 24.9 (4.5-26.8 ng/mL), Sodium 143 (136-144 mmol/L), Insulin-like growth factor 1 (IGF-1, somatomedin C) 119 (75-267 ng/mL), 01/04/2022: Neurosurgery follow up. see note. 02/2022: MRI brain: ... Pituitary gland: There is a stable T1 hyperintense space occupying lesion in the pars intermedia region of the pituitary gland. It does not enhance. It measures approximately 1.1 x 0.8 x 1.1 cm in greatest CC, AP, transverse dimensions, respectively. It again reveals slight suprasellar extension. No compression of the chiasm or optic nerves. 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 ... IMPRESSION: Stable examination. Pituitary Rathke's cleft cyst. ... Interval history: The patient now returns for re-evaluation and follow-up. The above history was re-confirmed. When asked how she feels overall, she responded overall, I feel good, little more tired than usual Recently changed jobs. Thinks more physical work and making her more tired. Not on any hormone meds. No breast tenderness or discharge. No crusted material in bra. Some dizziness with standing. This is her normal. See ROS. Recent bronchitis. Had multiple rounds of antibiotics. Biotin use (vitamin B-7) : Use of pobt-ikg-ugrabyt, high dose, biotin supplement: None. Use of Evmg-Eluk-Cxzv vitamins, or similar formulation with high-dose biotin: None. Use of B-complex vitamin preparations with high-dose biotin: None. Use of jzfm-qso-wuerxgu leave-in hair conditioners that contain biotin: None. Allergies, medications, medical and surgical history, family history and (more content not included)...[facility]05-09-2023 Instructions* Patient Instructions* Eric Wilson MD - 09/10/2022 2:25 PM EDT Get the labs done at [facility]. Around 8 AM. Fasting over night (don't eat after midnight) Biotin: Please don't use any biotin supplementation for at least 2 days prior to your lab draw. This includes any kiiq-rfz-fmcunxr Biotin pills, any Cxnm-Jmzf-Uxgf Vitamins, or any B-complex vitamin preparations. If you use a leave-in hair product, please make sure it does not contain biotin. If it does have biotin, then please do not use that product for at least 2 days prior to your lab draw.The biotin could interfere with lab results. Thyroid cancer patients: please avoid any biotin for at least 7 (seven) days prior to labs, so there is no chance of interference with Thyroglobulin levels. [place]: - [facility]. [address] [place], [place] [address]. [phone] (appointment recommended) - [facility]. [address], [place] [address]. [phone] (appointment recommended) documented in this encounterBlanchard Valley [facility]05-09-2023 History of Present illness Narrative* Eric Wilson MD - 09/10/2022 2:03 PM EDT Images from the original note were not included. . [facility] [address], [address] Endocrinology [address], [address] [place], [place] [address] Patient's name: Tim Cordova Patient's date of : 1980 Date of encounter: 09/10/2022 History of present illness: Tim Cordova is a 41 year old female who presents for follow up of an endocrinology issue. Previous history: 04/21/2019: Consultation with neurosurgery, Dr Bardales. 04/30/2019: MRI head: Impression: Pituitary gland is enlarged without evidence of focal area of altered signal intensity or enhancement. Measures 12 mm craniocaudal by 12 mm transverse on postcontrast coronal image 11, unchanged. Diagnostic considerations include pituitary macroadenoma versus pituitaryhyperplasia. Correlation with appropriate pituitary gland results. 05/18/2019: TSH 1.580 (0.270-4.200 uU/mL), free T4 1.0 (0.9 - 1.7 ng/dL), prolactin 12.2 (4.5-26.8 ng/mL), random cortisol 7.6 ug/dL, Luteinizing Hormone (LH) 33.0 IU/mL, Follicle Stimulating Hormone (FSH) 39.2 IU/mL, 10/22/2019: Neurosurgery: Suboccipital craniectomy for decompression of Chiari I malformation. 12/02/2019: Initial consultation with me. 01/2020: Luteinizing Hormone (LH) 36.49 mIU/mL, Follicle Stimulating Hormone (FSH) 48.56 mIU/mL, prolactin 11.2 (non- female 2.8-29.2 ng/mL), Sodium 140 (136-144 mEq/L), TSH 1.590 (0.270-4.200uU/mL), free T4 1.1 (0.9-1.7 ng/dL), Insulin-like growth factor 1 (IGF-1, somatomedin C) 142 (76-271 ng/mL), 01/2020: cortisol 7.8 ug/dL at 08:30 AM. Adrenocorticotropic Hormone (ACTH) 28 (<47 pg/mL), 05/2020: MRI Brain: ... Stable T1 intrinsically hyperintense, nonenhancing lesion in the pituitary gland, most likely representing a Rathke's cyst. No mass effect on the optic chiasm. 06/2020: Follicle Stimulating Hormone (FSH) 54.5 mU/mL, Luteinizing Hormone (LH) 29.3 mU/mL, prolactin 7.9 (non 2.8-29.2. 9.7-208.5. Postmenopausal 1.8-20.3 ng/mL), Sodium 138 (136-144 mmol/L), 06/2020: TSH 1.480 (0.270-4.200 uIU/mL), free T4 0.9 (0.9-1.7 ng/dL), 06/2020: Cosyntropin stimulation test: Baseline cortisol 5.5 ug/dL, 30 minute stimulated cortisol 20.5 ug/dL, 60 minute stimulated cortisol 22.1 ug/dL. 01/01/2021: MRI brain: Impression: 1. Unchanged Rathke's cleft cyst, as described above. No suprasellar mass effect. 2. Status post Chiari decompression with wide anatomic patency of the foramen magnum. No evidence for hydrocephalus. 01/04/2021: Follow up with neurosurgery. Plan was monitoring. 02/2021: prolactin 6.6 (non 2.8-29.2. 9.7-208.5. Postmenopausal 1.8-20.3 ng/mL), Luteinizing Hormone (LH) 29.7 mU/mL, Follicle Stimulating Hormone (FSH) 52.0 mU/mL, Sodium 141 (136-144 mmol/L), 02/2021: TSH 1.400 (0.270-4.200 uIU/mL), free T4 1.0 (0.9-1.7 ng/dL), 10/2021: Cortisol 14.0 ug/dL at 08:10 AM, TSH 2.240 (0.270-4.200 uIU/mL), free T4 1.0 (0.9-1.7 ng/dL), Luteinizing Hormone (LH) 27.1 mIU/mL. Follicle Stimulating Hormone (FSH) 42.0 mIU/mL, prolactin 24.9 (4.5-26.8 ng/mL), Sodium 143 (136-144 mmol/L), Insulin-like growth factor 1 (IGF-1, somatomedin C) 119 (75-267 ng/mL), 01/04/2022: Neurosurgery follow up. see note. 02/2022: MRI brain: ... Pituitary gland: There is a stable T1 hyperintense space occupying lesion in the pars intermedia region of the pituitary gland. It does not enhance. It measures approximately 1.1 x 0.8 x 1.1 cm in greatest CC, AP, transverse dimensions, respectively. It again reveals slight suprasellar extension. No compression of the chiasm or optic nerves. 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 ... IMPRESSION: Stable examination. Pituitary Rathke's cleft cyst. ... Interval history: The patient now returns for re-evaluation and follow-up. The above history was re-confirmed. When asked how she feels overall, she responded overall, I feel good, little more tired than usual Recently changed jobs. Thinks more physical work and making her more tired. Not on any hormone meds. No breast tenderness or discharge. No crusted material in bra. Some dizziness with standing. This is her normal. See ROS. Recent bronchitis. Had multiple rounds of antibiotics. Biotin use (vitamin B-7) : Use of lsjy-pdo-abycjis, high dose, biotin supplement: None. Use of Upxj-Gaeq-Olsf vitamins, or similar formulation with high-dose biotin: None. Use of B-complex vitamin preparations with high-dose biotin: None. Use of hhph-udf-tynxqpe leave-in hair conditioners that contain biotin: None. Allergies, medications, medical and surgical history, family history and social history, and problem list reviewed. Preferred pharmacy for the medications I prescribe (or may prescribe) is: [facility] [address] [place] [id number] [phone] [facility] [phone] Review of Systems Review of Systems Constitutional: Positive for malaise/fatigue (since changed jobs). Respiratory: Negative for shortness of breath. Cardiovascular: Negative for chest pain. Gastrointestinal: Negative for nausea. Musculoskeletal: Positive for joint pain and neck pain (Cervical spine pain, working with neurosurgery). Neurological: Positive for dizziness and headaches (Follows with neurosurg). Negative for tremors. Endo/Heme/Allergies: See the history of present illness section Past Medical, Surgical, Family and Social History PAST MEDICAL HISTORY Diagnosis Date Acute laryngitis Acute sinusitis Arnold-Chiari malformation (HCC) s/p decompression Cervical disc herniation neck pain Dysmenorrhea Hepatitis B 02/2019 Left foot pain Menorrhagia Migraine PAST SURGICAL HISTORY Procedure Laterality Date BRAIN SURGERY HX 10/22/2019 suboccipital craniectomy for decompression Chiari I malformation by Dr. Chely Bardales FOOT SURGERY HX Left 10/2016 debridement from dog bite HYSTERECTOMY 09/2017 one ovary remains TUBAL LIGATION 2002 FAMILY HISTORY Problem Relation Age of Onset Hypertension Mother Cancer Father Lung cancer Aneurysm Father Head/brain Hypertension Father Aneurysm Paternal Grandmother Head/brain Social History Tobacco Use Smoking status: Former Packs/day: 1.00 Years: 15.00 Pack years: 15.00 Types: Cigarettes Quit date: 10/27/2016 Years since quittin.8 Smokeless tobacco: Never Tobacco comments: Quit 04/2020 Vaping Use Vaping Use: Never used Substance Use Topics Alcohol use: No Comment: Non alcohol user. Drug use: No Medications Current Outpatient Medications Medication Sig Dispense Refill acetaminophen (TYLENOL) 325 mg tablet Take 650 mg by mouth as needed. No current facility-administered medications for this visit. Physical Examination and Vitals 09/10/22 1351 BP: 128/85 Pulse: 106 Weight: 108.9 kg (240 lb) Height: 170.2 cm (5' 7) Body Mass Index (BMI): Body mass index is 37.59 kg/m . Last 5 Encounter Wt Readings: Date: Wt: 09/10/2022 108.9 kg (240 lb) 08/30/2022 110.3 kg (243 lb 3.2 oz) 05/20/2022 109.3 kg (240 lb 15.4 oz) 10/11/2021 112.4 kg (247 lb 12.8 oz) 02/08/2021 112.8 kg (248 lb 9.6 oz) Physical Exam Vitals reviewed. Constitutional: Appearance: She is not toxic-appearing or diaphoretic. HENT: Head: Normocephalic and atraumatic. Eyes: General: No scleral icterus. Extraocular Movements: Right eye: Normal extraocular motion. Left eye: Normal extraocular motion. Comments: Temporal visual nava: Normal to gross examination Neck: Thyroid: No thyroid mass or thyromegaly. Cardiovascular: Rate and Rhythm: Normal rate and regular rhythm. Pulmonary: Effort: Pulmonary effort is normal. No respiratory distress. Breath sounds: Normal breath sounds. Abdominal: Palpations: Abdomen is soft. There is no hepatomegaly. Tenderness: There is no abdominal tenderness. There is no guarding. Skin: General: Skin is warm. Neurological: Mental Status: She is alert and oriented to person, place, and time. Motor: No tremor. Psychiatric: Mood and Affect: Mood and affect normal. Judgment: Judgment normal. Assessment and Plans: 1. Pituitary tumor Will have her to do 8 AM labs for me. She will do at [facility]. Fasting, since prolactin. - TSH BLD; Future - T4 FREE/FREE THYROX; Future - CORTISOL BLD; Future - DHEA-S BLD; Future - LUTEINIZING HORMONE; Future - FSH BLD; Future - PROLACTIN BLD; Future - INSULIN LIK GR FAC I; Future - BASIC METABOLIC PNL; Future 2. Pituitary abnormality (HCC) See #1 3. Chiari I malformation (HCC) She follows with neurosurgery. 4. Fatigue, unspecified type Some dizziness with rising - will check AM cortisol and DHEAs - TSH BLD; Future - T4 FREE/FREE THYROX; Future - CORTISOL BLD; Future - DHEA-S BLD; Future - BASIC METABOLIC PNL; Future 5. Former tobacco use Continued cessation. Eric Wilson MD [facility] [place] documented in this encounterBlanchard Valley Health System04-28-2023 History of Present illness Narrative* BRITTANY Nazario - 08/30/2022 12:04 PM EDT This note was created using [email or web address]. Subjective Tim Cordova is a 41 year old female. HPI 41-year-old female presents for ear pain, cough and sore throat. Patient states she has had earpain, sinus congestion, sinus pressure for about a week and a half. She has had a cough for about aweek. Started getting a sore throat about 3 days ago. No fevers. She was treated for bronchitis several weeks ago and states that all symptoms resolved. She started getting sinus congestion pressure about a week and a half ago and her cough returned a few days ago. No chest pain or shortness of breath. No history of COPD or asthma. PAST MEDICAL HISTORY Diagnosis Date Acute laryngitis Acute sinusitis Arnold-Chiari malformation (HCC) s/p decompression Cervical disc herniation neck pain Dysmenorrhea Hepatitis B 02/2019 Left foot pain Menorrhagia Migraine PAST SURGICAL HISTORY Procedure Laterality Date BRAIN SURGERY HX 10/22/2019 suboccipital craniectomy for decompression Chiari I malformation by Dr. Chely Bardales FOOT SURGERY HX Left 10/2016 debridement from dog bite HYSTERECTOMY 09/2017 one ovary remains TUBAL LIGATION 2001 ALLERGIES Oxycodone-Acetaminophen MEDICATIONS acetaminophen (TYLENOL) 325 mg tablet Take 650 mg by mouth as needed. FAMILY HISTORY Problem Relation Age of Onset Hypertension Mother Cancer Father Lung cancer Aneurysm Father Head/brain Hypertension Father Aneurysm Paternal Grandmother Head/brain Social History Tobacco Use Smoking status: Former Packs/day: 1.00 Years: 15.00 Pack years: 15.00 Types: Cigarettes Quit date: 10/27/2016 Years since quittin.8 Smokeless tobacco: Never Tobacco comments: Quit 04/2020 Vaping Use Vaping Use: Never used Substance Use Topics Alcohol use: No Comment: Non alcohol user. Drug use: No Review of Systems Constitutional: Negative for chills and fever. HENT: Positive for congestion, ear pain, sinus pressure, sinus pain and sore throat. Respiratory: Positive for cough. Negative for shortness of breath. Cardiovascular: Negative for chest pain. Gastrointestinal: Negative for diarrhea and vomiting. Objective BP 128/86 Pulse 83 Temp 37 C (98.6 F) (Tympanic) Resp 18 Wt 110.3 kg (243 lb 3.2 oz) LMP (LMP Unknown) SpO2 97% BMI 38.09 kg/m Physical Exam Vitals and nursing note reviewed. Constitutional: General: She is not in acute distress. Appearance: Normal appearance. She is not toxic-appearing. HENT: Right Ear: Ear canal normal. A middle ear effusion is present. Tympanic membrane is not erythematous. Left Ear: Ear canal normal. A middle ear effusion is present. Tympanic membrane is not erythematous. Ears: Comments: Clear fluid behind both TMs. No signs of infection. Nose: Right Sinus: Maxillary sinus tenderness present. Left Sinus: Maxillary sinus tenderness present. Mouth/Throat: Mouth: Mucous membranes are moist. Pharynx: No oropharyngeal exudate or posterior oropharyngeal erythema. Eyes: Conjunctiva/sclera: Conjunctivae normal. Cardiovascular: Rate and Rhythm: Normal rate and regular rhythm. Pulmonary: Effort: Pulmonary effort is normal. Breath sounds: Normal breath sounds. Neurological: Mental Status: She is alert. Assessment and Plan ASSESSMENT/PLAN: 1. Sore throat - ICD9: 462, ICD10: J02.9 (primary diagnosis) - suspect viral - Alere Strep Test negative, no culture pending - Discussed supportive care treatment with fluids, rest and analgesia. - The patient may also use warm salt water gargles, throat lozenges and/or OTC throat spray as needed. - STREP A MOLECULAR (POC) 2. Acute non-recurrent sinusitis, unspecified location - ICD9: 461.9, ICD10: J01.90 - Will begin treatment with Augmentin 875 mg PO BID for 5 days - The patient should also be given OTC decongestants prn for the first 5-7 days of treatment. -Recommend using Flonase - Supportive care with plenty of fluids, rest, and analgesia prn. Diagnosis and treatment plan were discussed and questions were answered to the patient's satisfaction. Pt acknowledged understanding of concepts and follow up plan. Specific signs and symptoms that would indicate the need for higher level of care were discussed in detail warranting prompt ER evaluation. BRITTANY Nazario documented in this encounterBlanchard Valley Health System03-15-2023 Miscellaneous Notes* Telephone Encounter - Jeniffer Ngo - 07/17/2022 8:28 AM EDT Patient was to have MRI done on July 15, 2022. Patient did not have MRI, therefore a follow up visit with Dr. Bardales is not needed. Patient appointment for July 22, 2022 has been cancelled. I left patient a voice mail to call and reschedule. ~ Jeniffer documented in this encounterBlanchard Valley Health System01-16-2023 History of Present illness Narrative* Chely Bardales MD - 05/20/2022 9:00 AM EST Images from the original note were not included. NEUROSURGERY FOLLOW UP OFFICE NOTE Chely Bardales MD Date of visit: May 20, 2022 Patient Name: Ms.Shannon Melvin Cordova Date of : 1980 Current Age: [age] year old Sex: female MRN/E# [id number] Last Office Visit: 05/16/2022 CLINICAL SUMMARY: * Chiari I malformation, s/p suboccipital bony decompression 10/22/2019 * Cervical disc herniation, C5-6 and C6-7 * Pituitary adenoma vs Rathke's cyst (12 mm x 12 mm) * 2 mm left cavernous segment aneurysm SUBJECTIVE: Tim Cordova is a 41 year old right-handed female presenting alone. Patient was last seen at a virtual visit on 02/04/2022 where she experienced an occasional headacheonce per week. Described as a pressure sensation. She had some neck stiffness that improved with stretching. Her MRI/MRA brain showed a stable pituitary lesion, good chiari decompression and a stable2 mm left cavernous segment ICA aneurysm. She was requested for follow up in one year to re-assess. Today she reports she has been having posterior neck pain at the base of her neck for a few months but has been increasing. She notes no enticing event to start the pain. She notes the most bothersome pain is the pain at the base of her neck, describes as a burning sensation. She notes that pain does intermittently radiate to left arm, worst in posterior left forearm. She has been taking tylenol and ibuprofen as needed. She has recently quit smoking. She denies falls, trouble with balance and urinary/bowel incontinence. She is here for image review, evaluation and plan of care. Symptoms: posterior neck pain, left posterior forearm pain PREVIOUS CONSERVATIVE TREATMENTS: Tylenol Ibuprofen Smoker: Quit recently Diabetic: No Anticoagulants / Antiplatelets: No Occupation: Disabled PAIN EVALUATION 05/18/2022 191 Pain Level: 4 Pain Location: Neck Description: Burning;Shooting;Stabbing Duration Amount of Time: 20 Duration Units: Minutes Frequency: Continuous Intervention/Comfort measure: Medication;Reposition;Cold;Heat;Massage PAST MEDICAL HISTORY Diagnosis Date Acute laryngitis Acute sinusitis Arnold-Chiari malformation (HCC) s/p decompression Cervical disc herniation neck pain Dysmenorrhea Hepatitis B 02/2019 Left foot pain Menorrhagia Migraine PAST SURGICAL HISTORY Procedure Laterality Date BRAIN SURGERY HX 10/22/2019 suboccipital craniectomy for decompression Chiari I malformation by Dr. Chely Bardales FOOT SURGERY HX Left 10/2016 debridement from dog bite HYSTERECTOMY 09/2017 one ovary remains TUBAL LIGATION 2001 FAMILY HISTORY Problem Relation Age of Onset Hypertension Mother Cancer Father Lung cancer Aneurysm Father Head/brain Hypertension Father Aneurysm Paternal Grandmother Head/brain ALLERGIES Allergen Reactions Oxycodone-Acetamino* Itching Current Outpatient Medications Medication Sig Dispense Refill acetaminophen (TYLENOL) 325 mg tablet Take 650 mg by mouth as needed. No current facility-administered medications for this visit. OBJECTIVE: BP 119/78 Pulse 92 Resp 16 Ht 5' 7 (1.70m) Wt 240 lb 15.4 oz (109.3kg) SpO2 98% BMI 37.73 kg/(m^2). PHYSICAL EXAM GENERAL APPEARANCE: Well nourished, well developed, and no apparent distress. NEURO PSYCH: Patient oriented to person, place, and time. Mood pleasant. Benign affect. MUSCLE BULK: Normal and symmetrical in the upper & lower extremities. MUSCLE TONE: Normal. Numbness to back of neck to palpation and pain with lateral motion and rotation MOTOR: Full strength in upper and lower extremities SENSORY: Normal sensory exam GAIT: Normal. Able to walk on toes and heels. Able to do tandem. Romberg negative. REFLEXES: +2 to bilateral U/L extremities. LONG TRACT SIGNS: No clonus . No Hoffmans. STRAIGHT LEG TEST: Ipsilateral: Negative. Contralateral: Negative. Data Review IMAGING STUDIES: Cervical xrays obtained on 05/20/2022 demonstrate: Final read pending MRA brain obtained on 02/01/2022 demonstrates: IMPRESSION: Stable small left cavernous carotid artery aneurysm. Dictated by : FREDO GUZMAN MD MRI brain obtained 02/01/2022 demonstrates: IMPRESSION: Stable examination. Pituitary Rathke's cleft cyst. Status post Chiari decompression. The cerebellar tonsils have an unremarkable appearance. No evidence of a postoperative fluid collection. Dictated by : FREDO GUZMAN MD Images independently reviewed The following portions of the patient's history were reviewed, confirmed, updated as necessary: allergies, current medications, past family history, past medical history, past social history, past surgical history, problem list, HPI and ROS obtained by others. The clinical and radiographic findings as well as the risks, benefits, and alternatives of treatment have been reviewed in detail with the patient. ASSESSMENT/PLAN 1. Neck pain 2. Radiculopathy, cervical region 3. Spinal stenosis of cervical region Increase in neck pain at the base of the skull, with radiation to left arm, medial aspect, to 5th digit, burning, comes in goes, lasts about a minute, 2-3 times per day, > 90% of the pain is in the neck. Reviewed Xrays of cervical spine - good alignment, no evidence of instability. Degenerative changesmost pronounced at C6-7 - recommend physical therapy - referral to pain management - MRI cervical to better assess - f/up in ~ 6 weeks to re-assess progress - CONSULT TO PHYSICAL THERAPY; Future - MRI CERVICAL SPINE WO IVCON; Future - CONSULT TO PAIN MGT; Future Encouraged patient to contact our office should there be any further questions, concerns, or changein symptoms. Patient expressed understanding and is in agreement with plan. Some elements may have been copied from a previous note and have been updated/reviewed where appropriate. All portions reflect current medical decision making from today. Chely Bardales MD Medical Decision Making: Problems: Moderate: New problem with uncertain prognosis Data: Unique test result(s) reviewed: 1 Unique test(s) ordered: 3+ Independent interpretation of test from other physician/QHCP Medical Decision Making Level: 4 - Moderate documented in this encounterBlanchard Valley Health System01-12-2023 Miscellaneous Notes* Telephone Encounter - Bety Chanel RN - 05/16/2022 8:30 AM EST Called & left VM for patient to get more information about her pain and to get her scheduled for an appointment since Jahaira Matta notified me that she wanted to make an appointment. Told Shannonto call us back to schedule her an appointment, cervical xrays placed for her to get prior to her appointment. Bety Chanel RN documented in this encounterBlanchard Valley Health System10-03-2022 History of Present illness Narrative* Eric Wilson MD - 02/04/2022 12:31 PM EDT Note: The following is an abstracted note of the either a previous or a new History of Present Illness. This is in prep for an up-coming appointment or a summary update of a disease state. This is not a [id number] encounter. Previous history as follows: Previous history: 04/21/2019: Consultation with neurosurgery, Dr Bardales. 04/30/2019: MRI head: Impression: Pituitary gland is enlarged without evidence of focal area of altered signal intensity or enhancement. Measures 12 mm craniocaudal by 12 mm transverse on postcontrast coronal image 11, unchanged. Diagnostic considerations include pituitary macroadenoma versus pituitaryhyperplasia. Correlation with appropriate pituitary gland results. 05/18/2019: TSH 1.580 (0.270-4.200 uU/mL), free T4 1.0 (0.9 - 1.7 ng/dL), prolactin 12.2 (4.5-26.8 ng/mL), random cortisol 7.6 ug/dL, Luteinizing Hormone (LH) 33.0 IU/mL, Follicle Stimulating Hormone (FSH) 39.2 IU/mL, 10/22/2019: Neurosurgery: Suboccipital craniectomy for decompression of Chiari I malformation. 12/02/2019: Initial consultation with me. 01/2020: Luteinizing Hormone (LH) 36.49 mIU/mL, Follicle Stimulating Hormone (FSH) 48.56 mIU/mL, prolactin 11.2 (non- female 2.8-29.2 ng/mL), Sodium 140 (136-144 mEq/L), TSH 1.590 (0.270-4.200uU/mL), free T4 1.1 (0.9-1.7 ng/dL), Insulin-like growth factor 1 (IGF-1, somatomedin C) 142 (76-271 ng/mL), 01/2020: cortisol 7.8 ug/dL at 08:30 AM. Adrenocorticotropic Hormone (ACTH) 28 (<47 pg/mL), 05/2020: MRI Brain: ... Stable T1 intrinsically hyperintense, nonenhancing lesion in the pituitary gland, most likely representing a Rathke's cyst. No mass effect on the optic chiasm. 06/2020: Follicle Stimulating Hormone (FSH) 54.5 mU/mL, Luteinizing Hormone (LH) 29.3 mU/mL, prolactin 7.9 (non 2.8-29.2. 9.7-208.5. Postmenopausal 1.8-20.3 ng/mL), Sodium 138 (136-144 mmol/L), 06/2020: TSH 1.480 (0.270-4.200 uIU/mL), free T4 0.9 (0.9-1.7 ng/dL), 06/2020: Cosyntropin stimulation test: Baseline cortisol 5.5 ug/dL, 30 minute stimulated cortisol 20.5 ug/dL, 60 minute stimulated cortisol 22.1 ug/dL. 01/01/2021: MRI brain: Impression: 1. Unchanged Rathke's cleft cyst, as described above. No suprasellar mass effect. 2. Status post Chiari decompression with wide anatomic patency of the foramen magnum. No evidence for hydrocephalus. 01/04/2021: Follow up with neurosurgery. Plan was monitoring. 02/2021: prolactin 6.6 (non 2.8-29.2. 9.7-208.5. Postmenopausal 1.8-20.3 ng/mL), Luteinizing Hormone (LH) 29.7 mU/mL, Follicle Stimulating Hormone (FSH) 52.0 mU/mL, Sodium 141 (136-144 mmol/L), 02/2021: TSH 1.400 (0.270-4.200 uIU/mL), free T4 1.0 (0.9-1.7 ng/dL), 10/2021: Cortisol 14.0 ug/dL at 08:10 AM, TSH 2.240 (0.270-4.200 uIU/mL), free T4 1.0 (0.9-1.7 ng/dL), Luteinizing Hormone (LH) 27.1 mIU/mL. Follicle Stimulating Hormone (FSH) 42.0 mIU/mL, prolactin 24.9 (4.5-26.8 ng/mL), Sodium 143 (136-144 mmol/L), Insulin-like growth factor 1 (IGF-1, somatomedin C) 119 (75-267 ng/mL), 01/04/2021: Neurosurgery follow up. see note. 02/2022: MRI brain: ... Pituitary gland: There is a stable T1 hyperintense space occupying lesion in the pars intermedia region of the pituitary gland. It does not enhance. It measures approximately 1.1 x 0.8 x 1.1 cm in greatest CC, AP, transverse dimensions, respectively. It again reveals slight suprasellar extension. No compression of the chiasm or optic nerves. 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 ... IMPRESSION: Stable examination. Pituitary Rathke's cleft cyst. ... documented in this encounterBlanchard Valley Health System10-03-2022 History of Present illness Narrative* Chely Bardales MD - 02/04/2022 8:30 AM EDT NEUROSURGERY VIRTUAL VISIT PROGRESS NOTE Chely Bardales MD This is a virtual encounter initiated for an established patient, parent or guardian not originating from a related Evaluation & Management service provided within the previous 7 days nor leadingto an Evaluation & Management service or procedure within the next 24 hours or soonest available appointment. Date of visit: February 04, 2022 Patient Name: Ms.Shannon Melvin Cordova Date of : 1980 Current Age: [age] year old Sex: female MRN/E# [id number] Last Office Visit: 11/12/2021 Tim Cordova has consented to this virtual encounter. Persons Present: patient Clinical summary: * Chiari I malformation, s/p suboccipital bony decompression 10/22/2019 * Cervical disc herniation, C5-6 and C6-7 * Pituitary adenoma vs Rathke's cyst (12 mm x 12 mm) * 2 mm left cavernous segment aneurysm Chief Complaint/Reason: follow up MRI/MRA results HPI: At her 1st post op visit on 11/08/2019, she reported resolution of her headaches. Her incision was erythematous - she felt irritation at sutures and found that she was scratching the incision at night. Her sutures were removed at that visit. She was given a 7 day course of cephalexin. At her 2 month post op visit on 12/09/2019, she was doing well postoperatively with significant improvement in headaches and dizzy spells. Incision was healing well with no concerns. On 05/16/2020, Ms. Cordova was here for her 7 month post op visit. She reported neck stiffness - shewas doing Home Exercise Program from chiropractor, but felt like she needed to be adjusted at [facility]. She described increased headaches 2 months prior, but that improved with new glasses prescription - therefore related to eye strain. In regards to her pitutary adenoma, her MRI brain was reviewed and was stable compared to 04/29/2019 MRI. She had a small stable left cavernous ICA aneurysm. She was to follow up in one year with MRI/MRA brain. 01/04/2021 She presented with MRI imaging and increased headaches. She stated she had been having increased posterior headaches and head pressure for the past month. No exacerbation with Valsalva maneuvers. Hadsome dizziness upon standing or when she bends down. MRI brain demonstrated Chiari malformation waswell decompressed with CSF signal around tonsils and no mass effect on the brainstem. Rathke's cleft cyst was uncharged in size. Cavernous sinus aneurysm was also unchanged. Requested patient to follow up with MRI /MRA brain in 1 year. 02/04/2022 Today she follows up with MRI/MRA imaging. She experiences an occasional headache, before had headaches every day, now, post surgery, maybe once per week. Describes it as pressure, happens more with weather changes. Has some neck stiffness that improves with stretching. Otherwise, denies any nausea/vomiting, new weakness/numbness, seizures, changes in vision, or double vision. PAST MEDICAL HISTORY Diagnosis Date Acute laryngitis Acute sinusitis Arnold-Chiari malformation (HCC) s/p decompression Cervical disc herniation neck pain Dysmenorrhea Hepatitis B 02/2019 Left foot pain Menorrhagia Migraine PAST SURGICAL HISTORY Procedure Laterality Date BRAIN SURGERY HX 10/22/2019 suboccipital craniectomy for decompression Chiari I malformation by Dr. Chely Bardales FOOT SURGERY HX Left 10/2016 debridement from dog bite HYSTERECTOMY 09/2017 one ovary remains TUBAL LIGATION 2002 FAMILY HISTORY Problem Relation Age of Onset Hypertension Mother Cancer Father Lung cancer Aneurysm Father Head/brain Hypertension Father Aneurysm Paternal Grandmother Head/brain ALLERGIES Allergen Reactions Oxycodone-Acetamino* Itching Current Outpatient Medications Medication Sig Dispense Refill acetaminophen (TYLENOL) 325 mg tablet Take 650 mg by mouth as needed. No current facility-administered medications for this visit. Data Reviewed: IMAGING STUDIES: MRA brain obtained on 02/01/2022 demonstrates: IMPRESSION: Stable small left cavernous carotid artery aneurysm. Dictated by : FREDO GUZMAN MD MRI brain obtained 02/01/2022 demonstrates: IMPRESSION: Stable examination. Pituitary Rathke's cleft cyst. Status post Chiari decompression. The cerebellar tonsils have an unremarkable appearance. No evidence of a postoperative fluid collection. Dictated by : FREDO GUZMAN MD Images independently reviewed The following portions of the patient's history were reviewed, confirmed, updated as necessary: allergies, current medications, past family history, past medical history, past social history, past surgical history, problem list, HPI and ROS obtained by others. The clinical and radiographic findings as well as the risks, benefits, and alternatives of treatment have been reviewed in detail with the patient. ASSESSMENT/PLAN 1. Chiari I malformation (HCC) 2. Pituitary adenoma (HCC) 3. Cervical disc herniation 4. Nonruptured cerebral aneurysm Reviewed MRI/MRA brain - stable pituitary lesion. Good Chiari decompression. Stable 2 mm left cavernous segment ICA aneurysm - doing well with improvement in headaches post decompression - stable pituitary lesion and aneurysm - will continue to follow with repeat MRI /MRA brain in 1 yr - Encouraged patient to contact our office should there be any further questions, concerns, or change in symptoms. Patient expressed understanding and is in agreement with plan. Some elements may have been copied from a previous note and have been updated/reviewed where appropriate. All portions reflect current medical decision making from today. Chely Bardales MD documented in this encounterBlanchard Valley Health System09-30-2022 History of Present illness Narrative* RT Eris(R) - 02/01/2022 12:45 PM EDT Radiology Service Progress Note DATE OF SERVICE: February 01, 2022 TIME: 1:09 PM PATIENT IDENTITY VERIFICATION COMPLETED USING TWO (2) STANDARD IDENTIFIERS: Name and Date of confirmed by patient verbally. FALL SCREENING: Has the patient had 2 falls in the last year or 1 fall with injury or currently using an Ambulatory Assistive Device (Walker, Cane, Wheelchair, Crutches, etc.)? No PATIENT GENDER DATA: Female. status: : No status: NO. PATIENT RELEVANT IMPLANT DATA REVIEWED: Yes ALLERGIES: Reviewed and unchanged CONTRAST ALLERGY: NO. EXAM: MRI - CONTRAST TYPE: GROUP II PERIPHERAL IV DATA: Ambulatory: A peripheral IV was started in the Right antecubital site with a Angio cath: 22 gauge. RADIOLOGY DEPARTMENT: MR; Exam(s) Completed: Head: Routine Brain Pituitary [place] MRA SIGNATURE: RT Eris(Melvin) PATIENT NAME: Tim Cordova DATE: February 01, 2022 TIME: 1:09 PM documented in this encounterBlanchard Valley Health System07-11-2022 Miscellaneous Notes* Telephone Encounter - Jahaira Matta - 11/12/2021 11:21 AM EDT Ms. Tim Cordova called to ask if she can go skydiving this , 11/15/21. Dr Bardales answered: given her prior surgery and underlying condition, I will not be able to give clearance for this event. Sorry! I called Ms. Tim Cordova back and she appreciated Dr. Bardales's prompt answer. Jahaira Matta Medical Doctor Nuclear Medicine [facility] documented in this encounterBlanchard Valley Health System06-09-2022 Instructions* Patient Instructions* Eric Wilson MD - 10/11/2021 3:59 PM EDT Get morning labs for me around [id number] AM. Fast after midnight. documented in this encounterBlanchard Valley Health System06-09-2022 History of Present illness Narrative* Eric Wilson MD - 10/11/2021 3:41 PM EDT Images from the original note were not included. . [facility] General Endocrinology - [place] [address], [address] [place], [place] [id number] [place] [address] General Endocrinology - [address], [address] [place], [place] [address] Patient's name: Tim Cordova Patient's date of : 1980 Date of encounter: 10/11/2021 History of present illness: Tim Cordova is a 40 year old female who presents for follow up of an endocrinology issue. Previous history: 04/21/2019: Consultation with neurosurgery, Dr Bardales. 04/30/2019: MRI head: Impression: Pituitary gland is enlarged without evidence of focal area of altered signal intensity or enhancement. Measures 12 mm craniocaudal by 12 mm transverse on postcontrast coronal image 11, unchanged. Diagnostic considerations include pituitary macroadenoma versus pituitaryhyperplasia. Correlation with appropriate pituitary gland results. 05/18/2019: TSH 1.580 (0.270-4.200 uU/mL), free T4 1.0 (0.9 - 1.7 ng/dL), prolactin 12.2 (4.5-26.8 ng/mL), random cortisol 7.6 ug/dL, Luteinizing Hormone (LH) 33.0 IU/mL, Follicle Stimulating Hormone (FSH) 39.2 IU/mL, 10/22/2019: Neurosurgery: Suboccipital craniectomy for decompression of Chiari I malformation. 12/02/2019: Initial consultation with me. 01/2020: Luteinizing Hormone (LH) 36.49 mIU/mL, Follicle Stimulating Hormone (FSH) 48.56 mIU/mL, prolactin 11.2 (non- female 2.8-29.2 ng/mL), Sodium 140 (136-144 mEq/L), TSH 1.590 (0.270-4.200uU/mL), free T4 1.1 (0.9-1.7 ng/dL), Insulin-like growth factor 1 (IGF-1, somatomedin C) 142 (76-271 ng/mL), 01/2020: cortisol 7.8 ug/dL at 08:30 AM. Adrenocorticotropic Hormone (ACTH) 28 (<47 pg/mL), 05/2020: MRI Brain: ... Stable T1 intrinsically hyperintense, nonenhancing lesion in the pituitary gland, most likely representing a Rathke's cyst. No mass effect on the optic chiasm. 06/2020: Follicle Stimulating Hormone (FSH) 54.5 mU/mL, Luteinizing Hormone (LH) 29.3 mU/mL, prolactin 7.9 (non 2.8-29.2. 9.7-208.5. Postmenopausal 1.8-20.3 ng/mL), Sodium 138 (136-144 mmol/L), 06/2020: TSH 1.480 (0.270-4.200 uIU/mL), free T4 0.9 (0.9-1.7 ng/dL), 06/2020: Cosyntropin stimulation test: Baseline cortisol 5.5 ug/dL, 30 minute stimulated cortisol 20.5 ug/dL, 60 minute stimulated cortisol 22.1 ug/dL. 01/01/2021: MRI brain: Impression: 1. Unchanged Rathke's cleft cyst, as described above. No suprasellar mass effect. 2. Status post Chiari decompression with wide anatomic patency of the foramen magnum. No evidence for hydrocephalus. 01/04/2021: Follow up with neurosurgery. Plan was monitoring. 02/2021: prolactin 6.6 (non 2.8-29.2. 9.7-208.5. Postmenopausal 1.8-20.3 ng/mL), Luteinizing Hormone (LH) 29.7 mU/mL, Follicle Stimulating Hormone (FSH) 52.0 mU/mL, Sodium 141 (136-144 mmol/L), 02/2021: TSH 1.400 (0.270-4.200 uIU/mL), free T4 1.0 (0.9-1.7 ng/dL), Interval history: The patient now returns for re-evaluation and follow-up. The above history was re-confirmed. When asked how she feels overall, she responded doing pretty good some fatigue lingers. In March, had migraine induced stroke. No residual deficit. Thirst:still some thirst, her 'normal'. UOP: during day around q2-3 hours. Overnight, around twice. Breast tenderness:none. Breast discharge:none. Menstrual cycles: none, due to hysterectomy. Temporal vision: she has not notices Biotin use (vitamin B-7) : Use of [id number], high dose, biotin supplement: None. Use of [id number] vitamins, or similar formulation with high-dose biotin: None. Use of B-complex vitamin preparations with high-dose biotin: None. Use of [id number] leave-in hair conditioners that contain biotin: None. Allergies, medications, medical and surgical history, family history and social history, and problem list reviewed. Preferred pharmacy for the medications I prescribe (or may prescribe) is: [facility]/pharmacy #[id number] - [place] [address] [address]. - [phone] [facility] [phone] Review of Systems Review of Systems Constitutional: Positive for malaise/fatigue. Respiratory: Negative for shortness of breath. Cardiovascular: Negative for chest pain. Gastrointestinal: Negative for nausea and vomiting. Genitourinary: Negative for frequency. Musculoskeletal: Positive for joint pain. Neurological: Positive for headaches (not as bad as I used to). Negative for tremors. Endo/Heme/Allergies: Negative for polydipsia. See the history of present illness section Past Medical, Surgical, Family and Social History PAST MEDICAL HISTORY Diagnosis Date Acute laryngitis Acute sinusitis Arnold-Chiari malformation (HCC) s/p decompression Cervical disc herniation neck pain Dysmenorrhea Hepatitis B 02/2019 Left foot pain Menorrhagia Migraine PAST SURGICAL HISTORY Procedure Laterality Date BRAIN SURGERY HX 10/22/2019 suboccipital craniectomy for decompression Chiari I malformation by Dr. Chely Bardales FOOT SURGERY HX Left 10/2016 debridement from dog bite HYSTERECTOMY 09/2017 one ovary remains TUBAL LIGATION 2001 FAMILY HISTORY Problem Relation Age of Onset Hypertension Mother Cancer Father Lung cancer Aneurysm Father Head/brain Hypertension Father Aneurysm Paternal Grandmother Head/brain Social History Tobacco Use Smoking status: Former Smoker Packs/day: 1.00 Years: 15.00 Pack years: 15.00 Types: Cigarettes Quit date: 10/27/2016 Years since quittin.9 Smokeless tobacco: Never Used Tobacco comment: Quit 04/2020 Vaping Use Vaping Use: Never used Substance Use Topics Alcohol use: No Comment: Non alcohol user. Drug use: No Medications Current Outpatient Medications Medication Sig Dispense Refill acetaminophen (TYLENOL) 325 mg tablet Take 650 mg by mouth as needed. ibuprofen (MOTRIN) 200 mg tablet Take 200 mg by mouth as needed. (Patient not taking: Reported on 10/11/2021 ) No current facility-administered medications for this visit. Physical Examination and Vitals BP 131/84 Pulse 90 Ht 5' 7 (1.70m) Wt 247 lb 12.8 oz (112.4kg) BMI 38.80 kg/(m^2). Last 5 Encounter Wt Readings: Date: Wt: 02/08/2021 112.8 kg (248 lb 9.6 oz) 01/04/2021 112 kg (247 lb) 06/05/2020 112.2 kg (247 lb 6.4 oz) 05/16/2020 108.9 kg (240 lb) 12/09/2019 101.6 kg (224 lb) Physical Exam Vitals reviewed. Constitutional: Appearance: She is not toxic-appearing or diaphoretic. HENT: Head: Normocephalic and atraumatic. Eyes: General: No scleral icterus. Comments: Temporal visual nava: Normal to gross examination Neck: Thyroid: No thyroid mass or thyromegaly. Cardiovascular: Rate and Rhythm: Normal rate and regular rhythm. Heart sounds: No murmur heard. Pulmonary: Effort: Pulmonary effort is normal. No respiratory distress. Breath sounds: Normal breath sounds. No wheezing, rhonchi or rales. Abdominal: Palpations: Abdomen is soft. There is no hepatomegaly. Tenderness: There is no abdominal tenderness. There is no guarding. Skin: General: Skin is warm. Neurological: Mental Status: She is alert and oriented to person, place, and time. Cranial Nerves: Cranial nerves are intact. Motor: No tremor. Psychiatric: Mood and Affect: Mood and affect normal. Judgment: Judgment normal. Assessment and Plans: 1. Pituitary tumor Stable overall. Has not seen neurosurgery. Has appointment next month. Due for MRIs with them. Will check pituitary labs. She will do at [facility] near her home. 8 am cortisol and pituitary labs. If any Rx: Will send an electronic prescription to the local pharmacy, in 30 day supplies, once data reviewed. Preferred pharmacy for the medications I prescribe (or may prescribe) is: [facility]/pharmacy #[id number] [place] [address] [address]. [phone] [facility] [phone] - LUTEINIZING HORMONE; Future - FSH BLD; Future - PROLACTIN BLD; Future - INSULIN LIK GR FAC I; Future - BASIC METABOLIC PNL; Future 2. Pituitary abnormality (HCC) - BASIC METABOLIC PNL; Future 3. Chiari I malformation (HCC) 4. Fatigue, unspecified type - CORTISOL BLD; Future - TSH BLD; Future - T4 FREE/FREE THYROX; Future 5. Former tobacco use Eric Wilson MD [facility]ology - [place] [facility] Author Risa Velasquez [facility] November 24, 2022 11:31am Note Date/Time November 24, 2022 11:3 1am [facility] Medical Records Department [address] [place] [id number] Instructions for Home/Discharge Instructions 11/24/22 1130 MR#: [id number] Acct: [id number] Name: TIM CORDOVA Rep #:[id number] : 1980 41 From: Risa Velasquez MD PCP: Care Physician,No Primary Status :ADM IN Discharge Instructions Diet Discharge Diet: Light diet - advance as tolerated Activity Discharge Activity: Return to Normal Activity Follow Up Care Test Results: Test results from this visit will be discussed in further detail at your follow- up appointment, if applicable. Discharge Plan Admission Admit Date/Time: 11/23/22 11:07 Primary Reason for Your Visit: Right sided abdominal pain Attending Provider: Risa Velasquez Primary Care Provider: Care Physician,No Primary Instructions Patient Instructions: Abdominal Pain, Gallstones Dc Additional Instructions / Restrictions: DISCHARGE INSTRUCTIONS PLEASE READ *Please take this with you to your next doctors appointment* -You will need to follow-up with Dr. El with GI in his office upon discharge. Please call his office to schedule your hospital follow-up appointment (ph. [phone]). You will need an outpatient HIDA scan -Please call your primary care provider's office upon discharge to schedule a hospital follow up within 1 week. -For any concerning signs or symptoms please call 911 or proceed to the nearest emergency department Discharge Orders/Prescriptions Prescriptions: New ondansetron 4 mg tablet,disintegrating 4 mg PO Q8H PRN (Reason: nausea and vomiting) 3 Days Qty: 9 0RF Referrals / Follow Up: Paulo Dunne MD [Med Staff - Education Manager] - Friend,DO Rodger [Med Staff - Active Staff] - Care Physician,No Primary [Primary Care Provider] - Disposition Disposition (needs filled in before D/C Order can be placed): Home, Self Care 11/24/22 1131<Electronically signed by Risa Velasquez MD>Risa Velasquez MD CC: No Primary Care Physician ~ Signed [facility] Work Phone: Discharge summary Author Risa Velasquez [facility] November 24, 2022 11:35am Note Date/Time November 24, 2022 11:3 5am [facility] Medical Records Department [address] [place], [place] [address] [address] Discharge Summary 11/24/22 1131 MR#: [id number] Acct: [id number] Name: TIM CORDOVA Rep #:[id number] : 1980 41 From: Risa Velasquez MD PCP: Care Physician,No Primary Status :ADM IN [facility] Prov[facility] Date of Admission: 11/23/22 Date of Discharge: 11/24/22 Primary Care Physician: No Primary Care Phys Consultations 11/23/22 12:21 Consult: Gastroenterology Routine Consulting Provider: [facility] Reason for Consult: possible choledocholithiasis, MRCP ordered per recomendation EMERGENT Consult: No MD Notified: Yes Date Notified: 11/23/22 Time Notified: 11:10 Method of Notification: ED Physician Initiated Reason For Visit: GALLBLADDER PROBLEM Diagnosis Discharge Diagnosis (1) Gallbladder attack: Status: Acute Code(s): K82.9 - Disease of gallbladder, unspecified (2) Right upper quadrant abdominal pain: Status: Acute Code(s): R10.11 - Right upper quadrant pain Plan #Gallbladder colic #History of Chiari malformation #History of acute hepatitis B several years ago #Tobacco use Medications at Discharge Home Medications ondansetron 4 mg disintegrating tablet 4 mg PO Q8H PRN nausea and vomiting 3 days #9 tabs 11/23/22 Hospital Course Summary of Care Provided Minutes Spent on Discharge: 20 Hospital Course: Per HPI: TIM CORDOVA, is a 41 F with history of tobacco use, Chiari malformation with history of surgical intervention on medical marijuana for this, tobacco use, acute hepatitis B several years ago who presented to [facility] 11/23/2022 with right sided abdominal pain to the back. She reports she was asleep and woke up at 2 AM with right sided back pain and right upper quadrant pain and said it was severe enough and not getting better so she came to the ED. In the ED she had an abdominal CT which showed probable gallbladder wall thickening and/or small amount of adjacent fluid although potentially motion artifact as well as a mildly enlarged appendix with small appendicolith in the midportion but no other findings of acute appendicitis as well as left nephrolithiasis without hydronephrosis. Surgery was contacted who recommended gallbladder ultrasound and did not feel appendix was culprit. Gallbladder ultrasound with dilated common bile duct without evidence of gallbladder wall thickening or cholelithiasis as well as hepatomegaly and mild hepatic steatosis. GI was contacted who recommended admission and MRCP and thatthey would see her in consult. Hospitalist consulted for admission. Patient evaluated at bedside who reports the above history and said that the pain in perla is slightly improved but still has the pain in her right upper quadrant. The pain is sharp and comes and goes. Did have gallbladder problems she said 22years ago and has not since however several days ago she had a similar pain and went to urgent care and there they checked her urine and she had small blood they thought may be kidney stone. They sent her home and recommended if any worsening she come to the ED which is when she presented. No urinary complaintsor bowel bladder changes. Has had some intermittent nausea since pain started but no fevers or chills, denies any other focal complaints. INTERVAL HISTORY: Patient had MRCP which was essentially normal, symptoms also completely resolved. Was seen by GI, seems she likely had a stone that passed. Patient tolerated diet with no additional symptoms or problems, was discharged home with the following discharge instructions: -You will need to follow-up with Dr. El with GI in his office upon discharge. Please call his office to schedule your hospital follow-up appointment (ph. [phone]). You will need an outpatient HIDA scan -Please call your primary care provider's office upon discharge to schedule a hospital follow up within 1 week. -For any concerning signs or symptoms please call 911 or proceed to the nearest emergency department Physical Exam Narrative General: Alert, oriented, no apparent distress HEENT: Atraumatic, normocephalic Eyes: Anicteric, normal conjunctiva, extraocular movements grossly intact Neck: Supple Respiratory: Clear to auscultation bilaterally, normal respiratory effort Cardiovascular: Regular rate and rhythm GI: Soft, nontender, nondistended Extremities: No edema Musculoskeletal: Moving all extremities Neuro: No overt focal neurological deficits Skin: No rashes appreciated Psych: Cooperative Weight / BMI Weight Weight: 110.6 kg Body Mass Index (BMI) 38.2 ABG / Lab / Microbiology Data 11/24/22 04:34 11/24/22 04:34 Laboratory: Laboratory Results - last 24 hr 11/24/22 04:34: WBC 8.4, RBC 3.95 L, Hgb 12.3, Hct 36.8 L, MCV 93.2, MCH 31.1, MCHC 33.4, RDW Std Deviation 43.9, RDW Coeff of Eliazar 12.7, Plt Count 136 L, MPV 12.8 H, Immature Gran % (Auto) 0.100, Neut % (Auto) 44.8 L, Lymph % (Auto) 44.7 H, [place] % (Auto) 5.7, Eos % (Auto) 3.9, Baso % (Auto) 0.8, Absolute Neuts (auto)3.8, Absolute Lymphs (auto) 3.75, Nucleated RBC % 0, Sodium 143, Potassium 4.0, Chloride 114 H, Carbon Dioxide 26.0, Anion Gap 3 L, BUN 12, Creatinine 0.85, Estim Creat Clear Calc 83.84, Est GFR (MDRD) Af Amer 94, Est GFR (MDRD) Non-Af 78, BUN/Creatinine Ratio 14.1, Glucose 97, Calcium 8.3 L, Total Bilirubin 0.20, Direct Bilirubin < 0.05, AST 12 L, ALT 16, Alkaline Phosphatase 64, Total Protein 6.1 L, Albumin 3.1 L, Globulin 3.0, Albumin/Globulin Ratio 1.0, TSH 1.85 Radiography Diagnostic Testing: Radiology Impression MRCP 11/23/22 11:11 IMPRESSION: 1. Borderline to mildly prominent common bile duct measuring up to 6.5 mm in caliber. No evidence of retained stones. 2. Hepatomegaly. Electronically Signed: Washington Ornelas MD at 12:26 EDT , D/C Instructions Discharge Diet: Light diet - advance as tolerated Meaningful Use Info Meaningful Use Diagnoses (Choose all that apply): None applicable Discharge Plan Admission Admit Date/Time: 11/23/22 11:07 Primary Reason for Your Visit: Right sided abdominal pain Attending Provider: Risa Velasquez Primary Care Provider: Care Physician,No Primary Instructions Patient Instructions: Abdominal Pain, Gallstones Dc Additional Instructions / Restrictions: DISCHARGE INSTRUCTIONS PLEASE READ *Please take this with you to your next doctors appointment* -You will need to follow-up with Dr. El with GI in his office upon discharge. Please call his office to schedule your hospital follow-up appointment (. [phone]). You will need an outpatient HIDA scan -Please call your primary care provider's office upon discharge to schedule a hospital follow up within 1 week. -For any concerning signs or symptoms please call 911 or proceed to the nearest emergency department Discharge Orders/Prescriptions Prescriptions: New ondansetron 4 mg tablet,disintegrating 4 mg PO Q8H PRN (Reason: nausea and vomiting) 3 Days Qty: 9 0RF Referrals / Follow Up: Paulo Dunne MD [Med Staff - Education Manager] - Rodger El DO [Med Staff - Active Staff] - Care Physician,No Primary [Primary Care Provider] - Disposition Disposition (needs filled in before D/C Order can be placed): Home, Self Care Charges/Coding Visit Charges Inpatient E&M: [id number] Disch Hosp 11/24/22 1135 <Electronically signed by Risa Velasquez MD> Cosigner Signature (if applicable): CC: Dr. Risa Velasquez MD; No Primary Care Physician~ Signed [facility] Work Phone: Evaluation + Plan note No data available for this section [facility] Evaluation note* Diagnosis Pituitary tumor- Primary Neoplasm of unspecified nature of endocrine glands and other parts of nervous system Pituitary abnormality (HCC) Unspecified disorder of the pituitary gland and its hypothalamic control Chiari I malformation (HCC) Compression of brain Fatigue, unspecified type Former tobacco use Personal history of tobacco use, presenting hazards to health [facility] Diagnosis Benign neoplasm of pituitary gland (HCC) Benign neoplasm of pituitary gland and craniopharyngeal duct (pouch) Nonruptured cerebral aneurysm Cerebral aneurysm, nonruptured [facility] Diagnosis Chiari I malformation (HCC)- Primary Compression of brain Pituitary adenoma (HCC) Benign neoplasm of pituitary gland and craniopharyngeal duct (pouch) Cervical disc herniation Displacement of cervical intervertebral disc without myelopathy Nonruptured cerebral aneurysm Cerebral aneurysm, nonruptured Family history of ischemic heart disease and other diseases of the circulatory system [facility] Diagnosis Cervical disc herniation- Primary Displacement of cervical intervertebral disc without myelopathy [facility]* Diagnosis Neck pain- Primary Cervicalgia Radiculopathy, cervical region Brachial neuritis or radiculitis nos Spinal stenosis of cervical region Spinal stenosis in cervical region [facility]* Diagnosis Cervical disc herniation Displacement of cervical intervertebral disc without myelopathy [facility]* Diagnosis Sore throat- Primary Acute pharyngitis Acute non-recurrent sinusitis, unspecified location [facility]* Diagnosis Low back pain without sciatica, unspecified back pain laterality, unspecified chronicity- Primary Microscopic hematuria [facility]* Diagnosis Onset Date Resolution Status Gallbladder attack acute Right upper quadrant abdominal pain acute [facility] Work Phone: Evaluation note* Diagnosis Onset Date Resolution Status Gallbladder attack acute Right upper quadrant abdominal pain resolved Biliary dyskinesia acute [facility] Work Phone: Evaluation note* Diagnosis Acute otitis media, right- Primary Unspecified otitis media [facility]* Diagnosis Spinal stenosis of cervical region Spinal stenosis in cervical region [facility]* Diagnosis Otalgia of left ear- Primary Otalgia, unspecified [facility]* Diagnosis Pituitary tumor- Primary Neoplasm of unspecified nature of endocrine glands and other parts of nervous system Pituitary abnormality (HCC) Unspecified disorder of the pituitary gland and its hypothalamic control Chiari I malformation (HCC) Compression of brain Fatigue, unspecified type Former tobacco use Personal history of tobacco use, presenting hazards to health [facility]* Diagnosis Pituitary adenoma (HCC) Benign neoplasm of pituitary gland and craniopharyngeal duct (pouch) documented in this encounter [facility] note* Diagnosis Pituitary adenoma (HCC)- Primary Benign neoplasm of pituitary gland and craniopharyngeal duct (pouch) Nonruptured cerebral aneurysm Cerebral aneurysm, nonruptured Chiari I malformation (HCC) Compression of brain [facility]* Diagnosis Finger pain, right- Primary Pain in limb documented in this encounter [facility] note* Diagnosis Lower resp. tract infection- Primary Other diseases of respiratory system, not elsewhere classified documented in this encounter [facility] for referral (narrative)* Diagnostic Procedure Only (Routine) - Authorized Specialty Diagnoses / Procedures Referred By Contac t Referred To Contact XR IMAGING Diagnoses Cervical disc herniation Procedures XR CERV OTHER 4V AP/LAT/FLX/EXT RADEX SPINE CERVICAL 4 OR 5 VIEWS Chely Bardlaes MD [address] [place] [address] Xr Imaging Referral ID Status Reason Start Date Expiration Date Visits Requested Visits Authorized [id number] Authorized Auto-Generat ed Referral 05/16/2022 06/15/2023 1 1 [facility] for referral (narrative)* Diagnostic Procedure Only (Routine) - Closed Specialty Diagnoses / Procedures Referred By Contac t Referred To Contact XR IMAGING Diagnoses Cervical disc herniation Procedures XR CERV OTHER 4V AP/LAT/FLX/EXT RADEX SPINE CERVICAL 4 OR 5 VIEWS Chely Bardales MD [address] [place] [address] Xr Imaging Referral ID Status Reason Start Date Expiration Date V isits Requested Visits Authorized [id number] Closed Auto-Generate d Referral 05/16/2022 06/15/2023 1 1 [facility] for visit Narrative* Diagnostic Procedure Only (Routine) - Closed Specialty Diagnoses / Procedures Referred By Contac t Referred To Contact XR IMAGING Diagnoses Cervical disc herniation Procedures XR CERV OTHER 4V AP/LAT/FLX/EXT RADEX SPINE CERVICAL 4 OR 5 VIEWS Chely Bardales [facility] [address] [facility] [place] [address] Xr Imaging Referral ID Status Reason Start Date Expiration Date V isits Requested Visits Authorized [id number] Closed Auto-Generate d Referral 05/16/2022 06/15/2023 1 1 [facility] Summary Purpose Family History No Family History Records Found Relationship Condition Age at Onset Recorded Date/T dev father Malignant neoplasm of liver Unknown Advance Directives No Advanced Directives Records FoundDocuments on File Type Date Recorded 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 Advance Directives and Living Will Power of Pot Operator Latest Code Status on File Code Status Date Activated Date Inactivated Comments Full Code 02/19/2019 8:58 AM Latest Code Status on File Code Status Date Activated Date Inactivated Comments Full Code 02/19/2019 8:58 AM 02/20/2019 5:01 PM Documents on File Type Date Recorded 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 Advance Directive(s) 10/22/2019 6:04 AM Advance Directive(s) 03/09/2018 8:52 AM Advance Directive(s) 09/11/2017 11:11 AM Advance Directive(s) 08/08/2017 9:14 PM Advance Directive(s) 07/17/2017 8:26 PM Advance Directive(s) 04/15/2017 4:35 PM Advance Directive Response Recorded Date/ Time Living Will No November 23, 2022 12:30pm Power of Pot Operator No November 23 12:30pm Advance Directive Response Recorded Date/ Time Living Will No December 23 2:19pm Power of Pot Operator No December 23 023 2:19pm Discharge Instructions * Instructions* Marva Barrios PA-C - 02/20/2019 Follow up with your PCP to have liver function tests repeated at least weekly. documented in this encounter History of Present Illness * Orlando Brooks DO - 02/20/2019 1:15 PM EDT GASTROENTEROLOGY PROGRESS NOTE Patient: Tim Cordova : 1980 Primary Care Physician: Ladonna Carver, LASHONDA Sandhu CNP History: Starting to feel better. Less abd pain. Acute hep B studies +. Denies IVDA, blood exposure. Is sexually active. Tolerating CLD without difficulty. Physical Exam: Gen: AAOx3 in NAD BP (!) 122/48 Pulse 61 Temp 98.7 F (37.1 C) (Temporal) Resp 18 Ht 5' 7 (1.702 m) Wt 187 lb (84.8 kg) SpO2 98% BMI 29.29 kg/m HEENT: MMM, sclera icteric CVS: RRR, s1, s2, no mrg Lungs: CTA B/L, no RRW Abd: Soft, mild RUQ tenderness/ND, +BS, No guarding/rebound, Laboratory Data: CBC: Recent Labs 02/19/1931402/20/19 0556 WBC 8.1 5.4 HGB 13.2 11.2* HCT 39.3 32.6* PLT 180 166 CMP: Recent Labs 02/19/1931402/20/19 0740 NA 141 141 K 3.7 3.9 CL 108* 110* CO2 24 29 BUN 5* 6* CREATININE 0.60 0.75 GLUCOSE 121* 89 CALCIUM 9.4 8.4 HEPATIC: Recent Labs 02/19/1931402/20/19 0740 AST 903* 990* ALT 768* 734* BILITOT 6.2* 6.9* ALKPHOS 127* 93 Hepatitis B Surface Ag DETECTEDAbnormal Not-Detected NA Final 02/19/2019 5:52 AM [facility] Confirmation to follow Hep B Core Ab, IgM DETECTEDAbnormal Not-Detected NA Final 02/19/2019 5:52 AM [facility] Hep A IgM NOT DETECTED Not-Detected NA Final 02/19/2019 5:52 AM [facility] Hepatitis C Ab NOT DETECTED Not-Detected NA Final 02/19/2019 5:52 AM [facility] LIPASE/AMYLASE: Recent Labs 10/18/19 0315 LIPASE 131 LACTATE: Recent Labs 02/19/19 0315 LACTA 1.1 TROPONIN: No results for input(s): TROPONINI in the last 72 hours. LIPIDS: No results for input(s): CHOL, HDL in the last 72 hours. Invalid input(s): LDLCALCU INR: Recent Labs 02/19/19 0315 INR 1.2* NH3: Recent Labs 02/19/19 0315 AMMONIA 15 Assessment: 1. Acute Hepatitis B - clinically improving 2. Abnormal LFTs - 2/2 #1 Plan: 1. ADAT 2. Close monitoring of LFTs at least weekly 3. Hep B DNA pending 4. Repeat hepatitis studies in 3 to 6 months to see if clears virus. * Mariann Ramos RN - 02/19/2019 6:26 PM EDT Upon entering patients room for hourly rounding patients IV was disconnected and patient was found walking back down the zhao from being outside for a smoke. I explained to patient she cannot leaveour floor due to having IV in arm and for being under our care for acute pain. Patient understood and stated she would not leave the floor. Patients night nurse will be notified of this. documented in this encounter Assessments Diagnosis Cholecystitis- Primary Cholecystitis, unspecified Transaminitis Nonspecific elevation of levels of transaminase or lactic acid dehydrogenase (LDH) Hyperbilirubinemia Disorders of bilirubin excretion Renal cyst, right Unspecified congenital cystic kidney disease Reason for Referral Specialty Diagnoses / Procedures Referred By Susannah rodriguez Referred To Contact MR IMAGING Diagnoses Nonruptured cerebral aneurysm Procedures MRA BRAIN WO IVCON MRA, HEAD W/O CONTRAST Chely Bardales MD [address] [place] [address] Mr Imaging Referral ID Status Reason Start Date Expiration Date Visits Requested Visits Authorized Waiting for Response Auto-Genera olivia Referral Patient Cleared - Admin/Chair man/Directo r advise to proceed 01/04/2021 02/03/2022 1 1 Specialty Diagnoses / Procedures Referred By Contac t Referred To Contact MR IMAGING Diagnoses Benign neoplasm of pituitary gland (HCC) Procedures MRI BRAIN WO/W IVCON MRI BRAIN COMBO Chely Bardales MD [address] [place], [place] [address] [place] [address] Mr Imaging Referral ID Status Reason Start Date Expiration Date Visits Requested Visits Authorized [id number] Waiting for Response Auto-Genera olivia Referral Patient Cleared - Admin/Chair man/Directo r advise to proceed 01/04/2021 02/03/2022 1 1 Specialty Diagnoses / Procedures Referred By Contac t Referred To Contact MR IMAGING Diagnoses Family history of ischemic heart disease and other diseases of the circulatory system Procedures MRA BRAIN WO IVCON MRA, HEAD W/O CONTRAST Chely Bardales MD [address] [place], [place] [address]deepak [place] [address] Mr Imaging Referral ID Status Reason Start Date Expiration Date Visits Requested Visits Authorized [id number] Pending Review Auto-Generat ed Referral 02/04/2022 03/06/2023 1 1 Specialty Diagnoses / Procedures Referred By Contac t Referred To Contact MR IMAGING Diagnoses Chiari I malformation (HCC) Pituitary adenoma (HCC) Procedures MRI BRAIN WO/W IVCON MRI BRAIN BRAIN STEM W/O W/CONTRAST MATERIAL Chely Bardales MD [address] [place] [id number] Mr Imaging Referral ID Status Reason Start Date Expiration Date Visits Requested Visits Authorized [id number] Pending Review Auto-Generat ed Referral 02/04/2022 03/06/2023 1 1 Specialty Diagnoses / Procedures Referred By Contac t Referred To Contact Pain Management Diagnoses Spinal stenosis of cervical region Neck pain Procedures CONSULT TO PAIN MGT Chely Bardales MD [address] [place], [place] [address] [address] Referral ID Status Reason Start Date Expiration Date Visits Requested Visits Authorized [id number] Ref Not Required PCP Requested Referral 05/20/2022 05/20/2023 1 1 Specialty Diagnoses / Procedures Referred By Contac t Referred To Contact MR IMAGING Diagnoses Spinal stenosis of cervical region Procedures MRI CERVICAL SPINE WO IVCON MRI SPINAL CANAL CERVICAL W/O CONTRAST Chely Powers [facility] [address] [facility] [place] [address] Mr Imaging Referral ID Status Reason Start Date Expiration Date Visits Requested Visits Authorized [id number] Pending Review Auto-Generat ed Referral 05/20/2022 06/19/2023 1 1 Specialty Diagnoses / Procedures Referred By Contac t Referred To Contact [facility] Diagnoses Spinal stenosis of cervical region Procedures CONSULT TO PHYSICAL THERAPY PHYSICAL THERAPY EVALUATION HIGH COMPLEX 45 MINS Chely Bardales MD [address] [facility] [place] [address] [facility] [place] [address] [place] [address] Referral ID Status Reason Start Date Expiration Date Visits Requested Visits Authorized [id number] Pending Review Auto-Generat ed Referral 05/20/2022 05/20/2023 1 1 Specialty Diagnoses / Procedures Referred By Contac t Referred To Contact MR IMAGING Diagnoses Spinal stenosis of cervical region Procedures MRI CERVICAL SPINE WO IVCON MRI SPINAL CANAL CERVICAL W/O CONTRAST Chely Powers MD [address] [place] [address] Mr Imaging [id number] Referral ID Status Reason Start Date Expiration Date V isits Requested Visits Authorized [id number] Closed Auto-Generate d Referral 05/20/2022 06/19/2023 1 1 Specialty Diagnoses / Procedures Referred By Contac t Referred To Contact Neurosurgery Diagnoses Nonruptured cerebral aneurysm Procedures CONSULT TO NEUROSURGERY Chely Bardales MD [address] [facility] [place] [address] Shu Winn MD [address] [facility] [place] [address] Referral ID Status Reason Start Date Expiration Date Visits Requested Visits Authorized [id number] Ref Not Required PCP Requested Referral 08/19/2023 08/18/2024 1 1 Chief Complaint and Reason for Visit Chief Complaint GALLBLADDER PROBLEM GALLBLADDER PROBLEM GALLBLADDER PROBLEM Reason for Visit Gallbladder attack Right upper quadrant abdominal pain Chief Complaint GALLBLADDER PROBLEM GALLBLADDER PROBLEM GALLBLADDER PROBLEM RUQ PAIN GALLBLADDER Reason for Visit Gallbladder attack Right upper quadrant abdominal pain Biliary dyskinesia Chief Complaint GALLBLADDER PROBLEM GALLBLADDER PROBLEM GALLBLADDER PROBLEM RUQ PAIN GALLBLADDER Laparoscopic, Cholecystectomy with Laparoscopic, Cholecystectomy with Reason for Visit Gallbladder attack Right upper quadrant abdominal pain Biliary dyskinesia Additional Source Comments INFORMATION SOURCE (unrecogn ized section and content) DATE CREATED AUTHOR 10/23/2017 [facility] [employer] DATE CREATED AUTHOR AUTHOR'S ORGANIZ ATION 06/27/2019 [facility] [employer] DATE CREATED AUTHOR AUTHOR'S ORGANIZ ATION 02/11/2021 [facility] DATE CREATED AUTHOR AUTHOR'S ORGANIZ ATION 08/20/2023 [facility] DATE CREATED AUTHOR AUTHOR'S ORGANIZ ATION 01/26/2024 [facility] DATE CREATED AUTHOR AUTHOR'S ORGANIZ ATION 05/21/2024 [facility] DATE CREATED AUTHOR AUTHOR'S ORGANIZ ATION 12/23/2024 [facility] Reason for Visit (unrecogniz ed section and content) Reason Comments Abdominal Pain Nausea Reason Comments Pituitary Problem tumor Follow Up Reason Comments Patient Question Specialty Diagnoses / Procedures Referred By Contac t Referred To Contact MR IMAGING Diagnoses Benign neoplasm of pituitary gland (HCC) Procedures MRI BRAIN WO/W IVCON MRI BRAIN COMBO Chely Bardales MD [address] [place] [address] Mr Imaging Referral ID Status Reason Start Date Expiration Date Visits Requested Visits Authorized [id number] Waiting for Response Auto-Genera olivia Referral Patient Cleared - Admin/Chair man/Directo r advise to proceed 01/04/2021 02/03/2022 1 1 Reason Comments Abstract Chart update Reason Comments Established Patient Specialty Diagnoses / Procedures Referred By Contac t Referred To Contact Neurosurgery / NEUROSURGERY Diagnoses MRI/MRA follow-up Procedures PHYS/QHP TELEPHONE EVALUATION 5-10 MIN VIDEO SPEC EST Self Chely Bardales MD [address] [place] [address] Referral ID Status Reason Start Date Expiration Date Visits Re quested Visits Authorized [id number] Closed 05/05/2021 05/04/2022 1 1 Reason Comments Appointment Reason Comments Established Patient Reason Comments Appointment Reason Comments Pain, Throat Pt reported throat, ear pain x3 days. Reason Comments Pituitary Problem Follow Up Reason Comments Pain Lowe back pain, feve r started this morning Reason Comments Ear Pain Right ear x 2 days Specialty Diagnoses / Procedures Referred By Contac t Referred To Contact MR IMAGING Diagnoses Spinal stenosis of cervical region Procedures MRI CERVICAL SPINE WO IVCON MRI SPINAL CANAL CERVICAL W/O CONTRAST MATRL Chely Bardales MD [address] [place], [place] [address] [place] [address] Mr Imaging [id number] Referral ID Status Reason Start Date Expiration Date V isits Requested Visits Authorized [id number] Closed Auto-Generate d Referral 05/20/2022 06/19/2023 1 1 Reason Comments Ear Pain L ear pain x today Specialty Diagnoses / Procedures Referred By Contac t Referred To Contact MR IMAGING Diagnoses Pituitary adenoma (HCC) Procedures MRI BRAIN WO/W IVCON MRI BRAIN BRAIN STEM W/O W/CONTRAST MATERIAL Chely Bardales MD [address] [place] [address] [place] [address] Referral ID Status Reason Start Date Expiration Date V isits Requested Visits Authorized [id number] Closed Auto-Generate d Referral 07/22/2023 08/20/2024 1 1 Specialty Diagnoses / Procedures Referred By Contac t Referred To Contact MR IMAGING Diagnoses Nonruptured cerebral aneurysm Procedures MRA BRAIN WO IVCON MRA, HEAD W/O CONTRAST Chely Bardales MD [address] [facility] [place] [address] [place] [id number] Referral ID Status Reason Start Date Expiration Date V isits Requested Visits Authorized [id number] Closed Auto-Generate d Referral 07/22/2023 08/20/2024 1 1 Reason Comments Established Patient Reason Comments right index finger pain X 1 day-cannot r ecall an injury Reason Comments Cough Cough, congestion an d chest pressure x 3 days and sinus issues x 1 day Source Comments (unrecognize d section and content) In the event this informatio n is protected by the Federal Confidentiality of Alcohol and Drug Abuse Patient Records regulations: The Federal rules restrict any use of the information to criminally investigate or prosecute any alcohol or drug abuse patient.[facility] the event this information is protected by the Federal Confidentiality of Alcohol and Drug Abuse Patient Records regulations: The Federal rules restrict any use of the information to criminally investigate or prosecute any alcohol or drug abuse patient.[facility] System[facility] the event this information is protected by the Federal Confidentiality of Alcohol and Drug Abuse Patient Records regulations: The Federal rules restrict any use of the information to criminally investigate or prosecute any alcohol or drug abuse patient.[facility] System[facility] the event this information is protected by the Federal Confidentiality of Alcohol and Drug Abuse Patient Records regulations: The Federal rules restrict any use of the information to criminally investigate or prosecute any alcohol or drug abuse patient.[facility] System[facility] the event this information is protected by the Federal Confidentiality of Alcohol and Drug Abuse Patient Records regulations: The Federal rules restrict any use of the information to criminally investigate or prosecute any alcohol or drug abuse patient.[facility] System[facility] the event this information is protected by the Federal Confidentiality of Alcohol and Drug Abuse Patient Records regulations: The Federal rules restrict any use of the information to criminally investigate or prosecute any alcohol or drug abuse patient.[facility] System[facility] the event this information is protected by the Federal Confidentiality of Alcohol and Drug Abuse Patient Records regulations: The Federal rules restrict any use of the information to criminally investigate or prosecute any alcohol or drug abuse patient.[facility] System[facility] the event this information is protected by the Federal Confidentiality of Alcohol and Drug Abuse Patient Records regulations: The Federal rules restrict any use of the information to criminally investigate or prosecute any alcohol or drug abuse patient.[facility] System[facility] the event this information is protected by the Federal Confidentiality of Alcohol and Drug Abuse Patient Records regulations: The Federal rules restrict any use of the information to criminally investigate or prosecute any alcohol or drug abuse patient.[facility] System[facility] the event this information is protected by the Federal Confidentiality of Alcohol and Drug Abuse Patient Records regulations: The Federal rules restrict any use of the information to criminally investigate or prosecute any alcohol or drug abuse patient.[facility] System[facility] the event this information is protected by the Federal Confidentiality of Alcohol and Drug Abuse Patient Records regulations: The Federal rules restrict any use of the information to criminally investigate or prosecute any alcohol or drug abuse patient.[facility] System[facility] the event this information is protected by the Federal Confidentiality of Alcohol and Drug Abuse Patient Records regulations: The Federal rules restrict any use of the information to criminally investigate or prosecute any alcohol or drug abuse patient.[facility] System[facility] the event this information is protected by the Federal Confidentiality of Alcohol and Drug Abuse Patient Records regulations: The Federal rules restrict any use of the information to criminally investigate or prosecute any alcohol or drug abuse patient.[facility] SystemIn the event this information is protected by the Federal Confidentiality of Alcohol and Drug Abuse Patient Records regulations: The Federal rules restrict any use of the information to criminally investigate or prosecute any alcohol or drug abuse patient.[facility] SystemIn the event this information is protected by the Federal Confidentiality of Alcohol and Drug Abuse Patient Records regulations: The Federal rules restrict any use of the information to criminally investigate or prosecute any alcohol or drug abuse patient.[facility] SystemIn the event this information is protected by the Federal Confidentiality of Alcohol and Drug Abuse Patient Records regulations: The Federal rules restrict any use of the information to criminally investigate or prosecute any alcohol or drug abuse patient.[facility] SystemIn the event this information is protected by the Federal Confidentiality of Alcohol and Drug Abuse Patient Records regulations: The Federal rules restrict any use of the information to criminally investigate or prosecute any alcohol or drug abuse patient.[facility] SystemIn the event this information is protected by the Federal Confidentiality of Alcohol and Drug Abuse Patient Records regulations: The Federal rules restrict any use of the information to criminally investigate or prosecute any alcohol or drug abuse patient.[facility] SystemIn the event this information is protected by the Federal Confidentiality of Alcohol and Drug Abuse Patient Records regulations: The Federal rules restrict any use of the information to criminally investigate or prosecute any alcohol or drug abuse patient.[facility] SystemIn the event this information is protected by the Federal Confidentiality of Alcohol and Drug Abuse Patient Records regulations: The Federal rules restrict any use of the information to criminally investigate or prosecute any alcohol or drug abuse patient.[facility] SystemIn the event this information is protected by the Federal Confidentiality of Alcohol and Drug Abuse Patient Records regulations: The Federal rules restrict any use of the information to criminally investigate or prosecute any alcohol or drug abuse patient.[facility] SystemIn the event this information is protected by the Federal Confidentiality of Alcohol and Drug Abuse Patient Records regulations: The Federal rules restrict any use of the information to criminally investigate or prosecute any alcohol or drug abuse patient.[facility] SystemIn the event this information is protected by the Federal Confidentiality of Alcohol and Drug Abuse Patient Records regulations: The Federal rules restrict any use of the information to criminally investigate or prosecute any alcohol or drug abuse patient.[facility] Teams (unrecognized sec tion and content) Graphics Coordinator Relationship Specialty Start Date End Date [place], Axxkristy [address] [address] PCP - General 09/11/17 Graphics Coordinator Relationship Specialty Start Date End Date [place], Axxess Isauro [address] [address] PCP - General 09/11/17 Graphics Coordinator Relationship Specialty Start Date End Date [place], Axxkristy [address] [address] PCP - General 09/11/17 Graphics Coordinator Relationship Specialty Start Date End Date [place], Axxess Isauro [address] [address] PCP - General 09/11/17 Graphics Coordinator Relationship Specialty Start Date End Date [place], Axxess Isauro [address] [address] PCP - General 09/11/17 Graphics Coordinator Relationship Specialty Start Date End Date [place], Axxess [address] [address] PCP - General 09/11/17 Graphics Coordinator Relationship Specialty Start Date End Date [place], Axxess Isauro [address] [address] PCP - General 09/11/17 Graphics Coordinator Relationship Specialty Start Date End Date [place], Axxess [address] [address] PCP - General 09/11/17 Graphics Coordinator Relationship Specialty Start Date End Date [place], Axxess [address] [address] PCP - General 09/11/17 Graphics Coordinator Relationship Specialty Start Date End Date [place], Axxess [address] [address] PCP - General 09/11/17 Graphics Coordinator Relationship Specialty Start Date End Date [place], Axxess [address] [address] PCP - General 09/11/17 Team Status: Active Member Role Status Dates No Primary Care Physician Primary Care Provider Active Team Status: Active Member Role Status Dates No Primary Care Physician Primary Care Provider Active Dr. Cliff De La O DO Emergency Provider Active Dr. Risa Velasquez MD Admit Provider, Other Provider A ctive Dr. Rodger El , Attending Provider Active Team Status: Active Member Role Status Dates No Primary Care Physician Primary Care Provider Active Dr. Cliff De La O DO Emergency Provider Active Dr. Risa Velasquez MD Admit Provider, At tending Provider, Other Provider Active Team Status: Inactive Member Role Status Dates No Primary Care Physician Primary Care Provider Active Dr. Cliff De La O DO Emergency Provider Active Dr. Risa Velasquez MD Admit Provider, Attending Provid er Active Team Status: Inactive Member Role Status Dates No Primary Care Physician Primary Care Provider, Refer ring Provider Active Dr. Ramon Turcios MD Attending Provider Active Team Status: Inactive Member Role Status Dates Dr. Rodger El , Attending Provider, Referring Provider Active No Primary Care Physician Primary Care Provider Active Team Status: Active Member Role Status Dates No Primary Care Physician Primary Care Provider Active Dr. Ramon Turcios MD Attending Pr ovider, Referring Provider, Other Provider Active Team Status: Inactive Member Role Status Dates No Primary Care Physician Primary Care Provider Active Dr. Ramon Turcios MD Attending Provider, Referr ing Provider Active Graphics Coordinator Relationship Specialty Start Date End Date Po[place], Axxess [address] [place] [address] PCP - General 09/11/17 01/30/23 Graphics Coordinator Relationship Specialty Start Date End Date [place] [address] [address] PCP - General 09/11/17 01/30/23 FOR RECORDS PERTAINING TO PATIENTS WHO ARE OR HAVE BEEN ENROLLED IN A CHEMICAL DEPENDENCY/SUBSTANCEABUSE PROGRAM, SOME INFORMATION MAY BE OMITTED. This clinical summary was aggregated from multiple sources. Caution should be exercised in using it in the provision of clinical care. This summary normalizes information from multiple sources, and as a consequence, information in this document may materially change the coding, format and clinical context of patient data. In addition, data may be omitted in some cases. CLINICAL DECISIONS SHOULD BE BASED ON THE PRIMARY CLINICAL RECORDS. [facility] [employer] provides no warranty or guarantee of the accuracy or completeness of information in this document.
[2025-03-25 19:42] LABS: Hematocrit 37.9 % (37-47); Hemoglobin 13.1 g/dL (12.0-15.0); Immature Granulocytes Count 0.020 X10^3/uL (0.0-0.0); Mean Corp Hgb Conc 34.6 g/dL (32-36); Mean Corpuscular Volume 90.0 fL (81-99); Mean Platelet Vol. 12.0 fl (6.2-12.0); NRBC Flagged by Analyzer 0 % (0-5); Platelet Count 173 K/mm3 (150-450); RBC Distribution Width CV 12.7 % (11.6-14.6); RBC Distribution Width SD 41.3 fl (35.1-43.9); Red Blood Count 4.21 M/mm3 (4.2-5.4); White Blood Count 10.0 K/mm3 (4.4-11.0)
--- NOTE | 2025-03-25 20:05 | CM.ED ---
Social work Reason for referral: no PCP/no insurance Referral source: case find SW entered patient's room, introducing self and role at [facility]. Patient accepted SW visit and confirmed lack of PCP, but patient stated having new insurance through a new job. Patient stated not knowing which insurance it was and not having the card on patient. Patient accepted resources of [facility] Provider Directory and Fullscreen information. Patient denied further resources at this time. Leslie Sotelo, SUPERVISOR HOUSECLEANER, POWER PLANT OPERATOR
[2025-03-25 20:10] LABS: Anion Gap 11 (5-15); BUN 9 mg/dL (4-19); BUN/Creat Ratio 11.6 RATIO (10-20); Calcium,Total 9.0 mg/dL (7.6-11.0); Carbon Dioxide 24.6 mmol/L (21.0-32.0); Chloride 108 mmol/L (98-108); Estimated Creatinine Clearance 107.59 ml/min (50-250); Glucose 94 mg/dL (70-99); Potassium 3.4 mmol/L (3.3-5.1)
== END 2025-03-25 22:14 | disposition home or self-care (01) ==
PROVIDERS: Emergency Provider Emergency Medicine; Visit Provider Emergency Medicine
DX: J06.9 Acute upper respiratory infection, unspecified (principal); K21.9 Gastro-esophageal reflux disease without esophagitis; F17.200 Nicotine dependence, unspecified, uncomplicated
CPT/HCPCS: 71046; 80048; 85025; 87631; 94640; 94760; 99283